=== PATIENT | female | born 1940 | race Hispanic/Latino ===

== ENCOUNTER 2019-11-14 21:34 | Emergency (ER) | payer OTHER ==
[2019-11-14 22:41] LABS: Protime INR 1.01
[2019-11-14 22:42] LABS: Absolute Lymphocytes (CBC) 3.3 K/uL (0.7-4.9); Hematocrit 39.3 % (36.0-45.0); Lymphocytes % 49.4 % (15.3-44.8); MPV 9.3 fL (7.6-11.3); RBC Red Blood Cell Count 4.78 M/uL (3.86-4.86)
[2019-11-14] MEDS ORDERED: MECLIZINE HCL 12.5 MG TAB ONE (22:48)
[2019-11-14 23:00] LABS: ALT/SGPT 19 U/L (12-78); AST/SGOT 20 U/L (15-37); Albumin 3.4 g/dL (3.4-5.0); Alkaline Phosphatase 106 U/L (45-117); BUN Blood Urea Nitrogen 17 mg/dL (7-18); Bicarbonate 24 mmol/L (21-32); Bilirubin Direct 0.1 mg/dL (0-0.2); Bilirubin Total 0.3 mg/dL (0.2-1.0); Glucose Level 100 mg/dL (74-106); NT PRO-BNP 811 pg/mL (<450); Potassium 3.3 mmol/L (3.5-5.1); Protein, Total 8.4 g/dL (6.4-8.2); Sodium Level 141 mmol/L (136-145); Troponin (Emerg Dept Use Only) < 0.02 ng/mL (0.0-0.045)
--- NOTE | 2019-11-14 23:08 | RAD REPORT ---
EXAM DESCRIPTION: Gino Single View11/14/2019 10:22 pm CLINICAL HISTORY: Chest pain COMPARISON: 2017 FINDINGS: The lungs appear clear of acute infiltrate. The heart is mildly to moderately enlarged IMPRESSION: No acute abnormalities displayed
--- NOTE | 2019-11-14 23:20 | RAD REPORT ---
EXAM DESCRIPTION: CT - Ct Stroke Brain Wo Cont - 11/14/2019 10:20 pm CLINICAL HISTORY: DIZZINESS COMPARISON: Head Brain Wo Cont dated 05/14/2017 TECHNIQUE: Axial 5 millimeter thick images of the head were obtained without IV contrast. All CT scans are performed using dose optimization technique as appropriate and may include automated exposure control or mA/KV adjustment according to patient size. FINDINGS: No intracranial hemorrhage, mass, or cerebral edema. No acute infarction identifiable. No cortical edema or sulcal effacement. Minimal atrophy and chronic ischemic changes match comparison. G ray matter-white matter differentiation is preserved.Ventricles are in proportion to any volume loss. Intracranial findings are similar to comparison. Mastoid air cells are clear. Left-sided acute sinusitis changes are present. Retention cyst present i n the right maxillary sinus. Findings telephoned to the referring clinician 11:13 p.m., immediately after being notified about a t echnical malfunction with the [employer] service. IMPRESSION: No hemorrhage or acute intracranial finding. Minimal atrophy and chronic ischemic changes match comparison. Acute sinusitis in the frontal, ethmoid and maxillary sinuses on the left.
[2019-11-14] MEDS ORDERED: DIPHENHYDRAMINE 50 MG/ML VIAL ONE (23:50)
[2019-11-14] MEDS ORDERED: ACETAMINOPHEN 325 MG TABLET ONE (23:50)
[2019-11-15] MEDS ORDERED: ASPIRIN 81 MG CHEWABLE TABLET ONE (00:53)
[2019-11-15] MEDS ORDERED: NA CHLORIDE 0.9% 1,000 ML ONE (00:53)
[2019-11-15] MEDS ORDERED: FOLIC ACID 5 MG/ML VIAL ONE (00:55)
[2019-11-15] MEDS ORDERED: CEFTRIAXONE/SWI 1gm 1 GM/10 ML SYR ONE (00:55)
--- NOTE | 2019-11-15 01:50 | RAD REPORT ---
EXAM DESCRIPTION: CT - Neck Angio - 11/15/2019 12:03 am CLINICAL HISTORY: dizziness TECHNIQUE: During dynamic enhancement using nonionic IV contrast, axial 2 mm thick images of the nec k were obtained. Sagittal and axial reconstruction images were generated using MIP technique and revi ewed. All CT scans are performed using dose optimization technique as appropriate and may include automated exposure control or mA/KV adjustment according to patient size. COMPARISON: CT imaging April 2017, May 2016 ; MRI imaging November 1015 FINDINGS: No aneurysm or vascular malformation identified. No carotid dissection. No aortic arch or great vessel origin abnormality seen. No significant stenosis, vasculitis or other significant carotid artery finding. A dominant left vertebral artery is present with normal origin. The right vertebral artery is substan tially smaller than the left. There is irregular narrowing seen at multiple sites along the course of the right vertebral artery from origin to the junction with the basilar artery. Comparing with the p rior imaging, right vertebral artery is smaller in size than previously seen. In the clinical settin g, right vertebral artery dissection is suspected. Atherosclerotic change as an etiology would be unl ikely given the absence of any other significant disease. Due to technical malfunction, images could not be sent to the [employer] service. Imaging was only now available for report. Findings telephoned to the referring physician 0147 hours. IMPRESSION: Narrowed and irregular right vertebral artery suspicious for dissection. Bilateral carotid vasculature in the left vertebral artery show no significant finding.
--- NOTE | 2019-11-15 01:52 | RAD REPORT ---
EXAM DESCRIPTION: CT - Head angio - 11/15/2019 12:03 am CLINICAL HISTORY: DIZZINESS TECHNIQUE: During dynamic enhancement using nonionic IV contrast, axial 1 millimeter thick images of the head were obtained. Sagittal and axial reconstruction images were generated using MIP technique and reviewed. All CT scans are performed using dose optimization technique as appropriate and may include automated exposure control or mA/KV adjustment according to patient size. COMPARISON: CT head same date FINDINGS: No aneurysm or vascular malformation identified. Distal left vertebral artery and basilar artery are normal. Right vertebral artery is detailed in CTA examination. Major venous sinuses are patent. No stenosis, named branch occlusion, vasculitis or other significant vascular finding identifiable. IMPRESSION: Negative CT angio head examination. Right vertebral artery finding is detailed in the C TA neck report.
--- NOTE | 2019-11-15 02:06 | EDPHYS ---
Physician Documentation [facility] Name: Lawanda Sharp Age: 79 yrs Sex: Female : 1940 Arrival Date: 11/14/2019 Time: 21:37 Bed 5 Private MD: Jose Strong R ED Physician Destin Cooley HPI: 11/13 21:53 This 79 yrs old Female presents to ER via Ambulatory with complaints of jmm Dizziness, Runny Nose. 21:53 The patient presents with dizziness. Onset: The symptoms/episode began/occurred jmm acutely, 2 hour(s) ago. Modifying factors: The symptoms are alleviated by nothing, the symptoms are aggravated by movement of head, standing up, walking. Associated signs and symptoms: Pertinent negatives:. This is a 79 year old female with a history of htn that presents to the ED with complaints of dizziness beginning approx 2 hours ago. Worsened with walking and changing position. Denies vomiting. Patient has had sinus congestion for the past 2 days. Denies fever. . Historical: - Allergies: 21:37 NKDA; jb4 - Home Meds: 21:37 Lisinopril Oral [Active]; jb4 - PMHx: 21:37 Hypertension; jb4 - PSHx: 21:37 Hysterectomy; jb4 - Immunization history:: Adult Immunizations not up to date. - Social history:: Smoking status: Patient denies any tobacco usage or history of. Patient/guardian denies using alcohol, street drugs. ROS: 21:53 Constitutional: Negative for fever, chills, and weight loss, Cardiovascular: Negative jmm for chest pain, palpitations, and edema, Respiratory: Negative for shortness of breath, cough, wheezing, and pleuritic chest pain. 21:53 ENT: Positive for sinus congestion. 21:53 Neuro: Positive for dizziness. 21:53 All other systems are negative. Exam: 21:53 Constitutional: This is a well developed, well nourished patient who is awake, alert, jmm and in no acute distress. Head/Face: atraumatic. 21:53 ENT: Moist Mucus Membranes Neck: Trachea midline, Supple Chest/axilla: Normal chest wall appearance and motion. Cardiovascular: Regular rate and rhythm. No edema appreciated Respiratory: Normal respirations, no respiratory distress appreciated Abdomen/GI: Non distended, soft Back: Normal ROM Skin: General appearance color normal MS/ Extremity: Moves all extremities, no obvious deformities appreciated, no edema noted to the lower extremities 21:53 Eyes: Nystagmus: horizontal. 21:53 Neuro: Orientation: is normal, Mentation: is normal, Memory: is normal, Cerebellar function: normal finger to nose testing. 21:53 Psych: Behavior/mood is pleasant, cooperative. Vital Signs: 21:37 BP 173 / 96; Pulse 72; Resp 18; Temp 97.4(TE); Pulse Ox 100% on R/A; Weight 72.57 kg jb4 (R); Height 5 ft. 1 in. (154.94 cm) (R); Pain 0/10; 22:56 BP 148 / 78; Pulse 86; Resp 17; Pulse Ox 97% on R/A; jb4 11/14 00:00 BP 139 / 98; Pulse 85; Resp 19; Pulse Ox 99% on R/A; jb4 01:15 BP 161 / 87; Pulse 72; Resp 16; Pulse Ox 99% on R/A; jb4 01:45 BP 174 / 92; Pulse 83; Resp 16; Pulse Ox 100% ; jb4 03:15 BP 130 / 88; Pulse 84; Resp 16; Pulse Ox 97% on R/A; jb4 04:15 BP 140 / 84; Pulse 81; Resp 16; Pulse Ox 98% on R/A; jb4 11/13 21:37 Body Mass Index 30.23 (72.57 kg, 154.94 cm) jb4 NIH Stroke Scale Scores: 11/13 22:11 NIHSS Score: 0 4 MDM: 21:53 Patient medically screened. [facility] 11/14 02:01 Data reviewed: vital signs, nurses notes. Counseling: I had a detailed discussion with yancy the patient and/or guardian regarding: the historical points, exam findings, and any diagnostic results supporting the discharge/admit diagnosis, lab results, radiology results, the need for outpatient follow up, to return to the emergency department if symptoms worsen or persist or if there are any questions or concerns that arise at home. ED course: Dizziness has resolved in the ED. Patient states she feels much better. I discussed CT angio and non contrast studies with Dr. Freed at [facility] concerning results concerning for artery dissection whom recommends outpatient follow up with MRI. . 02:48 ED course: i discussed the patient with [facility] whom accepted transfer. . [facility] 11/13 22:04 Order name: Basic Metabolic Panel; Complete Time: 23:08 [facility] 11/13 22:04 Order name: CBC with Diff; Complete Time: 22:53 [facility] 11/13 22:04 Order name: LFT's; Complete Time: 23:08 [facility] 11/13 22:04 Order name: Magnesium; Complete Time: 23:08 [facility] 11/13 22:04 Order name: NT PRO-BNP; Complete Time: 23:08 [facility] 11/13 22:04 Order name: PT-INR; Complete Time: :53 [facility] 11/13 22:04 Order name: Troponin (emerg Dept Use Only); Complete Time: 23:08 [facility] 11/13 22:04 Order name: XRAY Chest (1 view); Complete Time: 23:15 [facility] 11/13 22:04 Order name: CT Stroke Brain w/o Contrast; Complete Time: 23:28 [facility] 11/13 22:05 Order name: CT Head Angio; Complete Time: 01:59 [facility] 11/13 22:05 Order name: CT Neck Angio; Complete Time: 01:53 [facility] 11/13 22:21 Order name: Glucose, Ancillary Testing; Complete Time: 22:22 [facility] 11/13 22:04 Order name: EKG; Complete Time: 22:05 [facility] 11/13 22:04 Order name: Cardiac monitoring; Complete Time: 22:32 [facility] 11/13 22:04 Order name: EKG - Nurse/Tech; Complete Time: 22:32 [facility] 11/13 22:04 Order name: IV Saline Lock; Complete Time: 22:32 [facility] 11/13 22:04 Order name: Labs collected and sent; Complete Time: 22:32 [facility] 11/13 22:04 Order name: O2 Per Protocol; Complete Time: 22:32 [facility] 11/13 22:04 Order name: O2 Sat Monitoring; Complete Time: 22:32 [facility] Administered Medications: 11/13 22:47 Drug: Meclizine 25 mg Route: PO; 4 23:40 Follow up: Response: No adverse reaction; No change in condition [facility] 23:50 Drug: Benadryl 12.5 mg Route: IVP; Site: right antecubital; jb4 11/14 00:20 Follow up: Response: No adverse reaction [facility] 11/13 23:50 Drug: Tylenol 650 mg Route: PO; 4 11/14 00:20 Follow up: Response: No adverse reaction; Pain is decreased jb4 00:55 Drug: Rocephin - (cefTRIAXone) 1 grams {Note: Given IVP per pharmacy protocol.} Route: jb4 IVPB; Infused Over: 30 mins; Site: right antecubital; 00:57 Follow up: Response: No adverse reaction; IV Status: Completed infusion; IV Intake: [id number] 01:00 Follow up: Response: No adverse reaction; IV Status: Completed infusion; IV Intake: [id number] 01:00 Drug: NS 0.9% 1000 ml Route: IV; Rate: 1 bolus; Site: right antecubital; jb4 01:45 Follow up: Response: No adverse reaction; IV Status: Completed infusion; IV Intake: jb4 1000ml 01:00 Drug: foLIC Acid 1 mg Route: IVPB; Site: right antecubital; jb4 01:45 Follow up: Response: No adverse reaction; IV Status: Completed infusion jb4 01:00 Drug: Aspirin Chewable Tablet 324 mg Route: PO; jb4 01:30 Follow up: Response: No adverse reaction [facility] Point of Care Testing: Blood Glucose: 11/13 22:09 Blood Glucose: 100 mg/dL; [facility] Ranges: Critical Glucose Levels:Adult <50 mg/dl or >400 mg/dl <40 mg/dl or >180 mg/dl Disposition: 11/15/19 02:51 Transfer ordered to [facility]. Diagnosis are Dizziness and giddiness, Acute frontal sinusitis, Dissection of vertebral artery. - Reason for transfer: Higher level of care. - Accepting physician is [facility]. - Condition is Stable. - Problem is new. - Symptoms have improved. NIH Stroke Scale - NIH Stroke Score Date: 11/14/2019 Time: 22:11 Total Score = 0 1a. Level of Consciousness (LOC) - 0(Alert) 1b. Level of Consciousness (LOC) (Year \T\ Age) - 0(Both) 1c. LOC Commands (Open \T\ Closes Eyes/High School Music Teacher) - 0(Both) 2. Best Gaze (Lateral Gaze Paresis) - 0(Normal) 3. Visual Field Loss - 0(No visual loss) 4. Facial Palsy - 0(Normal) 5a. Left Arm: Motor (10-second hold) - 0(No drift) 5b. Right Arm: Motor (10-second hold) - 0(No drift) 6a. Left Leg: Motor (5-second hold - always test supine) - 0(No drift) 6b. Right Leg: Motor (5-second hold - always test supine) - 0(No drift) 7. Limb Ataxia (finger/nose \T\ heel/ca - test with eyes open) - 0(Absent) 8. Sensory Loss (pinprick arms/legs/face) - 0(Normal) 9. Best Language: Aphasia (description/naming/reading) - 0(No aphasia) 10. Dysarthria (speech clarity - read or repeat words) - 0(Normal) 11. Extinction and Inattention (visual/tactile/auditory/spatial/personal) - 0(No abnormality) Initials: [place] Addendum: 11/16/2019 18:04 Co-signature as Attending Physician, Destin Cooley MD I agree with the [facility] assessment and plan of care. Signatures: Dispatcher [employer] [facility] Destin Cooley MD MD cha Mickail, Joel, PA PA [facility] Carmelo Trimble, RN RN jb4 Umer George mw2 Corrections: (The following items were deleted from the chart) 11/13 22:09 22:05 Head Brain Wo [id number].[id number] ordered. [facility] 11/14 02:26 02:04 11/15/2019 02:04 Discharged to Home. Impression: Acute Sinusitis; yancy Vertigo. Condition is Stable. Forms are Medication Reconciliation Form, Thank You Letter, Antibiotic Education, Prescription Opioid Use. Follow up: Thai Emmanuel; When: 2 - 3 days; Reason: Recheck today's complaints, Continuance of care, Re-evaluation by your physician. yancy 04:25 02:51 11/15/2019 02:51 Transfer ordered to [facility]. Diagnosis mw2 is Dizziness and giddiness; Acute frontal sinusitis; Dissection of vertebral artery. Reason for transfer: Higher level of care. Accepting physician is [facility]. Condition is Stable. Problem is new. Symptoms have improved. [place]
--- NOTE | 2019-11-15 02:06 | ER ---
Nurse's Notes [facility] Name: Lawanda Sharp Age: 79 yrs Sex: Female : 1940 Arrival Date: 11/14/2019 Time: 21:37 Bed 5 Private MD: Jose Strong R Diagnosis: Dizziness and giddiness;Acute frontal sinusitis;Dissection of vertebral artery Presentation: 11/13 21:37 Chief complaint: Patient states: I started feeling dizzy 2 hours ago. I don't feel good jb4 and I feel weak all over. 21:37 Coronavirus screen: The patient has NOT traveled to a country currently being monitored jb4 by the [facility] within the last 14 days. Proceed with normal triage procedures. The patient has NOT had contact with any known and/or suspected case of coronavirus. Proceed with normal triage procedures. Ebola Screen: No symptoms or risks identified at this time. Initial Sepsis Screen: Does the patient meet any 2 criteria? No. Patient's initial sepsis screen is negative. Does the patient have a suspected source of infection? No. Patient's initial sepsis screen is negative. Risk Assessment: Do you want to hurt yourself or someone else? Patient reports no desire to harm self or others. 21:37 Method Of Arrival: Ambulatory jb4 21:37 Acuity: SANIYA 2 jb4 21:37 Onset of symptoms was November 14, 2019 at 19:30. jb4 22:05 No acute neurological deficit is noted. Pre-hospital glucose is not applicable to this jb4 patient. Triage Assessment: 21:37 The onset of the patients symptoms was less than three hours ago. Neuro: Reports. jb4 21:37 The onset of the patients symptoms was November 14, 2019 at 19:30. General: Appears in no jb4 apparent distress. uncomfortable, Behavior is calm, cooperative, appropriate for age. Neuro: Level of Consciousness is awake, alert, obeys commands, Oriented to person, place, time, situation, Chief Cook are equal bilaterally Moves all extremities. Full function Gait is steady, Speech is normal, Facial symmetry appears normal, Pupils are PERRLA, Intact Reports dizziness, since 1930 weakness "all over". Stroke Activation: Symptom onset < 3 hours Physician: Stroke Attending; Name: ; Notified At: ; Arrived At: Physician: Chief Stroke Resident; Name: ; Notified At: ; Arrived At: Physician: Stroke Resident; Name: ; Notified At: ; Arrived At: Physician: ED Attending; Name: Ole; Notified At: 22:05; Arrived At: 22:05 Physician: ED Resident; Name: ; Notified At: ; Arrived At: Historical: - Allergies: 21:37 NKDA; jb4 - Home Meds: 21:37 Lisinopril Oral [Active]; jb4 - PMHx: 21:37 Hypertension; jb4 - PSHx: 21:37 Hysterectomy; jb4 - Immunization history:: Adult Immunizations not up to date. - Social history:: Smoking status: Patient denies any tobacco usage or history of. Patient/guardian denies using alcohol, street drugs. Screenin:37 Abuse screen: Denies threats or abuse. Nutritional screening: No deficits noted. jb4 Tuberculosis screening: No symptoms or risk factors identified. Fall Risk None identified. Assessment: 21:37 General: Appears in no apparent distress. uncomfortable, Behavior is calm, cooperative, jb4 appropriate for age. Pain: Denies pain. Neuro: Level of Consciousness is awake, alert, obeys commands, Oriented to person, place, time, situation, Chief Cook are equal bilaterally Moves all extremities. Full function Gait is steady, Speech is normal, Facial symmetry appears normal, Pupils are PERRLA, Intact. Cardiovascular: Patient's skin is warm and dry. Respiratory: Airway is patent Respiratory effort is even, unlabored, Respiratory pattern is regular, symmetrical. GI: No signs and/or symptoms were reported involving the gastrointestinal system. : No signs and/or symptoms were reported regarding the genitourinary system. EENT: No signs and/or symptoms were reported regarding the EENT system. Derm: Skin is intact, Skin is pink, warm \\T\\ dry. Musculoskeletal: Circulation, motion, and sensation intact. Range of motion: intact in all extremities. 22:11 VAN Scoring: Arm Drift: Patients demonstrates NO arm weakness. Patient is VAN Negative. jb4 The patient has not been NPO before screening. The patient is alert, and able to follow commands. The patient does not exhibit slurred or garbled speech. The patient is not exhibiting difficulty speaking. The patient does not exhibit difficulty understanding words. The patient is able to swallow own secretions with no drooling or need for suction. Patient tolerated one teaspoon of water. No drooling, immediate coughing, gurgling, or clearing of the throat was noted. The patient tolerated 90mL of water. No drooling, immediate coughing, gurgling, or clearing of the throat was noted. The patient passed the bedside swallow screening. Oral medications may be given as ordered. Contact Physician for further diet orders. Provider notified of bedside swallow screening results: Vinicius CLIFFORD. 22:58 Reassessment: Patient appears in no apparent distress at this time. Patient and/or jb4 family updated on plan of care and expected duration. Pain level reassessed. Patient is alert, oriented x 3, equal unlabored respirations, skin warm/dry/pink. 23:45 Reassessment: Patient appears in no apparent distress at this time. Patient and/or jb4 family updated on plan of care and expected duration. Pain level reassessed. Patient is alert, oriented x 3, equal unlabored respirations, skin warm/dry/pink. PT reports having a headache after CT w/ contrast. Reports dizziness is the same. Provider notified, see MAR for orders. 11/14 01:00 Reassessment: Patient appears in no apparent distress at this time. Patient and/or jb4 family updated on plan of care and expected duration. Pain level reassessed. Patient is alert, oriented x 3, equal unlabored respirations, skin warm/dry/pink. PT reports feeling better, denies head pressure and dizziness. 02:00 Reassessment: Patient appears in no apparent distress at this time. PT is resting in jb4 bed with eyes closed respirations even and unlabored, no s/s or pain or distress noted. 03:03 Reassessment: Patient appears in no apparent distress at this time. Patient and/or jb4 family updated on plan of care and expected duration. Pain level reassessed. Patient is alert, oriented x 3, equal unlabored respirations, skin warm/dry/pink. 04:15 Reassessment: Patient appears in no apparent distress at this time. Patient and/or jb4 family updated on plan of care and expected duration. Pain level reassessed. Patient is alert, oriented x 3, equal unlabored respirations, skin warm/dry/pink. Pt is being transferred to receiving facility via [facility]. Vital Signs: 11/13 21:37 BP 173 / 96; Pulse 72; Resp 18; Temp 97.4(TE); Pulse Ox 100% on R/A; Weight 72.57 kg jb4 (R); Height 5 ft. 1 in. (154.94 cm) (R); Pain 0/10; 22:56 BP 148 / 78; Pulse 86; Resp 17; Pulse Ox 97% on R/A; jb4 11/14 00:00 BP 139 / 98; Pulse 85; Resp 19; Pulse Ox 99% on R/A; jb4 01:15 BP 161 / 87; Pulse 72; Resp 16; Pulse Ox 99% on R/A; jb4 01:45 BP 174 / 92; Pulse 83; Resp 16; Pulse Ox 100% ; jb4 03:15 BP 130 / 88; Pulse 84; Resp 16; Pulse Ox 97% on R/A; jb4 04:15 BP 140 / 84; Pulse 81; Resp 16; Pulse Ox 98% on R/A; jb4 11/13 21:37 Body Mass Index 30.23 (72.57 kg, 154.94 cm) jb4 NIH Stroke Scale Scores: 11/13 22:11 NIHSS Score: 0 4 ED Course: 21:37 Patient arrived in ED. es 21:37 Arm band placed on right wrist. jb4 21:37 Patient has correct armband on for positive identification. Placed in gown. Bed in low jb4 position. Call light in reach. Side rails up X 1. panel monitor on. Pulse ox on. NIBP on. 21:38 Jose Strong MD is Private Physician. es 21:48 Vinicius Handy PA is PHCP. jmm 21:48 Destin Cooley MD is Attending Physician. jmm 21:52 Carmelo Trimble, RN is Primary Nurse. jb4 21:54 Triage completed. jb4 22:20 Radiology exam delayed due to lab results not completed at this time. (BUN/Creatinine). 2 22:20 Initial lab(s) drawn, by me, sent to lab. Inserted saline lock: 20 gauge in right jb4 antecubital area, using aseptic technique. Blood collected. 22:22 XRAY Chest (1 view) In Process Unspecified. EDMS 22:22 CT Stroke Brain w/o Contrast In Process Unspecified. EDMS 11/14 00:07 CT Head Angio In Process Unspecified. EDMS 00:07 CT Neck Angio In Process Unspecified. EDMS 02:03 Thai Emmanuel MD is Referral Physician. [facility] 04:15 No provider procedures requiring assistance completed. Patient transferred, IV remains jb4 in place. Administered Medications: 11/13 22:47 Drug: Meclizine 25 mg Route: PO; jb4 23:40 Follow up: Response: No adverse reaction; No change in condition jb4 23:50 Drug: Benadryl 12.5 mg Route: IVP; Site: right antecubital; jb4 11/14 00:20 Follow up: Response: No adverse reaction jb4 11/13 23:50 Drug: Tylenol 650 mg Route: PO; jb4 11/14 00:20 Follow up: Response: No adverse reaction; Pain is decreased jb4 00:55 Drug: Rocephin - (cefTRIAXone) 1 grams {Note: Given IVP per pharmacy protocol.} Route: jb4 IVPB; Infused Over: 30 mins; Site: right antecubital; 00:57 Follow up: Response: No adverse reaction; IV Status: Completed infusion; IV Intake: [id number] 01:00 Follow up: Response: No adverse reaction; IV Status: Completed infusion; IV Intake: [id number] 01:00 Drug: NS 0.9% 1000 ml Route: IV; Rate: 1 bolus; Site: right antecubital; jb4 01:45 Follow up: Response: No adverse reaction; IV Status: Completed infusion; IV Intake: jb4 1000ml 01:00 Drug: foLIC Acid 1 mg Route: IVPB; Site: right antecubital; jb4 01:45 Follow up: Response: No adverse reaction; IV Status: Completed infusion jb4 01:00 Drug: Aspirin Chewable Tablet 324 mg Route: PO; jb4 01:30 Follow up: Response: No adverse reaction jb4 Point of Care Testing: Blood Glucose: 11/13 22:09 Blood Glucose: 100 mg/dL; jb4 Ranges: Intake: 11/14 00:57 IV: 10ml; Total: 10ml. jb4 01:00 IV: 10ml; Total: 20ml. jb4 01:45 IV: 1000ml; Total: 1020ml. jb4 Outcome: 02:04 Discharge ordered by MD. haines 02:51 ER care complete, transfer ordered by MD. haines 04:15 Transferred by ground EMS Transfer form completed. X-rays sent w/ patient. [place] 04:15 Condition: stable 04:15 Discharge instructions given to patient, Instructed on the need for transfer, Demonstrated understanding of instructions. 04:25 Patient left the ED. mw2 NIH Stroke Scale - NIH Stroke Score Date: 11/14/2019 Time: 22:11 Total Score = 0 1a. Level of Consciousness (LOC) - 0(Alert) 1b. Level of Consciousness (LOC) (Year \\T\\ Age) - 0(Both) 1c. LOC Commands (Open \\T\\ Closes Eyes/Air Saw Operator) - 0(Both) 2. Best Gaze (Lateral Gaze Paresis) - 0(Normal) 3. Visual Field Loss - 0(No visual loss) 4. Facial Palsy - 0(Normal) 5a. Left Arm: Motor (10-second hold) - 0(No drift) 5b. Right Arm: Motor (10-second hold) - 0(No drift) 6a. Left Leg: Motor (5-second hold - always test supine) - 0(No drift) 6b. Right Leg: Motor (5-second hold - always test supine) - 0(No drift) 7. Limb Ataxia (finger/nose \\T\\ heel/ca - test with eyes open) - 0(Absent) 8. Sensory Loss (pinprick arms/legs/face) - 0(Normal) 9. Best Language: Aphasia (description/naming/reading) - 0(No aphasia) 10. Dysarthria (speech clarity - read or repeat words) - 0(Normal) 11. Extinction and Inattention (visual/tactile/auditory/spatial/personal) - 0(No abnormality) Initials: jb4 Signatures: Dispatcher [employer] EDMS Vinicius Handy PA PA jmm Salyer, Edna es Bryson, James, HERSON RN jb4 Jael Santillan 2 Umer George mw2 Corrections: (The following items were deleted from the chart) 11/13 22:32 21:37 Acuity: SANIYA 4 jbLynette jbLynette 11/14 03:03 02:42 Reassessment: Patient appears in no apparent distress at this time. jb4 Patient and/or family updated on plan of care and expected duration. Pain level reassessed. Patient is alert, oriented x 3, equal unlabored respirations, skin warm/dry/pink. jb4
[2019-11-15 05:04] VITALS: TEMP 98.3
[2019-11-15 05:07] VITALS: BP 131/69; O2SAT 98
--- NOTE | 2019-11-16 09:00 | EKG ---
Test Date: 2019-11-14 Test Time: 22:40:37 Iv Rn: JOSE MEASUREMENT RESULTS: Intervals: Rate: 81 NC: 180 QRSD: 84 QT: 394 QTc: 457 [place]: P: 34 NC: 180 QRS: 7 T: 85 INTERPRETIVE STATEMENTS: Sinus rhythm with frequent premature ventricular complexes Nonspecific T wave abnormality Abnormal ECG Compared to ECG 05/15/2017 06:51:52 T-wave abnormality now present ST (T wave) deviation no longer present Possible ischemia no longer present Electronically Signed On 11-16-19 08:58:02 CDT by Austin Kirby
== END 2019-11-15 04:25 | disposition short-term general hospital (02) ==
LOC: ER 21:34
DX: J01.10 Acute frontal sinusitis, unspecified (principal); I77.74 Dissection of vertebral artery; I10 Essential (primary) hypertension
CPT/HCPCS: 96365; 93005; 85025; 80048; 36415; 83735; 85610; 82947; 80076; 84484; 83880; 70496; 70498; 70450; 71045; 96375; 99285; Q9967; J1200; J0696; J7030

== ENCOUNTER 2020-01-07 08:58 | Emergency (ER) | payer OTHER ==
--- NOTE | 2020-01-07 09:29 | ER ---
Nurse's Notes [facility] Name: Lawanda Sharp Age: 79 yrs Sex: Female : 1940 Arrival Date: 01/07/2020 Time: 09:03 Bed 23 Private MD: Jose Strong R Diagnosis: Pain in left hand Presentation: 01/06 09:18 Chief complaint: Patient states: pain to L 5th finger that began a few weeks ago after ss biting nail too short. No redness or swelling noted. Coronavirus screen: Proceed with normal triage. Patient denies a cough. Patient denies shortness of breath or difficulty breathing. Patient denies measured and/or subjective temperature greater than 100.4F prior to today's visit. Patient denies travel on a cruise ship or to a country the [facility] currently lists as an affected area. Patient denies contact with known and/or suspected case of COVID-19. Ebola Screen: Patient denies exposure to infectious person. Patient denies travel to an Ebola-affected area in the 21 days before illness onset. Initial Sepsis Screen: Does the patient meet any 2 criteria? No. Patient's initial sepsis screen is negative. Does the patient have a suspected source of infection?. Risk Assessment: Do you want to hurt yourself or someone else? Patient reports no desire to harm self or others. Onset of symptoms is unknown. 09:18 Method Of Arrival: Ambulatory ss 09:18 Acuity: SANIYA 5 ss Historical: - Allergies: 09:21 NKDA; ss - PMHx: 09:21 Hypertension; ss - PSHx: 09:21 Hysterectomy; ss - Immunization history:: Adult Immunizations up to date. - Social history:: Smoking status: Patient denies any tobacco usage or history of. Patient/guardian denies using alcohol, street drugs, The patient lives with family. - Family history:: not pertinent. Screenin:22 Abuse screen: Denies threats or abuse. Denies injuries from another. Nutritional ss screening: No deficits noted. Tuberculosis screening: Never had TB. Fall Risk None identified. Assessment: 09:18 General: Appears uncomfortable, Behavior is calm, cooperative. General: No redness or ss swelling noted. Pt reports that she perhaps bit her nail too short a few weeks ago and keeping biting it. Pt verbalizes understanding the importance of proper hand hygiene and problems that could arise if she continues to bite fingernails . Pain: Complains of pain in left little fingernail Pain currently is 7 out of 10 on a pain scale. Is continuous. Neuro: Level of Consciousness is awake, alert, obeys commands, Oriented to person, place, time, situation. Cardiovascular: Capillary refill < 3 seconds is brisk in bilateral fingers. Respiratory: Airway is patent Respiratory effort is even, unlabored, Respiratory pattern is regular, symmetrical, Denies cough, shortness of breath. EENT: Oral mucosa is moist. Derm: Skin is intact, is healthy with good turgor, Skin is pink, warm \T\ dry. normal. Vital Signs: 09:18 BP 180 / 92; Pulse 57; Resp 15; Temp 97.2(TE); Pulse Ox 98% on R/A; Weight 72.57 kg; ss Height 5 ft. 2 in. (157.48 cm); Pain 7/10; 09:18 Body Mass Index 29.26 (72.57 kg, 157.48 cm) ED Course: 09:03 Patient arrived in ED. mr 09:03 Jose Strong MD is Private Physician. mr 09:18 Tara Ortiz, HERSON is Primary Nurse. 09:20 Triage completed. 09:20 Edmund Grace MD is Attending Physician. ma2 09:22 Patient has correct armband on for positive identification. Bed in low position. Call ss light in reach. 09:22 Arm band placed on right wrist. 09:39 No provider procedures requiring assistance completed. Patient did not have IV access ss during this emergency room visit. Administered Medications: No medications were administered Outcome: 09:28 Discharge ordered by . ma2 09:39 Discharged to home ambulatory. ss 09:39 Condition: good 09:39 Discharge instructions given to patient, Instructed on discharge instructions, follow up and referral plans. medication usage, Demonstrated understanding of instructions, follow-up care, medications, Prescriptions given X 1. 09:39 Patient left the ED. Signatures: Tung Anika mr Tara Ortiz, RN RN Edmund Grace MD MD [facility]
--- NOTE | 2020-01-07 09:30 | EDPHYS ---
Physician Documentation [facility] Name: Lawanda Sharp Age: 79 yrs Sex: Female : 1940 Arrival Date: 01/07/2020 Time: 09:03 Bed 23 Private MD: Jose Strong R ED Physician Edmund Grace HPI: 01/06 09:25 This 79 yrs old Female presents to ER via Ambulatory with complaints of pain ma2 to fingernail. 09:25 The patient or guardian reports pain. Onset: The symptoms/episode began/occurred ma2 suddenly, gradually, 1 day(s) ago. Associated signs and symptoms: Pertinent negatives: fever, numbness distally, tingling distally, vomiting. Severity of symptoms: At their worst the symptoms were very mild, in the emergency department the symptoms are unchanged. The patient has not experienced similar symptoms in the past. Historical: - Allergies: 09:21 NKDA; ss - PMHx: 09:21 Hypertension; ss - PSHx: 09:21 Hysterectomy; ss - Immunization history:: Adult Immunizations up to date. - Social history:: Smoking status: Patient denies any tobacco usage or history of. Patient/guardian denies using alcohol, street drugs, The patient lives with family. - Family history:: not pertinent. ROS: 09:25 Constitutional: Negative for fever, chills, and weight loss. ma2 09:25 All other systems are negative. Exam: 09:25 Constitutional: This is a well developed, well nourished patient who is awake, alert, ma2 and in no acute distress. Chest/axilla: Normal chest wall appearance and motion. Nontender with no deformity. No lesions are appreciated. Cardiovascular: Regular rate and rhythm with a normal S1 and S2. No gallops, murmurs, or rubs. Normal PMI, no JVD. No pulse deficits. Respiratory: Lungs have equal breath sounds bilaterally, clear to auscultation and percussion. No rales, rhonchi or wheezes noted. No increased work of breathing, no retractions or nasal flaring. Abdomen/GI: Soft, non-tender, with normal bowel sounds. No distension or tympany. No guarding or rebound. No evidence of tenderness throughout. MS/ Extremity: Pulses equal, no cyanosis. Neurovascular intact. Full, normal range of motion. Neuro: Awake and alert, GCS 15, oriented to person, place, time, and situation. Cranial nerves II-XII grossly intact. Motor strength 5/5 in all extremities. Sensory grossly intact. Cerebellar exam normal. Normal gait. 09:25 Skin: Warm, dry with normal turgor. Normal color with no rashes, no lesions, and no ma2 evidence of cellulitis. Vital Signs: 09:18 BP 180 / 92; Pulse 57; Resp 15; Temp 97.2(TE); Pulse Ox 98% on R/A; Weight 72.57 kg; ss Height 5 ft. 2 in. (157.48 cm); Pain 7/10; 09:18 Body Mass Index 29.26 (72.57 kg, 157.48 cm) ss MDM: 09:20 Patient medically screened. ma2 09:25 Differential diagnosis: pain is intermittent and lasts for few seconds. comes twice a ma2 day. no pain now. exam is unremarkable. no symptoms at this time. Data reviewed: vital signs, nurses notes, EMS record. Response to treatment: the patient's symptoms have resolved after treatment. Administered Medications: No medications were administered Disposition: 01/07/20 09:28 Discharged to Home. Impression: Pain in left hand. - Condition is Stable. - Discharge Instructions: Musculoskeletal Pain, Pain Without a Known Cause. - Prescriptions for Neurontin 300 mg Oral Capsule - take 1 capsule by ORAL route every 8 hours; 30 capsule. - Medication Reconciliation Form, Thank You Letter, Antibiotic Education, Prescription Opioid Use form. - Follow up: Private Physician; When: Tomorrow; Reason: Continuance of care. Signatures: Tara Ortiz RN RN Edmund Grace MD MD ma2 Corrections: (The following items were deleted from the chart) 09:39 09:28 01/07/2020 09:28 Discharged to Home. Impression: Pain in left hand. Condition is ss Stable. Forms are Medication Reconciliation Form, Thank You Letter, Antibiotic Education, Prescription Opioid Use. Follow up: Private Physician; When: Tomorrow; Reason: Continuance of care. ma2
--- OUTSIDE RECORDS SUMMARY | 2020-01-07 09:34 | XMS REPORT | Continuity of Care Document ---
:1940 Author Organization [employer] Information BriefCam Care Team Providers Name Role Phone Orthobond Unavailable Un available Problems Problem Status Onset Classification Date Comments Sourc e Date Reported DIZZINESS, Active [place] DISSECTION 0 VERTEBRAL ARTERY ILLNESS, [place] UNSPECIFIED Medications Medication Details Route Status Patient Ordering Order Source Instructions Provider Date Plavix Notes: (Same No Longer As: Plavix) Active [facility] Plavix Notes: (Same Inactive As: Plavix) [facility] lisinopril 20 20 mg = 1 Active mg oral tablet tab, PO, 020 [place] Daily, # 30 tab, 0 Refill(s), Pharmacy: [facility]/pharmacy #[id number] meclizine 12.5 12.5 mg = 1 Active mg oral tablet tab, PO, 020 [place] BID, PRN Dizziness, X 15 day, # 30 tab, 0 Refill(s), Pharmacy: [facility]/pharmacy #[id number] Aspirin 81 MG 81 mg = 1 Active Enteric Coated tab, PO, 020 [place] Tablet Q24H, 0 Refill(s) atorvastatin Notes: (Same No Longer as: Lipitor) Active [facility] potassium Notes: (Same Inactive chloride 20 mEq as: K-Dur 020 [place] oral tablet, 20) "Do Not extended Crush" Give release (KCL) with food and full glass of water For patients unable to swallow tablet, dissolve in one half glass of water. Allow about 2 minutes for the tablets to disintegrate . Stir before giving to prepare slurry and administer. Please exclude Patient&#821 7;s with feeding tube less than 14 Ukrainian (Dobhoff, J-tube etc) and pediatric and patients. potassium Notes: (Same No Longer chloride 20 mEq as: K-Dur Active 020 [place] oral tablet, 20) "Do Not extended Crush" Give release (KCL) with food and full glass of water For patients unable to swallow tablet, dissolve in one half glass of water. Allow about 2 minutes for the tablets to disintegrate . Stir before giving to prepare slurry and administer. Please exclude Patient&#821 7;s with feeding tube less than 14 Ukrainian (Dobhoff, J-tube etc) and pediatric and patients. Famotidine Notes: (Same No Longer as: Pepcid) Active [address] [place] [address] Saline Flush Notes: Same No Longer 0.9% as: BD Active [address] [place] [address] Posiflush Sterile Lisinopril Notes: (Same No Longer as: Active [address] [place] [address] Prinivil, Zestril) Ativan Notes: (Same Inactive as: Ativan) 020 [facility] Aspirin 81 MG Notes: Do No Longer Enteric Coated not crush or Active 020 [facility] Tablet chew. (Same As: Ecotrin) Labetalol Notes: (Same No Longer as: Active [facility] Normodyne, Trandate) Push over 2 minutes Give bolus over 2-3 minutes. enalapril Notes: (Same No Longer as: Active [facility] Vasotec-IV) Ondansetron Notes: (Same No Longer as: Zofran) Active [address] [place] [address] MEDICATION WASTE Product Size: 4 mg Product Wasted: ___ mg Acetaminophen Notes: Do No Longer not exceed [address] [place] [address] gm/day. (Same as: Tylenol) Saline Flush Notes: Same No Longer 0.9% as: BD Active [address] [place] [address] Posiflush Sterile lisinopril 10 10 mg = 1 No Longer mg oral tablet tab, PO, [facility], # [facility] tab, 0 Refill(s) Allergies, Adverse Reactions, Alerts No Known Medication Allergies Immunizations Immunization Date Site Status Last Updated Comments Sour ce Given pneumococcal Right completed [facility] 13-valent 0 deltoid vaccine influenza virus Left completed [facility] vaccine, 0 deltoid inactivated Results Order Name Results Value Reference Date Interpretation Comments Emi rce Range CHEM PANEL Glucose Lvl 115 70 - 99 11/15 [facility] CHEM PANEL BUN 14 7 - 22 11/15 [facility] CHEM PANEL Creatinine 0.80 0.50 - 11/15 MH Lvl 1.40 [facility] CHEM PANEL Sodium Lvl 141 135 - 145 11/15 [facility] CHEM PANEL Potassium Lvl 3.8 3.5 - 5.1 11/15 [facility] CHEM PANEL Chloride Lvl 114 95 - 109 11/15 [facility] CHEM PANEL CO2 21 24 - 32 11/15 [facility] CHEM PANEL Calcium Lvl 9.2 8.5 - 10.5 11/15 [facility] CHEM PANEL AGAP 9.8 10.0 - 11/15 MH 20.0 /2019 [facility] CHEM PANEL eGFR 71 11/15 Result Comment: The [facility] eGFR is calculated using the CKD-EPI formula. In most young, healthy individuals the eGFR will be >90 mL/min/1.73m2 . The eGFR declines with age. An eGFR of 60-89 may be normal in some populations, particularly the elderly, for whom the CKD-EPI formula has not been extensively validated. Use of the eGFR is not recommended in the following populations:< br/>
Brooke viduals with unstable creatinine concentration s, including patients and those with serious co-morbid conditions.<b r/>
Patie nts with extremes in muscle mass or diet.

The data above are obtained from the National Kidney Disease Education Program (NKDEP) which additionally recommends that when the eGFR is used in patients with extremes of body mass index for purposes of drug dosing, the eGFR should be multiplied by the estimated BMI. CARDIAC Troponin-I 0.02 0.00 - 11/14 MH ENZYMES 0.40 [facility] CHEM PANEL Glucose Lvl 107 70 - 99 11/14 [facility] CHEM PANEL BUN 13 7 - 22 11/14 [facility] CHEM PANEL Creatinine 0.80 0.50 - 11/14 MH Lvl 1.40 [facility] CHEM PANEL Sodium Lvl 145 135 - 145 11/14 [facility] CHEM PANEL Potassium Lvl 3.0 3.5 - 5.1 11/14 Result Comment: [facility] Critical Result(s) called to Katie Mora at 11/15/2019 08:39 by BV. Read back OK. CHEM PANEL Chloride Lvl 112 95 - 109 11/14 [facility] CHEM PANEL CO2 26 24 - 32 11/14 [facility] CHEM PANEL AGAP 10.0 10.0 - / MH 20.0 /2019 [facility] CHEM PANEL Calcium Lvl 8.8 8.5 - 10.5 11/14 [facility] CHEM PANEL B/C Ratio 16 6 - 25 11/14 [facility] CHEM PANEL Total Protein 7.7 6.4 - 8.4 11/14 [facility] CHEM PANEL Albumin Lvl 3.1 3.5 - 5.0 11/14 [facility] CHEM PANEL Globulin 4.6 2.7 - 4.2 11/14 [facility] CHEM PANEL A/G Ratio 0.7 0.7 - 1.6 11/14 [facility] CHEM PANEL ALT 17 0 - 65 11/14 [facility] CHEM PANEL AST 23 0 - 37 11/14 [facility] CHEM PANEL Alk Phos 95 39 - 136 11/14 [facility] CHEM PANEL Bili Total 0.3 0.2 - 1.3 11/14 [facility] CHEM PANEL eGFR 71 11/14 Result Comment: The [facility] eGFR is calculated using the CKD-EPI formula. In most young, healthy individuals the eGFR will be >90 mL/min/1.73m2 . The eGFR declines with age. An eGFR of 60-89 may be normal in some populations, particularly the elderly, for whom the CKD-EPI formula has not been extensively validated. Use of the eGFR is not recommended in the following populations:< br/>
Brooke viduals with unstable creatinine concentration s, including patients and those with serious co-morbid conditions.<b r/>
Patie nts with extremes in muscle mass or diet.

The data above are obtained from the National Kidney Disease Education Program (NKDEP) which additionally recommends that when the eGFR is used in patients with extremes of body mass index for purposes of drug dosing, the eGFR should be multiplied by the estimated BMI. CHEM PANEL Magnesium Lvl 1.8 1.8 - 2.4 11/14 [facility] HEMATOLOGY WBC 4.6 3.7 - 10.4 11/14 [facility] HEMATOLOGY RBC 4.37 4.20 - 11/14 MH 5.40 /2019 [facility] HEMATOLOGY Hgb 11.8 12.0 - 11/14 MH 16.0 [facility] HEMATOLOGY Hct 36.0 36.0 - 11/14 MH 48.0 [facility] HEMATOLOGY MCV 82.3 80.0 - 11/14 MH 98.0 [facility] HEMATOLOGY MCH 27.0 27.0 - 11/14 MH 31.0 [facility] HEMATOLOGY MCHC 32.8 32.0 - 11/14 MH 36.0 [facility] HEMATOLOGY RDW 14.2 11.5 - 11/14 MH 14.5 [facility] HEMATOLOGY Platelet 223 133 - 450 11/14 [facility] HEMATOLOGY MPV 9.4 7.4 - 10.4 11/14 [facility] HEMATOLOGY Segs 35.9 45.0 - 11/14 MH 75.0 [facility] HEMATOLOGY Lymphocytes 51.8 20.0 - 11/14 MH 40.0 [facility] HEMATOLOGY Monocytes 8.1 2.0 - 12.0 11/14 [facility] HEMATOLOGY Eosinophils 3.6 0.0 - 4.0 11/14 [facility] HEMATOLOGY Basophils 0.6 0.0 - 1.0 11/14 [facility] HEMATOLOGY Neutrophils # 1.6 1.5 - 8.1 11/14 [facility] HEMATOLOGY Lymphocytes # 2.4 1.0 - 5.5 11/14 [facility] HEMATOLOGY Monocytes # 0.4 0.0 - 0.8 11/14 [facility] HEMATOLOGY Eosinophils # 0.2 0.0 - 0.5 11/14 [facility] HEMATOLOGY Basophils # 0.0 0.0 - 0.2 11/14 [facility] IMMUNOLOGY Treponemal Ab Non-Reactive Non 11/14 *NA* /2019 [facility] (11/15/19 7:20 AM) LIPIDS Trig 116 <=149 11/14 mg/dL [facility] LIPIDS Chol 121 <=199 11/14 mg/dL [facility] LIPIDS HDL 34 >=61 mg/dL 11/14 [facility] LIPIDS CHD Risk 3.56 3.90 - 11/14 MH 5.80 [facility] LIPIDS LDL 64 <=99 mg/dL 11/14 (Calculated) [facility] LIPIDS VLDL 23 11/14 [facility] Pathology Reports No Data Provided for This Section Diagnostic Reports Report Value Date Source Brain wo contrast MRI PROCEDURE INFORMATION: 11/15/2019 [facility] Exam: MR Head Without Contrast Exam date and time: 11/15/2019 8:56 AM Age: 79 years old Clinical indication: Dizziness and other: Gen we akness; Patient HX: H/o HTN; Additional info: /dizziness TECHNIQUE: Imaging protocol: MR of the head without contras t. COMPARISON: No relevant prior studies available. FINDINGS: Brain: Normal. No acute infarct. No hemorrhage. No significant white matter disease. No edema. Sellar and parasellar structu res are normal. There is no cerebellar tonsillar ectopia. Flow is seen in th e 4th portion of the dominant left vertebral artery and th e non dominant right which may be retrograde. There is flow in the intracranial carotid arteries. Ventricles: Normal. No ventriculomegaly. Bones/joints: Unremarkable. Soft tissues: Unremarkable. Sinuses: There is mucosal inflammatory changes t hroughout the bilateral maxillary sinuses involving the ostium of the le ft, ethmoid air cells and frontal sinus. There is mini mal mucosal inflammatory changes/fluid in dependent left lateral sphenoid sinus. Mastoid air cells: Normal as visualized. No mast oid effusion. Orbits: Unremarkable. IMPRESSION: There is no acute cortical infarct, parenchymal hemorrhage or an intra-axial mass. Flow is seen in the 4th portion left domin ant vertebral artery and possible retrograde in the non dominant right. There is mucosal inflammatory changes an d bilateral maxillary sinuses with a 3 cm mucous retention cyst in the right proliferat brandon mucosa of the left involving the ostium. There is mucosal inflammatory changes throughout the left ethmoid air cells, frontal sinus and to less deg ree the left lateral sphenoid sinus. Paulo Weber MD On 11/15/2019 10:01:25; VR-B [id number] Neck wo contrast MRA The outside and prior CT a s tudy of November 14, 2019 is reviewed. 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 There is occlusion at the origin with thrombus, the calib er of the vessel relatively normal. There is enhancement/early collateral re perfusion of the 2nd and 3rd portions of the vessel. The distal 3rd portion i s irregular in contour supporting the diagnosis of dissection. There is irregularity of the wall of the 4th por tion right vertebral artery which is patent, collaterali zes in with a dominant left. There is contrast/flow in the right PICA vessel. The results of study were discussed with the abdirashid rologist at 3:30 p.m.. Paulo Weber MD On 11/16/2019 15:32:17; SONAL [id number] PROCEDURE INFORMATION: Exam: MR Angiography Neck Without Contrast Exam date and time: 11/15/2019 8:56 AM Age: 79 years old Clinical indication: Dizzine ss and giddiness and weakness; Patient HX: H/o HTN, possible R vertebral artery dissection; Addition al info: /dizziness, possible vertebral artery dissection TECHNIQUE: Imaging protocol: Magnetic resonance ang iography of the neck without contrast. 3D rendering: MIP and/or 3D reconstructed images were created by the technologist. COMPARISON: No relevant prior studies available. FINDINGS: Right common carotid artery: No stenosis. No dis section or occlusion. Right internal carotid artery: No stenosis of th e extracranial segment. No dissection or occlusion. Right external carotid artery: There is narrowin g of the origin of the right external carotid artery. Right vertebral artery: No stenosis. No dissecti on or occlusion. Left common carotid artery: No stenosis. No diss ection or occlusion. Left internal carotid artery: No stenosis of the extracranial segment. No dissection or occlusion. Left external carotid artery: No stenosis. No di ssection or occlusion of the origin. Left vertebral artery: There is normal antegrade filling of the dominant left vertebral artery and only segmental of the trans cervical right. Other findings: The study is degraded by patient motion with misregistration artifacts. IMPRESSION: Normal antegrade filling of the steven nant left transcervical vertebral artery. There is only segmental fillin g of the 2nd and 3rd portions of the right. COMMENTS: Using NASCET method for measuring degree of freitas tid artery stenosis: Mild is less than 50% stenosis. Mode rate is 50-69% stenosis. Severe is 70-94% stenosis. Near occlusion is 95-99% stenosis. Paulo Weber MD On 11/15/2019 09:59:25; SONAL [id number] Brain wo contrast MRA PROCEDURE INFORMATION: 11/15/2019 [facility] Exam: MR Angiogram Head Without Contrast, Arteri es Exam date and time: 11/15/2019 8:56 AM Age: 79 years old Clinical indication: Dizzine ss and giddiness and weakness; Patient HX: H/o HTN, possible R vertebral artery dissection; Addition al info: /dizziness TECHNIQUE: Imaging protocol: MR angiogram head without cont rast. Exam focused on the arteries. 3D rendering: MIP and/or 3D reconstructed images were created by the technologist. COMPARISON: No relevant prior studies available. FINDINGS: Right internal carotid artery: Intracranial segm ent is patent with no significant stenosis. No aneurysm. Right anterior cerebral artery: No occlusion or significant stenosis. No aneurysm. Right middle cerebral artery: No occlusion or si gnificant stenosis. No aneurysm. Right posterior cerebral artery: No occlusion or significant stenosis. No aneurysm. Right vertebral artery: No occlusion or signific ant stenosis. No aneurysm. Left internal carotid artery: Intracranial segme nt is patent with no significant stenosis. No aneurysm. Left anterior cerebral artery: No occlusion or s ignificant stenosis. No aneurysm. Left middle cerebral artery: No occlusion or significant stenosis. No aneurysm. Left posterior cerebral artery: No occlusion or significant stenosis. No aneurysm. Left vertebral artery: There is flow in the 4th portion of the dominant left vertebral artery and likely retrograde flow in t he non dominant right to the level of PICA. The origin of the dominant left A ICA PICA trunk, bilateral superior cerebellar and posterior cerebral arter ies are visualized. Basilar artery: See 'Left vertebral artery' find ing. Other vasculature: The anterior communicating ar teries patent. Other findings: The study is degraded by patient motion with diminished resolution. IMPRESSION: There is flow in the 4th portion of the dominant left vertebral artery and likely retrograde flow in the non dom inant right to the level of PICA. The origin of the dominant left AICA PICA trunk, bilateral superior cerebellar and posterior cer ebral arteries are visualized. Study is degraded in signal to noise and resolution. Paulo Weber MD On 11/15/2019 10:03:14; JERSONB [id number] Consultation Notes No Data Provided for This Section Discharge Summaries No Data Provided for This Section History and Physicals No Data Provided for This Section Vital Signs Vital Sign Value Date Comments Source Systolic (mm Hg) 154 11/16/2019 [facility] t Diastolic (mm Hg) 88 11/16/2019 [facility] st Temperature Oral (F) 98.4 F 11/16/2019 [facility] Rate 57 11/16/2019 [facility] Respitory Rate 18 11/16/2019 [facility] Systolic (mm Hg) 169 11/16/2019 [facility] Diastolic (mm Hg) 88 11/16/2019 [facility] st Temperature Oral (F) 97.9 F 11/16/2019 [facility] Heart Rate 83 11/16/2019 [facility] Respitory Rate 18 11/16/2019 [facility] Systolic (mm Hg) 161 11/16/2019 [facility] Diastolic (mm Hg) 91 11/16/2019 [facility] st Temperature Oral (F) 97.5 F 11/16/2019 [facility] Heart Rate 76 11/16/2019 [facility] Respitory Rate 18 11/16/2019 [facility] Height 154.94 cm 11/15/2019 [facility] Weight 68.182 11/15/2019 [facility] BMI Calculated 28.4 11/15/2019 [facility] Encounters Location Location Encounter Encounter Reason Attending ADM DC Stat us Source Details Type Number For Provider Date Date Visit [facility] [id number] Enzo 11/14 11/15 Ramos Cooley /2019 [facility] Procedures No Data Provided for This Section Assessment and Plan Assessment and Plan Date Source Extracted from:Title: Neurology Progress Note 11/16/2019 [facility] Author: Gabriela Zapien NP Date: 11/16/19 This is a 79 year old woman with PMH of HTN who presented to ED in [facility] two hours after sudden onset of extreme dizziness, unsteady gait. Her dizziness worsens when she stands and when she turns her head to the right side. Her s ymptoms resolve when she sits down or when she stands still for a few minutes. Denies chest pain, cough, SOB, palpitations, headache, vision changes, speech diffi culties, weakness, numbness, fall, injur y, fever, chills, neck pain, nausea, vomiting, diarrhea, or urinary symptoms.NIHSS is 0. CT brain negative for acute hemorrhage or ischemia but shows severe sinus itis. Not a candidate for TPA or IATgive n her NIH of 0, nondisabling symptoms.CTA at OSH shows possible right vertebral artery dissection. She denies fall, injury, car accidents, chiropractor. Her dizzi ness did resolve in the ED after receivi ng meclizine. She was transferred to [facility] for further evaluation of possible vert dissection. BP 183/94 on arrival. IMPRESSION: BPPV unable to rule out right vert dissection PLAN: --MRI brain without infarct --MRA brain/neck: unable to confidently rule out right vertebral artery dissection and will change regimen to DAPT. ASA/plavix daily with 300mg plavix load now --agree with meclizine PRN for vertigo --check orthostatics --PT/OT --f/u with PCP as needed --f/u with outpatient neurologist for r epeat imaging in 2-[address] Magdalene Anthony No further recommendations from neurological perspective. Thank you for allowing us to participat e in the care of this patient. Please page for any questions. Discussed with Dr. Lyle Schroeder, --Gabriela Zapien, MIKKI, ACNP Extracted from:Title: Neurology Consult Note Author: Gabriela Zapien RADIOLOGICAL EQUIPMENT SPECIALIST Date: 11/15/19 This is a 79 year old woman with PMH of HTN who presented to ED in [facility] two hours after sudden onset of extreme dizziness, unsteady gait. Her dizziness worsens when she stands and when she turns h er head to the right side. Her symptoms resolve when she sits down or when she stands still for a few minutes. Denies chest pain, cough, SOB, palpitations, headache, vision changes, speech difficulties, weakness, numbness, fall, injury, fever , chills, neck pain, nausea, vomiting, diarrhea, or urinary symptoms.NIHSS is 0. CT brain negative for acute hemorrhage or ischemia but shows severe sinusitis. No t a candidate for TPA or IATgiven her NI H of 0, nondisabling symptoms.CTA at OSH shows possible right vertebral artery dissection. She denies fall, injury, car accidents, chiropractor. Her dizziness did resolve in the ED after receiving mecli zine. She was transferred to [facility] for further evaluation of possible vert dissection. BP 183/94 on arrival. IMPRESSION: BPPV possible right vert dissection PLAN: --MRI brain without infarct --right vertebral artery dissection not appreciated on MRA brain/neck, will need MRA neck w/ to fully rule out dissection versus hypoplastic vert --patient received asa, continue for now but may dc if MRA neck w/ is negative and there are no other risk factors warranting ongoing ASA therapy --agree with meclizine PRN for vertigo --check orthostatics --PT/OT --f/u with PCP as needed Thank you for allowing us to participate in the care of this patient. Please page for any questions. Discussed with Dr. Lyle Schroeder, --Gabriela Zapien APRN, HAILY Addendum by Lyle Schroeder MD on 11/15/2019 19:22 CDT Neurology Attending Addendum: The patien t was seen in collaboration with Gabriela Zapien APRN, ACNP. See associated note for full details. 79 yo with multiple med problems, not on aspirin, presenting with symptoms of vertigo/vestibulopathy. neuro intact. CTA and MRA without contrast with equipoise for right vert hypoplasia vs ?dissection, although greater likelihood of right miri t hypoplasia, given prominent left vertbral artery with no other flow limiting stenoses and cross filling of right vertebral from left. Will get MRA with contrast for further evaluation. I have evaluated the patient, reviewed t he history, radiographic imaging, and diagnostic testing. Extracted from:Title: History and Physical Author: Twan Singletary MD Date: 11/15/19 This is a 79-year-old woman with high bl ood pressureadmitted to inpatient status secondary topersistent dizzinessworrisome for stroke symptoms,possible right vertebral artery dissectionand uncontrolled hypertension. We will manage on telemetry under contin uous cardiac monitoring. Performdysphagia screen according to protocol. Neurologyconsultation and neurosurgery consultation has already been obtained prior to tra nsfer. Order MRIof the brainwithout cont rast, MRA of the brain andneckwithout contrast. Order echocardiogram 2D with Doppler studies.Order CBC complete metabolic panelTSH lipid panel. BeginFlonasenasal spray1 spray twice a day. Begincetirizin e10 mg daily. Control blood pressure with hydralazine 10 mg IV every 4 hours as needed systolic greater than 180. Control pain morphine sulfate 2 mg IV every 4 ho urs PRN. Control nausea with Zofran 4 mg IV every 6 hours PRN. Begin home medications as soon as a full list is brought for medication reconciliation. Initiate DVT prophylaxis GI prophylaxis. Additional recommendations will depend on results of the diagnostics. Acute sinusitis, unspecified(J01.90) Ordered: Admit/Condition, 11/15/19 6:18:00 CDT, S tatus: Inpatient, Acute, Expected LOS: 2 Midnights, Neurology, Twan Singletary MD, Admit MD Review/Approve Yes, Isolation: No Isolation/Standard Precautio ns, Dizziness and giddiness | Uncontrolled hypertension | Ac tolowa dee-ni' si... Dizziness and giddiness(R42) Ordered: Admit/Condition, 11/15/19 6:18:00 CDT, S tatus: Inpatient, Acute, Expected LOS: 2 Midnights, Neurology, Twan Singletary MD, Admit Review/Approve Yes, Isolation: No Isolation/Standard Precautio ns, Dizziness and giddiness | Uncontrolled hypertension | Ac tolowa dee-ni' si... Possible Right Vertebral artery dissection(I77.74) Ordered: Admit/Condition, 11/15/19 6:18:00 CDT, S tatus: Inpatient, Acute, Expected LOS: 2 Midnights, Neurology, OTwan chavez MD, Admit Review/Approve Yes, Isolation: No Isolation/Standard Precautio ns, Dizziness and giddiness | Uncontrolled hypertension | Ac tolowa dee-ni' si... Uncontrolled hypertension(I10) Ordered: Admit/Condition, 11/15/19 6:18:00 CDT, S tatus: Inpatient, Acute, Expected LOS: 2 Midnights, Neurology, OTwan chavez MD, Admit Review/Approve Yes, Isolation: No Isolation/Standard Precautio ns, Dizziness and giddiness | Uncontrolled hypertension | Ac tolowa dee-ni' si... Plan of Care No Data Provided for This Section Social History Social History Date Source Social History TypeResponse 11/15/2019 [facility] Alcohol Never Smoking Status Never smoker; Previous treatment: None; Exposure to Tobacco Smoke None; Cigarette Smoking Last 365 Days No; Reg Smoking Cessation Counseling No entered on: 11/15/19 Family History No Data Provided for This Section Advance Directives No Data Provided for This Section Functional Status No Data Provided for This Section
--- OUTSIDE RECORDS SUMMARY | 2020-01-07 09:35 | XMS REPORT ---
:1940 Author Organization [facility] t Address [address] [place] [address] Dr. Villeda [address] [place] [id number] Care Team Providers Name Role Phone Erwin Solo Attending Clinician Erwin Solo Admitting Clinician Problems This patient has no known problems. Allergies, Adverse Reactions, Alerts This patient has no known allergies or adverse reactions. Medications This patient has no known medications. Procedures This patient has no known procedures. Encounters Start End Encounter Admission Attending Care Care Encounter Source Date/Time Date/Time Type Type Clinicians Facility Department ID 2019-11-15 2019-11-[id number]:07[facility] 15:36:00 [facility] 2019-11-15 2019-11-15 Outpatient [facility] MED [id number] [facility] 14:07:00 14:07:00 Results This patient has no known results.
--- OUTSIDE RECORDS SUMMARY | 2020-01-07 09:35 | XMS REPORT | Summary of Care ---
:1940 Author Organization [facility] Address [address] [place] [id number] Encounter HQ Suze_jerome(FIN) [id number] Date(s): 11/15/19 - 11/16/[address] [address]- Discharge Disposition: Home or Self Care Attending Physician: Meet Solo MD Admitting Physician: Meet Solo MD Referring Physician: Enzo Cooley MD Vital Signs Most recent to oldest 1 2 3 [Reference Range]: Height 154.94 cm (11/15/19 5:49 AM) Temperature Oral [96.4-99.1 98.4 DegF 97.9 DegF 97.5 DegF DegF] (11/16/19 8:00 AM) (11/16/19 4:00 AM) (11/16/19 12: 00 AM) Blood Pressure [90-140/60-90 154/88 mmHg 169/88 mmHg 161 /91 mmHg mmHg] *HI* *HI* *HI* (11/16/19 12:11 PM) (11/16/19 8:00 AM) (11/16/19 4: 00 AM) Respiratory Rate [14-20 18 BRMIN 18 BRMIN 18 BRMIN BRMIN] (11/16/19 8:00 AM) (11/16/19 4:00 AM) (11/16/19 12: 00 AM) Peripheral Pulse Rate [60-100 57 bpm 83 bpm 76 bpm bpm] *LOW* (11/16/19 4:00 AM) (11/16/19 12:00 AM) (11/16/19 8:00 AM) Weight 68.182 kg (11/15/19 5:49 AM) Body Mass Index 28.4 m2 (11/15/19 5:49 AM) Problem List No data available for this section Allergies, Adverse Reactions, Alerts No Known Allergies Medications acetaminophen 650 mg, 2 tab, Route: PO, Drug form: TAB, Q6H, Dosing Weight 68.182, kg, PRN Other -See Comment, Start date: 11/15/19 6:18:00 CDT, Duration: 30 day, Stop date: 12/15/19 6:17:00 CDT, 0 Notes: Do not exceed 4 gm/day. (Same as: Tylenol) Start Date: 11/15/19 Stop Date: 11/16/19 Status: Discontinuedaspirin 81 mg tablet, enteric coated 81 mg, 1 tab, Route: PO, Drug form: ECTAB, Q24H, Dosing Weight 68.182, kg, Start date: 11/15/19 7:00:00 CDT, Duration: 30 day, Stop date: 12/14/19 7:00:00 CDT, 0 Notes: Do not crush or chew.(Same As: Ecotrin) Start Date: 11/15/19 Stop Date: 11/16/19 Status: Discontinuedaspirin 81 mg tablet, enteric coated 81 mg = 1 tab, PO, Q24H, 0 Refill(s) Start Date: 11/16/19 Status: OrderedAtivan 1 mg, 0.5 mL, Route: IVP, Drug form: INJ, ONCE, Dosing Weight 68.182, kg, Start date: 11/15/19 8:07:00 CDT, Stop date: 11/15/19 8:07:00 CDT, 0 Notes: (Same as: Ativan) Start Date: 11/15/19 Stop Date: 11/15/19 Status: Completedatorvastatin 80 mg, 2 tab, Route: PO, Drug form: TAB, Bedtime, Dosing Weight 68.182, kg, Start date: 11/15/19 21:00:00 CDT, Duration: 30 day, Stop date: 12/14/19 21:00:00 CDT, 0 Notes: (Same as: Lipitor) Start Date: 11/15/19 Stop Date: 11/16/19 Status: Discontinuedenalapril 0.625 mg, 0.5 mL, Route: IVP, Drug form: INJ, Q6H, Dosing Weight 68.182, kg, PRN Hypertension, Startdate: 11/15/19 6:18:00 CDT, Duration: 30 day, Stop date: 12/15/19 6:17:00 CDT, 0 Notes: (Same as: Vasotec-IV) Start Date: 11/15/19 Stop Date: 11/16/19 Status: Discontinuedfamotidine 20 mg, 1 tab, Route: PO, Drug form: TAB, Q12H, Dosing Weight 68.182, kg, Start date: 11/15/19 9:00:00 CDT, Duration: 30 day, Stop date: 12/14/19 21:00:00 CDT, 0 Notes: (Same as: Pepcid) Start Date: 11/15/19 Stop Date: 11/16/19 Status: Discontinuedlabetalol 10 mg, 2 mL, Route: IVP, Drug form: INJ, Q10Min, Dosing Weight 68.182, kg, PRN Hypertension, For SBP> 180 mmHg and/or DBP > 105 mmHg, Start date: 11/15/19 6:18:00 CDT, Duration: 30 day, Stop date: 12/15/19 6:17:00 CDT, 0 Notes: (Same as: Normodyne, Trandate)Push over 2 minutes Give bolus over 2-3 minutes. Start Date: 11/15/19 Stop Date: 11/16/19 Status: Discontinuedlisinopril 20 mg, 1 tab, Route: PO, Drug form: TAB, Daily, Dosing Weight 68.182, kg, Start date: 11/15/19 9:00:00 CDT, Duration: 30 day, Stop date: 12/14/19 9:00:00 CDT, 0 Notes: (Same as: Prinivil, Zestril) Start Date: 11/15/19 Stop Date: 11/16/19 Status: Discontinuedlisinopril 10 mg oral tablet 10 mg = 1 tab, PO, Daily, # 30 tab, 0 Refill(s) Start Date: 11/15/19 Stop Date: 11/16/19 Status: Discontinuedlisinopril 20 mg oral tablet 20 mg = 1 tab, PO, Daily, # 30 tab, 0 Refill(s), Pharmacy: [facility]/pharmacy #[id number] Start Date: 11/16/19 Stop Date: 12/16/19 Status: Orderedmeclizine 12.5 mg oral tablet 12.5 mg = 1 tab, PO, BID, PRN Dizziness, X 15 day, # 30 tab, 0 Refill(s), Pharmacy: [facility]/pharmacy #[id number] Start Date: 11/16/19 Stop Date: 12/01/19 Status: Orderedondansetron 4 mg, 2 mL, Route: IVP, Drug form: INJ, Q8H, Dosing Weight 68.182, kg, PRN Nausea & Vomiting, Start date: 11/15/19 6:18:00 CDT, Duration: 30 day, Stop date: 12/15/19 6:17:00 CDT, 0 Notes: (Same as: Zofran) MEDICATION WASTE Product Size: 4 mgProduct Wasted: ___ mg Start Date: 11/15/19 Stop Date: 11/16/19 Status: DiscontinuedPlavix 300 mg, 4 tab, Route: PO, Drug form: TAB, ONCE, Dosing Weight 68.182, kg, Priority: STAT, Start date: 11/16/19 15:26:00 CDT, Stop date: 11/16/19 15:26:00 CDT, 0 Notes: (Same As: Plavix) Start Date: 11/16/19 Stop Date: 11/16/19 Status: OrderedPlavix 75 mg, 1 tab, Route: PO, Drug form: TAB, Daily, Dosing Weight 68.182, kg, Start date: 11/17/19 9:00:00 CDT, Duration: 30 day, Stop date: 12/16/19 9:00:00 CDT, 0 Notes: (Same As: Plavix) Start Date: 11/17/19 Stop Date: 11/16/19 Status: Canceledpotassium chloride 20 mEq oral tablet, extended release (KCL) 40 mEq, 2 tab, Route: PO, Drug form: ERTAB, Daily, Dosing Weight 68.182, kg, Priority: STAT, Start date: 11/15/19 12:11:00 CDT, Duration: 30 day, Stop date: 12/15/19 9:00:00 CDT, 0 Notes: (Same as: K-Dur )"Do Not Crush" Give with food and full glass of waterFor patients unable to swallow tablet, dissolve in one half glass of water. Allow about 2 minutes for the tablets to disintegrate. Stir before giving to prepare slurry and administer.Please exclude Patients with feedingtube less than 14 Belgian (Dobhoff, J-tube etc) and pediatric and patients. Start Date: 11/15/19 Stop Date: 11/16/19 Status: Discontinuedpotassium chloride 20 mEq oral tablet, extended release (KCL) 20 mEq, 1 tab, Route: PO, Drug form: ERTAB, ONCE, Dosing Weight 68.182, kg, Start date: 11/15/19 18:00:00 CDT, Stop date: 11/15/19 18:00:00 CDT, 0 Notes: (Same as: K-Dur 20)"Do Not Crush" Give with food and full glass of waterFor patients unable to swallow tablet, dissolve in one half glass of water. Allow about 2 minutes for the tablets to disintegrate. Stir before giving to prepare slurry and administer.Please exclude Patients with feedingtube less than 14 Belgian (Dobhoff, J-tube etc) and pediatric and patients. Start Date: 11/15/19 Stop Date: 11/15/19 Status: CompletedSaline Flush 0.9% 10 ml, Route: IVP, Drug Form: INJ, Dosing Weight 68.182, kg, Q12H, Start date: 11/15/19 9:00:00 CDT,Duration: 30 day, Stop date: 12/14/19 21:00:00 CDT, 0 Notes: Same as: BD Posiflush Sterile Start Date: 11/15/19 Stop Date: 11/16/19 Status: DiscontinuedSaline Flush 0.9% 10 ml, Route: IVP, Drug Form: INJ, Dosing Weight 68.182, kg, PRN, PRN Line Flush, Start date: 11/15/19 6:18:00 CDT, Duration: 30 day, Stop date: 12/15/19 6:17:00 CDT, 0 Notes: Same as: BD Posiflush Sterile Start Date: 11/15/19 Stop Date: 11/16/19 Status: Discontinued Results Most recent to oldest [Reference Range]: 1 2 Neutrophils # [1.5-8.1 K/CMM] 1.6 K/CMM (11/15/19 7:20 AM) Lymphocytes # [1.0-5.5 K/CMM] 2.4 K/CMM (11/15/19 7:20 AM) Monocytes # [0.0-0.8 K/CMM] 0.4 K/CMM (11/15/19 7:20 AM) Eosinophils # [0.0-0.5 K/CMM] 0.2 K/CMM (11/15/19 7:20 AM) Basophils # [0.0-0.2 K/CMM] 0.0 K/CMM (11/15/19 7:20 AM) eGFR 71 mL/min/1.73m2 1 71 mL/min/1.73m2 2 *NA* *NA* (11/16/19 4:37 AM) (11/15/19 7:20 AM) A/G Ratio [0.7-1.6] 0.7 (11/15/19 7:20 AM) Albumin Lvl [3.5-5.0 g/dL] 3.1 g/dL *LOW* (11/15/19 7:20 AM) Alk Phos [39-136 unit/L] 95 unit/L (11/15/19 7:20 AM) ALT [0-65 unit/L] 17 unit/L (11/15/19 7:20 AM) AGAP [10.0-20.0 mEq/L] 9.8 mEq/L 10.0 mEq/L *LOW* (11/15/19 7:20 AM) (11/16/19 4:37 AM) AST [0-37 unit/L] 23 unit/L (11/15/19 7:20 AM) B/C Ratio [6-25] 16 (11/15/19 7:20 AM) Basophils [0.0-1.0 %] 0.6 % (11/15/19 7:20 AM) BUN [7-22 mg/dL] 14 mg/dL 13 mg/dL (11/16/19 4:37 AM) (11/15/19 7:20 AM) Calcium Lvl [8.5-10.5 mg/dL] 9.2 mg/dL 8.8 mg/dL (11/16/19 4:37 AM) (11/15/19:20 AM) CHD Risk [3.90-5.80] 3.56 *LOW* (11/15/19 AM) Chol [<=199 mg/dL] 121 mg/dL (11/15/19: AM) Chloride Lvl [95-109 mEq/L] 114 mEq/L 112 mEq/L *HI* *HI* (11/16/19 4:37 AM) (11/15/19 AM) CO2 [24-32 mEq/L] 21 mEq/L 26 mEq/L *LOW* (11/15/19: AM) (11/16/19 4:37 AM) Creatinine Lvl [0.50-1.40 mg/dL] 0.80 mg/dL 0.80 mg /dL (11/16/19 4:37 AM) (11/15/19: AM) Eosinophils [0.0-4.0 %] 3.6 % (11/15/19 AM) Globulin [2.7-4.2 g/dL] 4.6 g/dL *HI* (11/15/19: AM) Glucose Lvl [70-99 mg/dL] 115 mg/dL 107 mg/dL *HI* *HI* (11/16/19 4:37 AM) (11/15/19 AM) Hct [36.0-48.0 %] 36.0 % (11/15/19 AM) HDL [>=61 mg/dL] 34 mg/dL *LOW* (11/15/19 AM) Hgb [12.0-16.0 g/dL] 11.8 g/dL *LOW* (11/15/19 AM) Potassium Lvl [3.5-5.1 mEq/L] 3.8 mEq/L 3.0 mEq/L 3 (11/16/19 4:37 AM) *CRIT* (11/15/19: AM) LDL (Calculated) [<=99 mg/dL] 64 mg/dL (11/15/19 AM) Lymphocytes [20.0-40.0 %] 51.8 % *HI* (11/15/19 7:20 AM) MCH [27.0-31.0 pg] 27.0 pg (11/15/19 AM) MCHC [32.0-36.0 g/dL] 32.8 g/dL (11/15/19:20 AM) MCV [80.0-98.0 fL] 82.3 fL (11/15/19 AM) Magnesium Lvl [1.8-2.4 mg/dL] 1.8 mg/dL (11/15/1920 AM) Monocytes [2.0-12.0 %] 8.1 % (11/15/19 AM) MPV [7.4-10.4 fL] 9.4 fL (11/15/19 AM) Sodium Lvl [135-145 mEq/L] 141 mEq/L 145 mEq/L (11/16/19 4:37 AM) (11/15/19:20 AM) Platelet [133-450 K/CMM] 223 K/CMM (11/15/19:20 AM) Segs [45.0-75.0 %] 35.9 % *LOW* (11/15/19: AM) Total Protein [6.4-8.4 g/dL] 7.7 g/dL (11/15/19: AM) RBC [4.20-5.40 M/CMM] 4.37 M/CMM (11/15/19:20 AM) RDW [11.5-14.5 %] 14.2 % (11/15/19: AM) Bili Total [0.2-1.3 mg/dL] 0.3 mg/dL (11/15/19:20 AM) Trig [<=149 mg/dL] 116 mg/dL (11/15/19 7:20 AM) Troponin-I [0.00-0.40 ng/mL] 0.02 ng/mL (11/15/19 7:20 AM) WBC [3.7-10.4 K/CMM] 4.6 K/CMM (11/15/19 7:20 AM) Treponemal Ab [Non-Reactive] Non-Reactive *NA* (11/15/19 7:20 AM) VLDL 23 *NA* (11/15/19 7:20 AM) 1Result Comment: The eGFR is calculated using the CKD-EPI formula. In most young, healthy individualsthe eGFR will be >90 mL/min/1.73m2. The eGFR declines with age. An eGFR of 60-89 may be normal insome populations, particularly the elderly, for whom the CKD-EPI formula has not been extensively validated. Use of the eGFR is not recommended in the following populations: Individuals with unstable creatinine concentrations, including patients and those with serious co-morbid conditions. Patients with extremes in muscle mass or diet. The data above are obtained from the National Kidney Disease Education Program (NKDEP) which additionally recommends that when the eGFR is used in patients with extremes of body mass index for purposesof drug dosing, the eGFR should be multiplied by the estimated BMI.2Result Comment: The eGFR is calculated using the CKD-EPI formula. In most young, healthy individualsthe eGFR will be >90 mL/min/1.73m2. The eGFR declines with age. An eGFR of 60-89 may be normal insome populations, particularly the elderly, for whom the CKD-EPI formula has not been extensively validated. Use of the eGFR is not recommended in the following populations: Individuals with unstable creatinine concentrations, including patients and those with serious co-morbid conditions. Patients with extremes in muscle mass or diet. The data above are obtained from the National Kidney Disease Education Program (NKDEP) which additionally recommends that when the eGFR is used in patients with extremes of body mass index for purposesof drug dosing, the eGFR should be multiplied by the estimated BMI.3Result Comment: Critical Result(s) called to Katie Mora at 11/15/2019 08:39 by BV. Read back OK. Immunizations Given and Recorded Vaccine Date Status Refusal Reason pneumococcal 13-valent vaccine 11/16/19 Given influenza virus vaccine, inactivated 11/16/19 Given Procedures No data available for this section Social History Social History Type Response Alcohol Never Smoking Status Never smoker; Previous treat ment: None; Exposure to Tobacco Smoke None; Cigarette Smoking Last 365 Days No; Reg Smoking Cessation Counseling No entered on: 11/15/19 Assessment and Plan Extracted from: Title: Neurology Progress Note Author: Gabriela Zapien NP ate: 11/16/19 This is a 79 year old woman with PMH of HTN who presented to ED in [facility] two hours after sudden onset of extreme dizziness, unsteady gait. Her dizziness worsens when she stands and when s he turns her head to the right side. H er symptoms resolve when she sits down or when she stands still for a few minutes. Denies chest pain, cough, SOB, palpitations, headache, vision changes, speech difficulties, weakness, numbness, fall, injury, fever, chills, neck pain, nausea, vomiting, diarrhea, or urinary symptoms.NIHSS is 0. CT brain negative for acute hemorrhage or ischemia but shows se geoff sinusitis. Not a candidate for TP A or IATgiven her NIH of 0, nondisabling symptoms.CTA at OSH shows possible right vertebral artery dissection. She denies fall, injury, car accidents, chiropr actor. Her dizziness did resolve in th e ED after receiving meclizine. She was transferred to [facility] for further evaluation of possible vert dissection. BP 183/94 on arrival. IMPRESSION: BPPV unable to rule out right vert dissectio n PLAN: --MRI brain without infarct --MRA brain/neck: unable to confidently rule out right vertebral artery dissection and will change regimen to DAPT. ASA/plavix daily with 300mg plavix load now --agree with meclizine PRN for vertigo --check orthostatics --PT/OT --f/u with PCP as needed --f/u with outpatient neurologist for r epeat imaging in 2-[address] Magdalene Anthony No further recommendations from neurolo gical perspective. Thank you for allowing us to participat e in the care of this patient. Please page for any questions. Discussed with Dr. Lyle Schroeder, --Gabriela Zapien, MIKKI, ACNP Extracted from: Title: Neurology Consult Note Author: Gabriela Zapien NP te: 11/15/19 This is a 79 year old woman with PMH of HTN who presented to ED in [facility] two hours after sudden onset of extreme dizziness, unsteady gait. Her dizziness worsens when she stands and when she turns her head to the right side. Her sympt oms resolve when she sits down or when she stands still for a few minutes. Denies chest pain, cough, SOB, palpitations, headache, vision changes, speech difficu lties, weakness, numbness, fall, injury, fever, chills, neck pain, nausea, vomiting, diarrhea, or urinary symptoms.NIHSS is 0. CT brain negative for acute hemorrhage or ischemia but shows severe sin usitis. Not a candidate for TPA or IAT given her NIH of 0, nondisabling symptoms.CTA at OSH shows possible right vertebral artery dissection. She denies fall, injury, car accidents, chiropractor. Her dizziness did resolve in the ED aft er receiving meclizine. She was transferred to [facility] for further evaluation of possible vert dissection. [...] MD on 11/15/2019 19:22 CDT Neurology Attending Addendum : The patient was seen in collaboration with Gabriela Zapien APRN, ACNP. See associated note for full details. 79 yo with multiple med prob lems, not on aspirin, presenting with symptoms of vertigo/vestibulopathy. neuro intact. CTA and MRA without contrast with equipoise for right vert hypoplasia vs ?dissection, although greater likelihood of right vert hypoplasia, given prominent left vertbral artery with no other flow limiting stenoses and cross filling of right vertebral from left. Will get MRA with contrast for further evaluation. I have evaluated the patient , reviewed the history, radiographic imaging, and diagnostic testing. Extracted from: Title: History and Physical Author: Twan Singletary MD Date: 11/15/19 This is a 79-year-old woman with high bl ood pressureadmitted to inpatient status secondary topersistent dizzinessworrisome for stroke symptoms,possible right vertebral artery dissectionand uncontrolled hypertension. We will manage on telemetry under contin uous cardiac monitoring. Performdysphagia screen according to protocol. Neurologyconsultation and neurosurgery consultation has already been obtained prio r to transfer. Order MRIof the brain without contrast, MRA of the brain andneckwithout contrast. Order echocardiogram 2D with Doppler studies.Order CBC complete metabolic panelTSH lipid panel. BeginFlonasenasal spray1 spray twice a day. Lvwlvcthtlhfyvc40 mg daily. Control blood pressure with hydralazine 10 mg IV every 4 hours as needed systolic greater than 180. Cont rol pain morphine sulfate 2 mg IV every 4 hours PRN. Control nausea with Zofran 4 mg IV every 6 hours PRN. Begin home medications as soon as a full list is brought for medication reconciliation. I nitiate DVT prophylaxis GI prophylaxis. Additional recommendations will depend on results of the diagnostics. Acute sinusitis, unspecified(J01.90) Ordered: Admit/Condition, 11/15/19 6:18:00 CDT, S tatus: Inpatient, Acute, Expected LOS: 2 Midnights, NeurologyGemini Chris Henry Uche MD, Yolis LIZAMA Review/Approve Yes, Isolation: No Isolation/Standard Precautio ns, Dizziness and giddiness | Uncontroll ed hypertension | Acute si... Dizziness and giddiness(R42) Ordered: Admit/Condition, 11/15/19 6:18:00 CDT, S tatus: Inpatient, Acute, Expected LOS: 2 Midnights, NeurologyGemini Chris Henry Uche MD, Yolis LIZAMA Review/Approve Yes, Isolation: No Isolation/Standard Precautio ns, Dizziness and giddiness | Uncontroll ed hypertension | Acute si... Possible Right Vertebral artery dissect ion(I77.74) Ordered: Admit/Condition, 11/15/19 6:18:00 CDT, S tatus: Inpatient, Acute, Expected LOS: 2 Midnights, NeurologyGemini Chris Henry Uche MD, Yolsi LIZAMA Review/Approve Yes, Isolation: No Isolation/Standard Precautio ns, Dizziness and giddiness | Uncontroll ed hypertension | Acute si... Uncontrolled hypertension(I10) Ordered: Admit/Condition, 11/15/19 6:18:00 CDT, Jacqueline tatus: Inpatient, Acute, Expected LOS: 2 Midnights, Neurology, [place], Twan Maravilla MD, Admit MD Review/Approve Yes, Isolation: No Isolation/Standard Precautio ns, Dizziness and giddiness | Uncontroll ed hypertension | Acute si...
[2020-01-07 09:56] VITALS: BP 180/92; TEMP 97.2; O2SAT 98
== END 2020-01-07 09:39 | disposition home or self-care (01) ==
LOC: ER 08:58
DX: M79.642 Pain in left hand (principal); I10 Essential (primary) hypertension
CPT/HCPCS: 99282

== ENCOUNTER 2020-03-04 06:54 | Emergency (ER) | payer OTHER ==
--- OUTSIDE RECORDS SUMMARY | 2020-03-04 06:57 | XMS REPORT | Continuity of Care Document ---
:1940 Author Organization [facility] t Address [address] [place] [address] Care Team Providers Name Role Phone Erwin Solo Attending Clinician Erwin Solo Admitting Clinician Problems Condition Condition Condition Status Onset Resolution Last Treating Co mments Source Name Details Category Date Date Treatment Clinician Date DIZZINESS, Diagnosis Active 2019-11-17 Memoria DISSECTION 3-21 06:31:00 l VERTEBRAL 00:00: Ramos ARTERY DIZZINESS, 00 DISSECTION VERTEBRAL ARTERY Active 11/15/2019 [facility] ILLNESS, Diagnosis Active 2019-11-17 M emoria UNSPECIFIE 06:31:00 l D ILLNESS, Neftali n UNSPECIFIE D Active [facility] Allergies, Adverse Reactions, Alerts This patient has no known allergies or adverse reactions. Social History Social Habit Start Date Stop Date Quantity Comments Source Social History 2019-11-15 2019-11-15 [facility] 11:12:48 11:12:48 Medications Ordered Filled Start Stop Current Ordering Indication Dosage Frequency Signature Comments Components Source Medication Medication Date Date Medication? Clinician (SIG) Name Name Plavix No Notes: Memoria 3-23 (Same As: l 14:00: Plavix) Plavix Yes Notes: Memoria 3-22 (Same As: l 20:26: Plavix) lisinopril Yes 20 mg = 1 Me moria 20 mg oral 3-22 tab, PO, l tablet 13:52: Daily, # 30 tab, 0 Refill(s), Pharmacy: [id number] meclizine Yes 12.5 mg = Mem oria 12.5 mg 3-22 1 tab, PO, l oral tablet 13:52: BID, PRN He rm Dizziness, X 15 day, # 30 tab, 0 Refill(s), Pharmacy: [facility] #[id number] Aspirin 81 Yes 81 mg = 1 Me moria MG Enteric 3-22 tab, PO, l Coated 13:52: Q24H, 0 [place] Tablet 00 Refill(s) atorvastati No Notes: Ángel glenroy n 3-22 (Same as: l 02:00: Lipitor) potassium No Notes: Memori a chloride 20 3-21 (Same as: l mEq oral 23:00: K-Dur 20) Herm yan tablet, 00 "Do Not extended Crush" release Give with (KCL) food and full glass of water For patients unable to swallow tablet, dissolve in one half glass of water. Allow about 2 minutes for the tablets to disintegra te. Stir before giving to prepare slurry and administer . Please exclude Patient s with feeding tube less than 14 Japanese (Dobhoff, J-tube etc) and pediatric and patients. potassium No Notes: Memori a chloride 20 3-21 (Same as: l mEq oral 17:11: K-Dur 20) Herm yan tablet, 00 "Do Not extended Crush" release Give with (KCL) food and full glass of water For patients unable to swallow tablet, dissolve in one half glass of water. Allow about 2 minutes for the tablets to disintegra te. Stir before giving to prepare slurry and administer . Please exclude Patient s with feeding tube less than 14 Japanese (Dobhoff, J-tube etc) and pediatric and patients. Famotidine No Notes: Memor ia 3-21 (Same as: l 14:00: Pepcid) Saline No Notes: Memoria Flush 0.9% - Same as: l 14:00: BD Posiflush Sterile Lisinopril No Notes: Memor ia 3-21 (Same as: l 14:00: Prinivil, Zestril) Ativan No Notes: Memoria 3-21 (Same as: l 13:07: Ativan) Aspirin 81 No Notes: Do Me moria MG Enteric 3-21 not crush l Coated 12:00: or chew. Ramos Tablet 00 (Same As: Ecotrin) Labetalol No Notes: Memori a 3-21 (Same as: l 11:18: Normodyne, [place] 00 Trandate) Push over 2 minutes Give bolus over 2-3 minutes. enalapril No Notes: Memori a 3-21 (Same as: l 11:18: Vasotec-IV Ramos ) Ondansetron No Notes: Ángel glenroy - (Same as: l 11:18: Zofran) Ramos MEDICATION WASTE Product Size: 4 mg Product Wasted: ___ mg Acetaminoph No Notes: Do M emoria en - not exceed l 11:18: 4 gm/day. [place] (Same as: Tylenol) Saline No Notes: Memoria Flush 0.9% 11-14 Same as: l 11:18: BD [place] Posiflush Sterile lisinopril No 10 mg = 1 Me moria 10 mg oral 11-14 tab, PO, l tablet 10:55: Daily, # Ramos 00 30 tab, 0 Refill(s) Vital Signs Vital Name Observation Time Observation Value Comments Source Systolic (mm Hg) 2019-11-16 17:11:00 Ángel rial [place] Diastolic (mm Hg) 2019-11-16 17:11:00 Mem orial [place] Temperature Oral (F) 2019-11-16 13:00:00 98.4 F [facility] [place] Heart Rate 2019-11-16 13:00:00 [facility] Respitory Rate 2019-11-16 13:00:00 Memori al [place] Systolic (mm Hg) 2019-11-16 13:00:00 Ángel rial [place] Diastolic (mm Hg) 2019-11-16 13:00:00 Mem orial [place] Temperature Oral (F) 2019-11-16 09:00:00 97.9 F [facility] [place] Heart Rate 2019-11-16 09:00:00 [facility] [place] Respitory Rate 2019-11-16 09:00:00 Memori al [place] Systolic (mm Hg) 2019-11-16 09:00:00 Ángel rial [place] Diastolic (mm Hg) 2019-11-16 09:00:00 Mem orial [place] Temperature Oral (F) 2019-11-16 05:00:00 97.5 F [facility] [place] Heart Rate 2019-11-16 05:00:00 [facility] Respitory Rate 2019-11-16 05:00:00 Memori al [place] Height 2019-11-15 10:49:00 154.94 cm [facility] [place] Weight 2019-11-15 10:49:00 [facility] [place] BMI Calculated 2019-11-15 10:49:00 Memori al [place] Procedures This patient has no known procedures. Encounters Start End Encounter Admission Attending Care Care Encounter Source Date/Time Date/Time Type Type Clinicians Facility Department ID 2019-11-15 2019-11-16 Outpatient [place], [facility] [id number] 14:07:00 15:36:00 Meet Mosquedaellieemil 2019-11-15 2019-11-15 Outpatient [facility] MED [id number] [facility] 14:07:00 14:07:00 Results Test Description Test Time Test Comments Results Result Comments Source CHEM PANEL 2019-11-16 115 [facility] 09:37:00 CHEM PANEL 2019-11-16 14 [facility] 09:37:00 CHEM PANEL 2019-11-16 0.80 [facility] 09:37:00 CHEM PANEL 2019-11-16 141 [facility] 09:37:00 CHEM PANEL 2019-11-16 3.8 [facility] 09:37:00 CHEM PANEL 2019-11-16 114 [facility] 09:37:00 CHEM PANEL 2019-11-16 21 [facility] 09:37:00 CHEM PANEL 2019-11-16 9.2 [facility] 09:37:00 CHEM PANEL 2019-11-16 9.8 [facility] 09:37:00 CHEM PANEL 2019-11-16 71 [facility] 09:37:00 CARDIAC ENZYMES 2019-11-15 0.02 [facility] 12:20:00 CHEM PANEL 2019-11-15 107 [facility] 12:20:00 CHEM PANEL 2019-11-15 13 [facility] 12:20:00 CHEM PANEL 2019-11-15 0.80 [facility] 12:20:00 CHEM PANEL 2019-11-15 145 [facility] 12:20:00 CHEM PANEL 2019-11-15 3.0 [facility] 12:20:00 CHEM PANEL 2019-11-15 112 [facility] 12:20:00 CHEM PANEL 2019-11-15 26 [facility] 12:20:00 CHEM PANEL 2019-11-15 10.0 [facility] 12:20:00 CHEM PANEL 2019-11-15 8.8 [facility] 12:20:00 CHEM PANEL 2019-11-15 12:20:00 Test Item Value Reference Range Interpretation Comme nts B/C Ratio (test code = B/C Ratio) 16 1 6-25 [facility] [id number] 12:20:007.7[facility] PANEL 2019-11-15 12:20:003.1[facility] [id number] 12:20:004.6[facility] [id number] 12:20:00 Test Item Value Reference Range Interpretation Comments A/G Ratio (test code = A/G Ratio) 0.7 1 0.7-1.6 [facility] [id number] 12:20:0017[facility]ann[facility] PANEL 2019-11-15 12:20:0023[facility] [id number] 12:20:0095[facility] [id number] 12:20:000.3[facility] [id number] 12:20:0071[facility] HAWSM4746-13-03 12:20:001.8[facility] [id number] 12:20:004.6[facility] ErjgsoiCEMNMDLTRB7610-28-26 12:20:00 4.37[facility] DnqtpnhVLEMCREHFY2082-27-52 12:20:0011.8[facility]annHEMATOLOGY 2019-11-15 12:20:0036.0[facility] DlcxiyjWLUQZJUOBQ5834-55-17 12:20:0082.3[facility] HspbkhaQAFPIAABYN1909-44-40 12:20:00 Test Item Value Reference Range Interpretation Comments MCH (test code = MCH) 27.0 pg 27.0-31.0 [facility] HxbgkshPMFYZGADHH3881-25-64 12:20:0032.8[facility]annHEMATOLOGY 2019-11-15 12:20:0014.2[facility] ExeejyhKCSSELBRAN2414-56-09 12:20:93798Qedwouvu RumriswLTQRUWXSRJ9193-06-32 12:20:009.4[facility] JakywfsTPFQDBCXRZ0645-60-26 12:20:0035.9[facility] CeetjqnLGGOXCTILT7604-13-97 12:20:0051.8[facility] KCUUVKVSIV7651-88-86 12:20:008.1[facility] VlkdwmsCYAZFUDGAI0086-81-70 12:20:003.6 [facility] EzyfkbaPZCJQZPTAB6063-05-25 12:20:000.6[facility]annHEMATOLOGY 2019-11-15 12:20:001.6[facility] NuggwwsSTSQRHHGRT6379-65-43 12:20:002.4[facility] BhhiflsQBKBPBWXGU6259-37-05 12:20:000.4[facility] ZioafzsHYOXTCRJSM3889-01-86 12:20:000.2[facility] WznfxfoBUWLKIYYRQ7248-12-69 12:20:000.0[facility] EUOGIKEFHR4742-26-82 12:20:00Non-Reactive *NA*(11/15/19 7:20 AM)[facility] [place] [id number] 12:20:04421Cgqapmmm BaifpwaAUHROB4844-64-40 12:20:40829Ggfmsvgd QcjrkyaHQTMEJ9640-19-77 12:20:0034[facility] MsrceesAEMBII1871-26-34 12:20:00 Test Item Value Reference Range Interpretation Comments CHD Risk (test code = CHD Risk) 3.56 1 3.90-5.80 [facility] FkjjsocQXVCXY8237-28-66 12:20:0064[facility] SguvrxmWPVMAE9038-28-95 12:20:00 Test Item Value Reference Range Interpretation Comments VLDL (test code = VLDL) 23 1 [facility]
--- OUTSIDE RECORDS SUMMARY | 2020-03-04 06:57 | XMS REPORT | Continuity of Care Document ---
:1940 Author Organization [employer] Care Team Providers Name Role Phone [facility] Unavailable Un available Problems Problem Status Onset Classification Date Comments Sourc e Date Reported DIZZINESS, Active [place] DISSECTION 0 VERTEBRAL ARTERY ILLNESS, [place] UNSPECIFIED Medications Medication Details Route Status Patient Ordering Order Source Instructions Provider Date Plavix Notes: (Same No Longer As: Plavix) Active [facility] Plavix Notes: (Same Inactive As: Plavix) [facility] lisinopril 20 20 mg = 1 Active mg oral tablet tab, PO, 020 [place] Daily, # 30 tab, 0 Refill(s), Pharmacy: [facility]/pharmacy #[id number] meclizine 12.5 12.5 mg = 1 Active mg oral tablet tab, PO, 020 [place] BID, PRN Dizziness, X 15 day, # 30 tab, 0 Refill(s), Pharmacy: [facility]/pharmacy #[id number] Aspirin 81 MG 81 mg = 1 Active Enteric Coated tab, PO, 020 [place] Tablet Q24H, 0 Refill(s) atorvastatin Notes: (Same No Longer as: Lipitor) Active [facility] potassium Notes: (Same Inactive chloride 20 mEq [...] 7;s with feeding tube less than 14 Pashto (Dobhoff, J-tube etc) and pediatric and patients. [...] 7;s with feeding tube less than 14 Pasht[place] (Dobhoff, J-tube etc) and pediatric and patients. Famotidine Notes: (Same No Longer as: Pepcid) Active [address] [place] [address] Saline Flush Notes: Same No Longer 0.9% as: BD Active [address] [place] [address] Posiflush Sterile Lisinopril Notes: (Same No Longer as: Active [address] [place] [address] Prinivil, Zestril) Ativan Notes: (Same Inactive as: Ativan) 020 [facility] Aspirin 81 MG Notes: Do No Longer Enteric Coated not crush or Active 020 [place] Tablet chew. (Same As: Ecotrin) Labetalol Notes: (Same No Longer as: Active [facility] Normodyne, Trandate) Push over 2 minutes Give bolus over 2-3 minutes. enalapril Notes: (Same No Longer as: Active [facility] Vasotec-IV) Ondansetron Notes: (Same No Longer as: Zofran) Active [address] [place] [address] MEDICATION WASTE Product Size: 4 mg Product Wasted: ___ mg Acetaminophen Notes: Do No Longer not exceed [address] [place] [address] gm/day. (Same as: Tylenol) Saline Flush Notes: Same No Longer 0.9% as: BD Active [address] [place] [address] Posiflush Sterile lisinopril 10 10 mg = 1 No Longer mg oral tablet tab, PO, [facility], # [facility] tab, 0 Refill(s) Allergies, Adverse Reactions, Alerts No Known Medication Allergies Immunizations Immunization Date Site Status Last Updated Comments Sour ce Given pneumococcal Right completed [facility] 13-valent 0 deltoid vaccine influenza virus Left completed [facility] vaccine, 0 deltoid inactivated Results Order Name Results Value Reference Date Interpretation Comments Emi rce Range CHEM PANEL Glucose Lvl 115 70 - 99 11/15 [facility] CHEM PANEL BUN 14 7 - 22 11/15 [facility] CHEM PANEL Creatinine 0.80 0.50 - 11/15 MH Lvl 1.40 [facility] CHEM PANEL Sodium Lvl 141 135 - 145 11/15 [facility] CHEM PANEL Potassium Lvl 3.8 3.5 - 5.1 11/15 [facility] CHEM PANEL Chloride Lvl 114 95 - 109 11/15 [facility] CHEM PANEL CO2 21 24 - 32 11/15 [facility] CHEM PANEL Calcium Lvl 9.2 8.5 - 10.5 11/15 [facility] CHEM PANEL AGAP 9.8 10.0 - 11/15 MH 20.0 /2019 [facility] CHEM PANEL eGFR 71 11/15 Result Comment: The [facility] eGFR is calculated using the CKD-EPI formula. [...] 0.02 0.00 - 11/14 MH ENZYMES 0.40 [facility] CHEM PANEL Glucose Lvl 107 70 - 99 11/14 [facility] CHEM PANEL BUN 13 7 - 22 11/14 [facility] CHEM PANEL Creatinine 0.80 0.50 - 11/14 MH Lvl 1.40 [facility] CHEM PANEL Sodium Lvl 145 135 - 145 11/14 [facility] CHEM PANEL Potassium Lvl 3.0 3.5 - 5.1 11/14 Result Comment: [facility] Critical Result(s) called to Katie Mora at 11/15/2019 08:39 by BV. Read back OK. CHEM PANEL Chloride Lvl 112 95 - 109 11/14 [facility] CHEM PANEL CO2 26 24 - 32 11/14 [facility] CHEM PANEL AGAP 10.0 10.0 - / MH 20.0 /2019 [facility] CHEM PANEL Calcium Lvl 8.8 8.5 - 10.5 11/14 [facility] CHEM PANEL B/C Ratio 16 6 - 25 11/14 [facility] CHEM PANEL Total Protein 7.7 6.4 - 8.4 11/14 [facility] CHEM PANEL Albumin Lvl 3.1 3.5 - 5.0 11/14 [facility] CHEM PANEL Globulin 4.6 2.7 - 4.2 11/14 [facility] CHEM PANEL A/G Ratio 0.7 0.7 - 1.6 11/14 [facility] CHEM PANEL ALT 17 0 - 65 11/14 [facility] CHEM PANEL AST 23 0 - 37 11/14 [facility] CHEM PANEL Alk Phos 95 39 - 136 11/14 [facility] CHEM PANEL Bili Total 0.3 0.2 - 1.3 11/14 [facility] CHEM PANEL eGFR 71 11/14 Result Comment: The [facility] eGFR is calculated using the CKD-EPI formula. [...] Magnesium Lvl 1.8 1.8 - 2.4 11/14 [facility] HEMATOLOGY WBC 4.6 3.7 - 10.4 11/14 [facility] HEMATOLOGY RBC 4.37 4.20 - 11/14 MH 5.40 /2019 [facility] HEMATOLOGY Hgb 11.8 12.0 - 11/14 MH 16.0 [facility] HEMATOLOGY Hct 36.0 36.0 - 11/14 MH 48.0 [facility] HEMATOLOGY MCV 82.3 80.0 - 11/14 MH 98.0 [facility] HEMATOLOGY MCH 27.0 27.0 - 11/14 MH 31.0 [facility] HEMATOLOGY MCHC 32.8 32.0 - 11/14 MH 36.0 [facility] HEMATOLOGY RDW 14.2 11.5 - 11/14 MH 14.5 [facility] HEMATOLOGY Platelet 223 133 - 450 11/14 [facility] HEMATOLOGY MPV 9.4 7.4 - 10.4 11/14 [facility] HEMATOLOGY Segs 35.9 45.0 - 11/14 MH 75.0 [facility] HEMATOLOGY Lymphocytes 51.8 20.0 - 11/14 MH 40.0 [facility] HEMATOLOGY Monocytes 8.1 2.0 - 12.0 11/14 [facility] HEMATOLOGY Eosinophils 3.6 0.0 - 4.0 11/14 [facility] HEMATOLOGY Basophils 0.6 0.0 - 1.0 11/14 [facility] HEMATOLOGY Neutrophils # 1.6 1.5 - 8.1 11/14 [facility] HEMATOLOGY Lymphocytes # 2.4 1.0 - 5.5 11/14 [facility] HEMATOLOGY Monocytes # 0.4 0.0 - 0.8 11/14 [facility] HEMATOLOGY Eosinophils # 0.2 0.0 - 0.5 11/14 [facility] HEMATOLOGY Basophils # 0.0 0.0 - 0.2 11/14 [facility] IMMUNOLOGY Treponemal Ab Non-Reactive Non 11/14 *NA* /2019 [facility] (11/15/19 7:20 AM) LIPIDS Trig 116 <=149 11/14 mg/dL [facility] LIPIDS Chol 121 <=199 11/14 mg/dL [facility] LIPIDS HDL 34 >=61 mg/dL 11/14 [facility] LIPIDS CHD Risk 3.56 3.90 - 11/14 MH 5.80 [facility] LIPIDS LDL 64 <=99 mg/dL 11/14 (Calculated) [facility] LIPIDS VLDL 23 11/14 [facility] Pathology Reports No Data Provided for This Section Diagnostic Reports Report Value Date Source Brain wo contrast MRI PROCEDURE INFORMATION: 11/15/2019 [facility] Exam: MR Head Without Contrast Exam date [...] Paulo Weber MD On 11/15/2019 10:01:25; VR-B [id number] Neck wo contrast MRA The outside and prior CT a s tudy of November 14, 2019 is reviewed. The findings 11/15/2019 [facility] are suggestive of a acute dissection of [...] Paulo Weber MD On 11/16/2019 15:32:17; SONAL [id number] PROCEDURE INFORMATION: Exam: MR Angiography Neck Without [...] Paulo Weber MD On 11/15/2019 09:59:25; SONAL [id number] Brain wo contrast MRA PROCEDURE INFORMATION: 11/15/2019 [facility] Exam: MR Angiogram Head Without Contrast, Arteri [...] Paulo Weber MD On 11/15/2019 10:03:14; JERSONB [id number] Consultation Notes No Data Provided for This Section Discharge Summaries No Data Provided for This Section History and Physicals No Data Provided for This Section Vital Signs Vital Sign Value Date Comments Source Systolic (mm Hg) 154 11/16/2019 [facility] t Diastolic (mm Hg) 88 11/16/[address] [facility] st Temperature Oral (F) 98.4 F 11/16/2019 [facility] Heart Rate 57 11/16/2019 [facility] Respitory Rate 18 11/16/2019 [facility] Systolic (mm Hg) 169 11/16/2019 [facility] Diastolic (mm Hg) 88 11/16/[address] [facility] st Temperature Oral (F) 97.9 F 11/16/2019 [facility] Heart Rate 83 11/16/2019 [facility] Respitory Rate 18 11/16/2019 [facility] Systolic (mm Hg) 161 11/16/2019 [facility] Diastolic (mm Hg) 91 11/16/[address] [facility] st Temperature Oral (F) 97.5 F 11/16/2019 [facility] Heart Rate 76 11/16/2019 [facility] Respitory Rate 18 11/16/2019 [facility] Height 154.94 cm 11/15/2019 [facility] Weight 68.182 11/15/2019 [facility] BMI Calculated 28.4 11/15/2019 [facility] Encounters Location Location Encounter Encounter Reason Attending ADM DC Stat us Source Details Type Number For Provider Date Date Visit [facility] [id number] [place] 11/14 11/15 [facility] [place] /2019 [facility] Procedures No Data Provided for This Section Assessment and Plan Assessment and Plan Date Source Extracted from:Title: Neurology Progress Note 11/16/2019 [facility] Author: Gabriela Zapien NP Date: 11/16/19 This is a 79 year old woman with PMH of HTN who presented to ED in [facility] two hours after sudden onset of extreme [...] receivi ng meclizine. She was transferred to [facility] for further evaluation of possible vert dissection. [...] from:Title: Neurology Consult Note Author: Gabriela Zapien [employer]PRENTICE Date: 11/15/19 This is a 79 year old woman with PMH of HTN who presented to ED in [facility] two hours after sudden onset of extreme [...] receiving mecli zine. She was transferred to [facility] for further evaluation of possible vert dissection. [...] and giddiness | Uncontrolled hypertension | [place]... Dizziness and giddiness(R42) Ordered: Admit/Condition, 11/15/19 6:18:00 CDT, S tatus: Inpatient, Acute, Expected LOS: 2 Midnights, Neurology, Twan Singletary MD, Admit Review/Approve Yes, Isolation: No Isolation/Standard Precautio ns, Dizziness and giddiness | Uncontrolled hypertension | Ac [place]... Possible Right Vertebral artery dissection(I77.74) Ordered: Admit/Condition, 11/15/19 6:18:00 CDT, S tatus: Inpatient, Acute, Expected LOS: 2 Midnights, Neurology, OTwan chavez MD, Admit Review/Approve Yes, Isolation: No Isolation/Standard [place], Dizziness and giddiness | Uncontrolled hypertension | Ac [place]... Uncontrolled hypertension(I10) Ordered: Admit/Condition, 11/15/19 6:18:00 CDT, S tatus: Inpatient, Acute, Expected LOS: 2 Midnights, Neurology, OTwan chavez MD, Admit Review/Approve Yes, Isolation: No Isolation/Standard [place], Dizziness and giddiness | Uncontrolled hypertension | Ac [place]... Plan of Care No Data Provided for This Section Social History Social History Date Source Social History TypeResponse 11/15/2019 [facility] Alcohol Never Smoking Status Never smoker; Previous treatment: None; Exposure to Tobacco Smoke None; Cigarette Smoking Last 365 Days No; Reg Smoking Cessation Counseling No entered on: 11/15/19 Family History No Data Provided for This Section Advance Directives No Data Provided for This Section Functional Status No Data Provided for This Section
[2020-03-04] MEDS ORDERED: NA CHLORIDE 0.9% 500 ML ONE (07:36)
[2020-03-04] MEDS ORDERED: FAMOTIDINE 20 MG/2 ML VIAL IV ONE (07:36)
[2020-03-04] MEDS ORDERED: MORPHINE 4 MG/ML SYR ONE ×2 (07:36→11:34)
[2020-03-04] MEDS ORDERED: ONDANSETRON 4 MG/2 ML VIAL ONE (07:36)
[2020-03-04 07:54] LABS: Basophils % 0.3 % (0-1.3); Hematocrit 39.9 % (36.0-45.0); Lymphocytes % 14.6 % (15.3-44.8); MPV 9.6 fL (7.6-11.3); RBC Red Blood Cell Count 4.82 M/uL (3.86-4.86)
--- NOTE | 2020-03-04 08:22 | RAD REPORT ---
EXAM DESCRIPTION: CT - Abdomen Pelvis W Contrast - 03/04/2020 8:06 am CLINICAL HISTORY: Abdominal pain COMPARISON: 2019 TECHNIQUE: Computed axial tomography of the abdomen pelvis was obtained. 100 cc Isovue-300 was admin istered intravenously. Oral contrast was not requested which limits evaluation of bowel. All CT scans are performed using dose optimization technique as appropriate and may include automated exposure control or mA/KV adjustment according to patient size. FINDINGS: The gallbladder is distended. The common bile duct is dilated. Mild dilatation of the intr ahepatic biliary tree Hepatic cysts. Spleen, pancreas and adrenals are unremarkable. Small renal cysts. Spleen, pancreas, adrenal and kidn eys appear unremarkable. There is no evidence of diverticulitis. Small umbilical hernia IMPRESSION: Gallbladder distention. Dilatation of the intra and extrahepatic biliary tree
[2020-03-04 08:31] LABS: Albumin 3.9 g/dL (3.4-5.0); Bilirubin Direct 0.8 mg/dL (0-0.2); Bilirubin Total 1.3 mg/dL (0.2-1.0); Protein, Total 9.1 g/dL (6.4-8.2)
[2020-03-04 08:32] LABS: Potassium 2.6 mmol/L (3.5-5.1)
[2020-03-04] MEDS ORDERED: NS KCL 40MEQ 40 MEQ/1,000 ML BAG IV SCH (09:00)
--- NOTE | 2020-03-04 10:18 | RAD REPORT ---
EXAM DESCRIPTION: US - Abdomen Exam Limited - 03/04/2020 9:43 am CLINICAL HISTORY: Abdominal pain. COMPARISON: March 04, 2020 cat scan FINDINGS: The gallbladder is distended and contains small amount of sludge. The gallbladder wall is normal thickness. A gallstone is not visualized. The common bile duct is not well visualized on this exam. On the CT sc an today common bile duct measures 9 millimeters with mild dilatation of the intrahepatic biliary natalya e IMPRESSION: Gallbladder distention with small amount of sludge Mild dilatation of the biliary tree
--- NOTE | 2020-03-04 10:31 | ER ---
Nurse's Notes [facility] Name: Lawanda Sharp Age: 79 yrs Sex: Female : 1940 Arrival Date: 03/04/2020 Time: 06:57 Bed 6 Private MD: Diagnosis: Upper abdominal pain, unspecified;Hypokalemia Presentation: 03/04 07:08 Chief complaint: Patient states: upper abdominal pain and vomitting since yesterday dm5 after eating a ham sandwich. Coronavirus screen: Proceed with normal triage. Patient denies a cough. Patient denies shortness of breath or difficulty breathing. Patient denies measured and/or subjective temperature greater than 100.4F prior to today's visit. Patient denies travel on a cruise ship or to a country the [facility] currently lists as an affected area. Patient denies contact with known and/or suspected case of COVID-19. Ebola Screen: Patient negative for fever greater than or equal to 101.5 degrees Fahrenheit, and additional compatible Ebola Virus Disease symptoms Patient denies exposure to infectious person. Patient denies travel to an Ebola-affected area in the 21 days before illness onset. No symptoms or risks identified at this time. Initial Sepsis Screen: Does the patient meet any 2 criteria? RR > 20 per min. No. Patient's initial sepsis screen is negative. Does the patient have a suspected source of infection? Yes: Acute abdominal pain. Risk Assessment: Do you want to hurt yourself or someone else? Patient reports no desire to harm self or others. Onset of symptoms was March 03, 2020. 07:08 Method Of Arrival: Ambulatory dm5 07:08 Acuity: SANIAY 3 dm5 Historical: - Allergies: 07:12 NKDA; dm5 - Home Meds: 07:12 lisinopril Oral [Active]; dm5 - PMHx: 07:12 Hypertension; dm5 - PSHx: 07:12 Hysterectomy; dm5 Assessment: 08:45 Reassessment: NS with potassium order faxed to pharmacy. sv 11:35 Reassessment: Pt's transportation home will be coming to get her. sv Vital Signs: 07:08 BP 177 / 90; Pulse 79; Resp 22; Temp 97.8; Pulse Ox 100% on R/A; Weight 68.04 kg; dm5 Height 5 ft. 1 in. (154.94 cm); Pain 10/10; 07:48 BP 175 / 93; Pulse 82; Resp 20; Pulse Ox 95% on R/A; sv 08:05 Pulse Ox 88% on NC; sv 08:34 BP 170 / 95; Pulse 84; Resp 18; Pulse Ox 100% on 2 lpm NC; sv 09:43 BP 148 / 78; Pulse 76; Resp 16; Pulse Ox 99% ; sv 07:08 Body Mass Index 28.34 (68.04 kg, 154.94 cm) dm5 08:05 Pt drowsy after Morphine administered. O2 sat at 88% RA. Placed on O2 \T\ 2L per NC. O2 sv sat up to 100%. ED Course: 06:57 Patient arrived in ED. cl3 07:06 Pia Pimentel FNP-C is PHCP. kb 07:06 Yifan Ortiz MD is Attending Physician. kb 07:11 Triage completed. dm5 07:20 Rylee Krause, HERSNO is Primary Nurse. sv 07:35 Inserted saline lock: 20 gauge in right antecubital area, using aseptic technique. sv Blood collected. Flushed right antecubital with 5 ml normal saline. 08:28 Awaiting radiology results. sv 08:28 EKG done, by ED staff, reviewed by Pia VASQUEZ. sv 08:32 Notified Nurse Practitioner and/or Physician [employer] of a critical lab result(s), sv potassium-2.6. 10:31 Jose Strong MD is Referral Physician. kb 11:32 No provider procedures requiring assistance completed. IV discontinued, intact, sv bleeding controlled, No redness/swelling at site. Pressure dressing applied. 23:40 US Abdomen Limited In Process Unspecified. EDMS Administered Medications: 07:37 Drug: Zofran (Ondansetron) 4 mg Route: IVP; Site: right antecubital; sv 08:33 Follow up: Response: No adverse reaction sv 07:37 Drug: NS 0.9% 500 ml Route: IV; Rate: bolus; Site: right antecubital; sv 08:15 Follow up: Response: No adverse reaction; IV Status: Completed infusion; IV Intake: sv 500ml 07:39 Drug: Pepcid 20 mg Route: IVP; Site: right antecubital; sv 08:32 Follow up: Response: No adverse reaction sv 07:41 Drug: morphine 4 mg {Note: rass3.} Route: IVP; Site: right antecubital; sv 08:33 Follow up: Response: No adverse reaction; Pain is decreased; RASS: Alert and Calm (0) sv 09:41 Drug: NS 0.9% with KCl 40 mEq/L 1000 ml Route: IV; Rate: 125 ml/hr; Site: right sv antecubital; 12:24 Follow up: Response: No adverse reaction; IV Status: Order to discontinue infusion; IV sv Intake: 375ml 11:30 Drug: Potassium Effervescent Tablet 50 mEq Route: PO; sv 12:24 Follow up: Response: No adverse reaction sv 11:30 Drug: morphine 4 mg {Note: rass1.} Route: IVP; Site: right antecubital; sv 12:23 Follow up: Response: No adverse reaction; Marked relief of symptoms; Pain is decreased; sv RASS: Alert and Calm (0) 11:47 Drug: Zofran (Ondansetron) 4 mg Route: PO; sv 12:15 Follow up: Response: No adverse reaction; No change in condition sv 12:15 Drug: Phenergan 12.5 mg Route: IM; Site: left deltoid; sv 12:23 Follow up: Response: No adverse reaction sv Intake: 08:15 IV: 500ml; Total: 500ml. sv 12:24 IV: 375ml; Total: 875ml. sv Outcome: 10:31 Discharge ordered by . kb 11:33 Discharged to home via wheelchair, with family. sv 11:33 Condition: stable 11:33 Discharge instructions given to patient, Instructed on discharge instructions, follow up and referral plans. medication usage, Demonstrated understanding of instructions, follow-up care, medications, Prescriptions given X 2. 12:21 Patient left the ED. sv 12:24 Patient left the ED. sv Signatures: Dispatcher [employer] EDMS Pia Pimentel FNP-C FNP-Ckb Markwardt, Deana RN RN dm5 Rylee Krause RN RN Sherri Brice cl3 Corrections: (The following items were deleted from the chart) 08:29 08:[address] Scan, sv sv 12:23 12:15 Zofran (Ondansetron) 4 mg PO sv sv 12:23 12:23 Response: No adverse reaction sv sv
--- NOTE | 2020-03-04 10:31 | EDPHYS ---
Physician Documentation [facility] Name: Lawanda Sharp Age: 79 yrs Sex: Female : 1940 Arrival Date: 03/04/2020 Time: 06:57 Bed 6 Private MD: ED Physician Yifan Ortiz HPI: 03/04 07:13 This 79 yrs old Female presents to ER via Ambulatory with complaints of kb Abdominal Cramping. 07:13 The patient presents with abdominal pain in the upper abdomen. Onset: The kb symptoms/episode began/occurred yesterday. The symptoms do not radiate. Associated signs and symptoms: Pertinent positives: nausea and vomiting, Pertinent negatives: anorexia, blood in stools, chest pain, constipation, diarrhea, dysuria, fever, headache, hematuria, palpitations, shortness of breath, vaginal discharge, vomiting blood. The symptoms are described as constant. Modifying factors: The symptoms are alleviated by nothing, the symptoms are aggravated by pressure. Severity of pain: At its worst the pain was moderate in the emergency department the pain is unchanged. The patient has not experienced similar symptoms in the past. The patient has not recently seen a physician. Pt reports she ate a ham sandwich yesterday, then started having upper abd pain. STates she had nausea and vomiting all night. . Historical: - Allergies: 07:12 NKDA; dm5 - Home Meds: 07:12 lisinopril Oral [Active]; dm5 - PMHx: 07:12 Hypertension; dm5 - PSHx: 07:12 Hysterectomy; dm5 ROS: 07:13 Constitutional: Negative for fever, chills, and weight loss, Cardiovascular: Negative kb for chest pain, palpitations, and edema, Respiratory: Negative for shortness of breath, cough, wheezing, and pleuritic chest pain, Back: Negative for injury and pain, : Negative for injury, bleeding, discharge, and swelling, MS/Extremity: Negative for injury and deformity, Skin: Negative for injury, rash, and discoloration, Neuro: Negative for headache, weakness, numbness, tingling, and seizure. 07:13 Abdomen/GI: Positive for abdominal pain, nausea and vomiting, Negative for diarrhea, constipation, abdominal cramps, abdominal distension, anorexia. Exam: 07:13 Head/Face: Normocephalic, atraumatic. Chest/axilla: Normal chest wall appearance and kb motion. Nontender with no deformity. No lesions are appreciated. Cardiovascular: Regular rate and rhythm with a normal S1 and S2. No gallops, murmurs, or rubs. Normal PMI, no JVD. No pulse deficits. Respiratory: Lungs have equal breath sounds bilaterally, clear to auscultation and percussion. No rales, rhonchi or wheezes noted. No increased work of breathing, no retractions or nasal flaring. Back: No spinal tenderness. No costovertebral tenderness. Full range of motion. Skin: Warm, dry with normal turgor. Normal color with no rashes, no lesions, and no evidence of cellulitis. MS/ Extremity: Pulses equal, no cyanosis. Neurovascular intact. Full, normal range of motion. Neuro: Awake and alert, GCS 15, oriented to person, place, time, and situation. Cranial nerves II-XII grossly intact. Motor strength 5/5 in all extremities. Sensory grossly intact. Cerebellar exam normal. Normal gait. 07:13 Constitutional: The patient appears alert, awake, uncomfortable. 07:13 Abdomen/GI: Inspection: abdomen appears normal, Bowel sounds: normal, in all quadrants, Palpation: soft, in all quadrants, mild abdominal tenderness, in the right lower quadrant and left lower quadrant, moderate abdominal tenderness, in the epigastric area, right upper quadrant and left upper quadrant. 10:03 ECG was reviewed by the Attending Physician. Vital Signs: 07:08 BP 177 / 90; Pulse 79; Resp 22; Temp 97.8; Pulse Ox 100% on R/A; Weight 68.04 kg; dm5 Height 5 ft. 1 in. (154.94 cm); Pain 10/10; 07:48 BP 175 / 93; Pulse 82; Resp 20; Pulse Ox 95% on R/A; sv 08:05 Pulse Ox 88% on NC; sv 08:34 BP 170 / 95; Pulse 84; Resp 18; Pulse Ox 100% on 2 lpm NC; sv 09:43 BP 148 / 78; Pulse 76; Resp 16; Pulse Ox 99% ; sv 07:08 Body Mass Index 28.34 (68.04 kg, 154.94 cm) dm5 08:05 Pt drowsy after Morphine administered. O2 sat at 88% RA. Placed on O2 \T\ 2L per NC. O2 sv sat up to 100%. MDM: 07:06 Patient medically screened. kb 07:12 Data reviewed: vital signs, nurses notes. Data interpreted: Pulse oximetry: on room air kb is 100 %. Interpretation: normal. 10:29 Counseling: I had a detailed discussion with the patient and/or guardian regarding: the kb historical points, exam findings, and any diagnostic results supporting the discharge/admit diagnosis, lab results, radiology results, the need for outpatient follow up, a family practitioner, a general surgeon, to return to the emergency department if symptoms worsen or persist or if there are any questions or concerns that arise at home. ED course: Discussed diagnostic results with pt and ERP. All in agreement with outpatient follow up and pt will return for worsening symptoms. Pain is resolved after one dose of pain medication. Pt has been ambulating to the restroom without assist. No vomiting since arrival. . 03/04 07:54 Order name: CBC with Automated Diff; Complete Time: 08:00 EDMS 03/04 08:33 Order name: Basic Metabolic Panel; Complete Time: 08:33 EDMS 03/04 08:22 Order name: CT; Complete Time: 08:29 EDMS 03/04 08:33 Order name: Liver (Hepatic) Function; Complete Time: 08:33 EDMS 03/04 08:33 Order name: Lipase; Complete Time: 08:33 EDMS 03/04 09:27 Order name: CREATININE WHOLE BLOOD; Complete Time: 09:45 EDMS 03/04 10:19 Order name: US; Complete Time: 10:23 EDMS 03/04 07:11 Order name: IV Saline Lock; Complete Time: 07:46 kb 03/04 07:11 Order name: Labs collected and sent; Complete Time: 07:46 kb 03/04 07:11 Order name: EKG; Complete Time: 21:14 kb 03/04 07:11 Order name: EKG - Nurse/Tech; Complete Time: 08:28 kb EC:03 Rate is 83 beats/min. Rhythm is regular. Left axis deviation noted. [place] interval is kb normal at 208 msec. QRS interval is normal at 108 msec. QT interval is normal at 360 msec. Administered Medications: 07:37 Drug: Zofran (Ondansetron) 4 mg Route: IVP; Site: right antecubital; sv 08:33 Follow up: Response: No adverse reaction sv 07:37 Drug: NS 0.9% 500 ml Route: IV; Rate: bolus; Site: right antecubital; sv 08:15 Follow up: Response: No adverse reaction; IV Status: Completed infusion; IV Intake: sv 500ml 07:39 Drug: Pepcid 20 mg Route: IVP; Site: right antecubital; sv 08:32 Follow up: Response: No adverse reaction sv 07:41 Drug: morphine 4 mg {Note: rass3.} Route: IVP; Site: right antecubital; sv 08:33 Follow up: Response: No adverse reaction; Pain is decreased; RASS: Alert and Calm (0) sv 09:41 Drug: NS 0.9% with KCl 40 mEq/L 1000 ml Route: IV; Rate: 125 ml/hr; Site: right sv antecubital; 12:24 Follow up: Response: No adverse reaction; IV Status: Order to discontinue infusion; IV sv Intake: 375ml 11:30 Drug: Potassium Effervescent Tablet 50 mEq Route: PO; sv 12:24 Follow up: Response: No adverse reaction sv 11:30 Drug: morphine 4 mg {Note: rass1.} Route: IVP; Site: right antecubital; sv 12:23 Follow up: Response: No adverse reaction; Marked relief of symptoms; Pain is decreased; sv RASS: Alert and Calm (0) 11:47 Drug: Zofran (Ondansetron) 4 mg Route: PO; sv 12:15 Follow up: Response: No adverse reaction; No change in condition sv 12:15 Drug: Phenergan 12.5 mg Route: IM; Site: left deltoid; sv 12:23 Follow up: Response: No adverse reaction sv Disposition: 03/04/20 10:31 Discharged to Home. Impression: Upper abdominal pain, unspecified, Hypokalemia. - Condition is Stable. - Discharge Instructions: Biliary Colic, Adult, Abdominal Pain, Adult, [id number]. - Prescriptions for Bentyl 20 mg Oral Tablet - take 1 tablet by ORAL route every 6 hours As needed; 20 tablet. Zofran 4 mg Oral Tablet - take 1 tablet by ORAL route every 6 hours As needed; 20 tablet. - Medication Reconciliation Form, Thank You Letter, Antibiotic Education, Prescription Opioid Use form. - Follow up: Emergency Department; When: As needed; Reason: Worsening of condition. Follow up: Jose Strong MD; When: 2 - 3 days; Reason: Recheck today's complaints, Continuance of care, Re-evaluation by your physician. Addendum: 03/08/2020 16:27 Co-signature as Attending Physician, Yifan Ortiz MD I agree with the assessment and k dr plan of care. Signatures: Dispatcher [employer] EDMS Pia Pimentel, HARIKA-C REGIONAL MANAGER-Nicole Montelongo, RN RN dm5 Rylee Krause RN RN Yifan Daniel MD MD kdr Corrections: (The following items were deleted from the chart) 03/04 10:32 10:31 03/04/2020 10:31 Discharged to Home. Impression: Upper abdominal pain, kb unspecified. Condition is Stable. Forms are Medication Reconciliation Form, Thank You Letter, Antibiotic Education, Prescription Opioid Use. Follow up: Emergency Department; When: As needed; Reason: Worsening of condition. Follow up: Jose Strong; When: 2 - 3 days; Reason: Recheck today's complaints, Continuance of care, Re-evaluation by your physician. kb 12:21 10:32 03/04/2020 10:31 Discharged to Home. Impression: Upper abdominal pain, sv unspecified; Hypokalemia. Condition is Stable. Discharge Instructions: Biliary Colic, Adult, Abdominal Pain, Adult, [id number]. Prescriptions for Bentyl 20 mg Oral Tablet - take 1 tablet by ORAL route every 6 hours As needed; 20 tablet, Zofran 4 mg Oral Tablet - take 1 tablet by ORAL route every 6 hours As needed; 20 tablet. and Forms are Medication Reconciliation Form, Thank You Letter, Antibiotic Education, Prescription Opioid Use. Follow up: Emergency Department; When: As needed; Reason: Worsening of condition. Follow up: Jose Strong; When: 2 - 3 days; Reason: Recheck today's complaints, Continuance of care, Re-evaluation by your physician. kb 12:24 12:21 03/04/2020 10:31 Discharged to Home. Impression: Upper abdominal pain, sv unspecified; Hypokalemia. Condition is Stable. Discharge Instructions: Biliary Colic, Adult, Abdominal Pain, Adult, [id number]. Prescriptions for Bentyl 20 mg Oral Tablet - take 1 tablet by ORAL route every 6 hours As needed; 20 tablet, Zofran 4 mg Oral Tablet - take 1 tablet by ORAL route every 6 hours As needed; 20 tablet. and Forms are Medication Reconciliation Form, Thank You Letter, Antibiotic Education, Prescription Opioid Use. Follow up: Emergency Department; When: As needed; Reason: Worsening of condition. Follow up: Jose Strong; When: 2 - 3 days; Reason: Recheck today's complaints, Continuance of care, Re-evaluation by your physician. sv
[2020-03-04] MEDS ORDERED: POTASSIUM 25 MEQ EFFERV TAB ONE (11:21)
[2020-03-04] MEDS ORDERED: ONDANSETRON 4 MG (ODT) TAB ONE (11:54)
[2020-03-04] MEDS ORDERED: PROMETHAZINE INJ 25 MG/ML AMP ONE (12:23)
[2020-03-04 12:31] VITALS: TEMP 97.8
[2020-03-04 12:36] VITALS: BP 148/78; O2SAT 99
== END 2020-03-04 12:24 | disposition home or self-care (01) ==
LOC: ER 06:54
DX: E87.6 Hypokalemia (principal); I10 Essential (primary) hypertension
CPT/HCPCS: 96361; 93005; 85025; 80048; 36415; 82565; 80076; 83690; 74177; 76705; 96375; 96372; 96374; 99284; Q9967; J2550; J7040; J2405

== ENCOUNTER 2022-10-19 14:39 | Inpatient (IN) | payer OTHER ==
--- OUTSIDE RECORDS SUMMARY | 2022-10-19 14:43 | XMS REPORT | Continuity of Care Document ---
:1940 Author Organization [facility] t Address [address] [place] [address] Care Team Providers Name Role Phone YOCASTA FUNES Primary Care Physician Unavailable RADIOLOGY Attending Clinician Unavailable Radiology Attending Clinician Unavailable MEET SOLO Attending Clinician Unavailable Meet Solo Attending Clinician DELIA GALVEZ Admitting Clinician Unavailable MEET SOLO Admitting Clinician Unavailable Meet Solo Admitting Clinician Payers Payer Name Policy Type Policy Number Effective Date Expiration Date [facility] [id number] 2022 CLASSIC NO PREMIUM 00:00:00 HMO Problems Condition Condition Condition Status Onset Resolution Last Treating Co mments Source Name Details Category Date Date Treatment Clinician Date DIZZINESS, DIZZINESS Diagnosis Active 2019-11-17 Memoria DISSECTION , 3- 06:31:00 l VERTEBRAL DISSECTION 00:00: Her medina ARTERY VERTEBRAL 00 ARTERY Active 11/15/2019 ISHMAEL [facility] ILLNESS, ILLNESS, Diagnosis Active 2019-11-17 Memoria UNSPECIFIE UNSPECIFIE 06:31:00 l D D Active Ramos QUIÑONES [facility] Allergies, Adverse Reactions, Alerts Allergy Allergy Status Severity Reaction(s) Onset Inactive Treating Comm ents Source Name Type Date Date Clinician NO KNOWN Drug Active [facility] ALLERGIE Class [facility] [place] [facility] Social History Social Habit Start Date Stop Date Quantity Comments Source Exposure to 2022-07-30 2022-08-09 Not sure [facility] SARS-CoV-2 (event) 00:00:00 15:27:00 [facility] Social History 2019-11-15 2019-11-15 [facility] ermann 11:12:48 11:12:48 Sex Assigned At [birth year] [facility] 00:00:00 00:00:00 [facility] Smoking Status Start Date Stop Date Source Tobacco smoking consumption [facility] Medications Ordered Filled Start Stop Current Ordering Indication Dosage Frequency Signature Comments Components Source Medication Medication Date Date Medication? Clinician (SIG) Name Name gadobenate 2022- No [id number] .2mL/kg 0.2 mL/kg, [facility] dimeglumine 08-31 Intravenou i ty of (MULTIHANCE 19:30: 19:28 s, ONCE, 1 [place] -15 mL) 00 :00 dose, On Medical injection Mary Kate 08/31/22 Bran ch 0.2 mL/kg at 1330, Routine Plavix No Notes: Memoria 3-23 (Same As: l 14:00: Plavix) Ramos 00 Plavix 2019-0 Yes Notes: Memoria 3-22 (Same As: l 20:26: Plavix) Ramos 00 Aspirin 81 2019-0 Yes 81 mg = 1 Me moria MG Enteric 3-22 tab, PO, l Coated 13:52: Q24H, 0 Ramos Tablet 00 Refill(s) lisinopril 2019-0 Yes 20 mg = 1 Me moria 20 mg oral 3-22 tab, PO, l tablet 13:52: Daily, # [place] 00 30 tab, 0 Refill(s), Pharmacy: [facility] #[id number] meclizine 2019-0 Yes 12.5 mg = Mem oria 12.5 mg 3-22 1 tab, PO, l oral tablet 13:52: BID, PRN He rmann 00 Dizziness, X 15 day, # 30 tab, 0 Refill(s), Pharmacy: [facility] #[id number] atorvastati 2019-0 No Notes: Ángel glenroy n 3-22 (Same as: l 02:00: Lipitor) [place] 00 potassium 2019-0 No Notes: Memori a chloride 20 3-21 [...] s with feeding tube less than 14 [place] (Dobhoff, J-tube etc) and pediatric and patients. potassium 2019-0 No Notes: Memori a chloride 20 3-21 [...] s with feeding tube less than 14 [place] (Dobhoff, J-tube etc) and pediatric and patients. Famotidine 0 No Notes: Memor ia 3-21 (Same as: l 14:00: Pepcid) Saline 0 No Notes: Memoria Flush 0.9% 3-21 Same as: l 14:00: BD Posiflush Sterile Lisinopril 0 No Notes: Memor ia 3-21 (Same as: l 14:00: Prinivil, Zestril) Ativan 0 No Notes: Memoria 3-21 (Same as: l 13:07: Ativan) Aspirin 81 2019-0 No Notes: Do Me moria MG Enteric 3-21 not crush l Coated 12:00: or chew. [place] Tablet 00 (Same As: Ecotrin) Labetalol 0 No Notes: Memori a 3-21 (Same as: l 11:18: Normodyne, [place] Trandate) Push over 2 minutes Give bolus over 2-3 minutes. enalapril 2019-0 No Notes: Memori a 3-21 (Same as: l 11:18: Vasotec-IV [place] ) Ondansetron 2020-0 No Notes: Ángel glenroy -21 (Same as: l 11:18: Zofran) Ramos 00 MEDICATION WASTE Product Size: 4 mg Product Wasted: ___ mg Acetaminoph No Notes: Do M emoria en - not exceed l 11:18: 4 gm/day. [place] (Same as: Tylenol) Saline No Notes: Memoria Flush 0.9% 11-14 Same as: l 11:18: BD [place] 00 Posiflush Sterile lisinopril No 10 mg = 1 Me moria 10 mg oral 11-14 tab, PO, l tablet 10:55: Daily, # [place] 00 30 tab, 0 Refill(s) Immunizations Ordered Immunization Filled Immunization Date Status Commen ts Source Name Name pneumococcal 2019-11-16 Completed [facility] 13-valent vaccine 17:01:00 [place] influenza virus 2019-11-16 Completed [facility] vaccine, inactivated 17:01:00 [facility] yan Vital Signs Vital Name Observation Time Observation Value Comments Source Systolic (mm Hg) 2019-11-16 17:11:00 Ángel rial [place] Diastolic (mm Hg) 2019-11-16 17:11:00 Mem orial [place] Temperature Oral (F) 2019-11-16 13:00:00 98.4 F [facility] Heart Rate 2019-11-16 13:00:00 [facility] [place] Respitory Rate 2019-11-16 13:00:00 Memori al [place] Systolic (mm Hg) 2019-11-16 13:00:00 Ángel rial [place] Diastolic (mm Hg) 2019-11-16 13:00:00 Mem orial [place] Temperature Oral (F) 2019-11-16 09:00:00 97.9 F [facility] Heart Rate 2019-11-16 09:00:00 [facility] [place] Respitory Rate 2019-11-16 09:00:00 Memori al [place] Systolic (mm Hg) 2019-11-16 09:00:00 Ángel rial [place] Diastolic (mm Hg) 2019-11-16 09:00:00 Mem orial [place] Temperature Oral (F) 2019-11-16 05:00:00 97.5 F [facility] Heart Rate 2019-11-16 05:00:00 [facility] [place] Respitory Rate 2019-11-16 05:00:00 Jacquelyn Arredondo Height 2019-11-15 10:49:00 154.94 cm [facility] Weight 2019-11-15 10:49:00 [facility] BMI Calculated 2019-11-15 10:49:00 Jacquelyn Arredondo Procedures Procedure Date / Time Performed Performing Clinician Alvarado e MR THORACIC SPINE W 2022-08-31 19:41:00 Requisition, Paper Unive [facility] Encounters Start End Encounter Admission Attending Care Care Encounter Source Date/Time Date/Time Type Type Clinicians Facility Department ID 2022-08-31 2022-08-31 Outpatient R RADIOLOGY [facility] [id number] Univers 12:36:29 23:59:00 ity [facility] 2022-08-31 2022-08-31 [facility] Radiology [facility] [id number] [facility] 12:36:29 23:59:00 Encounter [place] [id number] ity [facility] [id number] [facility] [id number] [facility] [address] Branch 2019-11-15 2019-11-16 Observatio nullFlavo [facility] [id number] Memoria 19:07:00 20:36:00 n charan Beasley 82 l [facility] 2019-11-15 2019-11-16 Outpatient [facility] 0081 [facility] 14:07:00 15:36:00 [facility] 2019-11-15 2019-11-16 Outpatient [facility] [id number] 14:07:00 15:36:00 Meet 81 [place] Results Test Description Test Time Test Comments Results Result Comments Source CHEM PANEL 2019-11-16 09:37:00 Test Item Value Reference Range Interpretation Comme nts Glucose Lvl (test code = Glucose Lvl) 115 70-99 [facility]2020-03-22 09:37:00 Test Item Value Reference Range Interpretation Comments BUN (test code = BUN) 14 7-22 [facility] [id number] 09:37:00 Test Item Value Reference Range Interpretation Comments Creatinine Lvl (test code = Creatinine 0.80 0.50-1.40 Lvl) [facility] [id number] 09:37:00 Test Item Value Reference Range Interpretation Comments Sodium Lvl (test code = Sodium Lvl) 141 135-145 [facility] [id number] 09:37:00 Test Item Value Reference Range Interpretation Comments Potassium Lvl (test code = Potassium 3.8 3.5-5.1 Lvl) [facility] [id number] 09:37:00 Test Item Value Reference Range Interpretation Comments Chloride Lvl (test code = Chloride Lvl) 114 95-109 [facility] [id number] 09:37:00 Test Item Value Reference Range Interpretation Comments CO2 (test code = CO2) 21 24-32 [facility] [id number] 09:37:00 Test Item Value Reference Range Interpretation Comments Calcium Lvl (test code = Calcium Lvl) 9.2 8.5-10.5 [facility] [id number] 09:37:00 Test Item Value Reference Range Interpretation Comments AGAP (test code = AGAP) 9.8 10.0-20.0 [facility] [id number] 09:37:00 Test Item Value Reference Range Interpretation Comments eGFR (test code = eGFR) 71 [facility]nmqxkqSXGCFL6293-93-51 12:20:00 Test Item Value Reference Range Interpretation Comments Trig (test code = Trig) 116 [id number] 12:20:00 Test Item Value Reference Range Interpretation Comments Chol (test code = Chol) 121 [id number] 12:20:00 Test Item Value Reference Range Interpretation Comments HDL (test code = HDL) 34 [id number] 12:20:00 Test Item Value Reference Range Interpretation Comments CHD Risk (test code = CHD Risk) 3.56 1 3.90-5.80 [facility]dtgfaoSXKYFM8601-36-98 12:20:00 Test Item Value Reference Range Interpretation Comments LDL (Calculated) (test code = LDL 64 (Calculated)) [facility]setzofROHTRT5822-17-03 12:20:00 Test Item Value Reference Range Interpretation Comments VLDL (test code = VLDL) 23 1 [facility] [id number] 12:20:00 Test Item Value Reference Range Interpretation Comments Troponin-I (test code 0.02 See_Comment [Auto mated message] The = Troponin-I) system which g enerated this result transmit piedad reference range : <=0.40. The reference r franco was not used to interpr et this result as south l/abnormal. [facility] [id number] 12:20:00 Test Item Value Reference Range Interpretation Comments Glucose Lvl (test code = Glucose Lvl) 107 70-99 [facility] [id number] 12:20:00 Test Item Value Reference Range Interpretation Comments BUN (test code = BUN) 13 7-22 [facility]2020-03-21 12:20:00 Test Item Value Reference Range Interpretation Comments Creatinine Lvl (test code = Creatinine 0.80 0.50-1.40 Lvl) [facility] [id number] 12:20:00 Test Item Value Reference Range Interpretation Comments Sodium Lvl (test code = Sodium Lvl) 145 135-145 [facility] [id number] 12:20:00 Test Item Value Reference Range Interpretation Comments Potassium Lvl (test code = Potassium 3.0 3.5-5.1 Lvl) [facility] [id number] 12:20:00 Test Item Value Reference Range Interpretation Comments Chloride Lvl (test code = Chloride Lvl) 112 95-109 [facility] [id number] 12:20:00 Test Item Value Reference Range Interpretation Comments CO2 (test code = CO2) 26 24-32 [facility] [id number] 12:20:00 Test Item Value Reference Range Interpretation Comments AGAP (test code = AGAP) 10.0 10.0-20.0 [facility] [id number] 12:20:00 Test Item Value Reference Range Interpretation Comments Calcium Lvl (test code = Calcium Lvl) 8.8 8.5-10.5 [facility] [id number] 12:20:00 Test Item Value Reference Range Interpretation Comments B/C Ratio (test code = B/C Ratio) 16 1 6-25 [facility] [id number] 12:20:00 Test Item Value Reference Range Interpretation Comments Total Protein (test code = Total 7.7 6.4-8.4 Protein) [facility] [id number] 12:20:00 Test Item Value Reference Range Interpretation Comments Albumin Lvl (test code = Albumin Lvl) 3.1 3.5-5.0 [facility] [id number] 12:20:00 Test Item Value Reference Range Interpretation Comments Globulin (test code = Globulin) 4.6 2.7-4.2 [facility] [id number] 12:20:00 Test Item Value Reference Range Interpretation Comments A/G Ratio (test code = A/G Ratio) 0.7 1 0.7-1.6 [facility] [id number] 12:20:00 Test Item Value Reference Range Interpretation Comments ALT (test code = ALT) 17 See_Comment [Auto mated message] The system which ge nerated this result transmit piedad reference range : <=65. The reference range was not used to interpr et this result as south l/abnormal. [facility] [id number] 12:20:00 Test Item Value Reference Range Interpretation Comments AST (test code = AST) 23 See_Comment [Auto mated message] The system which ge nerated this result transmit piedad reference range : <=37. The reference range was not used to interpr et this result as south l/abnormal. [facility] [id number] 12:20:00 Test Item Value Reference Range Interpretation Comments Alk Phos (test code = Alk Phos) 95 39-136 [facility] [id number] 12:20:00 Test Item Value Reference Range Interpretation Comments Bili Total (test code = Bili Total) 0.3 0.2-1.3 [facility] [id number] 12:20:00 Test Item Value Reference Range Interpretation Comments eGFR (test code = eGFR) 71 [facility] [id number] 12:20:00 Test Item Value Reference Range Interpretation Comments Magnesium Lvl (test code = Magnesium 1.8 1.8-2.4 Lvl) [id number] 12:20:00 Test Item Value Reference Range Interpretation Comments WBC (test code = WBC) 4.6 3.7-10.4 [id number] 12:20:00 Test Item Value Reference Range Interpretation Comments RBC (test code = RBC) 4.37 4.20-5.40 [id number] 12:20:00 Test Item Value Reference Range Interpretation Comments Hgb (test code = Hgb) 11.8 12.0-16.0 [place] [id number] 12:20:00 Test Item Value Reference Range Interpretation Comments Hct (test code = Hct) 36.0 36.0-48.0 [facility] HospitalZdgvkafTUDMVWNEAJ3244-96-35 12:20:00 Test Item Value Reference Range Interpretation Comments MCV (test code = MCV) 82.3 80.0-98.0 [facility] Hospit[id number] 12:20:00 Test Item Value Reference Range Interpretation Comments MCH (test code = MCH) 27.0 pg 27.0-31.0 [facility] HospitalSvbcqftOXGXVCXQPT9014-39-09 12:20:00 Test Item Value Reference Range Interpretation Comments MCHC (test code = MCHC) 32.8 32.0-36.0 [facility] Hos[id number] 12:20:00 Test Item Value Reference Range Interpretation Comments RDW (test code = RDW) 14.2 11.5-14.5 [place] [id number] 12:20:00 Test Item Value Reference Range Interpretation Comments Platelet (test code = Platelet) 223 133-450 [facility] HospitalQbitbxaOANPTUFVYA4509-75-01 12:20:00 Test Item Value Reference Range Interpretation Comments MPV (test code = MPV) 9.4 7.4-10.4 [place] [id number] 12:20:00 Test Item Value Reference Range Interpretation Comments Segs (test code = Segs) 35.9 45.0-75.0 [place] [id number] 12:20:00 Test Item Value Reference Range Interpretation Comments Lymphocytes (test code = Lymphocytes) 51.8 20.0-40.0 [place] [id number] 12:20:00 Test Item Value Reference Range Interpretation Comments Monocytes (test code = Monocytes) 8.1 2.0-12.0 [place] [id number] 12:20:00 Test Item Value Reference Range Interpretation Comments Eosinophils (test code = 3.6 See_Comment [A utomated message] The Eosinophils) system which ge nerated this result tra nsmitted reference range : <=4.0. The reference r franco was not used to int erpret this result as normal/abnormal . [facility] [id number] 12:20:00 Test Item Value Reference Range Interpretation Comments Basophils (test code = 0.6 See_Comment [Aut omated message] The Basophils) system which ge nerated this result tra nsmitted reference range : <=1.0. The reference r franco was not used to int erpret this result as normal/abnormal . [facility] H[id number] 12:20:00 Test Item Value Reference Range Interpretation Comments Neutrophils # (test code = Neutrophils 1.6 1.5-8.1 #) [facility] [id number] 12:20:00 Test Item Value Reference Range Interpretation Comments Lymphocytes # (test code = Lymphocytes 2.4 1.0-5.5 #) [facility] H[id number] 12:20:00 Test Item Value Reference Range Interpretation Comments Monocytes # (test code 0.4 See_Comment [Aut omated message] The = Monocytes #) system which generated this result tra nsmitted reference range : <=0.8. The reference r franco was not used to int erpret this result as normal/abnormal . [facility] Hospit[id number] 12:20:00 Test Item Value Reference Range Interpretation Comments Eosinophils # (test code 0.2 See_Comment [A utomated message] The = Eosinophils #) system [facility] h generated this result tra nsmitted reference range : <=0.5. The reference r franco was not used to int erpret this result as normal/abnormal . [facility] Hospit[id number] 12:20:00 Test Item Value Reference Range Interpretation Comments Basophils # (test code 0.0 See_Comment [Aut omated message] The = Basophils #) system which generated this result tra nsmitted reference range : <=0.2. The reference r franco was not used to int erpret this result as normal/abnormal . [facility] CenterYhfdgxsYDTPJOCKYY6915-86-85 12:20:00 Test Item Value Reference Range Interpretation Comments Treponemal Ab (test code Non-Reactive = Treponemal Ab) *NA*(11/15/19 7:20 AM) [facility]
[2022-10-19] MEDS ORDERED: NA CHLORIDE 0.9% 1,000 ML ONE (15:11)
[2022-10-19] MEDS ORDERED: FAMOTIDINE 20 MG/2 ML VIAL IV ONE (15:12)
[2022-10-19 15:16] LABS: Urine Blood 2+ (Negative); Urine Glucose Negative (Negative); Urine Protein 3+ (Negative); Urine Specific Gravity >=1.030 (1.005-1.030); Urine pH 5.5 (5.0-7.0)
[2022-10-19 15:21] LABS: Absolute Lymphocytes (CBC) 1.2 K/uL (0.7-4.9); Hematocrit 39.5 % (36.0-45.0); Lymphocytes % 6.2 % (15.3-44.8); MPV 9.1 fL (7.6-11.3); RBC Red Blood Cell Count 4.49 M/uL (3.86-4.86)
[2022-10-19 15:49] LABS: Albumin 3.2 g/dL (3.4-5.0); Bilirubin Total 1.6 mg/dL (0.2-1.0); Protein, Total 8.3 g/dL (6.4-8.2); Troponin High Sensitivity 59.5 pg/mL (<58.9)
[2022-10-19 15:52] LABS: Potassium 2.8 mmol/L (3.5-5.1)
[2022-10-19] MEDS ORDERED: MAGNESIUM SULFATE 1 gm IVPB 1 GM/100 ML BAG IV ONE (16:20)
[2022-10-19] MEDS ORDERED: KCL 20 MEQ/100 mL IVPB 200 ML IV ONE (16:44)
--- NOTE | 2022-10-19 17:08 | RAD REPORT ---
EXAM DESCRIPTION: CTAbdomen Pelvis W Contrast - 10/19/2022 4:56 pm CLINICAL HISTORY: ABD PAIN COMPARISON: Abdomen Pelvis W Contrast dated 03/04/2020; Abdomen Pelvis W Contrast dated 05/29/2019; Abdomen Pelvis W Contrast dated 05/15/2017 TECHNIQUE: CT of the abdomen and pelvis was performed with IV contrast. All CT scans are performed using dose optimization technique as appropriate and may include automated exposure control or mA/KV adjustment according to patient size. FINDINGS: Lower chest: Cardiomegaly. Liver: Low-density liver lesions which are unchanged and likely benign. Biliary: No biliary ductal dilatation. Stomach: No significant focal abnormality. Duodenum: No significant focal abnormality. Pancreas: No significant abnormality. Spleen: No significant abnormality. Adrenal: No suspicious lesions. Kidney/ureter: Mild left-sided hydronephrosis. Left ureteral thickening enhancement. Left perinephric stranding. Right left nephrogram. No renal calculi. Too small to characterize and/or benign appearin g renal lesions are noted. Retroperitoneum: No retroperitoneal adenopathy. Vascular: No aneurysm. Bowel: No significant focal abnormality. Peritoneum: Small volume of pelvic free fluid . Bladder: Circumferential bladder wall thickening Reproductive: No adnexal masses. Bones: No acute fracture. Grade 1 anterolisthesis of L4 on L5. Other: n/a IMPRESSION: Left-sided pyelonephritis. Mild left-side hydronephrosis. No abscess identified.
[2022-10-19 17:32] LABS: Blood Morphology Comment NOT SEEN (NOT SEEN); Platelet Estimate ADEQ
--- NOTE | 2022-10-19 17:37 | EDPHYS ---
Physician Documentation [facility] Name: Lawanda Sharp Age: 82 yrs Sex: Female : 1940 Arrival Date: 10/19/2022 Time: 14:42 Bed 14 Private MD: ED Physician Cedric Felipe HPI: 10/19 17:38 This 82 yrs old Female presents to ER via Wheelchair with complaints of ms3 Epigastric Pain. 17:38 82-year-old female with past medical history of hypertension presents for epigastric ms3 pain that she describes as pressure and rates as a 9/10. Patient states the pain began yesterday. Patient denies alleviating or inciting factors. Patient denies nausea, vomiting, fevers, chills.. 18:58 The patient presents with abdominal pain in the epigastric area. Onset: The ms3 symptoms/episode began/occurred yesterday. The symptoms do not radiate. Associated signs and symptoms: none. The symptoms are described as sharp. Modifying factors: The symptoms are alleviated by nothing, the symptoms are aggravated by nothing. Severity of pain: At its worst the pain was severe. Historical: - Allergies: 14:48 NKDA; iw - PMHx: 14:48 Hypertension; iw - Immunization history:: Adult Immunizations up to date. - Social history:: Smoking status: Patient denies any tobacco usage or history of. ROS: 17:38 Constitutional: Negative for fever, and chills. Cardiovascular: Negative for chest ms3 pain, and palpitations. Respiratory: Negative for shortness of breath, cough, wheezing, and pleuritic chest pain. 17:38 Skin: Negative for injury, rash, and discoloration. 17:38 Abdomen/GI: Positive for abdominal pain. 17:38 All other systems are negative. Exam: 17:38 Constitutional: This is a well developed, well nourished patient who is awake, alert, ms3 and in no acute distress. Head/Face: Normocephalic, atraumatic. Neck: Trachea midline, no cervical lymphadenopathy. Supple, full range of motion without nuchal rigidity, or vertebral point tenderness. No Meningismus. Chest/axilla: Normal chest wall appearance and motion. Nontender with no deformity. Cardiovascular: Regular rate and rhythm with a normal S1 and S2. No gallops, murmurs, or rubs. Normal PMI, no JVD. No pulse deficits. Respiratory: Lungs have equal breath sounds bilaterally, clear to auscultation and percussion. No rales, rhonchi or wheezes noted. No increased work of breathing, no retractions or nasal flaring. 17:38 Skin: Warm, dry with normal turgor. Normal color with no rashes, no lesions, and no evidence of cellulitis. MS/ Extremity: Pulses equal, no cyanosis. Neurovascular intact. Full, normal range of motion. 17:38 Abdomen/GI: Inspection: abdomen appears normal, Bowel sounds: normal, Palpation: mild abdominal tenderness, in the epigastric area. 17:38 ECG was reviewed by the Attending Physician. ms3 Vital Signs: 14:47 BP 136 / 107; Pulse 55; Resp 16; Temp 98.7; Pulse Ox 98% on R/A; Weight 72.57 kg; iw Height 5 ft. 5 in. (165.10 cm); Pain 9/10; 16:15 BP 162 / 70; Pulse 68; Resp 18; Pulse Ox 99% ; ko1 16:30 BP 166 / 75; Pulse 78; Pulse Ox 99% ; ko1 19:57 BP 126 / 99; Pulse 117; Resp 18; Pulse Ox 100% on R/A; Pain 0/10; mb9 14:47 Body Mass Index 26.63 (72.57 kg, 165.10 cm) iw MDM: 14:56 Patient medically screened. ms3 17:38 Differential diagnosis: bowel obstruction, coronary artery disease, myocardia ischemia ms3 or infarction, non-specific abd pain. Data reviewed: vital signs, nurses notes, lab test result(s), radiologic studies, CT scan. Consideration of Admission/Observation Patient was admitted/placed on observation. Management of patient was discussed with the following: Hospitalist: . I considered the following discharge prescriptions or medication management in the emergency department Medications were administered in the Emergency Department. See MAR. Independent interpretation of the following test(s) in the Emergency Department EKG: See my EKG interpretation above auto transmission specialist: rate is 104 beats/min, Rhythm is normal sinus rhythm, with multifocal PVCs, Interpretation: tachycardia, Bigeminy. Counseling: I had a detailed discussion with the patient and/or guardian regarding: the historical points, exam findings, and any diagnostic results supporting the discharge/admit diagnosis, lab results, radiology results, the need for further work-up and treatment in the hospital. ED course: Discussed labs and imaging with patient. Discussed admission and she understands and agrees with plan. 18:57 ED course: Patient meets severe sepsis criteria at this time. A. Pyelonephritis B. HR ms3 >90, WBC >12k. C. LA >2.0. Blood cultures completed. Rocephin ordered. Will give 1 L LR for tachycardia at this time. . 10/19 14:57 Order name: CBC with Diff 3 10/19 14:57 Order name: CMP ms3 10/19 14:57 Order name: Lipase ms3 10/19 14:57 Order name: Troponin HS 3 10/19 15:17 Order name: Urine Dipstick-Ancillary; Complete Time: 16:10 EDMS 10/19 15:31 Order name: CBC with Automated Diff; Complete Time: 17:33 EDMS 10/19 15:53 Order name: Comprehensive Metabolic Panel; Complete Time: 16:10 EDMS 10/19 15:53 Order name: Troponin High Sensitivity; Complete Time: 16:10 EDMS 10/19 15:53 Order name: Lipase; Complete Time: 16:10 EDMS 10/19 17:33 Order name: Manual Differential; Complete Time: 17:33 EDMS 10/19 17:35 Order name: Blood Culture Adult (2) 3 10/19 17:35 Order name: Lactate w/ 2H reflex if indic. ms3 10/19 17:35 Order name: Protime (+inr) ms3 10/19 17:35 Order name: Ptt, Activated 3 10/19 14:57 Order name: CT Abd/Pelvis - IV Contrast Only 3 10/19 17:08 Order name: CT; Complete Time: 17:33 EDMS 10/19 18:17 Order name: Protime (+INR); Complete Time: 18:56 EDMS 10/19 18:17 Order name: PTT, Activated Partial Thromb; Complete Time: 18:56 EDMS 10/19 18:30 Order name: Lactate w/ 2H reflex if indic.; Complete Time: 18:56 EDMS 10/19 19:22 Order name: SARS RAPID vc1 10/19 19:35 Order name: Troponin High Sensitivity sb4 10/19 19:50 Order name: SARS-COV-2 Antigen Rapid; Complete Time: 20:12 EDMS 10/19 20:03 Order name: Lactate w/ 2H reflex if indic. sb4 10/19 20:18 Order name: Troponin High Sensitivity EDMS 10/19 21:11 Order name: Lactate w/ 2H reflex if indic. EDMS 10/19 14:57 Order name: IV Saline Lock; Complete Time: 15:11 ms3 10/19 14:57 Order name: Labs collected and sent; Complete Time: 15:12 ms3 10/19 14:57 Order name: EKG; Complete Time: 14:58 ms3 10/19 14:57 Order name: EKG - Nurse/Tech; Complete Time: 15:57 ms3 10/19 17:35 Order name: Accucheck; Complete Time: 17:55 ms3 10/19 17:35 Order name: Cardiac monitoring; Complete Time: 17:55 ms3 10/19 17:35 Order name: IV Saline Lock - Large Bore; Complete Time: 17:55 ms3 10/19 17:35 Order name: O2 Per Protocol; Complete Time: 17:55 ms3 10/19 17:35 Order name: O2 Sat Monitoring; Complete Time: 17:55 ms3 10/19 17:35 Order name: Vital Signs; Complete Time: 17:55 ms3 EC:38 Rate is 99 beats/min. Rhythm is regular. QRS [place] is Normal. AL interval is normal. ms3 Clinical impression: NSR w/ Non-specific ST/T Changes and Runs of Bigeminy. Interpreted by me. Reviewed by me. Administered Medications: 15:12 Drug: NS 0.9% 1000 ml Route: IV; Rate: 1 bolus; Site: right antecubital; ap3 15:12 Drug: Pepcid (famotidine) 20 mg Route: IVP; Site: right antecubital; ap3 16:21 Drug: Magnesium Sulfate 1 grams Route: IVPB; Infused Over: 1 hrs; Site: right ko1 antecubital; 17:05 Drug: Potassium Chloride 40 mEq Route: IV; Rate: calculated rate; Site: right ko1 antecubital; 17:59 Drug: Rocephin (cefTRIAXone) 1 grams Route: IV; Rate: calculated rate; Site: right ko1 antecubital; 19:28 Drug: Lactated Ringers Solution 1000 ml Route: IV; Rate: 1000 bolus; Site: right mb9 antecubital; Disposition Summary: 10/19/22 17:37 Hospitalization Ordered Hospitalization Status: Inpatient Admission ms3 [facility] ms3 Condition: Stable ms3 Problem: new ms3 Symptoms: are unchanged ms3 Bed/Room Type: Standard ms3 Provider: Shar Calero(10/19/22 19:26) sb4 Room Assignment: [facility](10/19/22 21:20) cg Diagnosis - Pyelonephritis acute ms3 - Upper abdominal pain, unspecified ms3 - Essential (primary) hypertension ms3 - Bigeminy ms3 - Prolonged QT ms3 - Severe sepsis without septic shock ms3 Forms: - Medication Reconciliation Form ms3 - SBAR form ms3 Critical care time excluding procedures: 18:59 Critical care time: Bedside Care: 30 minutes, Consultation: 10 minutes, Family ms3 Intervention: 10 minutes. Total time: 50 minutes Signatures: Dispatcher [employer] Betty Anne RN RN iw Garcia, Cindy RN RN Marily Shannon RN RN ap3 Cedric Felipe DO DO ms3 Peg Gregory RN RN koCathy Fowler PAPriya PAPriya sb4 Anika Delgado RN RN mb9 Corrections: (The following items were deleted from the chart) 19: 17:37 Edmund Nelson ms3 sb4 21:20 17:37 ms3 cg
--- NOTE | 2022-10-19 17:37 | ER ---
Nurse's Notes [facility] Name: Lawanda Sharp Age: 82 yrs Sex: Female : 1940 Arrival Date: 10/19/2022 Time: 14:42 Bed 14 Private MD: Diagnosis: Pyelonephritis acute;Upper abdominal pain, unspecified;Essential (primary) hypertension;Bigeminy;Prolonged QT;Severe sepsis without septic shock Presentation: 10/19 14:47 Chief complaint: Patient states: epigastric pain started yesterday 05/06, no n/v/. iw Coronavirus screen: At this time, the client does not indicate any symptoms associated with coronavirus-19. Ebola Screen: Patient negative for fever greater than or equal to 101.5 degrees Fahrenheit, and additional compatible Ebola Virus Disease symptoms Patient denies exposure to infectious person. Patient denies travel to an Ebola-affected area in the 21 days before illness onset. No symptoms or risks identified at this time. Initial Sepsis Screen: Does the patient meet any 2 criteria? No. Patient's initial sepsis screen is negative. Does the patient have a suspected source of infection? No. Patient's initial sepsis screen is negative. Risk Assessment: Do you want to hurt yourself or someone else? Patient reports no desire to harm self or others. Onset of symptoms was October 18, 2022. 14:47 Method Of Arrival: Wheelchair iw 14:47 Acuity: SANIYA 3 iw Historical: - Allergies: 14:48 NKDA; iw - PMHx: 14:48 Hypertension; iw - Immunization history:: Adult Immunizations up to date. - Social history:: Smoking status: Patient denies any tobacco usage or history of. Screenin:00 [facility] ED Fall Risk Assessment (Adult) History of falling in the last 3 months, ko1 including since admission No falls in past 3 months (0 pts) Confusion or Disorientation No (0 pts) Intoxicated or Sedated No (0 pts) Impaired Gait No (0 pts) Mobility Assist Device Used No (0 pt) Altered Elimination No (0 pt) Score/Fall Risk Level 0 - 2 = Low Risk Oriented to surroundings, Maintained a safe environment, Educated pt \T\ family on fall prevention, incl call for assistance when getting out of bed, Assessed \T\ reinforced patient's understanding of fall precautions, Provided non-skid footwear, Hourly rounding (assess needs \T\ fall precautionary measures) done, Used ambulatory aids as needed (educated on \T\ assisted with), Used gait belt as appropriate. Abuse screen: Denies threats or abuse. Denies injuries from another. Nutritional screening: No deficits noted. Tuberculosis screening: No symptoms or risk factors identified. Assessment: 15:00 General: Appears in no apparent distress. uncomfortable, ill, Behavior is calm, ko1 cooperative, appropriate for age. Pain: Complains of pain in epigastric area. Neuro: No deficits noted. Cardiovascular: No deficits noted. Respiratory: No deficits noted. GI: Reports upper abdominal pain. : Urine is cloudy, strong, concentrated, odorous. EENT: No deficits noted. Derm: No deficits noted. Musculoskeletal: No deficits noted. 19:00 Reassessment: received report from Peg BAINS. mb9 19:56 General: Appears ill, Behavior is cooperative. Pain: Denies pain. Neuro: Level of mb9 Consciousness is awake, obeys commands, Oriented to person, situation. Cardiovascular: Rhythm is sinus tachycardia. Respiratory: Airway is patent Respiratory effort is even, unlabored, Respiratory pattern is regular, symmetrical. Derm: Skin is intact, Skin is dry, Skin is normal, Skin temperature is warm. Musculoskeletal: Reports weakness in right leg and left leg. Vital Signs: 14:47 BP 136 / 107; Pulse 55; Resp 16; Temp 98.7; Pulse Ox 98% on R/A; Weight 72.57 kg; iw Height 5 ft. 5 in. (165.10 cm); Pain 9/10; 16:15 BP 162 / 70; Pulse 68; Resp 18; Pulse Ox 99% ; ko1 16:30 BP 166 / 75; Pulse 78; Pulse Ox 99% ; ko1 19:57 BP 126 / 99; Pulse 117; Resp 18; Pulse Ox 100% on R/A; Pain 0/10; mb9 14:47 Body Mass Index 26.63 (72.57 kg, 165.10 cm) iw ED Course: 14:42 Patient arrived in ED. as 14:44 Cedric Felipe DO is Attending Physician. ms3 14:48 Triage completed. iw 14:49 Peg Gregory, HERSON is Primary Nurse. ko1 14:49 Arm band placed on. iw 15:00 Patient has correct armband on for positive identification. Fall risk band placed. ko1 Placed in gown. Bed in low position. Call light in reach. Side rails up X 1. Client placed on continuous cardiac and pulse oximetry monitoring. NIBP monitoring applied. campus monitor on. 15:00 Inserted saline lock: 22 gauge in right antecubital area, using aseptic technique. ko1 Blood collected. 15:11 CBC with Diff Sent. ko1 15:11 CMP Sent. ko1 15:11 Lipase Sent. ko1 15:11 Troponin HS Sent. ko1 16:30 No provider procedures requiring assistance completed. ko1 17:36 Edmund Nelson MD is Hospitalizing Provider. ms3 17:55 Blood Culture Adult (2) Sent. ko1 17:55 Lactate w/ 2H reflex if indic. Sent. ko1 17:55 Protime (+inr) Sent. ko1 17:55 Ptt, Activated Sent. ko1 19:26 Shar Calero is Hospitalizing Provider. sb4 19:37 SARS RAPID Sent. mb9 19:41 Inserted saline lock: 22 gauge in left forearm, using aseptic technique. mb9 19:48 Troponin High Sensitivity Sent. mb9 20:16 Lactate w/ 2H reflex if indic. Sent. bc6 21:59 Patient admitted, IV remains in place. vc1 Administered Medications: 15:12 Drug: NS 0.9% 1000 ml Route: IV; Rate: 1 bolus; Site: right antecubital; ap3 15:12 Drug: Pepcid (famotidine) 20 mg Route: IVP; Site: right antecubital; ap3 16:21 Drug: Magnesium Sulfate 1 grams Route: IVPB; Infused Over: 1 hrs; Site: right ko1 antecubital; 17:05 Drug: Potassium Chloride 40 mEq Route: IV; Rate: calculated rate; Site: right ko1 antecubital; 17:59 Drug: Rocephin (cefTRIAXone) 1 grams Route: IV; Rate: calculated rate; Site: right ko1 antecubital; 19:28 Drug: Lactated Ringers Solution 1000 ml Route: IV; Rate: 1000 bolus; Site: right mb9 antecubital; Medication: 16:30 VIS not applicable for this client. ko1 Outcome: 17:37 Decision to Hospitalize by Provider. ms3 21:58 Admitted to Med/surg accompanied by tech, via stretcher, room 216, Report called to vc1 HERSON Sim 21:58 Condition: good 21:58 Instructed on the need for admit. 21:59 Patient left the ED. 1 Signatures: Jenny Tejeda Irene, RN Marily Ramos RN RN ap3 Cedric Felipe, DO BATEMAN ms3 Kanika Mcmanus RN RN vc1 Peg Gregory RN RN Cathy Thompson PA-C PA-Vera sb4 Anika Delgado RN RN mb9 Makayla Mclaughlin 6
[2022-10-19] MEDS ORDERED: CEFTRIAXONE 1000 MG/VIAL ONE (18:02)
[2022-10-19 18:17] LABS: Protime INR 1.43
[2022-10-19] MEDS ORDERED: Ringers Lactate 1,000 ML IV ONE (19:07)
--- NOTE | 2022-10-19 19:11 | P.HP ---
Certification for Inpatient Patient admitted to: Inpatient With expected LOS: >2 Midnights Patient will require the following post-hospital care: None Practitioner: I am a practitioner with admitting privileges, knowledge of patient current condition, hospital course, and medical plan of care. Services: Services provided to patient in accordance with Admission requirements found in Title 42 Section 412.3 of the Code of Federal Regulations Patient History Date of Service: 10/19/22 Reason for admission: Pyelonephritis History of Present Illness: Patient is an 82-year-old female with past medical history of hypertension who presented to the emergency department with complaints of epigastric pain that began yesterday. She denies any nausea, vomiting, diarrhea, fever, shortness of breath. Her labs were significant for WBC 19 with left shift, sodium 135, potassium 2.8, glucose 228, BUN 22, creatinine 1.7, T. bili 1.6, troponin 59, 85 segs, 6 bands, lactate 3.1. CT showed left-sided pyelonephritis with mild left- sided hydronephrosis. she is meeting severe sepsis criteria. She was also noted to be in bigeminy initially with a prolonged QT and was given 1 g of magnesium. She was additionally started on Rocephin emergency department. Patient is admitted for further management. Allergies NKDA Allergy (Uncoded 09/07/15 03:41) Unknown No Known Allergies Allergy (Uncoded 06/02/16 20:43) Unknown Home medications list reviewed: Yes Home Medications: Amlodipine [Norvasc*] 10 mg PO DAILY 05/14/17 hydroCHLOROthiazide [Hydrochlorothiazide*] 12.5 mg PO DAILY 05/14/17 lisinopriL [Lisinopril] 40 mg PO DAILY 05/14/17 Ciprofloxacin HCl [Cipro 500 MG Tablet] 500 mg PO BID #14 tab 05/18/17 - Past Medical/Surgical History Diabetic: No -: HTN -: Hypothyroidism -: Psychosocial/ Personal History: Patient lives at home with her daughter. - Family History Mother -: Hypertension - Social History Smoking Status: Never smoker Alcohol use: No CD- Drugs: No Caffeine use: Yes Place of Residence: Home Review of Systems Gastrointestinal: Abdominal Pain Physical Examination - Physical Exam General: Alert, In no apparent distress HEENT: Atraumatic, EOMI, Sclerae nonicteric Neck: Supple, 2+ carotid pulse no bruit Respiratory: Clear to auscultation bilaterally, Normal air movement Cardiovascular: Regular rate/rhythm, Normal S1 S2 Gastrointestinal: Normal bowel sounds, No tenderness Musculoskeletal: No tenderness Integumentary: No rashes Neurological: Normal speech, Normal affect - Studies Laboratory Data (last 24 hrs) 10/19/22 17:56: PT 15.7 H, INR 1.43, APTT 28.6 10/19/22 15:05: Sodium 135 L, Potassium 2.8 L*, BUN 22 H, Creatinine 1.72 H, Glucose 228 H, Total Bilirubin 1.6 H, AST 14 L, ALT 14, Alkaline Phosphatase 74, Lipase 52 L 10/19/22 15:05: WBC 19.60 H, Hgb 13.4, Hct 39.5, Plt Count 183 Assessment and Plan - Problems (Diagnosis) (1) Pyelonephritis Current Visit: Yes Status: Acute (2) Hypertension Current Visit: Yes Status: Chronic Qualifiers: Hypertension type: primary hypertension Qualified Code(s): I10 - Essential (primary) hypertension (3) Sepsis Current Visit: Yes Status: Acute Qualifiers: Sepsis type: Streptococcus, unspecified Sepsis acute organ dysfunction status: with acute organ dysfunction Severe sepsis acute organ dysfunction type: unspecified Severe sepsis shock status: without septic shock Qualified Code(s): A40.9 - Streptococcal sepsis, unspecified; R65.20 - Severe sepsis without septic shock (4) Hypokalemia Current Visit: Yes Status: Acute (5) Elevated troponin Current Visit: Yes Status: Acute (6) JED (acute kidney injury) Current Visit: Yes Status: Acute - Plan Patient is admitted for further management of severe sepsis secondary to pyelonephritis. UTI + WBC 19 + tachycardia + lactate 3.1. Blood and urine cultures obtained. Follow-up repeat lactate. Continue Rocephin. Follow urine culture. Previous has grown E. coli with coon-sensitivity. JED in the setting of severe sepsis. Continue IV hydration. Recheck renal function in the morning. Troponin is slightly elevated at 59.5. Patient denies chest pain. EKG was initially showing a bigeminal rhythm with a prolonged QT. Recheck troponin and monitor patient on telemetry. She has no complaints at this time. Monitor and replete electrolytes per protocol. Reconcile and continue home medications. Lovenox for VTE prophylaxis. Full code. Discharge Plan: Home Plan to discharge in: Greater than 2 days - Advance Directives Does patient have a Living Will: No Does patient have a Durable POA for Healthcare: No - Code Status/Comfort Care Code Status Assessed: Yes Code Status: Full Code Physician Review: Patient Assessed, Agree with Above Assessment and Plan Critical Care: No Time Spent Managing Pts Care (In Minutes): 50
[2022-10-19 19:50] LABS: SARS-CoV-2 Antigen Rapid Res Negative (Negative)
[2022-10-19] MEDS: NS KCL 20MEQ 20 MEQ/1,000 ML BAG IV SCH ×2 (20:53→22:52)
[2022-10-19] MEDS ORDERED: ACETAMINOPHEN 500 MG TAB PO PRN (20:53)
[2022-10-19] MEDS: ENOXAPARIN 40 MG/0.4 ML SQ SCH (21:00)
[2022-10-19] MEDS ORDERED: MORPHINE 2 MG/ML SYR ONE (21:22)
[2022-10-19] MEDS ORDERED: NS KCL 20MEQ 1,000 ML IV ONE (21:22)
[2022-10-19] MEDS: MORPHINE 2 MG/ML SYR IV PRN (21:28)
[2022-10-19 22:19] VITALS: BMI 26.6
[2022-10-20] MEDS: MELATONIN 5 MG TABLET PO PRN ×2 (00:16→20:56)
[2022-10-20] MEDS: KCL 20 MEQ/100 mL IVPB 20 MEQ/100 ML BAG IV SCH ×3 (00:16→04:15)
[2022-10-20 06:12] LABS: Absolute Lymphocytes (CBC) 2.3 K/uL (0.7-4.9); Hematocrit 31.8 % (36.0-45.0); Lymphocytes % 10.5 % (15.3-44.8); MCV 87.8 fL (80-100); MPV 10.2 fL (7.6-11.3); RBC Red Blood Cell Count 3.62 M/uL (3.86-4.86)
[2022-10-20 06:41] LABS: Magnesium 2.1 mg/dL (1.6-2.4); Potassium 3.7 mmol/L (3.5-5.1); Thyroid Stimulating Hormone 1.08 uIU/mL (0.358-3.740)
[2022-10-20 06:44] LABS: Troponin High Sensitivity 197.2 pg/mL (<58.9)
[2022-10-20 07:01] LABS: Blood Morphology Comment NOT SEEN (NOT SEEN); Platelet Estimate ADEQ; White Blood Cell Scan OK (OK)
[2022-10-20] MEDS ORDERED: CEFTRIAXONE 1,000 MG in NA CHLORIDE 0.9% 50 ML IVPB SCH (09:00)
[2022-10-20] MEDS ORDERED: POTASSIUM CL SA 10 MEQ TAB PO ONE (09:00)
[2022-10-20] MEDS: POTASS/SODIUM PHOSPHATE 1 PKT POWD.PACK PO SCH ×3 (09:15→10:20)
[2022-10-20] MEDS: ENOXAPARIN 40 MG/0.4 ML SQ SCH (09:15)
[2022-10-20] MEDS: NS KCL 20MEQ 20 MEQ/1,000 ML BAG IV SCH (10:21)
--- NOTE | 2022-10-20 13:20 | EKG ---
Test Date: 2022-10-19 Test Time: 16:05:34 Community Support Worker: PRATEEK MEASUREMENT RESULTS: Intervals: Rate: 99 PA: 178 QRSD: 98 QT: 530 QTc: 680 [place]: P: 68 PA: 178 QRS: 23 T: 73 INTERPRETIVE STATEMENTS: Sinus rhythm with frequent premature ventricular complexes Nonspecific ST and T wave abnormality Prolonged QT Abnormal ECG Compared to ECG 03/04/2020 08:24:11 Ventricular premature complex(es) now present ST (T wave) deviation now present Prolonged QT interval now present Left ventricular hypertrophy no longer present Early repolarization no longer present Electronically Signed On 10-20-22 13:18:23 CABLE MAKER by Abdiaziz Mathews
--- NOTE | 2022-10-20 15:34 | P.PN ---
Subjective Date of Service: 10/20/22 Chief Complaint: Pyelonephritis Patient states she feels better than yesterday. She has been afebrile. Leukocytosis is worse today. Physical Examination - Vital Signs Temperature: 97.3 F Blood Pressure: 155/78 Pulse: 88 Respirations: 17 Pulse Ox (%): 95 - Studies Laboratory Data (last 24 hrs) 10/19/22 17:56: PT 15.7 H, INR 1.43, APTT 28.6 10/19/22 15:05: Sodium 135 L, Potassium 2.8 L*, BUN 22 H, Creatinine 1.72 H, Glucose 228 H, Total Bilirubin 1.6 H, AST 14 L, ALT 14, Alkaline Phosphatase 74, Lipase 52 L 10/19/22 15:05: WBC 19.60 H, Hgb 13.4, Hct 39.5, Plt Count 183 Microbiology Data (last 24 hrs): 10/19/22 17:56 Blood - Blood Blood Culture Gram Stain - Final 10/19/22 17:56 Blood - Blood Gram Stain - Final 10/19/22 18:11 Blood - Blood Blood Culture Gram Stain - Final 10/19/22 18:11 Blood - Blood Gram Stain - Final Assessment And Plan - Current Problems (Diagnosis) (1) JED (acute kidney injury) Current Visit: Yes Status: Acute (2) Elevated troponin Current Visit: Yes Status: Acute (3) Pyelonephritis Current Visit: Yes Status: Acute (4) Sepsis Current Visit: Yes Status: Acute Qualifiers: Sepsis type: Streptococcus, unspecified Sepsis acute organ dysfunction status: with acute organ dysfunction Severe sepsis acute organ dysfunction type: unspecified Severe sepsis shock status: without septic shock Qualified Code(s): A40.9 - Streptococcal sepsis, unspecified; R65.20 - Severe sepsis without septic shock (5) Hypertension Current Visit: Yes Status: Chronic Qualifiers: Hypertension type: primary hypertension Qualified Code(s): I10 - Essential (primary) hypertension - Plan Physical Exam General: Alert, In no apparent distress Neck: Supple, no elevated JVD. Respiratory: Clear to auscultation bilaterally, Normal air movement Cardiovascular: Regular rate/rhythm, Normal S1 S2 Gastrointestinal: Normal bowel sounds, No tenderness Musculoskeletal: No tenderness Integumentary: No rashes Neurological: Normal speech, Normal affect. Plan: We will change IV Rocephin to IV meropenem due to leukocytosis trending up. Follow blood cultures. Obtain urine culture. Urine culture was not done in the ED. Monitor CBC to follow leukocytosis Renal function is improving with IV hydration. Elevated troponin likely secondary to sepsis. Continue to trend. Resume home antihypertensives. Obtain echocardiogram.
[2022-10-20] MEDS: Meropenem 1,000 MG in NA CHLORIDE 0.9% 100 ML IV SCH (20:56)
[2022-10-21 03:01] LABS: Absolute Lymphocytes (CBC) 1.6 K/uL (0.7-4.9); Lymphocytes % 13.8 % (15.3-44.8); MCV 88.4 fL (80-100); MPV 9.6 fL (7.6-11.3); RBC Red Blood Cell Count 3.39 M/uL (3.86-4.86)
[2022-10-21 03:15] LABS: Magnesium 2.1 mg/dL (1.6-2.4); Potassium 3.8 mmol/L (3.5-5.1)
[2022-10-21] MEDS: MORPHINE 2 MG/ML SYR IV PRN ×2 (06:12→13:52)
[2022-10-21] MEDS ORDERED: POTASSIUM CL SA 10 MEQ TAB PO ONE (09:00)
[2022-10-21] MEDS: AMLODIPINE 10 MG TAB PO SCH (09:02)
[2022-10-21] MEDS: ENOXAPARIN 80 MG/0.8 ML SQ SCH (09:02)
[2022-10-21] MEDS: Meropenem 1,000 MG in NA CHLORIDE 0.9% 100 ML IV SCH ×2 (09:03→21:05)
--- NOTE | 2022-10-21 13:27 | P.PN ---
Subjective Date of Service: 10/21/22 Chief Complaint: Pyelonephritis Patient is complaining of abdominal pain. She has been afebrile. Leukocytosis is almost resolved. No recorded fever. Physical Examination - Vital Signs Temperature: 99.8 F Blood Pressure: 117/62 Pulse: 86 Respirations: 16 Pulse Ox (%): 97 - Studies Microbiology Data (last 24 hrs): 10/19/22 17:56 Blood - Blood Blood Culture Gram Stain - Final 10/19/22 17:56 Blood - Blood Gram Stain - Final 10/19/22 18:11 Blood - Blood Blood Culture Gram Stain - Final 10/19/22 18:11 Blood - Blood Gram Stain - Final Assessment And Plan - Current Problems (Diagnosis) (1) JED (acute kidney injury) Current Visit: Yes Status: Acute (2) Elevated troponin Current Visit: Yes Status: Acute (3) Pyelonephritis Current Visit: Yes Status: Acute (4) Sepsis Current Visit: Yes Status: Acute Qualifiers: Sepsis type: Streptococcus, unspecified Sepsis acute organ dysfunction status: with acute organ dysfunction Severe sepsis acute organ dysfunction type: unspecified Severe sepsis shock status: without septic shock Qualified Code(s): A40.9 - Streptococcal sepsis, unspecified; R65.20 - Severe sepsis without septic shock (5) Hypertension Current Visit: Yes Status: Chronic Qualifiers: Hypertension type: primary hypertension Qualified Code(s): I10 - Essential (primary) hypertension - Plan Physical Exam General: Alert, In no apparent distress Neck: Supple, no elevated JVD. Respiratory: Clear to auscultation bilaterally, Normal air movement Cardiovascular: Regular rate/rhythm, Normal S1 S2 Gastrointestinal: Normal bowel sounds, nontender abdomen. Musculoskeletal: No tenderness Integumentary: No rashes Neurological: Normal speech, Normal affect. Plan: Continue IV meropenem. Blood cultures growing gram-negative rods in all bottles. Follow cultures for organism identification and sensitivity Urine culture is pending Renal function continues to improve with IV hydration. Elevated troponin likely secondary to sepsis. Repeat troponin today. Continue antihypertensives. Echocardiogram ordered.
[2022-10-22 04:03] LABS: Absolute Lymphocytes (CBC) 1.5 K/uL (0.7-4.9); Hematocrit 28.6 % (36.0-45.0); Lymphocytes % 18.4 % (15.3-44.8); MCV 88.2 fL (80-100); MPV 10.2 fL (7.6-11.3); RBC Red Blood Cell Count 3.24 M/uL (3.86-4.86)
[2022-10-22 04:22] LABS: Potassium 3.9 mmol/L (3.5-5.1)
[2022-10-22 04:25] LABS: Phosphorus 8.6 mg/dL (2.5-4.9)
[2022-10-22] MEDS ORDERED: NA CHLORIDE 0.9% 500 ML IV ONE (05:00)
[2022-10-22 07:33] LABS: Albumin 2.3 g/dL (3.4-5.0); Bilirubin Total 0.9 mg/dL (0.2-1.0); Magnesium 1.9 mg/dL (1.6-2.4); Phosphorus 1.7 mg/dL (2.5-4.9); Potassium 3.2 mmol/L (3.5-5.1); Protein, Total 6.5 g/dL (6.4-8.2); Troponin High Sensitivity 48.9 pg/mL (<58.9); Uric Acid 3.8 mg/dL (2.6-6.0)
[2022-10-22] MEDS: AMLODIPINE 10 MG TAB PO SCH (08:44)
[2022-10-22] MEDS: Meropenem 1,000 MG in NA CHLORIDE 0.9% 100 ML IV SCH (08:45)
[2022-10-22] MEDS: ENOXAPARIN 80 MG/0.8 ML SQ SCH (08:45)
[2022-10-22] MEDS ORDERED: POTASSIUM CL SA 10 MEQ TAB PO ONE (09:00)
[2022-10-22] MEDS: CEFTRIAXONE 2,000 MG in NA CHLORIDE 0.9% 100 ML IV SCH (11:32)
--- NOTE | 2022-10-22 11:49 | P.PN ---
Subjective Date of Service: 10/22/22 Chief Complaint: Pyelonephritis Patient states she feels much better today. She reported regular bowel movement No recorded fever. She endorsed loss of appetite. Physical Examination - Vital Signs Temperature: 98.2 F Blood Pressure: 150/86 Pulse: 76 Respirations: 16 Pulse Ox (%): 97 - Studies Microbiology Data (last 24 hrs): 10/19/22 17:56 Blood - Blood Aerobic Blood Culture - Final Escherichia Coli 10/19/22 17:56 Blood - Blood Blood Culture Gram Stain - Final 10/19/22 17:56 Blood - Blood Anaerobic Blood Culture - Final Escherichia Coli 10/19/22 17:56 Blood - Blood Gram Stain - Final 10/19/22 18:11 Blood - Blood Aerobic Blood Culture - Final Escherichia Coli 10/19/22 18:11 Blood - Blood Blood Culture Gram Stain - Final 10/19/22 18:11 Blood - Blood Anaerobic Blood Culture - Final Escherichia Coli 10/19/22 18:11 Blood - Blood Gram Stain - Final Assessment And Plan - Current Problems (Diagnosis) (1) JED (acute kidney injury) Current Visit: Yes Status: Acute (2) Elevated troponin Current Visit: Yes Status: Acute (3) Pyelonephritis Current Visit: Yes Status: Acute (4) Sepsis Current Visit: Yes Status: Acute Qualifiers: Sepsis type: Streptococcus, unspecified Sepsis acute organ dysfunction status: with acute organ dysfunction Severe sepsis acute organ dysfunction type: unspecified Severe sepsis shock status: without septic shock Qualified Code(s): A40.9 - Streptococcal sepsis, unspecified; R65.20 - Severe sepsis without septic shock (5) Hypertension Current Visit: Yes Status: Chronic Qualifiers: Hypertension type: primary hypertension Qualified Code(s): I10 - Essential (primary) hypertension - Plan Physical Exam General: Alert, In no apparent distress Neck: Supple, no elevated JVD. Respiratory: Clear to auscultation bilaterally, Normal air movement Cardiovascular: Regular rate/rhythm, Normal S1 S2 Gastrointestinal: Normal bowel sounds, nontender abdomen. Musculoskeletal: No tenderness Integumentary: No rashes Neurological: Normal speech, Normal affect. Plan: Blood cultures grew pansensitive E. coli. Urine culture shows no growth. Urine culture was done after patient has received antibiotics Repeat blood culture is pending Acute renal failure resolved. Elevated troponin likely secondary to sepsis. Troponin overall trended flat. ACS not likely. Patient is asymptomatic. Continue amlodipine. Resume other home antihypertensives. Echocardiogram is pending. Diet as tolerated. Will transition patient to oral antibiotics on discharge.
[2022-10-22] MEDS ORDERED: hydroCHLOROthiazide 12.5 MG CAP PO SCH (12:00)
[2022-10-22] MEDS ORDERED: INFLUENZA VACCINE (for 6+ mo) 0.5 ML DOSE IMVAC ONE (12:00)
[2022-10-22] MEDS: lisinopriL 20 MG TAB PO SCH (12:45)
--- NOTE | 2022-10-22 18:49 | CON ---
Date of Consultation: 10/22/2022 Chief Complaint: Acute kidney injury, hydronephrosis, and pyelonephritis. History Of Present Illness: The patient is an 82-year-old woman with history of hypertension who presented to emergency room with complaints of epigastric pain of 1 day duration. She was admitted on October 19, 2022. She was found to have significant leukocytosis. WBC was 19,000 with left shift. Sodium level was 135, potassium 2.8, glucose 228, BUN 22, creatinine 1.7, total bilirubin 1.6, and troponin 59. CT scan showed left-sided pyelonephritis with mild left- sided hydronephrosis. She was also noted to have bigeminy with QT prolongation and she received 1 g of magnesium. The patient was started on Rocephin in the Emergency Department for pyelonephritis. Blood cultures were obtained and showed E coli. Urine culture was done and results are not available. The patient received antibiotics and she had CT scan done with IV contrast in the emergency room. The patient is taking home medication for blood pressure and it includes amlodipine, hydrochlorothiazide, and lisinopril. Apparently the patient was also taking Cipro. Past Medical History: Hypertension, hypothyroidism, and . Family History: Mother with hypertension. Social History: Denies tobacco, alcohol, or illicit drugs. Physical Examination: General: Patient is not in acute distress. Eyes: Anicteric sclerae. EOMI. Ears, Nose, Mouth, and Throat: Oral mucosa moist. No pallor. Neck: Supple. No bruits. Lungs: Diminished breath sounds at bases. Heart: S1, S2. Abdomen: Soft, benign. Extremities: No edema. Laboratory Data: Sodium 135, potassium 2.8, BUN 22, creatinine 1.72, glucose 228, total bilirubin 1.6. WBC 19.6, hemoglobin 13.4, platelet count is 183,000. Impression And Plan: 1. JED in setting of sepsis and volume depletion and related to prerenal azotemia, nonoliguric ATN. Avoid nephrotoxic medications. Iv fluids as needed, renal function improved. 2. Proteinuria , prelimnary work-up ordered for proteinuria. 3. Pyelonephritis. Continue antibiotics although the patient will need a Urology consult for hydronephrosis. 4. Hypertension. Continue blood pressure medication. Avoid PIERRE inhibitor in view of acute kidney injury. 5. Sepsis. The patient had severe leukocytosis. White count is improving. 6. Hypokalemia, hypomagnesemia, hypophosphatemia, and secondary hyperparathyroidism. The patient has multiple electrolyte abnormalities. Apparently, she has history of hypokalemia and hypomagnesemia. Renal US and renal artery doppler, PRA, aldosteron are pending. Plan is to check UR magnesium/creatinine. The patient will continue magnesium supplements. Hypophosphatemia is likely multifactorial although likely related to hyperparathyroidism and Vit D deficiency; hypomagnesemia may also contribute to elevated intact PTH. Vit D started to treat severe vit D deficiency. Continue to monitor calcium level and recommend supplementation with potassium and magnesium. The patient in the future may benefit from spironolactone or other diuretic with magnesium and potassium sparing effects. CURTIS/MODL Voice ID: [id number] Report ID: [id number] ILIANA
[2022-10-22] MEDS: POTASS/SODIUM PHOSPHATE 1 PKT POWD.PACK PO SCH (20:36)
[2022-10-23 03:49] LABS: Absolute Lymphocytes (CBC) 1.5 K/uL (0.7-4.9); Hematocrit 29.5 % (36.0-45.0); Lymphocytes % 22.3 % (15.3-44.8); MCV 87.5 fL (80-100); MPV 9.4 fL (7.6-11.3); RBC Red Blood Cell Count 3.37 M/uL (3.86-4.86)
[2022-10-23 04:02] LABS: Potassium 3.2 mmol/L (3.5-5.1)
[2022-10-23 06:18] LABS: Phosphorus 2.5 mg/dL (2.5-4.9)
[2022-10-23 06:41] LABS: Specific Gravity 1.012 (1.005-1.030); Urine Bacteria None Seen /HPF (<20); Urine Bilirubin NEGATIVE (Negative); Urine Blood Negative (Negative); Urine Clarity Clear (Clear); Urine Color Light-Yellow (Yellow); Urine Glucose NEGATIVE (Negative); Urine Protein TRACE (Negative); Urine RBC <5 /HPF (None Seen); Urine Urobilinogen Normal (Normal)
--- NOTE | 2022-10-23 08:09 | RAD REPORT ---
EXAM DESCRIPTION: US - Abdomen Pelvis Scan US - 10/23/2022 5:05 am CLINICAL HISTORY: High blood pressure joshua , hydronephrosis, htn , possible LINDA COMPARISON: Abdomen Pelvis W Contrast dated 10/19/2022 FINDINGS: The bilateral kidneys are within normal limits in size, the right measuring 10.6 cm and th e left measuring 12.4 cm. Aortic velocity: 80 cm/second Right proximal renal artery: 106 cm/second Right mid renal artery: 62 cm/second Right distal renal artery: 58 cm/second Right renal arcuate artery resistive index: 0.8 Right renal artery / aorta ratio: 1.33 Left proximal renal artery: 76 cm/second Left mid renal artery: 79 cm/second Left distal renal artery: 59 cm/second Left renal arcuate artery resistive index: 0.8 Left renal artery/aorta ratio: 1.0 Normal waveforms demonstrated within the bilateral renal arteries. IMPRESSION: No evidence of hemodynamically significant stenosis within the bilateral renal arteries. No hydronephrosis.
[2022-10-23] MEDS ORDERED: POTASSIUM CL SA 10 MEQ TAB PO ONE (09:00)
[2022-10-23] MEDS ORDERED: HOME MED 1 EA UNK (Lisinopril [Lisinopril] 40 MG Tablet) PO SCH (09:00)
[2022-10-23] MEDS: POTASS/SODIUM PHOSPHATE 1 PKT POWD.PACK PO SCH ×2 (09:53→21:19)
[2022-10-23] MEDS: lisinopriL 20 MG TAB PO SCH (09:54)
[2022-10-23] MEDS: VITAMIN D 5,000 UNIT CAP PO SCH (09:55)
[2022-10-23] MEDS: AMLODIPINE 10 MG TAB PO SCH (09:55)
[2022-10-23] MEDS: ENOXAPARIN 80 MG/0.8 ML SQ SCH (09:55)
[2022-10-23] MEDS: CEFTRIAXONE 2,000 MG in NA CHLORIDE 0.9% 100 ML IV SCH (09:57)
[2022-10-23 13:13] VITALS: O2SAT 98
--- NOTE | 2022-10-23 13:37 | P.PN ---
Subjective Date of Service: 10/23/22 Chief Complaint: Pyelonephritis Patient denies any complaint today. She states that she is eating more. No recorded fever. Physical Examination - Vital Signs Temperature: 98.5 F Blood Pressure: 152/70 Pulse: 82 Respirations: 18 Pulse Ox (%): 98 Assessment And Plan - Current Problems (Diagnosis) (1) JED (acute kidney injury) Current Visit: Yes Status: Acute (2) Elevated troponin Current Visit: Yes Status: Acute (3) Pyelonephritis Current Visit: Yes Status: Acute (4) Sepsis Current Visit: Yes Status: Acute Qualifiers: Sepsis type: Streptococcus, unspecified Sepsis acute organ dysfunction status: with acute organ dysfunction Severe sepsis acute organ dysfunction type: unspecified Severe sepsis shock status: without septic shock Qualified Code(s): A40.9 - Streptococcal sepsis, unspecified; R65.20 - Severe sepsis without septic shock (5) Hypertension Current Visit: Yes Status: Chronic Qualifiers: Hypertension type: primary hypertension Qualified Code(s): I10 - Essential (primary) hypertension - Plan Physical Exam General: Alert, In no apparent distress Neck: Supple, no elevated JVD. Respiratory: Clear to auscultation bilaterally, Normal air movement Cardiovascular: Regular rate/rhythm, Normal S1 S2 Gastrointestinal: Normal bowel sounds, nontender abdomen. Musculoskeletal: No tenderness Integumentary: No rashes Neurological: Normal speech, Normal affect. Plan: Blood cultures grew pansensitive E. coli. Urine culture shows no growth. Urine culture was done after patient has received antibiotics Repeat blood culture shows no growth. Acute renal failure resolved. Elevated troponin likely secondary to sepsis. Troponin overall trended flat. ACS not likely. Patient is asymptomatic. Echocardiogram is pending. Continue home antihypertensives. Diet as tolerated. Infectious disease consult. Abdominal ultrasound shows no hydronephrosis. Urology Dr. Sánchez consulted but I am informed he is not available. Patient may follow-up with urology as outpatient. Possible discharge to home in a.m. pending ID recommendation.
--- NOTE | 2022-10-23 13:50 | P.CNS ---
Date of Consult: 10/23/22 Chief Complaint: Pyelonephritis History of Present Illness: Patient is an 82-year-old female with past medical history of hypertension who presented to the emergency department with complaints of epigastric pain that began yesterday. She denies any nausea, vomiting, diarrhea, fever, shortness of breath. Her labs were significant for WBC 19 with left shift, sodium 135, potassium 2.8, glucose 228, BUN 22, creatinine 1.7, T. bili 1.6, troponin 59, 85 segs, 6 bands, lactate 3.1. CT showed left-sided pyelonephritis with mild left- sided hydronephrosis. She is meeting severe sepsis criteria. She was also noted to be in bigeminy initially with a prolonged QT and was given 1 g of magnesium. She was additionally started on Rocephin emergency department ID has been consulted for E. Coli bacteremia and UTI for further IV antibiotics recommendations and management Allergies No Known Allergies Allergy (Unverified 10/20/22 11:57) Home Medications: Amlodipine [Norvasc*] 10 mg PO DAILY 05/14/17 hydroCHLOROthiazide [Hydrochlorothiazide*] 12.5 mg PO DAILY 05/14/17 lisinopriL [Lisinopril] 40 mg PO DAILY 05/14/17 Ciprofloxacin HCl [Cipro 500 MG Tablet] 500 mg PO BID #14 tab 05/18/17 - Past Medical/Surgical History Diabetic: No -: HTN -: Hypothyroidism -: Psychosocial/ Personal History: Patient lives at home with her daughter. - Family History Mother Medical History: Hypertension - Social History Smoking Status: Unknown if ever smoked Alcohol use: No CD- Drugs: No Caffeine use: Yes Place of Residence: Home Review of Systems 10-point ROS is otherwise unremarkable Physical Examination Temp Pulse Resp BP Pulse Ox 98.5 F 82 18 152/70 H 98 10/23/22 13:38 10/23/22 13:38 10/23/22 13:38 10/23/22 13:38 10/23/22 13:38 General: Alert, In no apparent distress, Oriented x3, Other (no appetite) Neck: Supple Respiratory: Clear to auscultation bilaterally Cardiovascular: No edema, Normal S1 S2 Gastrointestinal: Normal bowel sounds, Other (three diarrhea today) Musculoskeletal: No swelling, No tenderness Integumentary: No rashes, No breakdown, No significant lesion Neurological: Normal speech, Normal tone, Normal affect active medications Acetaminophen (Acetaminophen 500 Mg Tab) 500 mg PO Q4HP PRN PRN Reason: Pain scale 2-4 (Mild) Last Admin: 10/20/22 22:47 Dose: 500 mg Amlodipine Besylate (Amlodipine 10 Mg Tab) 10 mg PO DAILY [facility] Last Admin: 10/23/22 09:55 Dose: 10 mg Cholecalciferol (Vitamin D 5,000 Unit Cap) 5,000 unit PO DAILY [facility] Last Admin: 10/23/22 09:55 Dose: 5,000 unit Enoxaparin Sodium (Enoxaparin 80 Mg/0.8 Ml) 70 mg SQ DAILY [facility] Last Admin: 10/23/22 09:55 Dose: 70 mg Ceftriaxone Sodium 2,000 mg/ (Sodium Chloride) 100 mls @ 200 mls/hr IV DAILY [facility]; Protocol Last Admin: 10/23/22 09:57 Dose: 100 mls Lisinopril (Lisinopril 20 Mg Tab) 40 mg PO DAILY [facility] Last Admin: 10/23/22 09:54 Dose: 40 mg Melatonin (Melatonin 5 Mg Tablet) 5 mg PO BEDTIME PRN PRN PRN Reason: INSOMNIA Last Admin: 10/20/22 20:56 Dose: 5 mg Morphine Sulfate (Morphine 2 Mg/Ml Syr) 2 mg IV Q4H PRN PRN Reason: Pain scale 5-7 (Moderate) Last Admin: 10/21/22 13:52 Dose: 2 mg Potassium Phos/Sodium Phos (Potass/Sodium Phosphate 1 Pkt Powd.Pack) 1 pkt PO BID [facility] Stop: 10/24/22 07:00 Last Admin: 10/23/22 09:53 Dose: 1 pkt Sodium Chloride (Flush Normal Saline 10 Ml) 10 ml IV BID [facility] Last Admin: 10/23/22 09:56 Dose: 10 ml Microbiology 10/19/22 17:56 Blood - Blood Aerobic Blood Culture - Final Escherichia Coli 10/19/22 17:56 Blood - Blood Blood Culture Gram Stain - Final 10/19/22 17:56 Blood - Blood Anaerobic Blood Culture - Final Escherichia Coli 10/19/22 17:56 Blood - Blood Gram Stain - Final 10/19/22 18:11 Blood - Blood Aerobic Blood Culture - Final Escherichia Coli 10/19/22 18:11 Blood - Blood Blood Culture Gram Stain - Final 10/19/22 18:11 Blood - Blood Anaerobic Blood Culture - Final Escherichia Coli 10/19/22 18:11 Blood - Blood Gram Stain - Final Imagings Data: CT Abdomen Pelvis W Contrast - 10/19/2022 FINDINGS: Lower chest: Cardiomegaly. Liver: Low-density liver lesions which are unchanged and likely benign. Biliary: No biliary ductal dilatation. Stomach: No significant focal abnormality. Duodenum: No significant focal abnormality. Pancreas: No significant abnormality. Spleen: No significant abnormality. Adrenal: No suspicious lesions. Kidney/ureter: Mild left-sided hydronephrosis. Left ureteral thickening enhancement. Left perinephric stranding. Right left nephrogram. No renal calculi. Too small to characterize and/or benign appearing renal lesions are noted. Retroperitoneum: No retroperitoneal adenopathy. Vascular: No aneurysm. Bowel: No significant focal abnormality. Peritoneum: Small volume of pelvic free fluid . Bladder: Circumferential bladder wall thickening Reproductive: No adnexal masses. Bones: No acute fracture. Grade 1 anterolisthesis of L4 on L5. Other: n/a IMPRESSION: Left-sided pyelonephritis. Mild left-side hydronephrosis. No abscess identified US - Abdomen Pelvis Scan US - 10/23/2022 FINDINGS: The bilateral kidneys are within normal limits in size, the right measuring 10.6 cm and the left measuring 12.4 cm. Aortic velocity: 80 cm/second Right proximal renal artery: 106 cm/second Right mid renal artery: 62 cm/second Right distal renal artery: 58 cm/second Right renal arcuate artery resistive index: 0.8 Right renal artery / aorta ratio: 1.33 Left proximal renal artery: 76 cm/second Left mid renal artery: 79 cm/second Left distal renal artery: 59 cm/second Left renal arcuate artery resistive index: 0.8 Left renal artery/aorta ratio: 1.0 Normal waveforms demonstrated within the bilateral renal arteries. IMPRESSION: No evidence of hemodynamically significant stenosis within the bilateral renal arteries. No hydronephrosis. - Problems (1) Bacteremia Plan: Cultures: - 10/23 UA: Negative - 10/20 UC: Negative - 10/21 BC: Negative - 10/19 BC 11/28: E. Coli Antibiotics: - Had Meropenem 10/20-10/22 - Current on IV Ceftriaxone (10/19- ) Recommendations: - Continue IV Ceftriaxone for total of 14 days from 10/21 (repeated BC negative) - Can switch to PO Cefdinir when discharge (2) UTI (urinary tract infection) Plan: Cultures: - 10/23 UA: Negative - 10/20 UC: Negative - 10/21 BC: Negative - 10/19 BC 11/28: E. Coli Antibiotics: - Had Meropenem 10/20-10/22 - Current on IV Ceftriaxone (10/19- ) Recommendations: - Continue IV Ceftriaxone for total of 14 days from 10/21 (repeated BC negative) - Can switch to PO Cefdinir when discharge Conclusions/Impression: - E. Coli Bacteremia: Continue antibiotics for total of 14 days from 10/21 (repeated BC negative) and can switch to PO when d/c the patient - Pyelonephritis: Secondary to UTI - UTI: E. Coli: Continue antibiotics - Severe protein calorie malnutrition - Anemia of chronic disease - Hypertension - Sepsis - Hypokalemia - Elevated troponin - JED (acute kidney injury) ID will monitor the patient closely for signs of infection with fever and WBC trends Case has been discussed with Dr. Staton, N Thank you Dr. Calero for consultation
--- NOTE | 2022-10-24 04:05 | PN ---
Date of Progress Note: 10/23/2022 Chief Complaint: Acute kidney injury, hydronephrosis, pyelonephritis, urosepsis. Subjective: The patient is an 82-year-old woman with history of hypertension who presented to emerge ncy room because of epigastric pain of 1 day duration. She was admitted on October 19, 2022. She w as found to have significantly elevated WBC up to 19,000 with left shift. She was found to have acut e kidney injury. BUN was 22, creatinine 1.7, glucose was 228, potassium 2.8, total bilirubin 1.6. T roponin 5.9. CT scan showed left-sided pyelonephritis with mild left-sided hydronephrosis. I tonya herbert urologist. The patient has been followed by an Infectious Disease for antibiotics. She was foun d to have prolongation of QT and she received 1 g of magnesium in the emergency room because of QT pr olongation and bigeminy. Recent magnesium level was within normal limits. Blood cultures were obtai joão and showed E coli. Urine culture was done and is pending. Review of Systems: Denies fever, chills. Physical Examination: Lungs: Clear to auscultation bilaterally. Heart: S1, S2. Abdomen: Soft. Extremities: No edema. Impression And Plan: 1.Acute kidney injury in the setting of sepsis and volume depletion unrelated to prerenal azotemia a nd nonoliguric ATN. Avoid nephrotoxic medication and renal function has improved. The patient respo nded to IV fluids. Adjust antibiotics to renal function. 2.Proteinuria. Preliminary workup showed proteinuria upon admission. Urinalysis showed 3+ protein. Several workup is pending. 3.Pyelonephritis. Continue antibiotics and Urology was consulted for hydronephrosis. 4.Hypertension. Avoid PIERRE inhibitor in view of acute kidney injury. 5.Sepsis, severe leukocytosis. White count is improving. 6.Multiple electrolyte abnormalities including hypokalemia, hypomagnesemia, hypophosphatemia, and se condary hyperparathyroidism with known history of vitamin D deficiency. The patient had 25 hydroxy v itamin D level checked during this hospitalization and is started on vitamin D. Intact PTH and PTH r elated protein is ordered and pending. The patient had renal ultrasound done with renal artery Doppl er and PRA aldosterone pending. The patient has history of hypomagnesemia. She may benefit from diu retics with magnesium and potassium sparing effects in the future. She was taken now off HCTZ, which may contribute to electrolyte abnormalities as above. Hypophosphatemia was treated. The patient re ceived supplement. Continue to monitor. EB/MODL Voice ID: [id number] Report ID: [id number]
[2022-10-24 05:49] LABS: Albumin 2.5 g/dL (3.4-5.0); Magnesium 2.2 mg/dL (1.6-2.4); Phosphorus 3.1 mg/dL (2.5-4.9); Potassium 4.2 mmol/L (3.5-5.1)
--- NOTE | 2022-10-24 06:59 | ECHO ---
HEIGHT: 5 ft 5 in WEIGHT: 159 lb 13.362 oz DATE OF STUDY: 10/23/[address]: Shar Calero MD 2-DIMENSIONAL: YES M.MODE: YES DOPPLER: YES COLOR FLOW: YES TDS: PORTABLE: YES DEFINITY: BUBBLE STUDY: DIAGNOSIS: ELEVATED TROPONIN CARDIAC HISTORY: CATHERIZATION: SURGERY: PROSTHETIC VALVE: PACEMAKER: MEASUREMENTS (cm) DIASTOLIC (NORMALS) SYSTOLIC (NORMALS) IVSd 1.0 (0.6-1.2) LA Diam 4.5 (1.9-4.0) LVEF 61% LVIDd 4.8 (3.5-5.7) LVIDs 3.2 (2.0-3.5) %FS 33% LVPWd 1.3 (0.6-1.2) Ao Diam 2.9 (2.0-3.7) 2 DIMENSIONAL ASSESSMENT: RIGHT ATRIUM: NORMAL LEFT ATRIUM: ENLARGED RIGHT VENTRICLE: NORMAL LEFT VENTRICLE: NORMAL TRICUSPID VALVE: MILD TRICUSPID REGURGITATION MITRAL VALVE: MILD MITRAL REGURGITATION PULMONIC VALVE: NORMAL AORTIC VALVE: NORMAL PERICARDIAL EFFUSION: NONE AORTIC ROOT: NORMAL LEFT VENTRICULAR WALL MOTION: NORMAL DOPPLER/COLOR FLOW: SEE BELOW COMMENTS: 1. NORMAL LEFT VENTRICULAR EJECTION FRACTION 55-60% 2. NORMAL WALL MOTION 3. MODERATE DIASTOLIC DYSFUNCTION 4. MILD TO MODERATE MITRAL REGURGITATION 5. MILD TRICUSPID REGURGITATION 6. LEFT ATRIAL ENLARGEMENT TECHNOLOGIST: ARIANA BILL
[2022-10-24] MEDS: lisinopriL 20 MG TAB PO SCH (08:34)
[2022-10-24] MEDS: CEFTRIAXONE 2,000 MG in NA CHLORIDE 0.9% 100 ML IV SCH (08:34)
[2022-10-24] MEDS: VITAMIN D 5,000 UNIT CAP PO SCH (08:34)
[2022-10-24] MEDS: AMLODIPINE 10 MG TAB PO SCH (08:34)
[2022-10-24] MEDS: ENOXAPARIN 80 MG/0.8 ML SQ SCH (08:42)
[2022-10-24 08:48] VITALS: BP 132/73; TEMP 97.6
--- NOTE | 2022-10-24 19:49 | P.DS ---
Admission Date: 10/19/22 Discharge Date: 10/24/22 Disposition: ROUTINE DISCHARGE Discharge Condition: GOOD Reason for Admission: Pyelonephritis Consultations: Nephrology - Dr. Marie Infectious disease - Dr. Staton Brief History of Present Illness: 82-year-old female with past medical history of hypertension presented with complaints of epigastric pain that began 10/18/22. She denies any nausea, vomiting, diarrhea, fever, shortness of breath. Her labs were significant for WBC 19 with left shift, sodium 135, potassium 2.8, glucose 228, BUN 22, creatinine 1.7, T. bili 1.6, troponin 59, 85 segs, 6 bands, lactate 3.1. CT showed left-sided pyelonephritis with mild left-sided hydronephrosis. She was also noted to be in bigeminy initially with a prolonged QT and was given 1 g of magnesium. She was additionally started on Rocephin emergency department. Hospital Course: Problem List: Sepsis secondary to pyelonephritis acute pyelonephritis with bacteremia JED, prerenal / dehydration HTN Elevated troponin Hypokalemia, Acute Patient presented with abdominal pain and diagnosed with urinary tract infection (pyelonephritis) and acute kidney injury. Blood cultures were positive for coon- sensitive e.coli. ID and nephrology were consulted. She was treated with IV Antibiotics and IV fluids with improvement of her symptoms,, bloodwork, and kidney function. She remained afebrille. ID recommended a total 2 week course of antibiotics from 10/21 (date of negative repeat blood culture). She is deemed stable for discharge home. 10 more days of antibiotics - Cefdinir prescribed. Nephrology recommended stopping HCTZ and monitoring. Send out labs were obtained. Follow up in the next few weeks in the office to check kidney function, send-out results, and electrolytes. Patient also found to have Vit D deficiency and started on replacement. Resume other home medications as previously prescribed. Follow up: PCP within 3-5 days. Nephrology: 2-3 weeks Urology: ~[address] noted mild hydronephrosis with pyelonephritis. Ultrasound of her kidneys revealed no hydronephrosis. Urology service was initially consulted early in hospitalization, however the Urology service was unavailable. Consider follow up as outpatient with Urology. Vital Signs/Physical Exam: Temp Pulse Resp BP Pulse Ox 97.6 F 82 16 132/73 98 10/24/22 08:00 10/24/22 08:00 10/24/22 08:00 10/24/22 08:00 10/24/22 08:00 General: Alert, In no apparent distress HEENT: EOMI, Sclerae nonicteric Neck: Supple Respiratory: Clear to auscultation bilaterally, Normal air movement Cardiovascular: Regular rate/rhythm, Normal S1 S2 Gastrointestinal: Normal bowel sounds, No tenderness Musculoskeletal: No contractures, No tenderness Integumentary: No rashes, No significant lesion Neurological: Normal speech, Normal affect Laboratory Data at Discharge: WBC 6.70 K/uL (4.3-10.9) 10/23/22 03:28 Hgb 10.3 g/dL (12.0-15.0) L 10/23/22 03:28 Hct 29.5 % (36.0-45.0) L 10/23/22 03:28 Plt Count 180 K/uL (152-406) 10/23/22 03:28 PT 15.7 SECONDS (9.5-12.5) H 10/19/22 17:56 INR 1.43 10/19/22 17:56 APTT 28.6 SECONDS (24.3-36.9) 10/19/22 17:56 Sodium 136 mmol/L (136-145) 10/24/22 05:22 Potassium 4.2 mmol/L (3.5-5.1) D 10/24/22 05:22 BUN 15 mg/dL (7-18) 10/24/22 05:22 Creatinine 0.95 mg/dL (0.55-1.02) 10/24/22 05:22 Glucose 94 mg/dL (74-106) 10/24/22 05:22 Uric Acid 3.8 mg/dL (2.6-6.0) 10/22/22 07:03 Phosphorus 3.1 mg/dL (2.5-4.9) 10/24/22 05:22 Magnesium 2.2 mg/dL (1.6-2.4) 10/24/22 05:22 Total Bilirubin 0.9 mg/dL (0.2-1.0) 10/22/22 07:03 AST 18 U/L (15-37) 10/22/22 07:03 ALT 14 U/L (13-56) 10/22/22 07:03 Alkaline Phosphatase 51 U/L (45-117) 10/22/22 07:03 Triglycerides 96 mg/dL (<150) 10/20/22 05:33 Cholesterol 96 mg/dL (<200) 10/20/22 05:33 HDL Cholesterol 30 mg/dL (40-60) L 10/20/22 05:33 Cholesterol/HDL Ratio 3.20 10/20/22 05:33 Lipase 52 U/L (73-393) L 10/19/22 15:05 Home Medications: Amlodipine [Norvasc*] 10 mg PO DAILY 05/14/17 lisinopriL [Lisinopril] 40 mg PO DAILY 05/14/17 Cefdinir [Cefdinir*] 300 mg PO BID 10 Days #20 cap 10/24/22 Cholecalciferol (Vitamin D3) [Vitamin D 5,000 IU Cap*] 5,000 unit PO DAILY 30 Days #30 cap 10/24/22 New Medications: Cefdinir [Cefdinir*] 300 mg PO BID 10 Days #20 cap Cholecalciferol (Vitamin D3) [Vitamin D 5,000 IU Cap*] 5,000 unit PO DAILY 30 Days #30 cap Physician Discharge Instructions: Patient presented with abdominal pain and diagnosed with urinary tract infection (pyelonephritis) and acute kidney injury. Blood cultures were positive for coon- sensitive e.coli. ID and nephrology were consulted. She was treated with IV Antibiotics and IV fluids with improvement of her symptoms,, bloodwork, and kidney function. She remained afebrille. ID recommended a total 2 week course of antibiotics from 10/21 (date of negative repeat blood culture). She is deemed stable for discharge home. 10 more days of antibiotics - Cefdinir prescribed. Nephrology recommended stopping HCTZ and monitoring. Send out labs were obtained. Follow up in the next few weeks in the office to check kidney function, send-out results, and electrolytes. Patient also found to have Vit D deficiency and started on replacement. Resume other home medications as previously prescribed. Follow up: PCP within 3-5 days. Nephrology: 2-3 weeks Urology: ~[address] noted mild hydronephrosis with pyelonephritis. Ultrasound of her kidneys revealed no hydronephrosis. Urology service was initially consulted early in hospitalization, however the Urology service was unavailable. Consider follow up as outpatient with Urology. Followup: NONE,NONE [Primary Care Provider] - Time spent managing pt's care (in minutes): 45
[2022-10-26 12:35] LABS: Albumin, (SPE) 2.7 g/dL (3.8-4.8); Alpha-1-Globulins 0.5 g/dL (0.2-0.3); Gamma Globulins 1.3 g/dL (0.8-1.7); INTERPRETATION REPORT
[2022-10-26 23:31] LABS: Vitamin D 1,25-Dihydroxy Total 34 pg/mL (18-72); Vitamin D,1,25-OH2, D2 <8 pg/mL
== END 2022-10-24 10:58 | disposition home or self-care (01) | DRG 871 ==
LOC: ER 14:39 → ERHOLD 20:39 → 2ND 21:54
PROVIDERS: ADMIT Internal Medicine; ATTEND Hospitalist
DX: A41.51 Sepsis due to Escherichia coli [E. coli] (principal); E43 Unspecified severe protein-calorie malnutrition; N17.0 Acute kidney failure with tubular necrosis; N13.6 Pyonephrosis; N25.81 Secondary hyperparathyroidism of renal origin; A40.9 Streptococcal sepsis, unspecified; R65.20 Severe sepsis without septic shock; E03.9 Hypothyroidism, unspecified; I10 Essential (primary) hypertension; E87.6 Hypokalemia; D63.8 Anemia in other chronic diseases classified elsewhere; E83.42 Hypomagnesemia; E83.39 Other disorders of phosphorus metabolism; R94.31 Abnormal electrocardiogram [ECG] [EKG]; R80.9 Proteinuria, unspecified; Z68.26 Body mass index [BMI] 26.0-26.9, adult; Z79.899 Other long term (current) drug therapy; Z20.822 Contact with and (suspected) exposure to COVID-19
CPT/HCPCS: 36415; 74177; 80048; 80053; 80061; 80069; 81001; 81003; 82088; 82306; 82550; 82570; 82652; 83519; 83605; 83690; 83735; 83970; 84100; 84132; 84165; 84244; 84443; 84484; 84550; 85025; 85610; 85730; 86334; 87040; 87077; 87086; 87088; 87186; 87205; 87811; 93005; 93306; 93975; 96374; 96375; 99285; J0696; J1650; J2185; J2270; J3475; J3480; J7030; J7040; J7120; Q9967

== ENCOUNTER 2023-02-13 13:31 | Emergency (ER) | payer OTHER, MEDICARE ==
--- OUTSIDE RECORDS SUMMARY | 2023-02-13 13:35 | XMS REPORT | Continuity of Care Document ---
:1940 Author Organization [facility] t Address [address] [place] [address] [address] [place] [address] Care Team Providers Name Role Phone YOCASTA FUNES Primary Care Physician Unavailable RADIOLOGY Attending Clinician Unavailable Radiology Attending Clinician Unavailable DE BARRETT Attending Clinician Unavailable DELIA GALVEZ Admitting Clinician Unavailable DE BARRETT Admitting Clinician Unavailable Payers Payer Name Policy Type Policy Number Effective Date Expiration Date S sharifa [facility] [place] [id number] 2022 CLASSIC NO PREMIUM 00:00:00 HMO Problems Condition Condition Condition Status Onset Resolution Last Treating Co mments Source Name Details Category Date Date Treatment Clinician Date DIZZINESS, DIZZINESS Diagnosis Active 2019-11-17 Memoria DISSECTION , 3- 06:31:00 l VERTEBRAL DISSECTION 00:00: Her medina ARTERY VERTEBRAL 00 ARTERY Active 11/15/2019 [facility] ILLNESS, ILLNESS, Diagnosis Active 2019-11-17 Memoria UNSPECIFIE UNSPECIFIE 06:31:00 l D D Active Ramos [facility] Allergies, Adverse Reactions, Alerts Allergy Allergy Status Severity Reaction(s) Onset Inactive Treating Comm ents Source Name Type Date Date Clinician NO KNOWN Drug Active [facility] ALLERGIE Class it[facility] of [facility] Medical Branch Social History Social Habit Start Date Stop Date Quantity Comments Source Exposure to 2022-07-30 2022-08-[address] [facility] SARS-CoV-2 (event) 00:00:00 15:27:00 Medica l Branch Social History 2019-11-15 2019-11-15 [facility] 11:12:48 11:12:48 Sex Ass[birth year] At [birth year] [facility] 00:00:00 00:00:00 Medical Branch Smoking Status Start Date Stop Date Source Tobacco smoking consumption [facility] Medical unknown Branch Medications Ordered Filled Start Stop Current Ordering Indication Dosage Frequency Signature Comments Components Source Medication Medication Date Date Medication? Clinician (SIG) Name Name gadobenate 2022- No [id number] .2mL/kg 0.2 mL/kg, [facility] dimeglumine 08-31 Intravenou [...] tab, PO, l tablet 13:52: Daily, # Ramos 00 30 tab, 0 Refill(s), Pharmacy: [id number] meclizine Yes 12.5 mg = Mem oria 12.5 mg 3-22 1 tab, PO, l oral tablet 13:52: BID, PRN He 00 Dizziness, X 15 day, # 30 tab, 0 Refill(s), Pharmacy: [id number] Aspirin 81 Yes 81 mg = 1 Me moria MG Enteric 3-22 tab, PO, l Coated 13:52: Q24H, 0 Tablet 00 Refill(s) atorvastati No Notes: Ángel glenroy n 3-22 (Same as: l 02:00: Lipitor) potassium No Notes: Memori a chloride 20 -21 (Same as: l mEq oral 23:00: K-Dur 20) yan tablet, "Do Not extended Crush" release Give with (KCL) food and full glass of water For patients unable to swallow tablet, dissolve in one half glass of water. Allow about 2 minutes for the tablets to disintegra te. Stir before giving to prepare slurry and administer . Please exclude Patient s with feeding tube less than 14 [place]er (Dobhoff, J-tube etc) and pediatric and patients. [...] s with feeding tube less than 14 [place] (Dobhoff, J-tube etc) and pediatric and patients. Famotidine 2019-0 No Notes: Memor ia 3-21 (Same as: l 14:00: Pepcid) Ramos 00 Saline 2019-0 No Notes: Memoria Flush 0.9% 11-14 Same as: l 14:00: BD Posiflush Sterile Lisinopril No Notes: Memor ia 3-21 (Same as: l 14:00: Prinivil, [place] 00 Zestril) Ativan 2019-0 No Notes: Memoria 3-21 (Same as: l 13:07: Ativan) [place] 00 Aspirin 81 2019-0 No Notes: Do Me moria MG Enteric -21 not crush l Coated 12:00: or chew. Ramos Tablet 00 (Same As: Ecotrin) Labetalol 0 No Notes: Memori a 3-21 (Same as: l 11:18: Normodyne, Ramos Trandate) Push over 2 minutes Give bolus over 2-3 minutes. enalapril 2019-0 No Notes: Memori a 3-21 (Same as: l 11:18: Vasotec-IV [place] ) Ondansetron 2019-0 No Notes: Ángel glenroy -21 (Same as: l 11:18: Zofran) Ramos MEDICATION WASTE Product Size: 4 mg Product Wasted: ___ mg Acetaminoph 2019- No Notes: Do M emoria en 3-21 not exceed l 11:18: 4 gm/day. Ramos 00 (Same as: Tylenol) Saline No Notes: Memoria Flush 0.9% 11-14 Same as: l 11:18: BD Ramos 00 Posiflush Sterile lisinopril No 10 mg = 1 Me moria 10 mg oral 11-14 tab, PO, l tablet 10:55: Daily, # [place] 00 30 tab, 0 Refill(s) Immunizations Ordered Immunization Filled Immunization Date Status Commen ts Source Name Name pneumococcal 2019-11-16 Completed [facility] 13-valent vaccine 17:01:00 [place] influenza virus 2019-11-16 Completed [facility] vaccine, inactivated 17:01:00 Herm yan Vital Signs Vital Name Observation Time Observation Value Comments Source Systolic (mm Hg) 2019-11-16 17:11:00 Ángel rial [place] Diastolic (mm Hg) 2019-11-16 17:11:00 Mem orial Ramos Temperature Oral (F) 2019-11-16 13:00:00 98.4 F [facility] Heart Rate 2019-11-16 13:00:00 [facility] [place] Respitory Rate 2019-11-16 13:00:00 Memori al [place] Systolic (mm Hg) 2019-11-16 13:00:00 Ángel rial [place] Diastolic (mm Hg) 2019-11-16 13:00:00 Mem orial Ramos Temperature Oral (F) 2019-11-16 09:00:00 97.9 F [facility] [place] Heart Rate 2019-11-16 09:00:00 [facility] [place] Respitory Rate 2019-11-16 09:00:00 Memori al Ramos Systolic (mm Hg) 2019-11-16 09:00:00 Ángel rial [place] Diastolic (mm Hg) 2019-11-16 09:00:00 Mem orial [place] Temperature Oral (F) 2019-11-16 05:00:00 97.5 F [facility] [place] Heart Rate 2019-11-16 05:00:00 [facility] [place] Respitory Rate 2019-11-16 05:00:00 Jacquelyn al Ramos Weight 2019-11-15 10:49:00 [facility] Ramos BMI Calculated 2019-11-15 10:49:00 Memori al [place] Height 2019-11-15 10:49:00 154.94 cm [facility] [place] Procedures Procedure Date / Time Performed Performing Clinician Alvarado kessler MR THORACIC SPINE W 2022-08-31 19:41:00 Requisition, Paper Unive [facility] Encounters Start End Encounter Admission Attending Care Care Encounter Source Date/Time Date/Time Type Type Clinicians Facility Department ID 2022-08-31 2022-08-31 Outpatient R RADIOLOGY [facility] [id number] Univers 12:36:29 23:59:00 ity of [facility] 2022-08-31 2022-08-31 Hospital Radiology [facility] [id number] Univers 12:36:29 23:59:00 Encounter [place] [id number] ity [facility] [id number] [facility] [id number] [facility] 804 Branch 2019-11-15 2019-11-16 Observatio nullFlavo [facility] [id number] Memoria 19:07:00 20:36:00 n [facility] 81 l [facility] 2019-11-15 2019-11-16 Outpatient [place], [facility] MED 0081 [facility] 14:07:00 15:36:00 DE Results Test Description Test Time Test Comments Results Result Comments Source CHEM PANEL 2019-11-16 09:37:00 Test Item Value Reference Range Interpretation Comme nts Glucose Lvl (test code = Glucose Lvl) 115 70-99 [facility] [id number] 09:37:00 Test Item Value Reference Range Interpretation Comments BUN (test code = BUN) 14 7-22 [facility] [id number] 09:37:00 Test Item Value Reference Range Interpretation Comments Creatinine Lvl (test code = Creatinine 0.80 0.50-1.40 Lvl) [facility] [id number] 09:37:00 Test Item Value Reference Range Interpretation Comments Sodium Lvl (test code = Sodium Lvl) 141 135-145 [facility] [id number] 09:37:00 Test Item Value Reference Range Interpretation Comments Potassium Lvl (test code = Potassium 3.8 3.5-5.1 Lvl) [facility] [id number] 09:37:00 Test Item Value Reference Range Interpretation Comments Chloride Lvl (test code = Chloride Lvl) 114 95-109 [facility] [id number] 09:37:00 Test Item Value Reference Range Interpretation Comments CO2 (test code = CO2) 21 24-[address] [facility] [id number] 09:37:00 Test Item Value Reference Range Interpretation Comments Calcium Lvl (test code = Calcium Lvl) 9.2 8.5-10.[address] [facility] [id number] 09:37:00 Test Item Value Reference Range Interpretation Comments AGAP (test code = AGAP) 9.8 10.0-20.0 [facility] [id number] 09:37:00 Test Item Value Reference Range Interpretation Comments eGFR (test code = eGFR) [address] [facility] [address] [id number] 12:20:00 Test Item Value Reference Range Interpretation Comments CHD Risk (test code = CHD Risk) 3.56 1 3.90-5.80 [id number] 12:20:00 Test Item Value Reference Range Interpretation Comments LDL (Calculated) (test code = LDL 64 (Calculated)) [id number] 12:20:00 Test Item Value Reference Range Interpretation Comments VLDL (test code = VLDL) [address] [facility] [address] [id number] 12:20:00 Test Item Value Reference Range Interpretation Comments Troponin-I (test code 0.02 See_Comment [Auto mated message] The = Troponin-I) system which g enerated this result transmit piedad reference range : <=0.40. The reference r franco was not used to interpr et this result as south l/abnormal. [facility] Up [id number] 12:20:00 Test Item Value Reference Range Interpretation Comments Glucose Lvl (test code = Glucose Lvl) 107 70-[address] [facility] [address] [facility] [id number] 12:20:00 Test Item Value Reference Range Interpretation Comments BUN (test code = BUN) 13 7-[address] [facility] [address] [facility] [id number] 12:20:00 Test Item Value Reference Range Interpretation Comments Creatinine Lvl (test code = Creatinine 0.80 0.50-1.40 Lvl) [facility] [id number] 12:20:00 Test Item Value Reference Range Interpretation Comments Sodium Lvl (test code = Sodium Lvl) 145 135-145 [facility]2020-03-21 12:20:00 Test Item Value Reference Range Interpretation Comments Potassium Lvl (test code = Potassium 3.0 3.5-5.1 Lvl) [facility]2020-03-21 12:20:00 Test Item Value Reference Range Interpretation Comments Chloride Lvl (test code = Chloride Lvl) 112 95-109 [facility]2020-03-21 12:20:00 Test Item Value Reference Range Interpretation Comments CO2 (test code = CO2) 26 24-32 [place] [id number] 12:20:00 Test Item Value Reference Range Interpretation Comments AGAP (test code = AGAP) 10.0 10.0-20.0 [place] [id number] 12:20:00 Test Item Value Reference Range Interpretation Comments Calcium Lvl (test code = Calcium Lvl) 8.8 8.5-10.5 [place] [id number] 12:20:00 Test Item Value Reference Range Interpretation Comments B/C Ratio (test code = B/C Ratio) 16 1 6-25 [place] 918110-03-21 12:20:00 Test Item Value Reference Range Interpretation Comments Total Protein (test code = Total 7.7 6.4-8.4 Protein) [facility]2020-03-21 12:20:00 Test Item Value Reference Range Interpretation Comments Albumin Lvl (test code = Albumin Lvl) 3.1 3.5-5.0 [place] 918110-03-21 12:20:00 Test Item Value Reference Range Interpretation Comments Globulin (test code = Globulin) 4.6 2.7-4.2 [place] [address]-03-21 12:20:00 Test Item Value Reference Range Interpretation Comments A/G Ratio (test code = A/G Ratio) 0.7 1 0.7-1.6 [place] 918110-03-21 12:20:00 Test Item Value Reference Range Interpretation Comments ALT (test code = ALT) 17 See_Comment [Auto mated message] The system which ge nerated this result transmit piedad reference range : <=65. The reference range was not used to interpr et this result as south l/abnormal. [facility]2020-03-21 12:20:00 Test Item Value Reference Range Interpretation Comments AST (test code = AST) 23 See_Comment [Auto mated message] The system which ge nerated this result transmit piedad reference range : <=37. The reference range was not used to interpr et this result as south l/abnormal. [facility]2020-03-21 12:20:00 Test Item Value Reference Range Interpretation Comments Alk Phos (test code = Alk Phos) 95 39-136 [facility]2020-03-21 12:20:00 Test Item Value Reference Range Interpretation Comments Bili Total (test code = Bili Total) 0.3 0.2-1.3 [place] 918110-03-21 12:20:00 Test Item Value Reference Range Interpretation Comments eGFR (test code = eGFR) 71 [facility]2020-03-21 12:20:00 Test Item Value Reference Range Interpretation Comments Magnesium Lvl (test code = Magnesium 1.8 1.8-2.4 Lvl) [id number] 12:20:00 Test Item Value Reference Range Interpretation Comments WBC (test code = WBC) 4.6 3.7-10.4 [place] 403210-03-21 12:20:00 Test Item Value Reference Range Interpretation Comments RBC (test code = RBC) 4.37 4.20-5.40 [place] 403210-03-21 12:20:00 Test Item Value Reference Range Interpretation Comments Hgb (test code = Hgb) 11.8 12.0-16.0 [place] 403210-03-21 12:20:00 Test Item Value Reference Range Interpretation Comments Hct (test code = Hct) 36.0 36.0-48.0 [place] [address]-03-21 12:20:00 Test Item Value Reference Range Interpretation Comments MCV (test code = MCV) 82.3 80.0-98.0 [place] 403210-03-21 12:20:00 Test Item Value Reference Range Interpretation Comments MCH (test code = MCH) 27.0 pg 27.0-31.0 [place] 403210-03-21 12:20:00 Test Item Value Reference Range Interpretation Comments MCHC (test code = MCHC) 32.8 32.0-36.0 [place] 403210-03-21 12:20:00 Test Item Value Reference Range Interpretation Comments RDW (test code = RDW) 14.2 11.5-14.5 [place] 403210-03-21 12:20:00 Test Item Value Reference Range Interpretation Comments Platelet (test code = Platelet) 223 133-450 [place] 403210-03-21 12:20:00 Test Item Value Reference Range Interpretation Comments MPV (test code = MPV) 9.4 7.4-10.4 [place] 403210-03-21 12:20:00 Test Item Value Reference Range Interpretation Comments Segs (test code = Segs) 35.9 45.0-75.0 [place] 403210-03-21 12:20:00 Test Item Value Reference Range Interpretation Comments Lymphocytes (test code = Lymphocytes) 51.8 20.0-40.0 [place] 403210-03-21 12:20:00 Test Item Value Reference Range Interpretation Comments Monocytes (test code = Monocytes) 8.1 2.0-12.0 [facility] [id number] 12:20:00 Test Item Value Reference Range Interpretation Comments Eosinophils (test code = 3.6 See_Comment [A utomated message] The Eosinophils) system which ge nerated this result tra nsmitted reference range : <=4.0. The reference r franco was not used to int erpret this result as normal/abnormal . [facility] [id number] 12:20:00 Test Item Value Reference Range Interpretation Comments Basophils (test code = 0.6 See_Comment [Aut omated message] The Basophils) system which ge nerated this result tra nsmitted reference range : <=1.0. The reference r franco was not used to int erpret this result as normal/abnormal . [place] 403210-03-21 12:20:00 Test Item Value Reference Range Interpretation Comments Neutrophils # (test code = Neutrophils 1.6 1.5-8.1 #) [facility] D[id number] 12:20:00 Test Item Value Reference Range Interpretation Comments Lymphocytes # (test code = Lymphocytes 2.4 1.0-5.5 #) [facility] [id number] 12:20:00 Test Item Value Reference Range Interpretation Comments Monocytes # (test code 0.4 See_Comment [Aut omated message] The = Monocytes #) system which generated this result tra nsmitted reference range : <=0.8. The reference r franco was not used to int erpret this result as normal/abnormal . [facility] [id number] 12:20:00 Test Item Value Reference Range Interpretation Comments Eosinophils # (test code 0.2 See_Comment [A utomated message] The = Eosinophils #) system whic h generated this result tra nsmitted reference range : <=0.5. The reference r franco was not used to int erpret this result as normal/abnormal . [facility] [id number] 12:20:00 Test Item Value Reference Range Interpretation Comments Basophils # (test code 0.0 See_Comment [Aut omated message] The = Basophils #) system which generated this result tra nsmitted reference range : <=0.2. The reference r franco was not used to int erpret this result as normal/abnormal . [facility] H[id number] 12:20:00 Test Item Value Reference Range Interpretation Comments Treponemal Ab (test code Non-Reactive = Treponemal Ab) *NA*(11/15/19 7:20 AM) [place] [id number] 12:20:00 Test Item Value Reference Range Interpretation Comments Trig (test code = Trig) 116 [facility]HE7509-12-85 12:20:00 Test Item Value Reference Range Interpretation Comments Chol (test code = Chol) 121 [place] [id number] 12:20:00 Test Item Value Reference Range Interpretation Comments HDL (test code = HDL) [address] [facility]
--- NOTE | 2023-02-13 15:27 | RAD REPORT ---
EXAM DESCRIPTION: Gino Single View02/13/2023 3:11 pm CLINICAL HISTORY: Chest pain/scapular pain COMPARISON: 2020 FINDINGS: The lungs appear clear of acute infiltrate. The heart is mildly enlarged IMPRESSION: No acute abnormalities displayed
[2023-02-13] MEDS ORDERED: KETOROLAC 30 MG/ML INJ ONE (15:28)
--- NOTE | 2023-02-13 16:39 | ER ---
Nurse's Notes [facility] Name: Lawanda Sharp Age: 82 yrs Sex: Female : 1940 Arrival Date: 02/13/2023 Time: 13:31 Bed 10 Private MD: Diagnosis: Unspecified symptoms and signs involving the musculoskeletal system;Posterior Chest Wall/scapular Pain Presentation: 02/13 13:56 Chief complaint: Patient states: pain in upper back to left shoulder, denies injury, iw she woke with the pain , denies chest pain or jaw pain , denies n/v , pain to back is aggravated by moving her shoulder upward. Coronavirus screen: At this time, the client does not indicate any symptoms associated with coronavirus-19. Ebola Screen: Patient negative for fever greater than or equal to 101.5 degrees Fahrenheit, and additional compatible Ebola Virus Disease symptoms Patient denies exposure to infectious person. Patient denies travel to an Ebola-affected area in the 21 days before illness onset. No symptoms or risks identified at this time. Initial Sepsis Screen: Does the patient meet any 2 criteria? No. Patient's initial sepsis screen is negative. Does the patient have a suspected source of infection? No. Patient's initial sepsis screen is negative. Risk Assessment: Do you want to hurt yourself or someone else? Patient reports no desire to harm self or others. Onset of symptoms was February 13, 2023. 13:56 Method Of Arrival: Ambulatory iw 13:56 Acuity: SANIYA 3 iw Historical: - Allergies: 13:58 NKDA; iw - PMHx: 13:58 Hypertension; iw - PSHx: 13:58 hysterectomy; iw - Immunization history:: Adult Immunizations. - Social history:: Smoking status: Patient denies any tobacco usage or history of. Screenin:05 [facility] ED Fall Risk Assessment (Adult) History of falling in the last 3 months, nj1 including since admission No falls in past 3 months (0 pts) Confusion or Disorientation No (0 pts) Intoxicated or Sedated No (0 pts) Impaired Gait No (0 pts) Mobility Assist Device Used No (0 pt) Altered Elimination No (0 pt) Score/Fall Risk Level 0 - 2 = Low Risk Oriented to surroundings, Maintained a safe environment, Hourly rounding (assess needs \T\ fall precautionary measures) done. Abuse screen: Denies threats or abuse. Denies injuries from another. Nutritional screening: No deficits noted. Tuberculosis screening: No symptoms or risk factors identified. Assessment: 17:05 General: Appears in no apparent distress. comfortable, Behavior is calm, cooperative, nj1 appropriate for age. 17:05 Pain: Denies pain. Neuro: Level of Consciousness is awake, alert, obeys commands, nj1 Oriented to person, place, time, situation. Cardiovascular: Patient's skin is warm and dry. Respiratory: Airway is patent Respiratory effort is even, unlabored. Vital Signs: 13:56 BP 146 / 95; Pulse 77; Resp 16; Temp 97.9; Pulse Ox 100% on R/A; Weight 68.04 kg; iw Height 5 ft. 5 in. ; Pain 10/10; 17:05 BP 168 / 91; Pulse 75; Resp 16; Pulse Ox 98% on R/A; Pain 0/10; nj1 13:56 Body Mass Index 24.96 (68.04 kg, 165.1 cm) iw 13:56 Pain Scale: Adult iw 17:05 Pain Scale: Adult [facility] ED Course: 13:33 Patient arrived in ED. rg4 13:47 Yifan Ortiz MD is Attending Physician. kdr 13:58 Triage completed. iw 13:59 Arm band placed on. iw 15:13 CXR XRAY In Process Unspecified. EDMS 16:07 Lisa Samson, HERSON is Primary Nurse. nj1 17:05 Patient has correct armband on for positive identification. Bed in low position. Call nm1 light in reach. 17:05 No provider procedures requiring assistance completed. nj1 17:05 Patient did not have IV access during this emergency room visit. nj1 Administered Medications: 15:22 Drug: Ketorolac IM 15 mg Route: IM; Site: right deltoid; mb9 17:05 Follow up: Response: No adverse reaction; Pain is decreased nj Medication: 17:05 VIS not applicable for this client. nj1 Outcome: 16:38 Discharge ordered by . kdr 17:05 Discharged to home ambulatory. nj1 17:05 Condition: stable 17:05 Discharge instructions given to patient, Instructed on discharge instructions, follow up and referral plans. medication usage, Demonstrated understanding of instructions, follow-up care, medications, Prescriptions given X 2. 17:30 Patient left the ED. nj1 Signatures: Dispatcher [employer] EDMS Yifan Ortiz MD MD kdr Betty Perez RN RN iw Ivana Mayberry 4 Anika Delgado RN RN mb9 Lisa Samson RN RN nj1 Corrections: (The following items were deleted from the chart) 14:01 13:56 Chief complaint: Patient states: pain in upper back to left shoulder, denies iw injury, she woke with the pain , denies chest pain or jaw pain , denies n/v , pain worsens when she tried to raise her shoulder up iw
--- NOTE | 2023-02-13 16:39 | EDPHYS ---
Physician Documentation [facility] Name: Lawanda Sharp Age: 82 yrs Sex: Female : 1940 Arrival Date: 02/13/2023 Time: 13:31 Bed 10 Private MD: ED Physician Yifan Ortiz HPI: 02/13 17:43 This 82 yrs old Female presents to ER via Ambulatory with complaints of Back kdr Pain. 17:44 Patient states she woke this morning with left scapular pain. She denies any injury or kdr any other precipitating factor. She has not had this before. She denies chest pain anteriorly or jaw pain. She also denies nausea vomiting. Pain is aggravated by taking a deep breath or twisting her torso or bring her arm upwards.. Onset: The symptoms/episode began/occurred suddenly, this morning. Severity of symptoms: At their worst the symptoms were mild moderate in the emergency department the symptoms are unchanged. The patient has not experienced similar symptoms in the past. The patient has not recently seen a physician. 17:44 Patient had not taking any antique pain medication prior to arrival today. kdr Historical: - Allergies: 13:58 NKDA; iw - PMHx: 13:58 Hypertension; iw - PSHx: 13:58 hysterectomy; iw - Immunization history:: Adult Immunizations. - Social history:: Smoking status: Patient denies any tobacco usage or history of. ROS: 17:44 Constitutional: Negative for fever, chills, and weight loss, Eyes: Negative for injury, kdr pain, redness, and discharge, ENT: Negative for injury, pain, and discharge, Neck: Negative for injury, pain, and swelling, Cardiovascular: Negative for chest pain, palpitations, and edema, Respiratory: Negative for shortness of breath, cough, wheezing, and pleuritic chest pain, Abdomen/GI: Negative for abdominal pain, nausea, vomiting, diarrhea, and constipation, : Negative for injury, bleeding, discharge, and swelling, MS/Extremity: Negative for injury and deformity, Skin: Negative for injury, rash, and discoloration, Neuro: Negative for headache, weakness, numbness, tingling, and seizure activity. Psych: Negative for depression, anxiety, suicide ideation, homicidal ideation, and hallucinations, Allergy/Immunology: Negative for hives, rash, and allergies, Endocrine: Negative for neck swelling, polydipsia, polyuria, polyphagia, and marked weight changes, Hematologic/Lymphatic: Negative for swollen nodes, abnormal bleeding, and unusual bruising. 17:44 Back: Positive for pain at rest, pain with movement, of the left scapular area. Exam: 17:44 Constitutional: This is a well developed, well nourished patient who is awake, alert, kdr and in no acute distress. Head/Face: Normocephalic, atraumatic. Eyes: Pupils equal round and reactive to light, extra-ocular motions intact. Lids and lashes normal. Conjunctiva and sclera are non-icteric and not injected. Cornea within normal limits. Periorbital areas with no swelling, redness, or edema. Neck: Trachea midline, no thyromegaly or masses palpated, and no cervical lymphadenopathy. Supple, full range of motion without nuchal rigidity, or vertebral point tenderness. No Meningismus. Chest/axilla: Normal chest wall appearance and motion. Nontender with no deformity. No lesions are appreciated. Cardiovascular: Regular rate and rhythm with a normal S1 and S2. No gallops, murmurs, or rubs. Normal PMI, no JVD. No pulse deficits. Respiratory: Lungs have equal breath sounds bilaterally, clear to auscultation and percussion. No rales, rhonchi or wheezes noted. No increased work of breathing, no retractions or nasal flaring. Abdomen/GI: Soft, non-tender, with normal bowel sounds. No distension or tympany. No guarding or rebound. No evidence of tenderness throughout. Skin: Warm, dry with normal turgor. Normal color with no rashes, no lesions, and no evidence of cellulitis. MS/ Extremity: Pulses equal, no cyanosis. Neurovascular intact. Full, normal range of motion. Neuro: Awake and alert, GCS 15, oriented to person, place, time, and situation. Cranial nerves II-XII grossly intact. Motor strength 5/5 in all extremities. Sensory grossly intact. Cerebellar exam normal. Normal gait. Psych: Awake, alert, with orientation to person, place and time. Behavior, mood, and affect are within normal limits. 17:44 Back: pain, that is very mild, that is mild, ROM is painful, with all movement, normal spinal alignment noted, CVA tenderness, is absent, vertebral tenderness, is not appreciated, muscle spasm, is appreciated in the left scapular area. Vital Signs: 13:56 BP 146 / 95; Pulse 77; Resp 16; Temp 97.9; Pulse Ox 100% on R/A; Weight 68.04 kg; iw Height 5 ft. 5 in. ; Pain 10/10; 17:05 BP 168 / 91; Pulse 75; Resp 16; Pulse Ox 98% on R/A; Pain 0/10; nj1 13:56 Body Mass Index 24.96 (68.04 kg, 165.1 cm) iw 13:56 Pain Scale: Adult iw 17:05 Pain Scale: Adult nj1 MDM: 16:38 Patient medically screened. kdr 17:44 Data reviewed: vital signs, nurses notes, lab test result(s), radiologic studies. kdr 02/13 14:52 Order name: CXR XRAY; Complete Time: 16:28 kdr Administered Medications: 15:22 Drug: Ketorolac IM 15 mg Route: IM; Site: right deltoid; [facility] 17:05 Follow up: Response: No adverse reaction; Pain is decreased [facility] Disposition Summary: 02/13/23 16:38 Discharge Ordered Location: Home kdr Problem: new kdr Symptoms: are resolved kdr Condition: Stable kdr Diagnosis - Unspecified symptoms and signs involving the musculoskeletal system kdr - Posterior Chest Wall/scapular Pain kdr Followup: kdr - With: Private Physician - When: 2 - 3 days - Reason: If symptoms return, Further diagnostic work-up, Recheck today's complaints, Continuance of care, Re-evaluation by your physician Discharge Instructions: - Discharge Summary Sheet kdr - Acute Back Pain, Adult kdr - Musculoskeletal Pain kdr Forms: - Medication Reconciliation Form kdr - Thank You Letter kdr Prescriptions: - Ibuprofen 600 mg Oral Tablet - take 1 tablet by ORAL route every 6 hours As needed take with food; 15 tablet; kdr Refills: 0, Product Selection Permitted - Cyclobenzaprine 5 mg Oral Tablet - take 1 tablet by ORAL route 3 times per day As needed; 15 tablet; Refills: 0, kdr Product Selection Permitted Signatures: Dispatcher [employer] Yifan Gray MD MD kdr Betty Perez RN RN Sandy, Anika Luna RN RN 9 Lisa Samson RN nj1
[2023-02-13 17:38] VITALS: BP 146/95; TEMP 97.9; O2SAT 100
== END 2023-02-13 17:30 | disposition home or self-care (01) ==
LOC: ER 13:31
DX: R29.91 Unspecified symptoms and signs involving the musculoskeletal system (principal); I10 Essential (primary) hypertension
CPT/HCPCS: 71045

== ENCOUNTER 2023-02-25 11:00 | Emergency (ER) | payer MEDICARE, OTHER ==
--- OUTSIDE RECORDS SUMMARY | 2023-02-25 11:03 | XMS REPORT | Continuity of Care Document ---
:1940 Author Organization [facility] t Address [address] [place] [address] [address] [place] [address] Care Team Providers Name Role Phone YOCASTA FUNES Primary Care Physician Unavailable RADIOLOGY Attending Clinician Unavailable Radiology Attending Clinician Unavailable DE BARRETT Attending Clinician Unavailable DELIA GALVEZ Admitting Clinician Unavailable DE BARRETT Admitting Clinician Unavailable Payers Payer Name Policy Type Policy Number Effective Date Expiration Date S sharifa [facility] [place] [id number] 2022 CLASSIC NO PREMIUM 00:00:00 HMO Problems Condition Condition Condition Status Onset Resolution Last Treating Co mments Source Name Details Category Date Date Treatment Clinician Date DIZZINESS, DIZZINESS Diagnosis Active 2019-11-17 Memoria DISSECTION , 11-14 06:31:00 l VERTEBRAL DISSECTION 00:00: Her medina ARTERY VERTEBRAL 00 ARTERY Active 11/15/2019 [facility] ILLNESS, ILLNESS, Diagnosis Active 2019-11-17 Memoria UNSPECIFIE UNSPECIFIE 06:31:00 l D D Active Ramos [facility] Allergies, Adverse Reactions, Alerts Allergy Allergy Status Severity Reaction(s) Onset Inactive Treating Comm ents Source Name Type Date Date Clinician NO KNOWN Drug Active [facility] Social History Social Habit Start Date Stop Date Quantity Comments Source Exposure to 2022-07-30 2022-08-09 Not sure [facility] SARS-CoV-2 (event) [facility]:00[facility]00 [facility] 2019-11-15 2019-11-15 [facility] 11:12:48 11:12:48 Sex Assigned At [birth year] [facility] 00:00:00 00:00:00 [facility] Branch Smoking Status Start Date Stop Date Source Tobacco smoking consumption [facility] Medical unknown Branch Medications Ordered Filled Start Stop Current Ordering Indication Dosage Frequency Signature Comments Components Source Medication Medication Date Date Medication? Clinician (SIG) Name Name gadobenate 2022- No [id number] .2mL/kg 0.2 mL/kg, [facility] dimeglumine 08-31 Intravenou [...] Ramos 00 30 tab, 0 Refill(s), Pharmacy: [id number] meclizine Yes 12.5 mg = Mem oria 12.5 mg 3-22 1 tab, PO, l oral tablet 13:52: BID, PRN He 00 Dizziness, X 15 day, # 30 tab, 0 Refill(s), Pharmacy: [id number] Aspirin 81 Yes 81 mg = 1 Me moria MG Enteric 3-22 tab, PO, l Coated 13:52: Q24H, 0 [place] Tablet 00 Refill(s) atorvastati No Notes: Ángel glenroy n 3-22 (Same as: l 02:00: Lipitor) potassium No Notes: Memori a chloride 20 -21 (Same as: l mEq oral 23:00: K-Dur 20) Herm yan tablet, "Do Not extended Crush" release Give with (KCL) food and full glass of water For patients unable to swallow tablet, dissolve in one half glass of water. Allow about 2 minutes for the tablets to disintegra te. Stir before giving to prepare slurry and administer . Please exclude Patient s with feeding tube less than 14 Bangladeshi (Dobhoff, J-tube etc) and pediatric and patients. potassium 2020-0 No Notes: Memori a chloride 20 3-21 [...] s with feeding tube less than 14 Bangladeshi (Dobhoff, J-tube etc) and pediatric and patients. Famotidine 2019-0 No Notes: Memor ia 3-21 (Same as: l 14:00: Pepcid) [place] 00 Saline 2019-0 No Notes: Memoria Flush 0.9% 3-21 Same as: l 14:00: BD [place] Posiflush Sterile Lisinopril 2019-0 No Notes: Memor ia 3-21 (Same as: l 14:00: Prinivil, [place] 00 Zestril) Ativan 2019-0 No Notes: Memoria 3-21 (Same as: l 13:07: Ativan) Ramos 00 Aspirin 81 2019-0 No Notes: Do Me moria MG Enteric 3-21 not crush l Coated 12:00: or chew. Ramos Tablet 00 (Same As: Ecotrin) Labetalol 2019-0 No Notes: Memori a 3-21 (Same as: l 11:18: Normodyne, Ramos Trandate) Push over 2 minutes Give bolus over 2-3 minutes. enalapril 2019-0 No Notes: Memori a 3-21 (Same as: l 11:18: Vasotec-IV Ramos ) Ondansetron 2019-0 No Notes: Ángel glenroy 3-21 (Same as: l 11:18: Zofran) [place] MEDICATION WASTE Product Size: 4 mg Product Wasted: ___ mg Acetaminoph 2019-0 No Notes: Do M emoria en 11-14 not exceed l 11:18: 4 gm/day. [place] 00 (Same as: Tylenol) Saline No Notes: Memoria Flush 0.9% 11-14 Same as: l 11:18: BD Ramos 00 Posiflush Sterile lisinopril No 10 mg = 1 Me moria 10 mg oral 11-14 tab, PO, l tablet 10:55: Daily, # [place] 00 30 tab, 0 Refill(s) Immunizations Ordered Immunization Filled Immunization Date Status Commen ts Source Name Name pneumococcal 2019-11-16 Completed [facility] 13-valent vaccine 17:01:00 Ramos influenza virus 2019-11-16 Completed [facility] vaccine, inactivated 17:01:00 Herm yan Vital Signs Vital Name Observation Time Observation Value Comments Source Systolic (mm Hg) 2019-11-16 17:11:00 Ángel rial [place] Diastolic (mm Hg) 2019-11-16 17:11:00 Mem orial [place] Temperature Oral (F) 2019-11-16 13:00:00 98.4 F [facility] [place] Heart Rate 2019-11-16 13:00:00 [facility] Respitory Rate 2019-11-16 13:00:00 Memori al [place] Systolic (mm Hg) 2019-11-16 13:00:00 Ángel rial [place] Diastolic (mm Hg) 2019-11-16 13:00:00 Mem orial Ramos Temperature Oral (F) 2019-11-16 09:00:00 97.9 F [facility] Heart Rate 2019-11-16 09:00:00 [facility] [place] Respitory Rate 2019-11-16 09:00:00 Memori al [place] Systolic (mm Hg) 2019-11-16 09:00:00 Ángel rial [place] Diastolic (mm Hg) 2019-11-16 09:00:00 Mem orial [place] Temperature Oral (F) 2019-11-16 05:00:00 97.5 F [facility] Heart Rate 2019-11-16 05:00:00 [facility] [place] Respitory Rate 2019-11-16 05:00:00 Memori al [place] Weight 2019-11-15 10:49:00 [facility] BMI Calculated 2019-11-15 10:49:00 Memori al [place] Height 2019-11-15 10:49:00 154.94 cm [facility] Procedures Procedure Date / Time Performed Performing Clinician Alvarado kessler MR THORACIC SPINE W 2022-08-31 19:41:00 Requisition, Paper Unive [facility] Encounters Start End Encounter Admission Attending Care Care Encounter Source Date/Time Date/Time Type Type Clinicians Facility Department ID 2022-08-31 2022-08-31 Outpatient R RADIOLOGY [facility] [id number] Univers 12:36:29 23:59:00 it[facility] of [facility] 2022-08-31 2022-08-31 Hospital Radiology [facility] [id number] Univers 12:36:29 23:59:00 Encounter [place] [id number] ity [facility] [id number] [facility] [id number] [facility] 804 Branch 2019-11-15 2019-11-16 Observatio [facility] [id number] Memoria 19:07:00 20:36:00 n [facility] 81 l [facility] 2019-11-15 2019-11-16 Outpatient [place] MED 0081 [facility] 14:07:00 15:36:00 DE Results Test Description Test Time Test Comments Results Result Comments Source CHEM PANEL 2019-11-16 09:37:00 Test Item Value Reference Range Interpretation Comme nts Glucose Lvl (test code = Glucose Lvl) 115 70-99 [facility] [id number] 09:37:00 Test Item Value Reference Range Interpretation Comments BUN (test code = BUN) 14 7-22 [facility] [id number] 09:37:00 Test Item Value Reference Range Interpretation Comments Creatinine Lvl (test code = Creatinine 0.80 0.50-1.40 Lvl) [facility] [id number] 09:37:00 Test Item Value Reference Range Interpretation Comments Sodium Lvl (test code = Sodium Lvl) 141 135-145 [facility] [id number] 09:37:00 Test Item Value Reference Range Interpretation Comments Potassium Lvl (test code = Potassium 3.8 3.5-5.1 Lvl) [facility] [id number] 09:37:00 Test Item Value Reference Range Interpretation Comments Chloride Lvl (test code = Chloride Lvl) 114 95-109 [facility] [id number] 09:37:00 Test Item Value Reference Range Interpretation Comments CO2 (test code = CO2) 21 24-32 [facility] [id number] 09:37:00 Test Item Value Reference Range Interpretation Comments Calcium Lvl (test code = Calcium Lvl) 9.2 8.5-10.5 [facility] [id number] 09:37:00 Test Item Value Reference Range Interpretation Comments AGAP (test code = AGAP) 9.8 10.0-20.0 [facility]2020-03-22 09:37:00 Test Item Value Reference Range Interpretation Comments eGFR (test code = eGFR) 71 [id number] 12:20:00 Test Item Value Reference Range Interpretation Comments CHD Risk (test code = CHD Risk) 3.56 1 3.90-5.80 [facility] [id number] 12:20:00 Test Item Value Reference Range Interpretation Comments LDL (Calculated) (test code = LDL 64 (Calculated)) [facility] [id number] 12:20:00 Test Item Value Reference Range Interpretation Comments VLDL (test code = VLDL) 23 1 [facility]ARD[facility] [id number] 12:20:00 Test Item Value Reference Range Interpretation Comments Troponin-I (test code 0.02 See_Comment [Auto mated message] The = Troponin-I) system which g enerated this result transmit piedad reference range : <=0.40. The reference r franco was not used to interpr et this result as south l/abnormal. [facility] [id number] 12:20:00 Test Item Value Reference Range Interpretation Comments Glucose Lvl (test code = Glucose Lvl) 107 70-99 [facility]2020-03-21 12:20:00 Test Item Value Reference Range Interpretation Comments BUN (test code = BUN) 13 7-22 [facility]2020-03-21 12:20:00 Test Item Value Reference Range Interpretation Comments Creatinine Lvl (test code = Creatinine 0.80 0.50-1.40 Lvl) [facility]2020-03-21 12:20:00 Test Item Value Reference Range Interpretation Comments Sodium Lvl (test code = Sodium Lvl) 145 135-145 [facility]2020-03-21 12:20:00 Test Item Value Reference Range Interpretation Comments Potassium Lvl (test code = Potassium 3.0 3.5-5.1 Lvl) [facility]2020-03-21 12:20:00 Test Item Value Reference Range Interpretation Comments Chloride Lvl (test code = Chloride Lvl) 112 95-109 [facility]2020-03-21 12:20:00 Test Item Value Reference Range Interpretation Comments CO2 (test code = CO2) 26 24-32 [facility]2020-03-21 12:20:00 Test Item Value Reference Range Interpretation Comments AGAP (test code = AGAP) 10.0 10.0-20.0 [facility]2020-03-21 12:20:00 Test Item Value Reference Range Interpretation Comments Calcium Lvl (test code = Calcium Lvl) 8.8 8.5-10.5 [facility]2020-03-21 12:20:00 Test Item Value Reference Range Interpretation Comments B/C Ratio (test code = B/C Ratio) 16 1 6-25 [place] 067530-03-21 12:20:00 Test Item Value Reference Range Interpretation Comments Total Protein (test code = Total 7.7 6.4-8.4 Protein) [facility]2020-03-21 12:20:00 Test Item Value Reference Range Interpretation Comments Albumin Lvl (test code = Albumin Lvl) 3.1 3.5-5.0 [place] 067530-03-21 12:20:00 Test Item Value Reference Range Interpretation Comments Globulin (test code = Globulin) 4.6 2.7-4.2 [place] 067530-03-21 12:20:00 Test Item Value Reference Range Interpretation Comments A/G Ratio (test code = A/G Ratio) 0.7 1 0.7-1.6 [place] 067530-03-21 12:20:00 Test Item Value Reference Range Interpretation Comments ALT (test code = ALT) 17 See_Comment [Auto mated message] The system which ge nerated this result transmit piedad reference range : <=65. The reference range was not used to interpr et this result as south l/abnormal. [facility]2020-03-21 12:20:00 Test Item Value Reference Range Interpretation Comments AST (test code = AST) 23 See_Comment [Auto mated message] The system which ge nerated this result transmit piedad reference range : <=37. The reference range was not used to interpr et this result as south l/abnormal. [facility]2020-03-21 12:20:00 Test Item Value Reference Range Interpretation Comments Alk Phos (test code = Alk Phos) 95 39-136 [place] 067530-03-21 12:20:00 Test Item Value Reference Range Interpretation Comments Bili Total (test code = Bili Total) 0.3 0.2-1.3 [facility]2020-03-21 12:20:00 Test Item Value Reference Range Interpretation Comments eGFR (test code = eGFR) 71 [facility]2020-03-21 12:20:00 Test Item Value Reference Range Interpretation Comments Magnesium Lvl (test code = Magnesium 1.8 1.8-2.4 Lvl) [id number] 12:20:00 Test Item Value Reference Range Interpretation Comments WBC (test code = WBC) 4.6 3.7-10.4 [place] 040600-03-21 12:20:00 Test Item Value Reference Range Interpretation Comments RBC (test code = RBC) 4.37 4.20-5.40 [facility]KpvfnkuLXNOBHEKMK7739-41-66 12:20:00 Test Item Value Reference Range Interpretation Comments Hgb (test code = Hgb) 11.8 12.0-16.0 [place] [address]-03-21 12:20:00 Test Item Value Reference Range Interpretation Comments Hct (test code = Hct) 36.0 36.0-48.0 [place] [address]-03-21 12:20:00 Test Item Value Reference Range Interpretation Comments MCV (test code = MCV) 82.3 80.0-98.0 [place] [address]-03-21 12:20:00 Test Item Value Reference Range Interpretation Comments MCH (test code = MCH) 27.0 pg 27.0-31.0 [place] 040600-03-21 12:20:00 Test Item Value Reference Range Interpretation Comments MCHC (test code = MCHC) 32.8 32.0-36.0 [facility] HospitalEifkikfKLSPUEHRST3435-00-21 12:20:00 Test Item Value Reference Range Interpretation Comments RDW (test code = RDW) 14.2 11.5-14.5 [place] 040600-03-21 12:20:00 Test Item Value Reference Range Interpretation Comments Platelet (test code = Platelet) 223 133-450 [facility] HospitalAxqztsrZMNLKPUZID7015-85-04 12:20:00 Test Item Value Reference Range Interpretation Comments MPV (test code = MPV) 9.4 7.4-10.4 [facility] HospitalVkxskqmORDFACIXUS1003-00-62 12:20:00 Test Item Value Reference Range Interpretation Comments Segs (test code = Segs) 35.9 45.0-75.0 [place] 040600-03-21 12:20:00 Test Item Value Reference Range Interpretation Comments Lymphocytes (test code = Lymphocytes) 51.8 20.0-40.0 [facility] HospitalRretjooXMQCHDFBTL5451-15-54 12:20:00 Test Item Value Reference Range Interpretation Comments Monocytes (test code = Monocytes) 8.1 2.0-12.0 [facility] HospitalEezrsfuBCJSFOULNJ8351-09-61 12:20:00 Test Item Value Reference Range Interpretation Comments Eosinophils (test code = 3.6 See_Comment [A utomated message] The Eosinophils) system which ge nerated this result tra nsmitted reference range : <=4.0. The reference r franco was not used to int erpret this result as normal/abnormal . [facility] HospitalLtefdrgYXNLVRVRUX6287-50-78 12:20:00 Test Item Value Reference Range Interpretation Comments Basophils (test code = 0.6 See_Comment [Aut omated message] The Basophils) system which ge nerated this result tra nsmitted reference range : <=1.0. The reference r franco was not used to int erpret this result as normal/abnormal . [facility] HospitalTsbwpepKUCPQUWIJB0174-98-03 12:20:00 Test Item Value Reference Range Interpretation Comments Neutrophils # (test code = Neutrophils 1.6 1.5-8.1 #) [facility] HospitalNzxeyfsZUDLYYPSNF3014-21-50 12:20:00 Test Item Value Reference Range Interpretation Comments Lymphocytes # (test code = Lymphocytes 2.4 1.0-5.5 #) [facility] HospitalJiilzazDHNMVBRXET3080-98-34 12:20:00 Test Item Value Reference Range Interpretation Comments Monocytes # (test code 0.4 See_Comment [Aut omated message] The = Monocytes #) system which generated this result tra nsmitted reference range : <=0.8. The reference r franco was not used to int erpret this result as normal/abnormal . [facility] H[id number] 12:20:00 Test Item Value Reference Range Interpretation Comments Eosinophils # (test code 0.2 See_Comment [A utomated message] The = Eosinophils #) system whic h generated this result tra nsmitted reference range : <=0.5. The reference r franco was not used to int erpret this result as normal/abnormal . [facility] HospitalWictvrfANKKEYFHKD1329-99-32 12:20:00 Test Item Value Reference Range Interpretation Comments Basophils # (test code 0.0 See_Comment [Aut omated message] The = Basophils #) system which generated this result tra nsmitted reference range : <=0.2. The reference r franco was not used to int erpret this result as normal/abnormal . [facility] St[id number] 12:20:00 Test Item Value Reference Range Interpretation Comments Treponemal Ab (test code Non-Reactive = Treponemal Ab) *NA*(11/15/19 7:20 AM) [facility]aqzzcqLRKNLU6884-89-12 12:20:00 Test Item Value Reference Range Interpretation Comments Trig (test code = Trig) 116 [facility] NorthwestIgjlqedAZOWRA3746-68-14 12:20:00 Test Item Value Reference Range Interpretation Comments Chol (test code = Chol) 121 [place] 175200-03-21 12:20:00 Test Item Value Reference Range Interpretation Comments HDL (test code = HDL) 34 [facility]
[2023-02-25 11:51] LABS: Absolute Lymphocytes (CBC) 1.5 K/uL (0.7-4.9); Hematocrit 37.1 % (36.0-45.0); Lymphocytes % 27.1 % (15.3-44.8); MCV 85.7 fL (80-100); MPV 8.5 fL (7.6-11.3); RBC Red Blood Cell Count 4.33 M/uL (3.86-4.86)
[2023-02-25] MEDS ORDERED: NA CHLORIDE 0.9% 0 ML ONE (11:53)
[2023-02-25] MEDS ORDERED: FAMOTIDINE 20 MG/2 ML VIAL IV ONE ×2 (11:53→11:56)
--- NOTE | 2023-02-25 11:55 | RAD REPORT ---
EXAM DESCRIPTION: US - Abdomen Exam Limited - 02/25/2023 11:43 am CLINICAL HISTORY: Abdominal pain. COMPARISON: 2019 FINDINGS: The gallbladder wall is not thickened. A 13 millimeter mobile gallstone The biliary tree is normal caliber. IMPRESSION: Cholelithiasis without evidence cholecystitis
[2023-02-25] MEDS ORDERED: NA CHLORIDE 0.9% 1,000 ML ONE (11:56)
[2023-02-25 12:08] LABS: Albumin 3.1 g/dL (3.4-5.0); Bilirubin Total 0.4 mg/dL (0.2-1.0); Potassium 3.5 mEq/L (3.5-5.1); Protein, Total 7.5 g/dL (6.4-8.2)
--- NOTE | 2023-02-25 12:38 | RAD REPORT ---
EXAM DESCRIPTION: CT - Abdomen Pelvis W Contrast - 02/25/2023 12:20 pm CLINICAL HISTORY: Abdominal pain COMPARISON: November 2022 TECHNIQUE: Computed axial tomography of the abdomen pelvis was obtained. 100 cc Isovue-300 was admin istered intravenously. Oral contrast was not requested which limits evaluation of bowel and appendix All CT scans are performed using dose optimization technique as appropriate and may include automated exposure control or mA/KV adjustment according to patient size. FINDINGS: Cholelithiasis. Mild gallbladder distention. Mild dilatation common bile Hepatic cyst. Spleen, adrenals pancreas is unremarkable. Small renal cysts. Hysterectomy. No adnexal mass. Trace amount free fluid There is no evidence of diverticulitis. Left spondylosis L4 and L5. Postsurgical changes lumbar spine. Spondylosis results central spinal melonie nosis L3-4. Small umbilical hernia IMPRESSION: Cholelithiasis. Mild gallbladder distention Mild dilatation common bile duct
[2023-02-25 13:25] LABS: Specific Gravity 1.027 (1.005-1.030); Urine Bilirubin NEGATIVE (Negative); Urine Blood Negative (Negative); Urine Clarity Clear (Clear); Urine Color Colorless (Yellow); Urine Glucose NEGATIVE (Negative); Urine Protein NEGATIVE (Negative); Urine Urobilinogen Normal (Normal); Urine pH 6.5 (5.0-7.0)
[2023-02-25] MEDS ORDERED: ACETAMINOPHEN 500 MG TAB ONE (13:43)
--- NOTE | 2023-02-25 13:49 | ER ---
Nurse's Notes [facility] Name: Lawanda Sharp Age: 82 yrs Sex: Female : 1940 Arrival Date: 02/25/2023 Time: 11:00 Bed 5 Private MD: Diagnosis: Other cholelithiasis without obstruction Presentation: 02/25 11:16 Chief complaint: Patient states: Upper abdominal pain x 2 weeks, decreased appetite, ph pain worse after eating, also reports nausea, denies V/D, headache that started last night. Coronavirus screen: Vaccine status: Patient reports receiving the 1st dose of the Covid vaccine. Ebola Screen: No symptoms or risks identified at this time. Initial Sepsis Screen: Does the patient meet any 2 criteria? No. Patient's initial sepsis screen is negative. Does the patient have a suspected source of infection? No. Patient's initial sepsis screen is negative. Risk Assessment: Do you want to hurt yourself or someone else? Patient reports no desire to harm self or others. Onset of symptoms was February 25, 2023. 11:16 Method Of Arrival: Ambulatory ph 11:16 Acuity: SANIYA 3 ph Triage Assessment: 11:19 General: Appears in no apparent distress. comfortable, Behavior is calm, cooperative, ph appropriate for age. Pain: Complains of pain in abdomen and head. Neuro: Level of Consciousness is awake, alert, obeys commands, Oriented to person, place, time, situation, Reports dizziness, headache since last night. Cardiovascular: Capillary refill < 3 seconds in bilateral fingers Patient's skin is warm and dry. Respiratory: Airway is patent Respiratory effort is even, unlabored. GI: Reports upper abdominal pain, nausea, Patient currently denies diarrhea, vomiting. : No signs and/or symptoms were reported regarding the genitourinary system. Derm: Skin is pink, warm \T\ dry. Musculoskeletal: Circulation, motion, and sensation intact. Range of motion: intact in all extremities. Historical: - Allergies: 11:19 NKDA; ph - PMHx: 11:19 Hypertension; ph - PSHx: 11:19 hysterectomy; ph - Immunization history:: Adult Immunizations unknown. - Social history:: Smoking status: Patient denies any tobacco usage or history of. Screenin:20 [facility] ED Fall Risk Assessment (Adult) History of falling in the last 3 months, ph including since admission No falls in past 3 months (0 pts) Confusion or Disorientation No (0 pts) Intoxicated or Sedated No (0 pts) Impaired Gait No (0 pts) Mobility Assist Device Used No (0 pt) Altered Elimination No (0 pt) Score/Fall Risk Level 0 - 2 = Low Risk. Abuse screen: Denies threats or abuse. Denies injuries from another. Nutritional screening: No deficits noted. Tuberculosis screening: No symptoms or risk factors identified. Assessment: 11:21 General: SEE TRIAGE ASSESSMENT. ph 13:01 Reassessment: Patient appears in no apparent distress at this time. Patient and/or hb family updated on plan of care and expected duration. Pain level reassessed. Patient is alert, oriented x 3, equal unlabored respirations, skin warm/dry/pink. 14:00 Reassessment: Patient appears in no apparent distress at this time. Patient and/or ph family updated on plan of care and expected duration. Pain level reassessed. Patient is alert, oriented x 3, equal unlabored respirations, skin warm/dry/pink. Vital Signs: 11:16 BP 164 / 81; Pulse 65; Resp 18; Temp 97.7; Pulse Ox 100% ; Weight 74.84 kg; Height 5 ph ft. 3 in. ; 12:30 BP 154 / 86; Pulse 67; Resp 18; Pulse Ox 99% on R/A; ph 14:00 BP 149 / 78; Pulse 65; Resp 16; Temp 97.9; Pulse Ox 99% on R/A; ph 11:16 Body Mass Index 29.23 (74.84 kg, 160.02 cm) ph ED Course: 11:03 Patient arrived in ED. rg4 11:09 Pia Pimentel FNP-C [facility]. kb 11:09 Yifan Ortiz MD is Attending Physician. kb 11:16 Edna Gillis RN is Primary Nurse. ph 11:19 Triage completed. ph 11:20 Arm band placed on Patient placed in an exam room. ph 11:21 Patient has correct armband on for positive identification. Placed in gown. Bed in low ph position. Call light in reach. Side rails up X 1. Pulse ox on. NIBP on. Door closed. Noise minimized. Warm blanket given. 11:44 Inserted saline lock: 22 gauge in right antecubital area, using aseptic technique. hb Blood collected. 11:45 US Abdomen Limited In Process Unspecified. EDMS 12:22 CT Abd/Pelvis - IV Contrast Only In Process Unspecified. EDMS 14:27 No provider procedures requiring assistance completed. IV discontinued, intact, ph bleeding controlled, No redness/swelling at site. Pressure dressing applied. Administered Medications: 11:48 Drug: NS 0.9% IV 1000 ml Route: IV; Rate: 1 bolus; Site: right antecubital; hb 14:28 Follow up: Response: No adverse reaction; IV Status: Completed infusion ph 11:48 Drug: Famotidine IVP 20 mg Route: IVP; Site: right antecubital; hb 14:28 Follow up: Response: No adverse reaction ph 13:36 Drug: Acetaminophen PO 1000 mg Route: PO; ss 14:28 Follow up: Response: No adverse reaction ph Medication: 14:27 VIS not applicable for this client. ph Outcome: 13:49 Discharge ordered by . kb 14:30 Discharged to home ambulatory, with family. ph 14:30 Condition: good 14:30 Discharge instructions given to patient, family, Instructed on discharge instructions, follow up and referral plans. medication usage, Demonstrated understanding of instructions, follow-up care, medications, Prescriptions given X 2. 14:30 Patient left the ED. ph Signatures: Dispatcher [employer] EDMS Pia Pimentel, DOOR TO DOOR FUNDRAISING COLLECTOR-C DOOR TO DOOR FUNDRAISING COLLECTOR-Tara Duff RN RN ss Hall, Patricia, RN RN Siomara Campos RN RN hb Garcia, Rubi rg4
--- NOTE | 2023-02-25 13:50 | EDPHYS ---
Physician Documentation [facility] Name: Lawanda Sharp Age: 82 yrs Sex: Female : 1940 Arrival Date: 02/25/2023 Time: 11:00 Bed 5 Private MD: ED Physician Yifan Ortiz HPI: 02/25 11:40 This 82 yrs old Female presents to ER via Ambulatory with complaints of kb Headache. 11:40 The patient presents with abdominal pain in the epigastric area. Onset: The kb symptoms/episode began/occurred 2 week(s) ago. The symptoms do not radiate. Associated signs and symptoms: Pertinent positives: fever, headache, nausea, decreased appetite. The symptoms are described as constant. Modifying factors: The symptoms are alleviated by nothing, the symptoms are aggravated by nothing. Severity of pain: At its worst the pain was moderate in the emergency department the pain is unchanged. The patient has not experienced similar symptoms in the past. The patient has not recently seen a physician. 11:43 Pt reports upper abd pain, nausea and decreased foot and fluid intake over the last 2 kb weeks. States she developed a headache and subjective fever last night. Historical: - Allergies: 11:19 NKDA; ph - PMHx: 11:19 Hypertension; ph - PSHx: 11:19 hysterectomy; ph - Immunization history:: Adult Immunizations unknown. - Social history:: Smoking status: Patient denies any tobacco usage or history of. ROS: 11:39 ENT: Negative for injury, pain, and discharge. kb 11:39 Constitutional: Positive for fever. 11:39 Abdomen/GI: Positive for abdominal pain, nausea, Negative for vomiting, diarrhea, constipation. 11:39 Neuro: Positive for headache. 11:39 All other systems are negative. Exam: 11:39 Constitutional: This is a well developed, well nourished patient who is awake, alert, kb and in no acute distress. Head/Face: Normocephalic, atraumatic. ENT: Moist Mucous membranes Cardiovascular: Regular rate and rhythm with a normal S1 and S2. No gallops, murmurs, or rubs. No pulse deficits. Respiratory: Respirations even and unlabored. No increased work of breathing. Talking in full sentences Skin: Warm, dry with normal turgor. Normal color. MS/ Extremity: Pulses equal, no cyanosis. Neurovascular intact. Full, normal range of motion. Neuro: Awake and alert, GCS 15, oriented to person, place, time, and situation. Moves all extremities. Normal gait. 11:39 Abdomen/GI: Inspection: abdomen appears normal, Bowel sounds: normal, Palpation: soft, in all quadrants, mild abdominal tenderness, in the epigastric area. Vital Signs: 11:16 BP 164 / 81; Pulse 65; Resp 18; Temp 97.7; Pulse Ox 100% ; Weight 74.84 kg; Height 5 ph ft. 3 in. ; 12:30 BP 154 / 86; Pulse 67; Resp 18; Pulse Ox 99% on R/A; ph 14:00 BP 149 / 78; Pulse 65; Resp 16; Temp 97.9; Pulse Ox 99% on R/A; ph 11:16 Body Mass Index 29.23 (74.84 kg, 160.02 cm) ph MDM: 11:09 Patient medically screened. kb 11:40 Data reviewed: vital signs, nurses notes. kb 11:41 Differential diagnosis: cholecystitis, Cholelithiasis, gastritis, gastroesophageal kb reflux disease, non-specific abd pain, pancreatitis. Historians other than the Patient: Daughter/Son: daughter. 13:43 Consideration of Admission/Observation Escalation of care including kb admission/observation considered. admission considered, but pt is in no distress, nontoxic in appearance, afebrile and labs wnl. Pt will follow up with surgeon. Counseling: I had a detailed discussion with the patient and/or guardian regarding: the historical points, exam findings, and any diagnostic results supporting the discharge/admit diagnosis, lab results, radiology results, the need for outpatient follow up, a family practitioner, a general surgeon, to return to the emergency department if symptoms worsen or persist or if there are any questions or concerns that arise at home. ED course: Discussed results with family and gave a printed copy of results. Pt is nontoxic in appearance, labs wnl, afebrile, tolerating po intake. Daughter will take pt for follow up tomorrow. . 02/25 11:13 Order name: CBC with Diff; Complete Time: 12:04 kb 02/25 11:13 Order name: CMP; Complete Time: 12:11 kb 02/25 11:13 Order name: Lipase; Complete Time: 12:11 kb 02/25 11:13 Order name: Urinalysis w/ reflexes; Complete Time: 13:26 kb 02/25 11:13 Order name: CT Abd/Pelvis - IV Contrast Only; Complete Time: 12:41 kb 02/25 11:13 Order name: US Abdomen Limited; Complete Time: 12:04 kb 02/25 11:13 Order name: IV Saline Lock; Complete Time: 11:44 kb 02/25 11:13 Order name: Labs collected and sent; Complete Time: 11:44 kb Administered Medications: 11:48 Drug: NS 0.9% IV 1000 ml Route: IV; Rate: 1 bolus; Site: right antecubital; hb 14:28 Follow up: Response: No adverse reaction; IV Status: Completed infusion ph 11:48 Drug: Famotidine IVP 20 mg Route: IVP; Site: right antecubital; hb 14:28 Follow up: Response: No adverse reaction ph 13:36 Drug: Acetaminophen PO 1000 mg Route: PO; ss 14:28 Follow up: Response: No adverse reaction ph Disposition: 14:32 Co-signature as Attending Physician, Yifan Ortiz MD I agree with the assessment and kdr plan of care. Disposition Summary: 02/25/23 13:49 Discharge Ordered Location: Home kb Condition: Stable kb Diagnosis - Other cholelithiasis without obstruction kb Followup: kb - With: Emergency Department - When: As needed - Reason: Worsening of condition Followup: kb - With: Private Physician - When: 2 - 3 days - Reason: Recheck today's complaints, Continuance of care, Re-evaluation by your physician Discharge Instructions: - Discharge Summary Sheet kb - Cholelithiasis, [id number] kb Forms: - Medication Reconciliation Form kb - Thank You Letter kb - Antibiotic Education kb - Prescription Opioid Use kb - [email or web address] kb Prescriptions: - Protonix 40 mg Oral Tablet - take 1 tablet by ORAL route once daily; 30 tablet; Refills: 0, Product kb Selection Permitted - Zofran 4 mg Oral Tablet - take 1 tablet by ORAL route every 6 hours As needed; 12 tablet; Refills: 0, kb Product Selection Permitted Signatures: Dispatcher [facility] EDPia Keating, PEDRO SHABAZZ-Yifan Wiggins MD MD kdr Blanchard, Shelby, RN RN ss Edna Gillis, RN RN ph Siomara Campos, RN RN hb
[2023-02-25 15:06] VITALS: O2SAT 99
[2023-02-25 15:12] VITALS: BP 149/78; TEMP 97.9
== END 2023-02-25 14:30 | disposition home or self-care (01) ==
LOC: ER 11:00
DX: K80.80 Other cholelithiasis without obstruction (principal); I10 Essential (primary) hypertension
CPT/HCPCS: 96361; 85025; 36415; 81003; 83690; 80053; 74177; 76705; 96374; 99284; Q9967; J7030

== ENCOUNTER 2023-03-07 17:07 | Observation (INO) | payer MEDICARE, OTHER ==
--- OUTSIDE RECORDS SUMMARY | 2023-03-07 17:23 | XMS REPORT | Continuity of Care Document ---
:1940 Author Organization [facility] t Address [address] [place] [address] [address] [place] [address] Care Team Providers Name Role Phone YOCASTA FUNES Primary Care Physician Unavailable RADIOLOGY Attending Clinician Unavailable Radiology Attending Clinician Unavailable DE BARRETT Attending Clinician Unavailable DELIA GALVEZ Admitting Clinician Unavailable DE BARRETT Admitting Clinician Unavailable Payers Payer Name Policy Type Policy Number Effective Date Expiration Date S sharifa [facility] [place] [id number] 2022 CLASSIC NO PREMIUM 00:00:00 HMO Problems Condition Condition Condition Status Onset Resolution Last Treating Co mments Source Name Details Category Date Date Treatment Clinician Date DIZZINESS, DIZZINESS Diagnosis Active 2019-11-17 Memoria DISSECTION , 11-14 06:31:00 l VERTEBRAL DISSECTION 00:00: Her medina ARTERY VERTEBRAL 00 ARTERY Active 11/15/2019 [facility] ILLNESS, ILLNESS, Diagnosis Active 2019-11-17 Memoria UNSPECIFIE UNSPECIFIE 06:31:00 l D D Active Ramos [facility] Allergies, Adverse Reactions, Alerts Allergy Allergy Status Severity Reaction(s) Onset Inactive Treating Comm ents Source Name Type Date Date Clinician NO KNOWN Drug Active [facility] ALLERGIE Class [facility] Social History Social Habit Start Date Stop Date Quantity Comments Source Exposure to 2022-07-30 2022-08-09 Not sure [facility] SARS-CoV-2 (event) 00:00:00 15:27:00 Medica [facility] Social History 2019-11-15 2019-11-15 [facility] 11:12:48 11:12:48 Sex Ass[birth year] At [birth year] [facility] 00:00:00 00:00:00 Medical Branch Smoking Status Start Date Stop Date Source Tobacco smoking consumption [facility] unknown Branch Medications Ordered Filled Start Stop Current Ordering Indication Dosage Frequency Signature Comments Components Source Medication Medication Date Date Medication? Clinician (SIG) Name Name gadobenate 2022- No [id number] .2mL/kg 0.2 mL/kg, Univers dimeglumine 08-31 Intravenou [...] Ramos 00 30 tab, 0 Refill(s), Pharmacy: [facility] #[id number] meclizine Yes 12.5 mg = Mem oria 12.5 mg 3-22 1 tab, PO, l oral tablet 13:52: BID, PRN He 00 Dizziness, X 15 day, # 30 tab, 0 Refill(s), Pharmacy: [facility] #[id number] Aspirin 81 Yes 81 mg = 1 Me moria MG Enteric 3-22 tab, PO, l Coated 13:52: Q24H, 0 [place] Tablet 00 Refill(s) atorvastati No Notes: Ángel [...] s with feeding tube less than 14 [place] (Dobhoff, J-tube etc) and pediatric and patients. [...] s with feeding tube less than 14 [place] (Dobhoff, J-tube etc) and pediatric and patients. Famotidine 2019-0 No Notes: Memor ia 3-21 (Same as: l 14:00: Pepcid) [place] 00 Saline 2019-0 No Notes: Memoria Flush 0.9% 3-21 Same as: l 14:00: BD Ramos Posiflush Sterile Lisinopril 2019-0 No Notes: Memor ia 3-21 (Same as: l 14:00: Prinivil, Ramos 00 Zestril) Ativan 2019-0 No Notes: Memoria 3-21 (Same as: l 13:07: Ativan) Ramos 00 Aspirin 81 2019-0 No Notes: Do Me moria MG Enteric 3-21 not crush l Coated 12:00: or chew. [place] Tablet 00 (Same As: Ecotrin) Labetalol 2019-0 No Notes: Memori a 3-21 (Same as: l 11:18: Normodyne, Ramos Trandate) Push over 2 minutes Give bolus over 2-3 minutes. enalapril 2019-0 No Notes: Memori a 3-21 (Same as: l 11:18: Vasotec-IV [place] ) Ondansetron 2019-0 No Notes: Ángel glenroy 3-21 (Same as: l 11:18: Zofran) [place] MEDICATION WASTE Product Size: 4 mg Product Wasted: ___ mg Acetaminoph 2019-0 No Notes: Do M emoria en 11-14 not exceed l 11:18: 4 gm/day. Ramos [...] ts Source Name Name pneumococcal 2019-11-16 Completed [facility] 13-valent vaccine 17:01:00 Ramos influenza virus 2019-11-16 Completed [facility] vaccine, inactivated 17:01:00 Herm yan Vital Signs Vital Name Observation Time Observation Value Comments Source Systolic (mm Hg) 2019-11-16 17:11:00 Ángel rial [place] Diastolic (mm Hg) 2019-11-16 17:11:00 Mem orial [place] Temperature Oral (F) 2019-11-16 13:00:00 98.4 F [facility] [place] Heart Rate 2019-11-16 13:00:00 [facility] Ramos Respitory Rate 2019-11-16 13:00:00 Memori al Ramos Systolic (mm Hg) 2019-11-16 13:00:00 Ángel rial Ramos Diastolic (mm Hg) 2019-11-16 13:00:00 Mem orial Ramos Temperature Oral (F) 2019-11-16 09:00:00 97.9 F [facility] Ramos Heart Rate 2019-11-16 09:00:00 [facility] [place] Respitory Rate 2019-11-16 09:00:00 Memori al [place] Systolic (mm Hg) 2019-11-16 09:00:00 Ángel rial [place] Diastolic (mm Hg) 2019-11-16 09:00:00 Mem orial Ramos Temperature Oral (F) 2019-11-16 05:00:00 97.5 F [facility] Ramos Heart Rate 2019-11-16 05:00:00 [facility] Ramos Respitory Rate 2019-11-16 05:00:00 Memori al Ramos Weight 2019-11-15 10:49:00 [facility] [place] BMI Calculated 2019-11-15 10:49:00 Memori al [place] Height 2019-11-15 10:49:00 154.94 cm [facility] [place] Procedures Procedure Date / Time Performed Performing Clinician Alvarado e MR THORACIC SPINE W 2022-08-31 19:41:00 Requisition, Paper Unive [facility] Encounters Start End Encounter Admission Attending Care Care Encounter Source Date/Time Date/Time Type Type Clinicians Facility Department ID 2023-03-06 2023-03-06 Outpatient SFA SFA [id number] Alexy 08:28:18 08:28:18 0711 F Sigifredo 2022-08-31 2022-08-31 Outpatient R RADIOLOGY [facility] [id number] Univers 12:36:29 23:59:00 ity of [facility] 2022-08-31 2022-08-31 Hospital Radiology [facility] [id number] Univers 12:36:29 23:59:00 Encounter [place] [id number] ity [facility] [id number] [facility] [id number] [facility] [address] [place] 2019-11-15 2019-11-16 [facility] [id number] [facility] 19:07:00 20:36:00 n r [place] 81 l [facility] 2019-11-15 2019-11-16 Outpatient [place] MED 0081 [facility] 14:07:00 15:36:00 DE Results Test Description Test Time Test Comments Results Result Comments Source CHEM PANEL 2019-11-16 09:37:00 Test Item Value Reference Range Interpretation Comme nts Glucose Lvl (test code = Glucose Lvl) 115 70-99 [facility] [id number] 09:37:00 Test Item Value Reference Range Interpretation Comments BUN (test code = BUN) 14 7-22 [facility] [id number] 09:37:00 Test Item Value Reference Range Interpretation Comments Creatinine Lvl (test code = Creatinine 0.80 0.50-1.40 Lvl) [facility] [id number] 09:37:00 Test Item Value Reference Range Interpretation Comments Sodium Lvl (test code = Sodium Lvl) 141 135-145 [facility] [id number] 09:37:00 Test Item Value Reference Range Interpretation Comments Potassium Lvl (test code = Potassium 3.8 3.5-5.1 Lvl) [facility] [id number] 09:37:00 Test Item Value Reference Range Interpretation Comments Chloride Lvl (test code = Chloride Lvl) 114 95-109 [facility] [id number] 09:37:00 Test Item Value Reference Range Interpretation Comments CO2 (test code = CO2) 21 24-32 [facility] [id number] 09:37:00 Test Item Value Reference Range Interpretation Comments Calcium Lvl (test code = Calcium Lvl) 9.2 8.5-10.5 [facility] [id number] 09:37:00 Test Item Value Reference Range Interpretation Comments AGAP (test code = AGAP) 9.8 10.0-20.0 [facility] [id number] 09:37:00 Test Item Value Reference Range Interpretation Comments eGFR (test code = eGFR) 71 [facility]Urul[facility]hlBAINWE8248-08-86 12:20:00 Test Item Value Reference Range Interpretation Comments HDL (test code = HDL) 34 [facility] AntonioDydgqnuTTBGZG9817-05-01 12:20:00 Test Item Value Reference Range Interpretation Comments CHD Risk (test code = CHD Risk) 3.56 1 3.90-5.80 [facility] CenterYdyvhspGZBNQN0550-21-34 12:20:00 Test Item Value Reference Range Interpretation Comments LDL (Calculated) (test code = LDL 64 (Calculated)) [facility] AntonioLoenlfnMUTVLL6347-22-69 12:20:00 Test Item Value Reference Range Interpretation Comments VLDL (test code = VLDL) 23 1 [facility] AntonioCARDIAC [id number] 12:20:00 Test Item Value Reference Range Interpretation Comments Troponin-I (test code 0.02 See_Comment [Auto mated message] The = Troponin-I) system which g enerated this result transmit piedad reference range : <=0.40. The reference r franco was not used to interpr et this result as south l/abnormal. [facility] AntonioHemenkiralik.com [id number] 12:20:00 Test Item Value Reference Range Interpretation Comments Glucose Lvl (test code = Glucose Lvl) 107 70-99 [facility]2020-03-21 12:20:00 Test Item Value Reference Range Interpretation Comments BUN (test code = BUN) 13 7-22 [facility]2020-03-21 12:20:00 Test Item Value Reference Range Interpretation Comments Creatinine Lvl (test code = Creatinine 0.80 0.50-1.40 Lvl) [facility]2020-03-21 12:20:00 Test Item Value Reference Range Interpretation Comments Sodium Lvl (test code = Sodium Lvl) 145 135-145 [facility] CenterRevalesioECU HEALTH MEDICAL [id number] 12:20:00 Test Item Value Reference Range Interpretation Comments Potassium Lvl (test code = Potassium 3.0 3.5-5.1 Lvl) [facility] CenterRevalesioECU HEALTH MEDICAL [id number] 12:20:00 Test Item Value Reference Range Interpretation Comments Chloride Lvl (test code = Chloride Lvl) 112 95-109 [facility]2020-03-21 12:20:00 Test Item Value Reference Range Interpretation Comments CO2 (test code = CO2) 26 24-32 [facility]2020-03-21 12:20:00 Test Item Value Reference Range Interpretation Comments AGAP (test code = AGAP) 10.0 10.0-20.0 [facility]2020-03-21 12:20:00 Test Item Value Reference Range Interpretation Comments Calcium Lvl (test code = Calcium Lvl) 8.8 8.5-10.5 [facility]2020-03-21 12:20:00 Test Item Value Reference Range Interpretation Comments B/C Ratio (test code = B/C Ratio) 16 1 6-25 [facility]2020-03-21 12:20:00 Test Item Value Reference Range Interpretation Comments Total Protein (test code = Total 7.7 6.4-8.4 Protein) [facility]2020-03-21 12:20:00 Test Item Value Reference Range Interpretation Comments Albumin Lvl (test code = Albumin Lvl) 3.1 3.5-5.0 [facility]2020-03-21 12:20:00 Test Item Value Reference Range Interpretation Comments Globulin (test code = Globulin) 4.6 2.7-4.2 [facility]2020-03-21 12:20:00 Test Item Value Reference Range Interpretation Comments A/G Ratio (test code = A/G Ratio) 0.7 1 0.7-1.6 [facility] CenterRevalesioCHEM [id number] 12:20:00 Test Item Value Reference Range Interpretation Comments ALT (test code = ALT) 17 See_Comment [Auto mated message] The system which ge nerated this result transmit piedad reference range : <=65. The reference range was not used to interpr et this result as south l/abnormal. [facility] [employer] [id number] 12:20:00 Test Item Value Reference Range Interpretation Comments AST (test code = AST) 23 See_Comment [Auto mated message] The system which ge nerated this result transmit piedad reference range : <=37. The reference range was not used to interpr et this result as south l/abnormal. [facility] [employer] [id number] 12:20:00 Test Item Value Reference Range Interpretation Comments Alk Phos (test code = Alk Phos) 95 39-136 [facility] [employer] [id number] 12:20:00 Test Item Value Reference Range Interpretation Comments Bili Total (test code = Bili Total) 0.3 0.2-1.3 [facility] [employer] [id number] 12:20:00 Test Item Value Reference Range Interpretation Comments eGFR (test code = eGFR) 71 [facility] [employer] [id number] 12:20:00 Test Item Value Reference Range Interpretation Comments Magnesium Lvl (test code = Magnesium 1.8 1.8-2.4 Lvl) [facility] CenterGsvayulREKZKZHLHY1832-79-48 12:20:00 Test Item Value Reference Range Interpretation Comments WBC (test code = WBC) 4.6 3.7-10.4 [facility] CenterJffffgrGUKIFRLNYZ5594-54-77 12:20:00 Test Item Value Reference Range Interpretation Comments RBC (test code = RBC) 4.37 4.20-5.40 [facility] GpmzbtuXNPOQIKZBJ1194-78-87 12:20:00 Test Item Value Reference Range Interpretation Comments Hgb (test code = Hgb) 11.8 12.0-16.0 [facility] EugwncoYJISPZQTTA6942-18-71 12:20:00 Test Item Value Reference Range Interpretation Comments Hct (test code = Hct) 36.0 36.0-48.0 [facility] OslswkmSICAQJDIZB8656-46-36 12:20:00 Test Item Value Reference Range Interpretation Comments MCV (test code = MCV) 82.3 80.0-98.0 [facility] DallasNeadzegPODWZXJDLF9373-63-01 12:20:00 Test Item Value Reference Range Interpretation Comments MCH (test code = MCH) 27.0 pg 27.0-31.0 [facility] DallasOfsguyhEOZVABKDZZ2874-21-41 12:20:00 Test Item Value Reference Range Interpretation Comments MCHC (test code = MCHC) 32.8 32.0-36.0 [facility] DallasCllenjzJKAVBTWIUE2378-01-48 12:20:00 Test Item Value Reference Range Interpretation Comments RDW (test code = RDW) 14.2 11.5-14.5 [facility] DallasKkmzeepXRSFTBHKQZ3236-36-54 12:20:00 Test Item Value Reference Range Interpretation Comments Platelet (test code = Platelet) 223 133-450 [facility] DallasMzzrkzfVWERBYDUSI8781-65-97 12:20:00 Test Item Value Reference Range Interpretation Comments MPV (test code = MPV) 9.4 7.4-10.4 [facility] DallasRibxkjvRHFSHBDKKR7691-84-83 12:20:00 Test Item Value Reference Range Interpretation Comments Segs (test code = Segs) 35.9 45.0-75.0 [facility] DallasIisxvkdQAHADAZIRV8333-52-68 12:20:00 Test Item Value Reference Range Interpretation Comments Lymphocytes (test code = Lymphocytes) 51.8 20.0-40.0 [facility] DallasHukovfwVKWNNMUOTQ6751-97-41 12:20:00 Test Item Value Reference Range Interpretation Comments Monocytes (test code = Monocytes) 8.1 2.0-12.0 [facility] DallasCxiarriFJPDUZGLOC7747-80-47 12:20:00 Test Item Value Reference Range Interpretation Comments Eosinophils (test code = 3.6 See_Comment [A utomated message] The Eosinophils) system which ge nerated this result tra nsmitted reference range : <=4.0. The reference r franco was not used to int erpret this result as normal/abnormal . [facility] DallasOxkhfrvDNSDZZUAZN9651-61-96 12:20:00 Test Item Value Reference Range Interpretation Comments Basophils (test code = 0.6 See_Comment [Aut omated message] The Basophils) system which ge nerated this result tra nsmitted reference range : <=1.0. The reference r franco was not used to int erpret this result as normal/abnormal . [place] [id number] 12:20:00 Test Item Value Reference Range Interpretation Comments Neutrophils # (test code = Neutrophils 1.6 1.5-8.1 #) [facility] DallasHttmnsoCMTLTTKMHT2227-16-57 12:20:00 Test Item Value Reference Range Interpretation Comments Lymphocytes # (test code = Lymphocytes 2.4 1.0-5.5 #) [facility] DallasDprhnmuZAPHTEYPHU2440-04-41 12:20:00 Test Item Value Reference Range Interpretation Comments Monocytes # (test code 0.4 See_Comment [Aut omated message] The = Monocytes #) system which generated this result tra nsmitted reference range : <=0.8. The reference r franco was not used to int erpret this result as normal/abnormal . [facility] DallasXsrlqyqSPJDGXDJJL3681-59-41 12:20:00 Test Item Value Reference Range Interpretation Comments Eosinophils # (test code 0.2 See_Comment [A utomated message] The = Eosinophils #) system whic h generated this result tra nsmitted reference range : <=0.5. The reference r franco was not used to int erpret this result as normal/abnormal . [facility] DallasKxmjmyoCWFSMIXGGY5920-88-84 12:20:00 Test Item Value Reference Range Interpretation Comments Basophils # (test code 0.0 See_Comment [Aut omated message] The = Basophils #) system which generated this result tra nsmitted reference range : <=0.2. The reference r franco was not used to int erpret this result as normal/abnormal . [facility] AntonioYolwnkvSULNTSTDWM7826-23-70 12:20:00 Test Item Value Reference Range Interpretation Comments Treponemal Ab (test code Non-Reactive = Treponemal Ab) *NA*(11/15/19 7:20 AM) [facility]anoZqwzkutOKKGKN4576-28-74 12:20:00 Test Item Value Reference Range Interpretation Comments Trig (test code = Trig) 116 [place] [id number] 12:20:00 Test Item Value Reference Range Interpretation Comments Chol (test code = Chol) 121 [facility]
--- NOTE | 2023-03-07 18:12 | RAD REPORT ---
EXAM DESCRIPTION: US - Abdomen Exam Limited - 03/07/2023 6:06 pm CLINICAL HISTORY: ABD PAIN COMPARISON: Abdomen Pelvis W Contrast dated 02/25/2023 FINDINGS: The gallbladder demonstrates shadowing gallstones. No pericholecystic fluid or gallbladder wall thickening. The common bile duct is normal measuring 3 mm. The gallbladder is distended. The liver demonstrates no findings of intrahepatic biliary dilatation. IMPRESSION: Distended gallbladder with gallstones but no sonographic evidence of acute cholecystitis .
--- NOTE | 2023-03-07 18:41 | RAD REPORT ---
EXAM DESCRIPTION: RAD - Chest Single View - 03/07/2023 6:32 pm CLINICAL HISTORY: ABDOMINAL DISTENTION COMPARISON: Chest Single View dated 02/13/2023; Chest Pa And Lat (2 Views) dated 04/06/2021; Chest Sin gle View dated 11/14/2019; Chest Single View dated 05/15/2017 FINDINGS: Lines: None. Lungs: No evidence of edema or pneumonia. Pleural: No significant pleural effusions or pneumothorax. Cardiac: Mild cardiomegaly. Mediastinum: Within normal limits. Bones: No acute fractures. Other: None IMPRESSION: No acute cardiopulmonary disease.
[2023-03-07 19:34] LABS: Absolute Lymphocytes (CBC) 2.2 K/uL (0.7-4.9); Hematocrit 39.8 % (36.0-45.0); Lymphocytes % 25.6 % (15.3-44.8); MCV 85.4 fL (80-100); RBC Red Blood Cell Count 4.66 M/uL (3.86-4.86)
[2023-03-07] MEDS ORDERED: FAMOTIDINE 20 MG/2 ML VIAL IV ONE (19:35)
[2023-03-07] MEDS ORDERED: NA CHLORIDE 0.9% 500 ML ONE (19:35)
[2023-03-07 19:56] LABS: Albumin 3.9 g/dL (3.4-5.0); Bilirubin Direct 0.2 mg/dL (0-0.2); Bilirubin Indirect, Calculated 0.4 mg/dL (0.2-0.8); Bilirubin Total 0.6 mg/dL (0.2-1.0); Magnesium 2.2 mg/dL (1.6-2.4); Potassium 3.8 mEq/L (3.5-5.1); Troponin High Sensitivity 13.1 pg/mL (<58.9)
--- NOTE | 2023-03-07 20:14 | RAD REPORT ---
EXAM DESCRIPTION: CTAbdomen Pelvis W Contrast - 03/07/2023 8:03 pm CLINICAL HISTORY: ABD PAIN COMPARISON: Abdomen Pelvis W Contrast dated 02/25/2023; Abdomen Pelvis W Contrast dated 10/19/2022; Abdomen Pelvis W Contrast dated 03/04/2020; Abdomen Pelvis W Contrast dated 05/29/2019; Abdomen Exa m Limited dated 03/07/2023 TECHNIQUE: CT of the abdomen and pelvis was performed. All CT scans are performed using dose optimization technique as appropriate and may include automated exposure control or mA/KV adjustment according to patient size. FINDINGS: Lower chest: No acute abnormality. Mild circumferential thickened distal esophagus which c ould reflect esophagitis. Coronary calcifications. Liver: Multiple low-density liver lesions which have benign imaging features in are unchanged. Biliary: Cholelithiasis. No CT evidence of acute cholecystitis. The common bile duct measures 8 carlos manuel meters at the ampulla. It is normal in caliber measuring 5 millimeters at the level the barron hepatis . Stomach: Mild diffuse gastric wall thickening. Duodenum: No significant focal abnormality. Pancreas: No significant abnormality. Spleen: No significant abnormality. Adrenal: No suspicious lesions. Kidney/ureter: No hydronephrosis. No renal calculi. Too small to characterize and/or benign appearing renal lesions are noted. Retroperitoneum: No retroperitoneal adenopathy. Vascular: No aneurysm. Atherosclerosis . Bowel: Small volume of pelvic free fluid which is abnormal but nonspecific. This has been present on prior exams. . No appendicitis. Peritoneum: No ascites or free air. Bladder: Mild circumferential bladder wall thickening and enhancement. Reproductive: Hysterectomy. Bones: No acute fracture. Multilevel degenerative changes are present in the spine. Other: n/a IMPRESSION: No acute intra-abdominal or pelvic finding. Cholelithiasis without CT is of acute cholecystitis. Question gastric wall thickening that could indicate gastritis. The finding has been present on multi ple prior CTs. Endoscopy could further evaluate. Mild bladder wall thickening and enhancement. Correlate with urinalysis to exclude cystitis.
--- NOTE | 2023-03-07 20:59 | EDPHYS ---
Physician Documentation [facility] Name: Lawanda Sharp Age: 82 yrs Sex: Female : 1940 Arrival Date: 03/07/2023 Time: 17:07 Bed 8 Private MD: ED Physician Destin Cooley HPI: 03/07 20:23 This 82 yrs old Female presents to ER via Ambulatory with complaints of sandip Abdominal Pain. 20:23 The patient presents with abdominal pain in the epigastric area, in the upper abdomen, sandip abdominal distention in the upper abdomen. Onset: The symptoms/episode began/occurred 2 day(s) ago. The patient presents to the emergency department with nausea, vomiting, abdominal pain, of the epigastric area, right upper quadrant and left upper quadrant. Onset: The symptoms/episode began/occurred 2 day(s) ago. Possible causes: unknown. The symptoms are aggravated by nothing. The symptoms are alleviated by food . Associated signs and symptoms: Pertinent positives: abdominal pain, nausea, vomiting. The symptoms do not radiate. Associated signs and symptoms: Pertinent positives: nausea and vomiting. Severity of pain: At its worst the pain was moderate in the emergency department the pain is unchanged. Historical: - Allergies: 17:21 NKDA; ll1 - PMHx: 17:21 Hypertension; ll1 - PSHx: 17:21 hysterectomy; ll1 - Immunization history:: Client reports receiving the 2nd dose of the Covid vaccine. - Social history:: Smoking status: Patient denies any tobacco usage or history of. - Family history:: not pertinent. ROS: 20:55 Constitutional: Negative for fever, chills, and weight loss, Eyes: Negative for injury, sandip pain, redness, and discharge, ENT: Negative for injury, pain, and discharge, Neck: Negative for injury, pain, and swelling, Cardiovascular: Negative for chest pain, palpitations, and edema, Respiratory: Negative for shortness of breath, cough, wheezing, and pleuritic chest pain, Back: Negative for injury and pain, : Negative for injury, bleeding, discharge, and swelling, MS/Extremity: Negative for injury and deformity, Skin: Negative for injury, rash, and discoloration, Neuro: Negative for headache, weakness, numbness, tingling, and seizure, Psych: Negative for depression, anxiety, suicide ideation, homicidal ideation, and hallucinations, Allergy/Immunology: Negative for hives, rash, and allergies, Endocrine: Negative for neck swelling, polydipsia, polyuria, polyphagia, and marked weight changes, Hematologic/Lymphatic: Negative for swollen nodes, abnormal bleeding, and unusual bruising. 20:55 Abdomen/GI: Positive for abdominal pain, of the epigastric area and left lower quadrant. Exam: 20:55 Constitutional: This is a well developed, well nourished patient who is awake, alert, sandip and in no acute distress. Head/Face: Normocephalic, atraumatic. Eyes: Pupils equal round and reactive to light, extra-ocular motions intact. Lids and lashes normal. Conjunctiva and sclera are non-icteric and not injected. Cornea within normal limits. Periorbital areas with no swelling, redness, or edema. ENT: Nares patent. No nasal discharge, no septal abnormalities noted. Tympanic membranes are normal and external auditory canals are clear. Oropharynx with no redness, swelling, or masses, exudates, or evidence of obstruction, uvula midline. Mucous membranes moist. Neck: Trachea midline, no thyromegaly or masses palpated, and no cervical lymphadenopathy. Supple, full range of motion without nuchal rigidity, or vertebral point tenderness. No Meningismus. Chest/axilla: Normal chest wall appearance and motion. Nontender with no deformity. No lesions are appreciated. Cardiovascular: Regular rate and rhythm with a normal S1 and S2. No gallops, murmurs, or rubs. Normal PMI, no JVD. No pulse deficits. Respiratory: Lungs have equal breath sounds bilaterally, clear to auscultation and percussion. No rales, rhonchi or wheezes noted. No increased work of breathing, no retractions or nasal flaring. Back: No spinal tenderness. No costovertebral tenderness. Full range of motion. Female : Normal external genitalia. Skin: Warm, dry with normal turgor. Normal color with no rashes, no lesions, and no evidence of cellulitis. MS/ Extremity: Pulses equal, no cyanosis. Neurovascular intact. Full, normal range of motion. Neuro: Awake and alert, GCS 15, oriented to person, place, time, and situation. Cranial nerves II-XII grossly intact. Motor strength 5/5 in all extremities. Sensory grossly intact. Cerebellar exam normal. Normal gait. Psych: Awake, alert, with orientation to person, place and time. Behavior, mood, and affect are within normal limits. 20:55 Abdomen/GI: Inspection: distension, Bowel sounds: normal, Palpation: mild abdominal tenderness, moderate abdominal tenderness, in the epigastric area, right upper quadrant and left lower quadrant, Liver: no appreciated palpable abnormalities, Hernia: not appreciated. 21:02 ECG was reviewed by the Attending Physician. [facility] Vital Signs: 17:22 BP 191 / 106; Pulse 68; Resp 18; Temp 97.6; Pulse Ox 100% ; Weight 61.69 kg; Height 5 ll1 ft. 5 in. ; Pain 10/10; 19:40 BP 205 / 93; Pulse 65; Resp 19 S; Pulse Ox 99% on R/A; ha1 20:40 BP 200 / 102; Pulse 75; Resp 16 S; Pulse Ox 98% on R/A; ha1 21:40 BP 193 / 99; Pulse 86; Resp 16 S; Pulse Ox 99% on R/A; ha1 22:30 BP 165 / 55; Pulse 80; Resp 18; Pulse Ox 98% on R/A; ha1 17:22 Body Mass Index 22.63 (61.69 kg, 165.1 cm) ll1 17:22 Pain Scale: Adult ll1 MDM: 17:38 Patient medically screened. [facility] 21:01 Differential diagnosis: Nonspecific abd pain, cholecystitis, pancreatitis, sandip gastroenteritis, AAA, cholecystitis, Cholelithiasis, diverticulitis, gastritis, Irritable bowel syndrome, Mesenteric ischemia or infarction, non-specific abd pain, pancreatitis, Peptic Ulcer Disease, Perf. Duodenal Ulcer, Peritonitis, Pyelonephritis, Ureterolithiasis, urinary tract infection. Data reviewed: vital signs, nurses notes, lab test result(s), EKG, radiologic studies, CT scan, ultrasound. Consideration of Admission/Observation Patient was admitted/placed on observation. Escalation of care including admission/observation considered. I considered the following discharge prescriptions or medication management in the emergency department Medications were administered in the Emergency Department. See MAR. Independent interpretation of the following test(s) in the Emergency Department EKG: See my EKG interpretation above. Test considered but Not performed: MRI: no mrcp done. Historians other than the Patient: Daughter/Son: daughter informed. Care significantly affected by the following chronic conditions: Hypertension, Obesity. Counseling: I had a detailed discussion with the patient and/or guardian regarding: the historical points, exam findings, and any diagnostic results supporting the discharge/admit diagnosis, the presence of at least one elevated blood pressure reading (>120/80) during this emergency department visit, lab results, radiology results, the need for further work-up and treatment in the hospital. 03/07 17:39 Order name: Basic Metabolic Panel; Complete Time: 20:22 [facility] 03/07 17:39 Order name: CBC with Diff; Complete Time: 20:22 [facility] 03/07 17:39 Order name: LFT's; Complete Time: 20:22 [facility] 03/07 17:39 Order name: Magnesium; Complete Time: 20:22 [facility] 03/07 17:39 Order name: NT PRO-BNP; Complete Time: 20:22 [facility] 03/07 17:39 Order name: PT-INR [facility] 03/07 17:39 Order name: Troponin HS; Complete Time: 20:22 [facility] 03/07 17:39 Order name: Urinalysis w/ reflexes [facility] 03/07 17:39 Order name: Lipase; Complete Time: 20:22 [facility] 03/07 21:15 Order name: Urinalysis w/ reflexes [facility] 03/07 21:15 Order name: Basic Metabolic Panel [facility] 03/07 21:15 Order name: Basic Metabolic Panel [facility] 03/07 21:15 Order name: CBC with Automated Diff [facility] 03/07 21:15 Order name: CBC with Automated Diff [facility] 03/07 21:15 Order name: Magnesium [facility] 03/07 21:15 Order name: Magnesium [facility] 03/07 21:15 Order name: Phosphorus [facility] 03/07 21:15 Order name: Phosphorus [facility] 03/07 21:15 Order name: Troponin High Sensitivity [facility] 03/07 21:15 Order name: Troponin High Sensitivity [facility] 03/07 21:15 Order name: Troponin High Sensitivity [facility] 03/07 21:15 Order name: Troponin High Sensitivity [facility] 03/07 21:15 Order name: NT PRO-BNP [facility] 03/07 23:09 Order name: NT PRO-BNP [facility] 03/07 17:39 Order name: XRAY Chest (1 view); Complete Time: 18:52 [facility] 03/07 17:39 Order name: CT Abd/Pelvis - IV Contrast Only; Complete Time: 20:22 [facility] 03/07 17:39 Order name: US Abdomen Limited; Complete Time: 18:52 [facility] 03/07 17:39 Order name: EKG; Complete Time: 17:40 [facility] 03/07 21:15 Order name: [facility] 03/07 17:39 Order name: Cardiac monitoring; Complete Time: 19:27 [facility] 03/07 17:39 Order name: EKG - Nurse/Tech; Complete Time: 19:16 [facility] 03/07 17:39 Order name: IV Saline Lock; Complete Time: 19:27 [facility] 03/07 17:39 Order name: Labs collected and sent; Complete Time: 19:27 [facility] 03/07 17:39 Order name: O2 Per Protocol; Complete Time: 19: [facility] 03/07 17:39 Order name: O2 Sat Monitoring; Complete Time: 19:27 [facility] EC:02 Rate is 63 beats/min. Rhythm is regular. QRS [place] is Normal. [place] interval is normal. QRS sandip interval is normal. QT interval is normal. No Q waves. T waves are Normal. No ST changes noted. Clinical impression: NSR w/ Non-specific ST/T Changes, LVH, and No evidence of ischemia. Interpreted by me. Reviewed by me. Administered Medications: 19:38 Drug: NS 0.9% IV 500 ml Route: IV; Rate: bolus; Site: right antecubital; jb4 23:13 Follow up: Response: No adverse reaction; IV Status: Completed infusion; IV Intake: ha1 500ml 19:38 Drug: Famotidine IVP 20 mg Route: IVP; Site: right antecubital; jb4 20:15 Follow up: Response: No adverse reaction; Nausea is decreased ha1 20:26 CANCELLED (Duplicate Order): hydrALAZINE IVP 10 mg IVP once sandip 20:26 CANCELLED (Duplicate Order): HYDROmorphone IVP 1 mg IVP once sandip 20:26 CANCELLED (Duplicate Order): Ondansetron IVP 4 mg IVP once; over 2 minutes sandip 20:26 CANCELLED (Duplicate Order): Promethazine IM 25 mg IM once sandip 21:21 Drug: Ondansetron IVP 4 mg Route: IVP; Site: right antecubital; ha1 21:50 Follow up: Response: No adverse reaction ha1 21:24 Drug: fentaNYL (PF) IVP 25 mcg Route: IVP; Site: right antecubital; ha1 21:50 Follow up: Response: No adverse reaction; Pain is decreased; RASS: Alert and Calm (0) ha1 21:24 Drug: fentaNYL (PF) IVP 25 mcg Route: IVP; Site: right antecubital; ha1 21:50 Follow up: Response: No adverse reaction; Pain is decreased; RASS: Alert and Calm (0) ha1 21:30 Drug: Piperacillin-Tazobactam IVPB 3.375 grams Route: IVPB; Infused Over: 60 mins; ha1 Site: right antecubital; 23:13 Follow up: Response: No adverse reaction; IV Status: Completed infusion; IV Intake: ha1 100ml Disposition Summary: 03/07/23 20:58 Hospitalization Ordered Hospitalization Status: Observation sandip Provider: Edmund Nelson cha Location: Telemetry/MedSurg (observation) sandip Condition: Fair sandip Problem: new sandip Symptoms: have improved sandip Bed/Room Type: Standard [facility] Room Assignment: 212(03/07/23 21:37) Diagnosis - Epigastric abdominal tenderness sandip - Abdominal tenderness sandip - UTI/ Urinary tract infection, site not specified sandip - Gastritis, unspecified sandip - Calculus of gallbladder without cholecystitis without obstruction sandip - Essential (primary) hypertension sandip Forms: - Medication Reconciliation Form sandip - SBAR form sandip Signatures: Dispatcher [employer] EDMS Destin Cooley MD MD cha Garcia, Cindy, RN RN Carmelo Trimble RN RN jb4 Lauren Erickson RN RN 1 Daniela Flores RN RN 1 Corrections: (The following items were deleted from the chart) 20:26 20:23 hydrALAZINE IVP 10 mg IVP once ordered. sandip sandip 20:26 20:23 HYDROmorphone IVP 1 mg IVP once ordered. [facility] sandip 20:26 20:23 Ondansetron IVP 4 mg IVP once; over 2 minutes ordered. sandip sandip 20:26 20:23 Promethazine IM 25 mg IM once ordered. [facility] sandip 20:26 20:23 Constitutional: Negative for fever, chills, and weight loss, Eyes: Negative for sandip injury, pain, redness, and discharge, ENT: Negative for injury, pain, and discharge, Neck: Negative for injury, pain, and swelling, Cardiovascular: Negative for chest pain, palpitations, and edema, Respiratory: Negative for shortness of breath, cough, wheezing, and pleuritic chest pain, Back: Negative for injury and pain, : Negative for injury, bleeding, discharge, and swelling, MS/Extremity: Negative for injury and deformity, Skin: Negative for injury, rash, and discoloration, Neuro: Negative for headache, weakness, numbness, tingling, and seizure, Psych: Negative for depression, anxiety, suicide ideation, homicidal ideation, and hallucinations, Allergy/Immunology: Negative for hives, rash, and allergies, Endocrine: Negative for neck swelling, polydipsia, polyuria, polyphagia, and marked weight changes, Hematologic/Lymphatic: Negative for swollen nodes, abnormal bleeding, and unusual bruising, sandip 20:26 20:23 Abdomen/GI: Positive for abdominal pain, nausea and vomiting, abdominal cramps, sandip of the right upper quadrant and left upper quadrant, sandip 20:26 20:23 Constitutional: This is a well developed, well nourished patient who is awake, sandip alert, and in no acute distress. Head/Face: Normocephalic, atraumatic. Eyes: Pupils equal round and reactive to light, extra-ocular motions intact. Lids and lashes normal. Conjunctiva and sclera are non-icteric and not injected. Cornea within normal limits. Periorbital areas with no swelling, redness, or edema. ENT: Nares patent. No nasal discharge, no septal abnormalities noted. Tympanic membranes are normal and external auditory canals are clear. Oropharynx with no redness, swelling, or masses, exudates, or evidence of obstruction, uvula midline. Mucous membranes moist. Neck: Trachea midline, no thyromegaly or masses palpated, and no cervical lymphadenopathy. Supple, full range of motion without nuchal rigidity, or vertebral point tenderness. No Meningismus. Chest/axilla: Normal chest wall appearance and motion. Nontender with no deformity. No lesions are appreciated. Respiratory: Lungs have equal breath sounds bilaterally, clear to auscultation and percussion. No rales, rhonchi or wheezes noted. No increased work of breathing, no retractions or nasal flaring. Back: No spinal tenderness. No costovertebral tenderness. Full range of motion. Female : Normal external genitalia. Skin: Warm, dry with normal turgor. Normal color with no rashes, no lesions, and no evidence of cellulitis. MS/ Extremity: Pulses equal, no cyanosis. Neurovascular intact. Full, normal range of motion. Neuro: Awake and alert, GCS 15, oriented to person, place, time, and situation. Cranial nerves II-XII grossly intact. Motor strength 5/5 in all extremities. Sensory grossly intact. Cerebellar exam normal. Normal gait. Psych: Awake, alert, with orientation to person, place and time. Behavior, mood, and affect are within normal limits. sandip 20:26 20:23 Cardiovascular: Rate: tachycardic, sandip sandip 21:37 20:58 sandip cg
--- NOTE | 2023-03-07 20:59 | ER ---
Nurse's Notes [facility] Name: Lawanda Sharp Age: 82 yrs Sex: Female : 1940 Arrival Date: 03/07/2023 Time: 17:07 Bed 8 Private MD: Diagnosis: Epigastric abdominal tenderness;Abdominal tenderness;UTI/ Urinary tract infection, site not specified;Gastritis, unspecified;Calculus of gallbladder without cholecystitis without obstruction;Essential (primary) hypertension Presentation: 03/07 17:22 Chief complaint: Patient states: Upper abdominal pain, N/V for 12 hours. Coronavirus ll1 screen: Vaccine status: Patient reports receiving the 2nd dose of the covid vaccine. Client denies travel out of the [place] in the last 14 days. At this time, the client does not indicate any symptoms associated with coronavirus-19. Ebola Screen: Patient denies travel to an Ebola-affected area in the 21 days before illness onset. Initial Sepsis Screen: Does the patient meet any 2 criteria? No. Patient's initial sepsis screen is negative. Does the patient have a suspected source of infection? Yes: Acute abdominal pain. Risk Assessment: Do you want to hurt yourself or someone else? Patient reports no desire to harm self or others. Onset of symptoms was March 07, 2023. 17:22 Method Of Arrival: Ambulatory ll1 17:22 Acuity: SANIYA 3 ll1 Triage Assessment: 17:23 General: Appears uncomfortable, Behavior is calm, cooperative, appropriate for age. ll1 Pain: Complains of pain in abdomen. GI: Reports upper abdominal pain, nausea, vomiting. Historical: - Allergies: 17:21 NKDA; ll1 - PMHx: 17:21 Hypertension; ll1 - PSHx: 17:21 hysterectomy; ll1 - Immunization history:: Client reports receiving the 2nd dose of the Covid vaccine. - Social history:: Smoking status: Patient denies any tobacco usage or history of. - Family history:: not pertinent. Screenin:20 [facility] ED Fall Risk Assessment (Adult) History of falling in the last 3 months, ha1 including since admission No falls in past 3 months (0 pts) Confusion or Disorientation No (0 pts) Intoxicated or Sedated No (0 pts) Impaired Gait Yes (1 pt) Mobility Assist Device Used Yes (1 pt) Altered Elimination No (0 pt) Score/Fall Risk Level 0 - 2 = Low Risk Oriented to surroundings, Maintained a safe environment, Educated pt \T\ family on fall prevention, incl call for assistance when getting out of bed. Abuse screen: Denies threats or abuse. Denies injuries from another. Nutritional screening: No deficits noted. Tuberculosis screening: No symptoms or risk factors identified. Assessment: 19:40 General: Appears uncomfortable, Behavior is cooperative. Pain: Complains of pain in ha1 abdomen Pain does not radiate. Pain currently is 10 out of 10 on a pain scale. Quality of pain is described as throbbing. Neuro: Level of Consciousness is awake, alert, obeys commands, Oriented to person, place, time, situation. Cardiovascular: Patient's skin is warm and dry. Respiratory: Airway is patent Respiratory effort is even, unlabored, Respiratory pattern is regular, symmetrical. GI: Abdomen is round non-distended, Bowel sounds present X 4 quads. Abd is soft Abdomen is tender to palpation in right upper quadrant Reports nausea, vomiting. Musculoskeletal: Circulation, motion, and sensation intact. Range of motion: intact in all extremities. 20:40 Reassessment: Patient and/or family updated on plan of care and expected duration. Pain ha1 level reassessed. Patient is alert, oriented x 3, equal unlabored respirations, skin warm/dry/pink. 21:40 Reassessment: Patient and/or family updated on plan of care and expected duration. Pain ha1 level reassessed. Patient is alert, oriented x 3, equal unlabored respirations, skin warm/dry/pink. Patient states symptoms have improved. 22:40 Reassessment: Patient and/or family updated on plan of care and expected duration. Pain ha1 level reassessed. Patient is alert, oriented x 3, equal unlabored respirations, skin warm/dry/pink. Vital Signs: 17:22 BP 191 / 106; Pulse 68; Resp 18; Temp 97.6; Pulse Ox 100% ; Weight 61.69 kg; Height 5 ll1 ft. 5 in. ; Pain 10/10; 19:40 BP 205 / 93; Pulse 65; Resp 19 S; Pulse Ox 99% on R/A; ha1 20:40 BP 200 / 102; Pulse 75; Resp 16 S; Pulse Ox 98% on R/A; ha1 21:40 BP 193 / 99; Pulse 86; Resp 16 S; Pulse Ox 99% on R/A; ha1 22:30 BP 165 / 55; Pulse 80; Resp 18; Pulse Ox 98% on R/A; ha1 17:22 Body Mass Index 22.63 (61.69 kg, 165.1 cm) ll1 17:22 Pain Scale: Adult ll1 ED Course: 17:09 Patient arrived in ED. im 17:23 Triage completed. ll1 17:23 Arm band placed on. ll1 17:38 Destin Cooley MD is Attending Physician. sandip 18:08 US Abdomen Limited In Process Unspecified. EDMS 18:34 XRAY Chest (1 view) In Process Unspecified. EDMS 19:20 Patient has correct armband on for positive identification. Placed in gown. Bed in low ha1 position. Call light in reach. Side rails up X 1. Side rails up X2. 19:27 Daniela Flores, RN is Primary Nurse. ha1 19:27 Basic Metabolic Panel Sent. ha1 19:27 CBC with Diff Sent. ha1 19:27 LFT's Sent. ha1 19:27 Magnesium Sent. ha1 19:27 NT PRO-BNP Sent. ha1 20:00 Inserted saline lock: 22 gauge in right antecubital area, using aseptic technique. ha1 Blood collected. 20:05 CT Abd/Pelvis - IV Contrast Only In Process Unspecified. EDMS 20:57 Edmund Nelson MD is Hospitalizing Provider. sandip 23:15 No provider procedures requiring assistance completed. Patient admitted, IV remains in ha1 place. 23:16 Provided Education on: need for admit . ha1 Administered Medications: 19:38 Drug: NS 0.9% IV 500 ml Route: IV; Rate: bolus; Site: right antecubital; jb4 23:13 Follow up: Response: No adverse reaction; IV Status: Completed infusion; IV Intake: ha1 500ml 19:38 Drug: Famotidine IVP 20 mg Route: IVP; Site: right antecubital; jb4 20:15 Follow up: Response: No adverse reaction; Nausea is decreased ha 20:26 CANCELLED (Duplicate Order): hydrALAZINE IVP 10 mg IVP once [facility] 20:26 CANCELLED (Duplicate Order): HYDROmorphone IVP 1 mg IVP once sandip 20:26 CANCELLED (Duplicate Order): Ondansetron IVP 4 mg IVP once; over 2 minutes sandip 20:26 CANCELLED (Duplicate Order): Promethazine IM 25 mg IM once sandip 21:21 Drug: Ondansetron IVP 4 mg Route: IVP; Site: right antecubital; ha1 21:50 Follow up: Response: No adverse reaction ha1 21:24 Drug: fentaNYL (PF) IVP 25 mcg Route: IVP; Site: right antecubital; ha1 21:50 Follow up: Response: No adverse reaction; Pain is decreased; RASS: Alert and Calm (0) ha1 21:24 Drug: fentaNYL (PF) IVP 25 mcg Route: IVP; Site: right antecubital; ha1 21:50 Follow up: Response: No adverse reaction; Pain is decreased; RASS: Alert and Calm (0) ha1 21:30 Drug: Piperacillin-Tazobactam IVPB 3.375 grams Route: IVPB; Infused Over: 60 mins; ha1 Site: right antecubital; 23:13 Follow up: Response: No adverse reaction; IV Status: Completed infusion; IV Intake: ha1 100ml Medication: 21:55 VIS not applicable for this client. ha1 Intake: 23:13 IV: 500ml; Total: 500ml. ha1 23:13 IV: 100ml; Total: 600ml. ha1 Outcome: 20:58 Decision to Hospitalize by Provider. sandip 23:15 Admitted to Med/surg accompanied by tech, family with patient, via wheelchair, room ha1 212, with chart, Report called to HERSON Clark 23:15 Condition: stable 23:15 Discharge instructions given to patient, family, Instructed on the need for admit, Demonstrated understanding of instructions. 23:16 Patient left the ED. ha1 Signatures: Dispatcher [employer] EDMS Destin Cooley MD MD cha Bryson, James, RN RN jb4 Lauren Erickson RN RN ll1 Daniela Flores RN RN ha1 Mary Ann Patton Corrections: (The following items were deleted from the chart) 23:12 21:54 Reassessment: Patient and/or family updated on plan of care and expected ha1 duration. Pain level reassessed. Patient is alert, oriented x 3, equal unlabored respirations, skin warm/dry/pink. Patient states symptoms have improved. ha1
--- NOTE | 2023-03-07 21:05 | P.HP ---
Certification for Inpatient Patient admitted to: Observation With expected LOS: <2 Midnights Practitioner: I am a practitioner with admitting privileges, knowledge of patient current condition, hospital course, and medical plan of care. Services: Services provided to patient in accordance with Admission requirements found in Title 42 Section 412.3 of the Code of Federal Regulations Patient History Date of Service: 03/07/23 Reason for admission: Abdominal pain History of Present Illness: 82-year-old female with past medical history of hypertension and hypothyroidism, recurrent UTI presents to the emergency room for abdominal pain. She reports abdominal pain for the past 2 to 3 weeks is being followed by surgeon, she reports abdominal pain was worse today. Reports epigastric pain, right upper quadrant pain, abdominal distention with nausea and vomiting that started yesterday. She reports abdominal pain is 7 out of 10. She denies fever, shortness of breath, cough, chest pain, dizziness, edema. ER course Patient received Zosyn, 500 cc normal saline bolus, fentanyl for pain, Patient was hypertensive Lopressor 5 mg IV x1, Pepcid, Zofran as needed, CBC unremarkable, Mild hyponatremia, BUN 16, creatinine 1.9, troponin normal at 13.1, BNP elevated at 1722, UA 250 leukoesterase, 20-50 WBCs, Chest x-ray IMPRESSION: No acute cardiopulmonary disease. CT of the abdomen Cholelithiasis without CT is of acute cholecystitis Mild circumferential thickened distal esophagus which could reflect esophagitis. Coronary calcifications, Multiple low-density liver lesions which have benign imaging features in are unchange, Multilevel degenerative changes are present in the spine. Mild bladder wall thickening and enhancement. Correlate with urinalysis to exclude cystitis. . Allergies No Known Allergies Allergy (Unverified 10/20/22 11:57) Home Medications: Amlodipine [Norvasc*] 10 mg PO DAILY 05/14/17 lisinopriL [Lisinopril] 40 mg PO DAILY 05/14/17 Cefdinir [Cefdinir*] 300 mg PO BID 10 Days #20 cap 10/24/22 Cholecalciferol (Vitamin D3) [Vitamin D 5,000 IU Cap*] 5,000 unit PO DAILY 30 Days #30 cap 10/24/22 - Past Medical/Surgical History Diabetic: No -: HTN -: Hypothyroidism -: -: Hysterectomy Psychosocial/ Personal History: Patient lives at home with her daughter. - Family History Mother -: Hypertension - Social History Alcohol use: No CD- Drugs: No Caffeine use: Yes Review of Systems 10-point ROS is otherwise unremarkable Physical Examination - Physical Exam General: Alert, In no apparent distress, Oriented x3 HEENT: Atraumatic, Normocephalic, PERRLA Neck: Supple, 2+ carotid pulse no bruit, JVD not distended Respiratory: Clear to auscultation bilaterally, Normal air movement Cardiovascular: No edema, Regular rate/rhythm, Normal S1 S2 Capillary refill: <2 Seconds Gastrointestinal: Normal bowel sounds (Epigastric, right upper quadrant tenderness, suprapubic tenderness, no rebound tenderness) Musculoskeletal: No clubbing Integumentary: No rashes Neurological: Normal strength at 5/5 x4 extr, Cranial nerves 3-12 intact - Studies Laboratory Data (last 24 hrs) 03/07/23 19:25: WBC 8.70, Hgb 13.2, Hct 39.8, Plt Count 255 03/07/23 19:25: Sodium 135 L, Potassium 3.8, BUN 16, Creatinine 1.09 H, Glucose 101, Magnesium 2.2, Total Bilirubin 0.6, AST 27, ALT 23, Alkaline Phosphatase 100, Lipase 28 Assessment and Plan - Plan Assessment plan Cholelithiasis without cholecystitis Abdominal pain nausea vomiting Recurrent acute cystitis Hypertensive urgency Elevated BNP Esophagitis Essential hypertension Hypothyroidism DVT prophylaxis Assessment plan -Cholelithiasis without cholecystitis-surgery consult, CT of the abdomen Cholelithiasis without CT is of acute cholecystitis Mild circumferential thickened distal esophagus which could reflect esophagitis. Coronary calcifications, Multiple low-density liver lesions which have benign imaging features in are unchange, Multilevel degenerative changes are present in the spine. Mild bladder wall thickening and enhancement. Correlate with urinalysis to exclude cystitis. -Abdominal pain nausea vomiting-as needed analgesics, antiemetics -Recurrent acute cystitis-IV Zosyn, -Esophagitis-PPI, -Elevated BNP-echo in the a.m. cardiology consult evaluated BNP, trend BNP, TREND troponin -Hypertensive urgency-as needed antihypertensives -Essential hypertension-resume appropriate home medications -Hypothyroidism- DVT prophylaxis Lovenox Diet n.p.o. after midnight Full code Discharge Plan: Home Plan to discharge in: 24 Hours - Advance Directives Does patient have a Living Will: No Does patient have a Durable POA for Healthcare: No - Code Status/Comfort Care Code Status Assessed: Yes Code Status: Full Code Physician Review: Patient Assessed, Agree with Above Assessment and Plan Critical Care: No Time Spent Managing Pts Care (In Minutes): 55
[2023-03-07] MEDS ORDERED: ALPRAZOLAM 0.25 MG TABLET PO PRN (21:13)
[2023-03-07] MEDS ORDERED: ACETAMINOPHEN 500 MG TAB PO PRN (21:13)
[2023-03-07] MEDS ORDERED: ONDANSETRON 4 MG/2 ML VIAL IV PRN (21:13)
[2023-03-07 21:20] LABS: Specific Gravity 1.006 (1.005-1.030); Urine Bacteria None Seen /HPF (<20); Urine Bilirubin NEGATIVE (Negative); Urine Blood Negative (Negative); Urine Clarity Turbid (Clear); Urine Color Light-Yellow (Yellow); Urine Glucose NEGATIVE (Negative); Urine Protein NEGATIVE (Negative); Urine RBC None Seen /HPF (None Seen); Urine Urobilinogen Normal (Normal)
[2023-03-07] MEDS ORDERED: MORPHINE 4 MG/ML SYR IV ONE (21:25)
[2023-03-07 21:29] LABS: Transitional Epithelial <5 /HPF (None Seen)
[2023-03-07] MEDS ORDERED: METOPROLOL TARTRATE 5 MG/5 ML INJ IV STA (21:30)
[2023-03-07] MEDS ORDERED: NA CHLORIDE 0.9% 100 ML ONE (21:32)
[2023-03-07] MEDS ORDERED: FENTANYL CITR 100 MCG/2 ML ONE (21:32)
[2023-03-07] MEDS ORDERED: PIPERACIL/TAZO 3.375 GM VIAL IV ONE (21:32)
[2023-03-07 22:24] LABS: Protime INR ND
[2023-03-07 23:09] LABS: Troponin High Sensitivity 14.2 pg/mL (<58.9)
[2023-03-08] MEDS ORDERED: MORPHINE 4 MG/ML SYR IV ONE (01:00)
[2023-03-08] MEDS: PIPER TAZO 3.375 GM in NA CHLORIDE 0.9% 100 ML IV SCH ×3 (02:10→18:31)
[2023-03-08 02:42] VITALS: BMI 22.6
[2023-03-08 03:51] LABS: Absolute Lymphocytes (CBC) 1.1 K/uL (0.7-4.9); Hematocrit 37.6 % (36.0-45.0); Lymphocytes % 10.8 % (15.3-44.8); MCV 85.9 fL (80-100); MPV 9.5 fL (7.6-11.3); RBC Red Blood Cell Count 4.37 M/uL (3.86-4.86)
[2023-03-08 04:14] LABS: Magnesium 1.9 mg/dL (1.6-2.4); Phosphorus 3.1 mg/dL (2.5-4.9); Troponin High Sensitivity 13.3 pg/mL (<58.9)
[2023-03-08] MEDS ORDERED: MORPHINE 4 MG/ML SYR IV PRN (07:04)
[2023-03-08] MEDS: NA CHLORIDE 0.9% 1,000 ML IV SCH ×2 (07:24→18:30)
[2023-03-08] MEDS ORDERED: PNEUMOCOCCAL VACCINE 0.5 ML IMVAC ONE (08:00)
--- NOTE | 2023-03-08 14:28 | P.CNS ---
Date of Consult: 03/08/23 PC: I was asked to see this 83-year-old female in regards to her right upper quadrant abdominal pain HPC: Patient presented the emergency room with severe right upper quadrant abdominal pain, radiating to her back. Describes it is very very severe. States has been going on for actually about a week or 2. PSHx: Negative PMHx: Hypertension Social Hx: No known allergies Sys R: No cough, wheeze, shortness of breath. No chest pain or palpitations. Denies any urinary complaints O/E: Awake alert uncomfortable at the moment otherwise strong looking 83-year-old female HEENT: Not jaundiced Chest: Chest movement equal bilaterally Abd: Soft but does have tenderness in the right upper quadrant with of almost a positive Prieto sign. [place]: Intact Data: Has documented gallstones Impression: This patient has what appears to be attacks of biliary colic. Plan: When I mentioned surgery without hesitation this lady agreed to have it done. She has been miserable she says for the last 2 weeks. I explained the risks of the procedure possible consequences of injury bleeding infection need for further surgeries and procedures. She is more than ready to have it done.
[2023-03-08] MEDS ORDERED: BUPIVACAINE 0.25% PF 30 ML VIAL ONE (14:51)
[2023-03-08] MEDS ORDERED: LIDOCAINE 2% MPF 5 ML VIAL ONE (15:00)
[2023-03-08] MEDS ORDERED: FENTANYL CITR 100 MCG/2 ML ONE ×2 (15:00→18:14)
[2023-03-08] MEDS ORDERED: propofoL 200 MG/20 ML VIAL IV ONE (15:00)
[2023-03-08] MEDS ORDERED: ROCURONIUM 50 MG/5 ML VIAL IV ONE (15:00)
[2023-03-08] MEDS ORDERED: GLYCOPYRROLATE 0.2 MG/ML SYR ONE (15:01)
[2023-03-08] MEDS ORDERED: MIDAZOLAM HCL 2 MG/2 ML INJ ONE (15:01)
[2023-03-08] MEDS ORDERED: ONDANSETRON 4 MG/2 ML VIAL ONE (15:04)
[2023-03-08] MEDS ORDERED: NEOSTIGMINE 1 MG/ML -10 ML VIAL ONE (15:04)
[2023-03-08] MEDS ORDERED: NA CHLORIDE 0.9% 1,000 ML ONE (15:19)
--- NOTE | 2023-03-08 15:45 | EKG ---
Test Date: 2023-03-07 Test Time: 19:12:03 Finish Photographer: LINO MEASUREMENT RESULTS: Intervals: Rate: 63 ME: 186 QRSD: 86 QT: 400 QTc: 409 [place]: P: 42 ME: 186 QRS: -14 T: 13 INTERPRETIVE STATEMENTS: Normal sinus rhythm Left ventricular hypertrophy with repolarization abnormality Cannot rule out Septal infarct, age undetermined Abnormal ECG Compared to ECG 12/14/2022 16:17:03 Left ventricular hypertrophy now present Early repolarization now present Myocardial infarct finding now present Ventricular premature complex(es) no longer present ST (T wave) deviation no longer present Electronically Signed On 03-08-23 15:43:26 CDT by Abdiaziz Mathews
[2023-03-08] MEDS ORDERED: SUCCINYLCHOLINE 20 MG/ML (10 ML) IV ONE (16:14)
[2023-03-08] MEDS ORDERED: EPHEDRINE SULF 50 MG/ML VIAL ONE (16:30)
--- NOTE | 2023-03-08 17:25 | P.OP ---
Preoperative diagnosis: Cholecystitis with cholelithiasis Postoperative diagnosis: The same Primary procedure: Laparoscopic cholecystectomy Secondary procedure: Cholangiogram Other procedure(s): Tap block Anesthesia: General Estimated blood loss: Less than 10 cc Operative Technique: Patient brought the operating room placed supine on the table. After the induction of adequate general endotracheal anesthesia, there the abdomen was prepped with a DuraPrep solution, and she was draped in usual aseptic manner. A subumbilical incision was made. This was brought down through the skin and subcutaneous tissue. The Visiport was used to enter the peritoneal cavity and created pneumoperitoneum to approximately 12 mmHg. Under direct vision a 5 mm trocar was placed in the upper midline, and 2 other 5 mm trocars on the right side of the abdomen. We could visualize the peritoneal cavity. We could see a markedly distended gallbladder in the right upper quadrant. The contents of the gallbladder were aspirated using a aspirating needle. The bile was yellow in color. With the patient now placed in reverse Trendelenburg and rolled towards the left side a grasper was placed on the fundus of the gallbladder. Another down by Maharaj's pouch. Applying lateral traction we were able to dissect out and expose the cystic duct and artery. The cystic duct having been identified, a clip was placed between it and the gallbladder itself. An opening was made into the cystic duct through which we obtained intraoperative cholangiogram. Our initial passing of the catheter led to some resistance due to valves. By inserting the catheter and then dilating it we were able to pass it down actually into the true common bile duct. Our cholangiogram showed a dilated cystic duct and extrahepatic biliary tree however there was contrast flowing through to the duodenum itself we were able to press the catheter which is a 7 Lithuanian through the sphincter into the duodenum the balloon was blown up so we can see under fluoroscopy that we were in the duodenum and there was no evidence of any obstruction at the ampulla the balloon was deflated and pulled back into the common bile duct and hence through the cystic duct at this point clips were used to secure the cystic duct which was now fully transected the cystic artery was divided with electrocautery the gallbladder was then dissected free from the liver bed, placed into an Endo Catch, and brought out through the umbilical trocar site a tap block had been done earlier in the procedure with 0.25% Marcaine both on the left and right sides. The umbilical fascia was approximated using the Endo Close and an absorbable stitch. The pneumoperitoneum was collapsed, the sutures tied, and frandy applied to the skin. At the end of the procedure she was stable and sent to the recovery room. Needle sponge instrument count were correct. No drains were placed. Complications: None Transferred to: Recovery Room Condition: Good
[2023-03-08] MEDS: HYDROMORPHONE HCL 1 MG/ML INJ ONE ×4 (17:30→17:46)
[2023-03-08] MEDS ORDERED: LABETALOL HCL 100 MG/20 ML ONE (17:37)
[2023-03-08] MEDS ORDERED: HYDROCODONE/APAP 7.5/325 MG TAB PO PRN (17:38)
[2023-03-08] MEDS ORDERED: LABETALOL 20 MG/4ML SYRINGE IV ONE (17:39)
--- NOTE | 2023-03-08 18:32 | CON ---
Date of Consultation: 03/08/2023 Reason For Consultation: Elevated BNP and also cardiac preop risk assessment. History Of Present Illness: An -[id number]-[id number] female with history of hypertension, hypothyroidi sm, who presented to the emergency room with abdominal pain and thinking it is gallbladder disease. She has severe tenderness in the right upper quadrant. Routine blood work was done in the hospital, NT-proBNP was elevated. The patient claimed that she never had any cardiac disease up until she star piedad having problem with her abdominal pain, she used to be very active. She can climb 2 flights of [employer] tairs without symptoms. Past Medical History: As outlined above in HPI. Medications: Refer consult sheet for detailed list. Allergies: NO KNOWN DRUG ALLERGIES. Family History: No premature coronary artery disease or cancer. Social History: She does not smoke or drink. Does not use any drugs. Review of Systems: All systems reviewed are they were negative except as mentioned in the HPI. Physical Examination: Vital signs: Reviewed. Head and Neck: Pupils are equal, reactive to light. Intact eye movements. No JVD. No cervical lym phadenopathy. Neck: Supple. Thyroid is not enlarged. Lungs: Clear to auscultation bilaterally. No rhonchi, wheezing, or crackles. No accessory muscle u se. Heart: Regular rate and rhythm. No extra sounds. Abdomen: Soft, nontender. Bowel sounds positive. No organomegaly. No masses or hernia. No rigidi ty or rebound. Extremities: No edema, clubbing, or cyanosis. Intact pulses. Skin: No rash was noted. Neuro: Alert, awake, oriented x3. No acute focal deficits appreciated. Investigations: BUN 15, creatinine 1.1, hemoglobin 12.5. Assessment/recommendation: 1.Elevated NT-proBNP. No shortness of breath above the chronic diastolic heart failure. Await on t he echocardiogram. 2.Preop cardiac risk assessment. The patient might need cholecystectomy for acute cholecystitis. S urgery appears to be rather urgent. Inpatient exercise capacity is acceptable without symptoms. I r ecommend to proceed for cholecystectomy if clinically indicated. SR/MODL Voice ID: [id number] Report ID: [id number]
[2023-03-08 20:39] VITALS: O2SAT 94
[2023-03-09] MEDS: PIPER TAZO 3.375 GM in NA CHLORIDE 0.9% 100 ML IV SCH ×2 (01:25→08:37)
--- NOTE | 2023-03-09 07:34 | RAD REPORT ---
EXAM DESCRIPTION: RAD - Cholangiogram Oper-Xray Or - 03/09/2023 7:14 am CLINICAL HISTORY: IOC COMPARISON: None available. FINDINGS: Nine Images were sent to PACS, documenting an image guided intraoperative cholangiography procedure. No radiologist was available for the procedure, nor will any image interpretation he provi ded. Please refer to the procedural report for additional details. Fluoroscopy time: 0.4 Minutes. IMPRESSION: Documentation of fluoroscopy utilization as above.
[2023-03-09] MEDS: NA CHLORIDE 0.9% 1,000 ML IV SCH (08:35)
[2023-03-09 08:56] VITALS: BP 164/108; TEMP 98.5
--- NOTE | 2023-03-09 09:20 | ECHO ---
HEIGHT: 5 ft 5 in WEIGHT: 136 lb 0 oz DATE OF STUDY: 03/08/[address]: Rosetta Felix RETAIL AIDE-Vera 2-DIMENSIONAL: YES M.MODE: YES DOPPLER: YES COLOR FLOW: YES TDS: YES PORTABLE: YES DEFINITY: N O BUBBLE STUDY: NO DIAGNOSIS: HYPERTENSION URGENCY CARDIAC HISTORY: CATHERIZATION: SURGERY: PROSTHETIC VALVE: PACEMAKER: MEASUREMENTS (cm) DIASTOLIC (NORMALS) SYSTOLIC (NORMALS) IVSd 1.1 (0.6-1.2) LA Diam 3.9 (1.9-4.0) LVEF 64% LVIDd 3.9 (3.5-5.7) LVIDs 2.6 (2.0-3.5) %FS 34% LVPWd 1.3 (0.6-1.2) Ao Diam 2.8 (2.0-3.7) 2 DIMENSIONAL ASSESSMENT: RIGHT ATRIUM: NORMAL LEFT ATRIUM: ENLARGED RIGHT VENTRICLE: NORMAL LEFT VENTRICLE: NORMAL TRICUSPID VALVE: NORMAL MITRAL VALVE: MILD MR PULMONIC VALVE: NORMAL AORTIC VALVE: MILD AI PERICARDIAL EFFUSION: NONE AORTIC ROOT: NORMAL LEFT VENTRICULAR WALL MOTION: NORMAL DOPPLER/COLOR FLOW: SEE BELOW COMMENTS: 1. NORMAL LEFT VENTRICULAR EJECTION FRACTION 60-65%. 2. NORMAL WALL MOTION. 3. MILD MITRAL REGURGITATION. 4. MILD AORTIC REGURGITATION. 5. GRADE I DIASTOLIC DYSFUNCTION. 6. LEFT ATRIAL ENLARGEMENT. TECHNOLOGIST: Parth BILL
[2023-03-09] MEDS ORDERED: ORPHENADRINE CITRATE 100 MG PO PRN (09:38)
[2023-03-09] MEDS ORDERED: carvediloL 12.5 MG TAB PO SCH (09:38)
--- NOTE | 2023-03-09 09:50 | P.PN ---
Date of Service: 03/08/23 Subjective Patient continues to do well. Scheduled for lap bradford today. Physical Examination - Vitals Reviewed - Physical Exam General: Alert, In no apparent distress, Oriented x3 Respiratory: Clear to auscultation bilaterally, Normal air movement Cardiovascular: No edema, Regular rate/rhythm, Normal S1 S2 Gastrointestinal: Normal bowel sounds (Epigastric, right upper quadrant tenderness, suprapubic tenderness, no rebound tenderness) Neurological: No focal deficits Assessment and Plan -Assessment Assessment Cholelithiasis without cholecystitis Abdominal pain nausea vomiting Recurrent acute cystitis Hypertensive urgency Elevated BNP Esophagitis Essential hypertension Hypothyroidism DVT prophylaxis - Plan Plan 1. N.p.o. 2. Surgery consultation; patient scheduled for lap bradford today 3. Patient denies any cardiac disease or respiratory illnesses. Patient ambulates well and does not get short of breath. Patient is able to walk up steps without shortness of breath. Patient low risk for any cardiopulmonary complications and would advise proceeding with surgery. Discharge Plan: Home Plan to discharge in: 24 Hours - Advance Directives Does patient have a Living Will: No Does patient have a Durable POA for Healthcare: No - Code Status/Comfort Care Code Status Assessed: Yes Code Status: Full Code Physician Review: Patient Assessed, Agree with Above Assessment and Plan Critical Care: No Time Spent Managing Pts Care (In Minutes): 55
[2023-03-09] MEDS ORDERED: CYCLOBENZAPRINE 10 MG TAB PO SCH (14:00)
[2023-03-09] MEDS ORDERED: AMPICILLIN TRIHYDRATE 500 MG PO SCH (14:00)
[2023-03-09] MEDS ORDERED: CETIRIZINE HCL 5 MG TABLET PO SCH (21:00)
[2023-03-09] MEDS ORDERED: NITROFURANTOIN MACROCRYSTAL 100 MG PO SCH (21:00)
[2023-03-10] MEDS ORDERED: LEVOTHYROXINE SOD 0.075 MG TAB PO SCH (06:30)
[2023-03-10] MEDS ORDERED: MONTELUKAST 10 MG TAB PO SCH (09:00)
[2023-03-10] MEDS ORDERED: lisinopriL 20 MG TAB PO SCH (09:00)
[2023-03-10] MEDS ORDERED: HOME MED 1 EA UNK (Lisinopril [Lisinopril] 40 MG Tablet) PO SCH (09:00)
== END 2023-03-09 10:58 | disposition home or self-care (01) ==
LOC: ER 17:07 → ERHOLD 21:08 → 2ND 21:49
PROVIDERS: ADMIT Hospitalist; ATTEND Hospitalist
PROC: BF502Z0 Other Imaging of Bile Ducts using Fluorescing Agent, Intraoperative (ICD-10-PCS; 2023-03-08)
PROC: 0FT44ZZ Resection of Gallbladder, Percutaneous Endoscopic Approach (ICD-10-PCS; principal; 2023-03-08 16:30)
DX: K80.10 Calculus of gallbladder with chronic cholecystitis without obstruction (principal); E03.9 Hypothyroidism, unspecified; Z87.440 Personal history of urinary (tract) infections; R11.2 Nausea with vomiting, unspecified; R10.13 Epigastric pain; R10.11 Right upper quadrant pain; I16.0 Hypertensive urgency; K20.90 Esophagitis, unspecified without bleeding; R79.89 Other specified abnormal findings of blood chemistry
CPT/HCPCS: 96365; 96361; 93005; 93306; 87088; 85025 ×2; 81001; 87086; 80048 ×2; 36415; 83735 ×2; 84100; 85610; 80076; 88304; 84484 ×4; 83690; 83880 ×2; 74177; 74300; 71045; 76705; 94760 ×4; 96375; 99285; 96366; 47563; Q9967; J2704; J2710; J2543 ×6; J2001; J2250; J3010 ×3; J1170 ×2; J2405 ×2; J7040; J7030 ×4

== ENCOUNTER 2023-11-30 14:46 | Emergency (ER) | payer OTHER ==
--- OUTSIDE RECORDS SUMMARY | 2023-11-30 14:49 | XMS REPORT | Continuity of Care Document ---
Author Name Unknown Address [address] [place] [address] [facility] Address [address] [place] [address] Care Team Providers Care Hand Dry Cleaner Name Role Phone YOCASTA FUNES Primary Care Physician Maria Elena FOX Montes De Oca Attending Clinician FOX Osborn Attending Clinician JESSIE Arreola Attending Clinician Unavailable Doctor Unassigned, Nicholls Attending Clinician U navailable RADIOLOGY Attending Clinician Unavailable Radiology Attending Clinician Unavailable DELIA GALVEZ Admitting Clinician Unavailable Payers Payer Name Policy Type Policy Number Effective Date Expirati on Date Source [employer] [place] [employer] [employer] PREMIUM HMO [id number] 2022 00:00:00 Allergies, Adverse Reactions, Alerts Allergy Name Allergy Type Status Severity Reaction(s) Onset Date Inactive Date Treating Clinician Comments Source NO KNOWN ALLERGIE S Drug Class Active [facility] Social History Social Habit Start Date Stop Date Quantity Comments Source [facility] to SARS-CoV-2 (event) 2022-07-30 00:00:00 2022-08-09 15:27:00 Not sure [facility] Sex Assigned At 1940 00:00:00 1940 00:00:00 [facility] Smoking Status Start Date Stop Date Source Tobacco smoking consumption unknown [facility] Medications Ordered Medication Name Filled Medication Name Start Date Stop Date Current Medication? Ordering Clinician Indication Dosage Frequency Signature (SIG) Comments Components Source gadobenate dimeglumine (MULTIHANCE -15 mL) injection 0.2 mL/kg 08-31 19:30: 00 08-31 19:28 :00 No [id number] .2mL/kg 0.2 mL/kg, Intravenou s, ONCE, 1 dose, On Mary Kate 08/31/22 at 1330, Routine [facility] Procedures Procedure Date / Time Performed Performing Clinicia n Source ASSIGNMENT OF BENEFITS 2023-11-15 17:46:19 Docto r Unassigned, Nicholls [facility] PHYSICIAN ORDERS 2023-10-18 06:01:00 Doctor Unas signed, Nicholls [facility] REFERRAL- REQUEST/RESPONSE 2023-08-23 06:01:00 Doctor Unassigned, Nicholls [facility] MR THORACIC SPINE W WO CONTRAST 2022-08-31 19:41:00 Requisition, Paper [facility] Encounters Start Date/Time End Date/Time Encounter Type Admission Type Attending Clinicians Care Facility Care Department Encounter ID Source 2023-12-07 09:30:00 2023-12-07 09:30:00 Outpatient FOX COOPER CRAIG [facility] [id number] [facility] 2023-11-15 13:00:00 2023-11-15 13:53:51 Outpatient JESSIE ELLIS [facility] [id number] [facility] 2023-11-15 00:00:00 2023-11-15 00:00:00 Orders Only Doctor Unassigned, Nicholls [place] [id number] [facility] 2023-10-18 00:00:00 2023-10-18 00:00:00 Orders Only Doctor Unassigned, Nicholls [id number] [facility] 2023-08-23 00:00:00 2023-08-23 00:00:00 Orders Only Doctor Unassigned, Nicholls [id number] [facility] 2023-08-14 11:17:44 2023-08-14 11:17:44 Outpatient [facility] [id number] Romelia Sigifredo 2023-03-06 08:28:18 2023-03-06 08:28:18 Outpatient [facility] [id number] Alex[address] Mei 2022-08-31 12:36:29 2022-08-31 23:59:00 Outpatient R RADIOLOGY [facility] [id number] [facility] 2022-08-31 12:36:29 2022-08-31 23:59:00 Hospital Encounter Radiology [facility] [id number] [facility]
--- NOTE | 2023-11-30 15:57 | RAD REPORT ---
EXAM DESCRIPTION: RAD - Chest Single View - 11/30/2023 3:51 pm CLINICAL HISTORY: upper abdomen pain COMPARISON: Chest Pa And Lat (2 Views) dated 05/24/2023; Chest Single View dated 03/07/2023; Chest Sin gle View dated 02/13/2023; Chest Pa And Lat (2 Views) dated 04/06/2021 FINDINGS: Lines: None. Lungs: No evidence of edema or pneumonia. Pleural: No significant pleural effusions or pneumothorax. Cardiac: The heart size is within normal limits. Mediastinum: Within normal limits. Bones: No acute fractures. Other: None IMPRESSION: No acute cardiopulmonary disease.
[2023-11-30 16:00] LABS: Absolute Basophils 0.1 K/uL (0-0.5); Absolute Lymphocytes (CBC) 1.2 K/uL (0.7-4.9); Absolute Monocytes 0.6 K/uL (0.1-1.3); Absolute Neutrophil 7.5 K/uL (1.8-8.0); Basophils % 0.6 % (0-1.3); Eosinophils % 0.4 % (0-4.4); Hematocrit 42.1 % (36.0-45.0); Lymphocytes % 12.9 % (15.3-44.8); MCH 28.6 pg (27.0-35.0); MCHC 33.1 g/dL (32.0-36.0); MCV 86.4 fL (80-100); MPV 9.9 fL (7.6-11.3); Monocytes % 6.4 % (3.3-12.3); Neutrophils % 79.7 % (41.7-73.7); Platelets 236 thou/uL (152-406); RBC Red Blood Cell Count 4.88 M/uL (3.86-4.86); Red Cell Distribution Width 13.7 % (12.1-15.2)
[2023-11-30] MEDS ORDERED: FAMOTIDINE 20 MG/2 ML VIAL IV ONE (16:00)
[2023-11-30] MEDS ORDERED: ONDANSETRON 4 MG/2 ML VIAL ONE (16:00)
[2023-11-30] MEDS ORDERED: DICYCLOMINE HCL 20 MG/2 ML AMP IM ONE (16:00)
[2023-11-30 16:15] LABS: Specific Gravity > 1.030 (1.005-1.030); Urine Bacteria <20 /HPF (<20); Urine Bilirubin NEGATIVE (Negative); Urine Blood Trace (Negative); Urine Clarity Extremely Turbid (Clear); Urine Color Yellow (Yellow); Urine Culture Reflex Order REFLEXED; Urine Glucose NEGATIVE (Negative); Urine Ketones NEGATIVE (Negative); Urine Microscopic Reflex YN ORDER UMIC; Urine Mucus 2+ /HPF (None Seen); Urine Nitrite NEGATIVE (Negative); Urine Protein 2+ (Negative); Urine Urobilinogen Normal (Normal); Urine WBC 20-50 /HPF (<5)
[2023-11-30] MEDS ORDERED: MORPHINE 2 MG/ML SYR ONE (16:26)
[2023-11-30 16:50] LABS: Albumin 3.7 g/dL (3.4-5.0); Albumin/Globulin Ratio 0.8 (1.1-1.8); Anion Gap 10.1 mEq/L (5.0-15.0); Bilirubin Total 0.8 mg/dL (0.2-1.0); Globulin 4.9 g/dL (2.3-3.5); Magnesium 1.9 mg/dL (1.6-2.4); Potassium 3.1 mEq/L (3.5-5.1); Protein, Total 8.6 g/dL (6.4-8.2)
--- NOTE | 2023-11-30 17:46 | RAD REPORT ---
EXAM DESCRIPTION: CTAbdomen Pelvis W Contrast - 11/30/2023 5:25 pm CLINICAL HISTORY: ABD PAIN COMPARISON: Abdomen Pelvis W Contrast dated 03/07/2023; Abdomen Pelvis W Contrast dated 02/25/2023; Abdomen Pelvis W Contrast dated 10/19/2022; Abdomen Pelvis W Contrast dated 03/04/2020 TECHNIQUE: CT of the abdomen and pelvis was performed. All CT scans are performed using dose optimization technique as appropriate and may include automated exposure control or mA/KV adjustment according to patient size. FINDINGS: Lower chest: Cardiomegaly. Mild fluid in the distal esophagus. Liver: Intrahepatic biliary ductal dilatation. Benign-appearing low-density lesion in the inferior as pect of right hepatic lobe. Other too small to characterize low-density lesions noted that are likely benign. Biliary: Cholecystectomy. Extrahepatic biliary duct dilatation. Common bile duct measures 15 millimet ers. Stomach: No significant focal abnormality. Duodenum: No significant focal abnormality. Pancreas: No significant abnormality. Spleen: No significant abnormality. Adrenal: No suspicious lesions. Kidney/ureter: No hydronephrosis. No renal calculi. Too small to characterize and/or benign appearing renal lesions are noted. Retroperitoneum: No retroperitoneal adenopathy. Vascular: No aneurysm. Bowel: Scattered air-fluid levels are present within the colon.. Peritoneum: No ascites or free air. Bladder: Grossly unremarkable. Reproductive: No adnexal masses. Bones: No acute fracture. Multilevel degenerative changes are present in the spine. Other: Coarse calcifications in the flanks. IMPRESSION: No acute intra-abdominal or pelvic finding. Scattered air-fluid levels throughout the co lopez likely reflecting diarrheal disease. Cholecystectomy. Extrahepatic biliary duct dilatation may be related to the postcholecystectomy state. Correlate with LFTs. If abnormal, could consider MRCP or E HANDCREW FOREMAN for further evaluation .
[2023-11-30] MEDS ORDERED: POTASSIUM 25 MEQ EFFERV TAB ONE (18:09)
[2023-11-30] MEDS ORDERED: CEFTRIAXONE 1000 MG/VIAL ONE (18:20)
--- NOTE | 2023-11-30 18:57 | EDPHYS ---
Physician Documentation [facility] Name: Lawanda Sharp Age: 83 yrs Sex: Female : 1940 Arrival Date: 11/30/2023 Time: 14:46 Bed 20 Private MD: Esperanza Tyler ED Physician Neville Taylor HPI: 11/29 15:15 This 83 yrs old Female presents to ER via Ambulatory with complaints of cp Abdominal Pain, Diarrhea. 15:15 The patient presents with abdominal pain that is diffuse. Onset: The symptoms/episode cp began/occurred last night, and became worse today. Associated signs and symptoms: Pertinent positives: nausea and vomiting, diarrhea, Pertinent negatives: blood in stools, constipation, fever, vomiting blood. The symptoms are described as constant. Severity of pain: in the emergency department the pain is unchanged despite home interventions. Historical: - Allergies: 14:50 NKDA; ll1 - PMHx: 14:50 Hypertension; ll1 - PSHx: 14:50 hysterectomy; ll1 - Immunization history:: Adult Immunizations up to date. - Infectious Disease History:: Denies. CDIFF, C. Auris, ESBL, MRSA (w/in 1 year), VRE (w/in 1 year), TB, . - Social history:: Smoking status: Patient denies any tobacco usage or history of. ROS: 15:20 Constitutional: Negative for chills, fever, poor PO intake, cp 15:20 Eyes: Negative for injury, pain, redness, and discharge, cp 15:20 ENT: Negative for drainage from ear(s), ear pain, sore throat, difficulty swallowing, difficulty handling secretions, 15:20 Cardiovascular: Negative for chest pain, 15:20 Respiratory: Negative for cough, shortness of breath, sputum production, 15:20 Abdomen/GI: Positive for abdominal pain, nausea and vomiting, diarrhea, Negative for constipation, hematemesis, black/tarry stool, 15:20 Neuro: Negative for altered mental status, headache, syncope, 15:20 All other systems are negative, Exam: 15:25 Constitutional: The patient appears in no acute distress, alert, awake, cp non-diaphoretic, non-toxic, well developed, well nourished, uncomfortable, 15:25 Head/Face: Normocephalic, atraumatic. cp 15:25 Eyes: Periorbital structures: appear normal, Conjunctiva: normal, no exudate, no injection, Sclera: no appreciated abnormality, Lids and lashes: appear normal, bilaterally, 15:25 ENT: External ear(s): are unremarkable, Nose: is normal, Mouth: Lips: moist, Oral mucosa: moist, Posterior pharynx: Airway: no evidence of obstruction, patent, 15:25 Chest/axilla: Inspection: normal, 15:25 Cardiovascular: Rate: normal, Rhythm: regular, 15:25 Respiratory: the patient does not display signs of respiratory distress, Respirations: normal, no use of accessory muscles, no retractions, labored breathing, is not present, Breath sounds: are clear throughout, no decreased breath sounds, no stridor, no wheezing, 15:25 Abdomen/GI: Inspection: abdomen appears normal, Bowel sounds: active, all quadrants, Palpation: soft, in all quadrants, moderate abdominal tenderness, in all quadrants, rebound tenderness, is not appreciated, involuntary guarding, is not appreciated, 15:25 Back: CVA tenderness, is absent, 15:25 Neuro: Orientation: to person, place \T\ time. Mentation: is normal, Motor: moves all fours, strength is normal, Vital Signs: 14:58 BP 155 / 99; Pulse 95; Resp 17; Temp 97.3; Pulse Ox 99% ; Weight 72.57 kg; Height 5 ft. ll1 5 in. ; Pain 9/10; 16:00 BP 152 / 83; Pulse 77; Resp 18; Pulse Ox 95% ; cp4 17:00 BP 151 / 87; Pulse 78; Resp 18; Pulse Ox 95% ; cp4 18:00 BP 153 / 87; Pulse 79; Resp 18; Pulse Ox 96% ; cp4 14:58 Body Mass Index 26.63 (72.57 kg, 165.1 cm) ll1 14:58 Pain Scale: Adult ll1 MDM: 14:54 Patient medically screened. cp 16:00 Differential diagnosis: bowel obstruction, cholecystitis, Cholelithiasis, cp diverticulitis, non-specific abd pain, pancreatitis, Pyelonephritis, urinary tract infection. 18:56 Data reviewed: vital signs, nurses notes, lab test result(s), radiologic studies, CT cp scan, and as a result, I will discharge patient. 18:56 I considered the following discharge prescriptions or medication management in the emergency department Medications were administered in the Emergency Department. See MAR. Counseling: I had a detailed discussion with the patient and/or guardian regarding the historical points, exam findings, and any diagnostic results supporting the discharge/admit diagnosis, the presence of at least one elevated blood pressure reading (>120/80) during this emergency department visit, lab results, radiology results, to return to the emergency department if symptoms worsen or persist or if there are any questions or concerns that arise at home. Response to treatment: the patient's symptoms have markedly improved after treatment, patient is well hydrated. and as a result, I will discharge patient. 11/29 15:02 Order name: CBC with Diff; Complete Time: 16:10 11/29 16:10 Interpretation: Normal except: RBC 4.88; NADINE% 79.7; LYM% 12.9. 11/29 15:02 Order name: CMP; Complete Time: 17:49 11/29 18:15 Interpretation: Normal except: K 3.1; CL 108; GLUC 132; BUN 22; CRE 1.23; GFR 44; TP cp 8.6; GLOB 4.9; A/G 0.8. 11/29 15:02 Order name: Lipase; Complete Time: 17:49 cp 11/29 15:02 Order name: Urinalysis w/ reflexes; Complete Time: 16:17 cp 11/29 18:15 Interpretation: Normal except: UCLA Extremely Turbid; Urine SG > 1.030; UBLD Trace; cp UPROT 2+; UESTR 250; UWBC 20-50; URBC 5-10. 04 15:02 Order name: Magnesium; Complete Time: 17:49 cp 11/29 16:19 Order name: Urine Culture EDMS 11/29 15:36 Order name: CT Abd/Pelvis - IV Contrast Only; Complete Time: 17:49 cp 11/29 15:36 Order name: XRAY Chest (1 view); Complete Time: 16:10 cp 11/29 15:02 Order name: IV Saline Lock; Complete Time: 15:58 cp 11/29 15:02 Order name: Labs collected and sent; Complete Time: 15:59 Administered Medications: 16:06 Drug: Famotidine IVP 20 mg IVP once; dilute with 10 mL 0.9% NaCl; give over 2 minutes cp4 Route: IVP; Site: right wrist; 18:30 Follow up: Response: No adverse reaction cp4 16:06 Not Given (Patient Refused): [id number] mg IM once cp4 16:07 Drug: Ondansetron IVP 4 mg IVP once; over 2 minutes Route: IVP; Site: right wrist; cp4 18:30 Follow up: Response: No adverse reaction cp4 16:29 Drug: morphine IVP or IV 2 mg IVP once over 4 mins Route: IVP; Infused Over: 4 mins; cp4 Site: right wrist; 18:31 Follow up: Response: No adverse reaction cp4 18:15 Drug: Potassium PO Effervescent Tablet 25 mEq PO once; dissolve in 4 ounces of water or cp4 juice Route: PO; 18:31 Follow up: Response: No adverse reaction cp4 18:15 Drug: Potassium PO Effervescent Tablet 50 mEq PO once; dissolve in 4 ounces of water or cp4 juice Route: PO; 18:31 Follow up: Response: No adverse reaction cp4 18:28 Drug: Rocephin IV 1 grams IV at calculated rate once; Given slow IV push per pharmacy cp4 instructions Route: IV; Rate: calculated rate; Site: right wrist; 18:31 Follow up: Response: No adverse reaction; IV Status: Completed infusion cp4 Disposition Summary: 11/30/23 18:57 Discharge Ordered Notes: Location: Home cp Problem: new cp Symptoms: have improved cp Condition: Stable cp Diagnosis - Nausea with vomiting, unspecified cp - Diarrhea, unspecified cp - Abdominal pain, unspecified cp - Hypokalemia cp Followup: cp - With: Private Physician - When: 2 - 3 days - Reason: Recheck today's complaints Discharge Instructions: - Discharge Summary Sheet cp - Abdominal Pain, Adult cp - Diarrhea, Adult cp - Nausea and Vomiting, Adult cp - Urinary Tract Infection, Adult cp Forms: - Medication Reconciliation Form cp - Thank You Letter cp - Antibiotic Education cp - Prescription Opioid Use cp - Patient Portal Instructions cp - Leadership Thank You Letter cp Prescriptions: - Zofran 4 mg Oral Tablet - take 1 tablet ORAL route every 12 hours As needed; 20 tablet; Refills: 0, cp Product Selection Permitted - cefpodoxime 100 mg Oral tablet - take 1 tablet ORAL route every 12 hours for 7 days take with food; 14 tablet; cp Refills: 0, Product Selection Permitted - dicyclomine 20 mg Oral tablet - take 1 tablet ORAL route 4 times per day; 14 tablet; Refills: 0, Product cp Selection Permitted Signatures: Dispatcher [employer] Destin Carrasquillo PA PA cp Lewis, Lynsay RN RN ll1 Donna Galloway cp4
--- NOTE | 2023-11-30 18:57 | ER ---
Nurse's Notes [facility] [place] Name: Lawanda Sharp Age: 83 yrs Sex: Female : 1940 Arrival Date: 11/30/2023 Time: 14:46 Bed 20 Private MD: Esperanza Tyler Diagnosis: Nausea with vomiting, unspecified;Diarrhea, unspecified;Abdominal pain, unspecified;Hypokalemia Presentation: 11/29 14:53 Chief complaint: Patient states: Abdominal pain with nausea and diarrhea since last ll1 night after eating pizza. No fever. 14:53 Method Of Arrival: Ambulatory ll1 14:58 Coronavirus screen: Client denies travel out of the [place] in the last 14 days. At this ll1 time, the client does not indicate any symptoms associated with coronavirus-19. Ebola Screen: Patient denies travel to an Ebola-affected area in the 21 days before illness onset. Initial Sepsis Screen: Does the patient meet any 2 criteria? No. Patient's initial sepsis screen is negative. Does the patient have a suspected source of infection? No. Patient's initial sepsis screen is negative. Risk Assessment: Do you want to hurt yourself or someone else? Patient reports no desire to harm self or others. Onset of symptoms was November 29, 2023. 14:58 Acuity: SANIYA 3 ll1 Triage Assessment: 14:53 General: Appears uncomfortable, Behavior is calm, cooperative, appropriate for age. ll1 Pain: Complains of pain in abdomen Quality of pain is described as aching, crampy. GI: Reports upper abdominal pain, diarrhea, nausea. Historical: - Allergies: 14:50 NKDA; ll1 - PMHx: 14:50 Hypertension; ll1 - PSHx: 14:50 hysterectomy; ll1 - Immunization history:: Adult Immunizations up to date. - Infectious Disease History:: Denies. CDIFF, C. Auris, ESBL, MRSA (w/in 1 year), VRE (w/in 1 year), TB, . - Social history:: Smoking status: Patient denies any tobacco usage or history of. Screenin:22 [facility] ED Fall Risk Assessment (Adult) History of falling in the last 3 months, cp4 including since admission No falls in past 3 months (0 pts) Confusion or Disorientation No (0 pts) Intoxicated or Sedated No (0 pts) Impaired Gait No (0 pts) Mobility Assist Device Used No (0 pt) Altered Elimination No (0 pt) Score/Fall Risk Level 0 - 2 = Low Risk Oriented to surroundings, Maintained a safe environment, Assessed \T\ reinforced patient's understanding of fall precautions, Hourly rounding (assess needs \T\ fall precautionary measures) done. Abuse screen: Denies threats or abuse. Nutritional screening: No deficits noted. Tuberculosis screening: No symptoms or risk factors identified. Assessment: 18:22 General: Appears uncomfortable, Behavior is calm, cooperative, appropriate for age. GI: cp4 Bowel sounds present X 4 quads. Abdomen is tender to palpation X 4 quads. Vital Signs: 14:58 BP 155 / 99; Pulse 95; Resp 17; Temp 97.3; Pulse Ox 99% ; Weight 72.57 kg; Height 5 ft. ll1 5 in. ; Pain 9/10; 16:00 BP 152 / 83; Pulse 77; Resp 18; Pulse Ox 95% ; cp4 17:00 BP 151 / 87; Pulse 78; Resp 18; Pulse Ox 95% ; cp4 18:00 BP 153 / 87; Pulse 79; Resp 18; Pulse Ox 96% ; cp4 14:58 Body Mass Index 26.63 (72.57 kg, 165.1 cm) ll1 14:58 Pain Scale: Adult ll1 ED Course: 14:49 Patient arrived in ED. mr 14:49 Esperanza Tyler DO is Private Physician. mr 14:50 Arm band placed on. ll1 14:52 Destin Gaitan PA is PHCP. cp 14:52 Neville Taylor MD is Attending Physician. cp 14:59 Triage completed. ll1 15:34 Donna Galloway is Primary Nurse. cp4 15:35 Patient placed in an exam room, on a stretcher. ll1 15:46 Radiology exam delayed due to patient is not appropriately dressed for the exam at this az time. 15:52 XRAY Chest (1 view) In Process Unspecified. EDMS 15:56 Warm blanket given. Tread-on socks given. em1 15:56 Inserted saline lock: 22 gauge in right forearm, using aseptic technique. Blood em1 collected. 15:59 CBC with Diff Sent. cp4 15:59 CMP Sent. cp4 15:59 Lipase Sent. cp4 15:59 Urinalysis w/ reflexes Sent. cp4 15:59 Magnesium Sent. cp4 17:26 CT Abd/Pelvis - IV Contrast Only In Process Unspecified. EDMS 18:22 Bed in low position. Call light in reach. Side rails up X 1. cp4 18:22 No provider procedures requiring assistance completed. cp4 19:32 intact, bleeding controlled, No redness/swelling at site. Pressure dressing applied. cp4 19:33 Provided Education on: abdominal pain. cp4 Administered Medications: 16:06 Drug: Famotidine IVP 20 mg IVP once; dilute with 10 mL 0.9% NaCl; give over 2 minutes cp4 Route: IVP; Site: right wrist; 18:30 Follow up: Response: No adverse reaction cp4 16:06 Not Given (Patient Refused): [id number] mg IM once cp4 16:07 Drug: Ondansetron IVP 4 mg IVP once; over 2 minutes Route: IVP; Site: right wrist; cp4 18:30 Follow up: Response: No adverse reaction cp4 16:29 Drug: morphine IVP or IV 2 mg IVP once over 4 mins Route: IVP; Infused Over: 4 mins; cp4 Site: right wrist; 18:31 Follow up: Response: No adverse reaction cp4 18:15 Drug: Potassium PO Effervescent Tablet 25 mEq PO once; dissolve in 4 ounces of water or cp4 juice Route: PO; 18:31 Follow up: Response: No adverse reaction cp4 18:15 Drug: Potassium PO Effervescent Tablet 50 mEq PO once; dissolve in 4 ounces of water or cp4 juice Route: PO; 18:31 Follow up: Response: No adverse reaction cp4 18:28 Drug: Rocephin IV 1 grams IV at calculated rate once; Given slow IV push per pharmacy cp4 instructions Route: IV; Rate: calculated rate; Site: right wrist; 18:31 Follow up: Response: No adverse reaction; IV Status: Completed infusion cp4 Medication: 18:22 VIS not applicable for this client. cp4 Outcome: 18:57 Discharge ordered by . cp 19:32 Discharged to home ambulatory, cp4 19:32 Condition: stable 19:32 Discharge instructions given to patient, Instructed on discharge instructions, follow up and referral plans. medication usage, Demonstrated understanding of instructions, follow-up care, medications, Prescriptions given X 3, 19:33 Patient left the ED. cp4 Signatures: Dispatcher [employer] EDMS TungAnika Reg Reg mr TejedaNoe em1 Destin Gaitan PA PA Vashti Lieberman Lynsay, RN RN ll1 Donna Glaloway cp4 Corrections: (The following items were deleted from the chart) 14:59 14:53 Chief complaint: Patient states: Abdominal pain with diarrhea for days. ll1 ll1
[2023-11-30 21:47] VITALS: TEMP 97.3
[2023-11-30 22:19] VITALS: BP 153/87; O2SAT 96
== END 2023-11-30 19:33 | disposition home or self-care (01) ==
LOC: ER 14:46
DX: E87.6 Hypokalemia (principal); R19.7 Diarrhea, unspecified; R10.9 Unspecified abdominal pain; I10 Essential (primary) hypertension
CPT/HCPCS: 87088; 85025; 81001; 87086; 36415; 83735; 83690; 80053; 74177; 71045; 96375; 96374; 99284; Q9967; J0500; J2270; J2405; J0696; 87077; 87186

== ENCOUNTER 2023-12-31 16:35 | Emergency (ER) | payer OTHER ==
--- OUTSIDE RECORDS SUMMARY | 2023-12-31 16:39 | XMS REPORT | Continuity of Care Document ---
Author Name Unknown Address [address] [place] [address] [facility] Address [address] [place] [address] Care Team Providers Care Ferry Operator Name Role Phone Dru LIZAMA, Jose Keller Primary Care Physician Pricilla Sahrma PTA Attending Clinician Unav FOX Garcia Attending Clinician FOX Osborn Attending Clinician JESSIE Arreola Attending Clinician Unavailable Doctor Unassigned, Arden Attending Clinician U navailable RADIOLOGY Attending Clinician Unavailable Radiology Attending Clinician DELIA Kuo Admitting Clinician Unavailable Payers Payer Name Policy Type Policy Number Effective Date Expirati on Date Source Allergies, Adverse Reactions, Alerts Allergy Name Allergy Type Status Severity Reaction(s) Onset Date Inactive Date Treating Clinician Comments Source NO KNOWN ALLERGIE S Drug Class Active [facility] Social History Social Habit Start Date Stop Date Quantity Comments Source Sexual orientation U [facility] Exposure to SARS-CoV-2 (event) 2022-07-30 00:00:00 2022-08-09 15:27:00 Not sure [facility] Sex Assigned At 1940 00:00:00 1940 00:00:00 [facility] Smoking Status Start Date Stop Date Source Tobacco smoking consumption unknown [facility] Medications Ordered Medication Name Filled Medication Name Start Date Stop Date Current Medication? Ordering Clinician Indication Dosage Frequency Signature (SIG) Comments Components Source gadobenate dimeglumine (MULTIHANCE -15 mL) injection 0.2 mL/kg 08-31 19:30: 00 08-31 19:28 :00 No [id number] .2mL/kg 0.2 mL/kg, Intravenou s, ONCE, 1 dose, On Mary Kate 08/31/22 at 1330, Routine [facility] Procedures Procedure Date / Time Performed Performing Clinicia n Source ASSIGNMENT OF BENEFITS 2023-11-15 17:46:19 Docto r Unassigned, Arden [facility] PHYSICIAN ORDERS 2023-10-18 06:01:00 Doctor Unas signed, Arden [facility] REFERRAL- REQUEST/RESPONSE 2023-08-23 06:01:00 Doctor Unassigned, Arden [facility] MR THORACIC SPINE W WO CONTRAST 2022-08-31 19:41:00 Requisition, Paper [facility] Encounters Start Date/Time End Date/Time Encounter Type Admission Type Attending Clinicians Care Facility Care Department Encounter ID Source 2023-12-07 00:00:00 2023-12-07 00:00:00 Case Management Pricilla Sharma [facility] [id number] [facility] 2023-11-30 09:30:00 2023-11-30 09:30:00 Outpatient FOX COOPER [facility] [id number] [facility] 2023-11-15 13:00:00 2023-11-15 13:53:51 Outpatient JESSIE ELLIS [facility] [id number] [facility] 2023-11-15 00:00:00 2023-11-15 00:00:00 Orders Only Doctor Unassigned, Arden [facility] [id number] [facility] 2023-10-18 00:00:00 2023-10-18 00:00:00 Orders Only Doctor Unassigned, Arden [facility] [id number] [facility] 2023-08-23 00:00:00 2023-08-23 00:00:00 Orders Only Doctor Unassigned, Arden [facility] [id number] [facility] 2023-08-14 11:17:44 2023-08-14 11:17:44 Outpatient [facility] [id number] Alexy Romelia Sigifredo 2023-03-06 08:28:18 2023-03-06 08:28:18 Outpatient [facility] [id number] Alexy Romelia Sigifredo 2022-08-31 12:36:29 2022-08-31 23:59:00 Outpatient R RADIOLOGY [facility] [id number] [facility] 2022-08-31 12:36:29 2022-08-31 23:59:00 Hospital Encounter Radiology [facility] [id number] [facility]
[2023-12-31] MEDS ORDERED: CEFTRIAXONE 1000 MG/VIAL ONE (17:01)
[2023-12-31] MEDS ORDERED: ONDANSETRON 4 MG/2 ML VIAL ONE (17:01)
[2023-12-31] MEDS ORDERED: ACETAMINOPHEN 500 MG TAB ONE (17:02)
[2023-12-31] MEDS ORDERED: NA CHLORIDE 0.9% 2,000 ML ONE (17:02)
--- NOTE | 2023-12-31 17:30 | RAD REPORT ---
EXAM DESCRIPTION: RAD - Chest Single View - 12/31/2023 5:24 pm CLINICAL HISTORY: COUGH Chest pain. COMPARISON: Chest Single View dated 11/30/2023; Chest Pa And Lat (2 Views) dated 05/24/2023; Chest Sing le View dated 03/07/2023; Chest Single View dated 02/13/2023 FINDINGS: Portable technique limits examination quality. The lungs are grossly clear. The heart is mildly enlarged in size. No displaced fractures. IMPRESSION: No acute intrathoracic process suspected.
[2023-12-31 17:36] LABS: Absolute Lymphocytes (CBC) 1.3 K/uL (0.7-4.9); Absolute Monocytes 0.8 K/uL (0.1-1.3); Absolute Neutrophil 8.5 K/uL (1.8-8.0); Basophils % 0.4 % (0-1.3); Hematocrit 39.1 % (36.0-45.0); Hemoglobin 13.2 g/dL (12.0-15.0); Lymphocytes % 12.6 % (15.3-44.8); MCH 28.7 pg (27.0-35.0); MCHC 33.7 g/dL (32.0-36.0); MCV 85.3 fL (80-100); MPV 9.6 fL (7.6-11.3); Monocytes % 7.4 % (3.3-12.3); Neutrophils % 79.6 % (41.7-73.7); Platelets 192 thou/uL (152-406); RBC Red Blood Cell Count 4.59 M/uL (3.86-4.86); Red Cell Distribution Width 14.5 % (12.1-15.2)
[2023-12-31 17:39] LABS: PT Prothrombin Time 13.2 SECONDS (9.5-12.5); PTT, Activated Partial Thromb 28.2 SECONDS (24.3-36.9); Protime INR 1.21
[2023-12-31 17:46] LABS: Albumin 3.8 g/dL (3.4-5.0); Albumin/Globulin Ratio 0.8 (1.1-1.8); Anion Gap 9.5 mEq/L (5.0-15.0); Bilirubin Total 1.4 mg/dL (0.2-1.0); Globulin 4.6 g/dL (2.3-3.5); Potassium 3.5 mEq/L (3.5-5.1); Protein, Total 8.4 g/dL (6.4-8.2)
[2023-12-31 18:12] LABS: INFLUENZA A NAA NEGATIVE (NEGATIVE); RESPIRATORY SYNCYTIAL VIR NAA NEGATIVE (NEGATIVE); SARS-COV-2 RT PCR NEGATIVE (NEGATIVE)
--- NOTE | 2023-12-31 18:46 | RAD REPORT ---
EXAM DESCRIPTION: CTAbdomen Pelvis W Contrast - 12/31/2023 6:20 pm CLINICAL HISTORY: Abdominal pain. ABD PAIN COMPARISON: Abdomen Pelvis W Contrast dated 11/30/2023; Abdomen Pelvis W Contrast dated 03/07/2023; Abdomen Pelvis W Contrast dated 02/25/2023; Abdomen Pelvis W Contrast dated 10/19/2022 TECHNIQUE: Biphasic CT imaging of the abdomen and pelvis was performed with 100 ml non-ionic IV cont rast. All CT scans are performed using dose optimization technique as appropriate and may include automated exposure control or mA/KV adjustment according to patient size. FINDINGS: Emphysematous lung bases. Mild fatty liver is seen with several benign cyst. Cholecystectomy clips. The spleen, pancreas, adren al glands and kidneys are within normal limits. Small right renal cyst. No bowel obstruction, free air, free fluid or abscess. Nonvisualized appendix. No evidence of signi ficant lymphadenopathy. No suspicious bony findings. Mild degenerative levoscoliosis of the lumbar spine. IMPRESSION: No acute intra-abdominal or pelvic finding.
[2023-12-31 20:40] LABS: Specific Gravity > 1.030 (1.005-1.030); Sqamous Epithelial <5 /HPF (None Seen); Urine Bacteria None Seen /HPF (<20); Urine Bilirubin NEGATIVE (Negative); Urine Blood Negative (Negative); Urine Clarity Clear (Clear); Urine Color Light-Yellow (Yellow); Urine Culture Reflex Order REFLEXED; Urine Glucose NEGATIVE (Negative); Urine Ketones NEGATIVE (Negative); Urine Microscopic Reflex YN ORDER UMIC; Urine Mucus Slight /HPF (None Seen); Urine Nitrite 1+ (Negative); Urine Protein TRACE (Negative); Urine Urobilinogen Normal (Normal); Urine WBC >50 /HPF (<5); Urine WBC Clump Rare /HPF (None Seen); Urine pH 6.5 (5.0-7.0)
--- NOTE | 2023-12-31 21:08 | ER ---
Nurse's Notes [facility] Name: Lawanda Sharp Age: 83 yrs Sex: Female : 1940 Arrival Date: 12/31/2023 Time: 16:35 Bed 16 Private MD: Esperanza Tyler Diagnosis: UTI/ Urinary tract infection, site not specified Presentation: 12/30 16:48 Chief complaint: Patient's son or daughter states: body aches, generalized not feeling as6 well. Coronavirus screen: At this time, the client does not indicate any symptoms associated with coronavirus-19. Ebola Screen: No symptoms or risks identified at this time. Initial Sepsis Screen: Does the patient meet any 2 criteria? No. Patient's initial sepsis screen is negative. Does the patient have a suspected source of infection? No. Patient's initial sepsis screen is negative. Risk Assessment: Do you want to hurt yourself or someone else? Patient reports no desire to harm self or others. Onset of symptoms was December 31, 2023. 16:48 Method Of Arrival: Wheelchair as6 16:48 Acuity: SANIYA 3 as6 Historical: - Allergies: 16:49 NKDA; as6 - PMHx: 16:49 Hypertension; as6 - PSHx: 16:49 hysterectomy; Cholecystectomy; as6 - Immunization history:: Adult Immunizations up to date. - Infectious Disease History:: Denies. - Social history:: Smoking status: Patient denies any tobacco usage or history of. Screenin:32 [facility] ED Fall Risk Assessment (Adult) History of falling in the last 3 months, kc6 including since admission No falls in past 3 months (0 pts) Confusion or Disorientation No (0 pts) Intoxicated or Sedated No (0 pts) Impaired Gait No (0 pts) Mobility Assist Device Used No (0 pt) Altered Elimination No (0 pt) Score/Fall Risk Level 0 - 2 = Low Risk. Abuse screen: Denies threats or abuse. Denies injuries from another. Nutritional screening: No deficits noted. Tuberculosis screening: No symptoms or risk factors identified. Assessment: 17:33 General: Appears in no apparent distress. uncomfortable, well groomed, well developed, kc6 Behavior is calm, cooperative, appropriate for age, Reports chills for fever for feeling ill for fatigue for. Pain: Complains of pain in abdomen. Neuro: Level of Consciousness is awake, alert, obeys commands, Oriented to person, place, time, situation, Appropriate for age. Cardiovascular: Capillary refill < 3 seconds. Respiratory: Airway is patent Trachea midline Respiratory effort is even, unlabored, Respiratory pattern is regular, symmetrical. GI: No signs and/or symptoms were reported involving the gastrointestinal system. : Reports urinary frequency. EENT: No signs and/or symptoms were reported regarding the EENT system. Derm: No signs and/or symptoms reported regarding the dermatologic system. Skin is intact, is healthy with good turgor, Skin is diaphoretic, Skin is pale, Skin temperature is hot. Musculoskeletal: No signs and/or symptoms reported regarding the musculoskeletal system. Circulation, motion, and sensation intact. Capillary refill < 3 seconds, Range of motion: intact in all extremities. 18:24 Reassessment: Patient appears in no apparent distress at this time. No changes from kc6 previously documented assessment. Patient and/or family updated on plan of care and expected duration. Pain level reassessed. Patient is alert, oriented x 3, equal unlabored respirations, skin warm/dry/pink. 19:00 General: Appears in no apparent distress. comfortable, Behavior is calm, cooperative, jw7 appropriate for age. 19:00 Pain: Denies pain. Neuro: Level of Consciousness is awake, alert, obeys commands, jw7 Oriented to person, place, time, situation, Appropriate for age. Cardiovascular: Heart tones S1 S2 present Capillary refill < 3 seconds Clubbing of nail beds is absent JVD is absent Patient's skin is warm and dry. Respiratory: Airway is patent Trachea midline Respiratory effort is even, unlabored, Respiratory pattern is regular, symmetrical. GI: Abdomen is flat, non-distended, Bowel sounds present X 4 quads. : Reports urinary frequency. EENT: No deficits noted. No signs and/or symptoms were reported regarding the EENT system. Derm: No signs and/or symptoms reported regarding the dermatologic system. Skin is intact, is healthy with good turgor, Skin is dry, Skin is normal, Skin temperature is warm. Musculoskeletal: No signs and/or symptoms reported regarding the musculoskeletal system. Circulation, motion, and sensation intact. Range of motion: intact in all extremities. 20:00 Reassessment: Patient appears in no apparent distress at this time. No changes from jw7 previously documented assessment. Patient and/or family updated on plan of care and expected duration. Pain level reassessed. Patient is alert, oriented x 3, equal unlabored respirations, skin warm/dry/pink. 21:23 Reassessment: Patient appears in no apparent distress at this time. No changes from jw7 previously documented assessment. Patient and/or family updated on plan of care and expected duration. Pain level reassessed. Patient is alert, oriented x 3, equal unlabored respirations, skin warm/dry/pink. Vital Signs: 16:48 BP 91 / 48; Pulse 56; Resp 18 S; Temp 99.2(O); Pulse Ox 100% on R/A; Weight 72.57 kg as6 (R); Height 5 ft. 0 in. (R); Pain 10/10; 17:13 BP 127 / 76; Pulse 71; ec2 17:34 BP 127 / 76; Pulse 68; Resp 26 S; Pulse Ox 99% on R/A; kc6 19:00 BP 99 / 56; Pulse 75; Resp 19 S; Pulse Ox 97% on R/A; jw7 20:00 BP 113 / 65; Pulse 69; Resp 20 S; Pulse Ox 98% on R/A; jw7 21:00 BP 123 / 69; Pulse 75; Resp 20 S; Pulse Ox 98% on R/A; jw7 16:48 Body Mass Index 31.25 (72.57 kg, 152.4 cm) as6 16:48 Pain Scale: Adult as6 Vitals: 17:34 Cardiac Rhythm Assessment Sinus rhythm W/unifocal PVC's. kc6 ED Course: 16:40 Patient arrived in ED. mr 16:40 Evangelina Kay MD is Private Physician. mr 16:40 Esperanza Tyler DO is Private Physician. mr 16:42 Khurram Morejon MD is Attending Physician. ec2 16:49 Triage completed. as6 16:50 Arm band placed on. as6 16:57 Nida Christensen, HERSON is Primary Nurse. kc6 17:26 Chest Single View XRAY In Process Unspecified. EDMS 17:30 Inserted saline lock: 20 gauge in right antecubital area, using aseptic technique. kc6 Inserted saline lock: 22 gauge in right forearm, using aseptic technique. 17:33 Patient has correct armband on for positive identification. Placed in gown. Bed in low kc6 position. Call light in reach. Side rails up X2. Adult w/ patient. Client placed on continuous cardiac and pulse oximetry monitoring. NIBP monitoring applied. body team member on. Warm blanket given. Pillow given. 17:41 Margarito Ipa, TANK FILLER-C is PHCP. kb 18:22 CT Abd/Pelvis - IV Contrast Only In Process Unspecified. EDMS 19:05 Report given to Mariluz Keita RN. kc6 19:10 Provided Education on: Use of Call Light. jw7 19:28 Warm blanket given. oe 20:31 Urinalysis w/ reflexes Sent. jw7 21:29 No provider procedures requiring assistance completed. IV discontinued, intact, jw7 bleeding controlled, No redness/swelling at site. Pressure dressing applied. Administered Medications: 17:19 Drug: Acetaminophen PO 1000 mg PO once Route: PO; kc6 21:29 Follow up: Response: No adverse reaction jw7 17:19 Drug: Ondansetron IVP 4 mg IVP once; over 2 minutes Route: IVP; Site: right antecubital;kc6 21:28 Follow up: Response: No adverse reaction; Marked relief of symptoms; Nausea is decreasedjw7 17:29 Drug: NS 0.9% IV (30 ml/kg) 30 ml/kg IV at bolus once; Sepsis Protocol Route: IV; Rate: kc6 bolus; Site: right forearm; 21:29 Follow up: Response: No adverse reaction; IV Status: Completed infusion; IV Intake: jw7 2000ml 17:30 Drug: Rocephin IV 1 grams IV at calculated rate once; Given slow IV push per pharmacy kc6 instructions Route: IV; Rate: calculated rate; Site: right forearm; 21:29 Follow up: Response: No adverse reaction; IV Status: Completed infusion; IV Intake: [id number] Medication: 21:30 VIS not applicable for this client. jw7 Intake: 21:29 IV: 50ml; Total: 50ml. jw7 21:29 IV: 2000ml; Total: 2050ml. jw7 Outcome: 21:07 Discharge ordered by MD. pate 21:29 Discharged to home via wheelchair, with family, jw7 21:29 Condition: stable 21:29 Discharge instructions given to patient, family, Instructed on discharge instructions, follow up and referral plans. medication usage, Demonstrated understanding of instructions, follow-up care, medications, Prescriptions given X 1, 21:30 Patient left the ED. jw7 Signatures: Dispatcher [employer] EDMS Pia Pimentel, TANK FILLER-C TANK FILLER-Ckb Anika Ruby, Reg Reg mr Tiffany, Zheng oe Zaid Renee RN RN as6 Mariluz Keita RN RN jw7 Nida Christensen RN RN kc6 Khurram Morejon MD MD ec2 Corrections: (The following items were deleted from the chart) 17:34 17:34 Cardiac Rhythm Assessment Sinus rhythm W/PAC's kc6 kc6
--- NOTE | 2023-12-31 21:08 | EDPHYS ---
Physician Documentation [facility] Name: Lawanda Sharp Age: 83 yrs Sex: Female : 1940 Arrival Date: 12/31/2023 Time: 16:35 Bed 16 Private MD: Esperanza Tyler ED Physician Khurram Morejon HPI: 12/30 16:54 This 83 yrs old Female presents to ER via Wheelchair with complaints of Fever. ec2 16:54 Patient arrives today for evaluation of fever and bodyaches. Patient having several ec2 hours of symptoms. Patient reports some associated nausea, no vomiting, no abdominal pain, no urinary complaints. Some cough, no sore throat.. Historical: - Allergies: 16:49 NKDA; as6 - PMHx: 16:49 Hypertension; as6 - PSHx: 16:49 hysterectomy; Cholecystectomy; as6 - Immunization history:: Adult Immunizations up to date. - Infectious Disease History:: Denies. - Social history:: Smoking status: Patient denies any tobacco usage or history of. ROS: 16:54 Constitutional: as per hpi ec2 Exam: 16:54 Constitutional: GEN: NAD Head: atraumatic Eyes: EOMI Ears: External ears are ec2 normal. CV: regular rate LUNGS: no respiratory distress ABD: non-distended, soft, nontender, guarding, not rigid SKIN: no evidence of rashes MSK: no evidence of trauma NEURO: moves all extremities equally Vital Signs: 16:48 BP 91 / 48; Pulse 56; Resp 18 S; Temp 99.2(O); Pulse Ox 100% on R/A; Weight 72.57 kg as6 (R); Height 5 ft. 0 in. (R); Pain 10/10; 17:13 BP 127 / 76; Pulse 71; ec2 17:34 BP 127 / 76; Pulse 68; Resp 26 S; Pulse Ox 99% on R/A; kc6 19:00 BP 99 / 56; Pulse 75; Resp 19 S; Pulse Ox 97% on R/A; jw7 20:00 BP 113 / 65; Pulse 69; Resp 20 S; Pulse Ox 98% on R/A; jw7 21:00 BP 123 / 69; Pulse 75; Resp 20 S; Pulse Ox 98% on R/A; jw7 16:48 Body Mass Index 31.25 (72.57 kg, 152.4 cm) as6 16:48 Pain Scale: Adult as6 MDM: 16:54 Data reviewed: vital signs. ED course: Patient arrives today for evaluation of fever ec2 and bodyaches. Examination remarkable for well-appearing nontoxic individual who has soft blood pressures otherwise no tachycardia and a benign abdomen. Will obtain lab work, CT imaging, viral swabs. Will give the patient crystalloid as well as an x-ray.. 16:56 Patient medically screened. ec2 17:19 ED course: EKG independently reviewed and interpreted by me, shows normal sinus rhythm, ec2 rate of 71, no acute ST segment elevations, intervals are nonconcerning, PVC noted.. 17:36 ED course: On reassessment patient with improving hypotension.. ec2 21:05 Consideration of Admission/Observation Escalation of care including kb admission/observation considered. admission considered, but pt is nontoxic in appearance. Discussed outpatient treatment with pt and family, all in agreement. Will return if needed. Historians other than the Patient: Daughter/Son: daughter. Counseling: I had a detailed discussion with the patient and/or guardian regarding the historical points, exam findings, and any diagnostic results supporting the discharge/admit diagnosis, lab results, radiology results, the need for outpatient follow up, a family practitioner, to return to the emergency department if symptoms worsen or persist or if there are any questions or concerns that arise at home. 12/30 16:54 Order name: Blood Culture Adult (2) ec2 12/30 16:54 Order name: CBC with Diff; Complete Time: 17:39 ec2 12/30 16:54 Order name: CMP; Complete Time: 17:47 ec2 12/30 16:54 Order name: Lactate w/ 2H reflex if indic.; Complete Time: 17:57 ec2 12/30 16:54 Order name: Protime (+inr); Complete Time: 17:47 ec2 12/30 16:54 Order name: Ptt, Activated; Complete Time: 17:47 ec2 12/30 16:54 Order name: Urinalysis w/ reflexes; Complete Time: 21:02 ec2 12/30 16:54 Order name: COVID-19/FLU A+B/RSV; Complete Time: 18:16 ec2 12/30 20:44 Order name: Urine Culture [facility] 12/30 16:54 Order name: Chest Single View XRAY; Complete Time: 17:39 ec2 12/30 16:54 Order name: CT Abd/Pelvis - IV Contrast Only; Complete Time: 18:47 ec2 12/30 16:54 Order name: EKG; Complete Time: 16:55 ec2 12/30 16:54 Order name: Accucheck; Complete Time: 17:18 ec2 12/30 16:54 Order name: Cardiac monitoring; Complete Time: 17:18 ec2 12/30 16:54 Order name: EKG - Nurse/Tech; Complete Time: 17:18 ec2 12/30 16:54 Order name: IV Saline Lock - Large Bore; Complete Time: 17:18 ec2 12/30 16:54 Order name: Labs collected and sent; Complete Time: 17:18 ec2 12/30 16:54 Order name: O2 Per Protocol; Complete Time: 17:00 ec2 12/30 16:54 Order name: O2 Sat Monitoring; Complete Time: 17:00 ec2 12/30 16:54 Order name: Vital Signs; Complete Time: 17:00 ec2 Administered Medications: 17:19 Drug: Acetaminophen PO 1000 mg PO once Route: PO; kc6 21:29 Follow up: Response: No adverse reaction jw7 17:19 Drug: Ondansetron IVP 4 mg IVP once; over 2 minutes Route: IVP; Site: right antecubital;kc6 21:28 Follow up: Response: No adverse reaction; Marked relief of symptoms; Nausea is decreasedjw7 17:29 Drug: NS 0.9% IV (30 ml/kg) 30 ml/kg IV at bolus once; Sepsis Protocol Route: IV; Rate: kc6 bolus; Site: right forearm; 21:29 Follow up: Response: No adverse reaction; IV Status: Completed infusion; IV Intake: jw7 2000ml 17:30 Drug: Rocephin IV 1 grams IV at calculated rate once; Given slow IV push per pharmacy kc6 instructions Route: IV; Rate: calculated rate; Site: right forearm; 21:29 Follow up: Response: No adverse reaction; IV Status: Completed infusion; IV Intake: [id number] Disposition Summary: 12/31/23 21:07 Discharge Ordered Notes: Location: Home kb Condition: Stable kb Diagnosis - UTI/ Urinary tract infection, site not specified kb Followup: kb - With: Emergency Department - When: As needed - Reason: Worsening of condition Followup: kb - With: Private Physician - When: 2 - 3 days - Reason: Recheck today's complaints, Continuance of care, Re-evaluation by your physician Discharge Instructions: - Discharge Summary Sheet kb - Urinary Tract Infection, Adult, [id number] kb Forms: - Medication Reconciliation Form kb - Antibiotic Education kb - Prescription Opioid Use kb - Patient Portal Instructions kb - Leadership Thank You Letter kb Prescriptions: - Augmentin 875-125 mg Oral Tablet - take 1 tablet ORAL route every 12 hours for 10 days; 20 tablet; Refills: 0, kb Product Selection Permitted Signatures: Dispatcher [employer] Pia Aggarwal, PEDRO SHABAZZ-Zaid Booth RN RN as6 Nida Christensen RN RN kc6 Khurram Morejon MD MD ec2 Mariluz Keita RN jw7
[2023-12-31 21:51] VITALS: BP 123/69; TEMP 99.2; O2SAT 98
--- NOTE | 2024-01-01 14:01 | EKG ---
Test Date: 2023-12-31 Test Time: 17:12:23 Crusher Foreman: ELIZABETH MEASUREMENT RESULTS: Intervals: Rate: 73 TX: 162 QRSD: 88 QT: 384 QTc: 423 [place]: P: 36 TX: 162 QRS: 9 T: 91 INTERPRETIVE STATEMENTS: Normal sinus rhythm Anterior infarct, age undetermined Abnormal ECG Compared to ECG 03/07/2023 19:12:03 Left ventricular hypertrophy no longer present Early repolarization no longer present Myocardial infarct finding still present Electronically Signed On 01-01-24 13:58:29 CDT by Abdiaziz Mathews
--- NOTE | 2024-01-02 13:08 | EKG ---
Test Date: 2023-12-31 Test Time: 17:13:08 Ip Architect: ELIZABETH MEASUREMENT RESULTS: Intervals: Rate: 71 CA: 164 QRSD: 88 QT: 396 QTc: 430 [place]: P: 30 CA: 164 QRS: 10 T: 101 INTERPRETIVE STATEMENTS: Sinus rhythm with occasional premature ventricular complexes Anterior infarct, age undetermined Abnormal ECG Compared to ECG 12/31/2023 17:12:23 Ventricular premature complex(es) now present Myocardial infarct finding still present Electronically Signed On 01-02-24 13:07:13 CDT by Abdiaziz Mathews
== END 2023-12-31 21:30 | disposition home or self-care (01) ==
LOC: ER 16:35
DX: N39.0 Urinary tract infection, site not specified (principal); Z11.52 Encounter for screening for COVID-19; I10 Essential (primary) hypertension
CPT/HCPCS: 96365; 93005; 87040 ×2; 87088; 85025; 81001; 87086; 36415; 85610; 83605; 85730; 80053; 0241U; 74177; 71045; 96375; 99285; 96366; Q9967; J2405; J7030; J0696

== ENCOUNTER 2024-04-10 10:49 | Inpatient (IN) | payer OTHER ==
[2024-04-10] MEDS ORDERED: NA CHLORIDE 0.9% 1,000 ML ONE (11:10)
[2024-04-10 11:52] LABS: Absolute Basophils 0.1 K/uL (0-0.5); Absolute Eosinophils 0.1 K/uL (0-0.5); Absolute Monocytes 0.6 K/uL (0.1-1.3); Absolute Neutrophil 6.5 K/uL (1.8-8.0); Basophils % 0.6 % (0-1.3); Eosinophils % 0.7 % (0-4.4); Hematocrit 35.8 % (36.0-45.0); Hemoglobin 11.8 g/dL (12.0-15.0); Lymphocytes % 21.6 % (15.3-44.8); MCH 29.9 pg (27.0-35.0); MCHC 33.1 g/dL (32.0-36.0); MCV 90.5 fL (80-100); MPV 10.8 fL (7.6-11.3); Monocytes % 6.9 % (3.3-12.3); Neutrophils % 70.2 % (41.7-73.7); Platelets 180 thou/uL (152-406); RBC Red Blood Cell Count 3.95 M/uL (3.86-4.86); Red Cell Distribution Width 14.8 % (12.1-15.2)
[2024-04-10 12:01] LABS: Specific Gravity > 1.030 (1.005-1.030); Sqamous Epithelial <5 /HPF (None Seen); Urine Bacteria <20 /HPF (<20); Urine Bilirubin NEGATIVE (Negative); Urine Blood Trace (Negative); Urine Clarity Extremely Turbid (Clear); Urine Color Yellow (Yellow); Urine Culture Reflex Order REFLEXED; Urine Glucose NEGATIVE (Negative); Urine Ketones NEGATIVE (Negative); Urine Microscopic Reflex YN ORDER UMIC; Urine Mucus Slight /HPF (None Seen); Urine Nitrite NEGATIVE (Negative); Urine Protein 1+ (Negative); Urine RBC <5 /HPF (None Seen); Urine Urobilinogen Normal (Normal)
[2024-04-10 12:08] LABS: PT Prothrombin Time 13.4 SECONDS (9.4-12.5); Protime INR 1.2
[2024-04-10 12:15] LABS: Albumin 3.2 g/dL (3.4-5.0); Albumin/Globulin Ratio 0.8 (1.1-1.8); Anion Gap 8.7 mEq/L (5.0-15.0); Bilirubin Direct 0.2 mg/dL (0-0.2); Bilirubin Indirect, Calculated 0.4 mg/dL (0.2-0.8); Bilirubin Total 0.6 mg/dL (0.2-1.0); Globulin 4.1 g/dL (2.3-3.5); Magnesium 2.1 mg/dL (1.6-2.4); Potassium 3.7 mEq/L (3.5-5.1); Protein, Total 7.3 g/dL (6.4-8.2); Troponin High Sensitivity 16.8 pg/mL (<58.9)
[2024-04-10] MEDS ORDERED: CEFTRIAXONE 1000 MG/VIAL ONE (12:20)
[2024-04-10] MEDS ORDERED: ONDANSETRON 4 MG/2 ML VIAL ONE (12:20)
[2024-04-10] MEDS ORDERED: FENTANYL CITR 100 MCG/2 ML ONE (12:21)
--- NOTE | 2024-04-10 12:50 | RAD REPORT ---
EXAM DESCRIPTION: CTAbdomen Pelvis W Contrast - 04/10/2024 12:37 pm CLINICAL HISTORY: Abdominal pain. ABD PAIN COMPARISON: Abdomen Pelvis W Contrast dated 12/31/2023; Abdomen Pelvis W Contrast dated 11/30/2023; Abdomen Pelvis W Contrast dated 03/07/2023; Abdomen Pelvis W Contrast dated 02/25/2023 TECHNIQUE: Venous phase CT imaging of the abdomen and pelvis was performed with 100 ml non-ionic IV contrast. All CT scans are performed using dose optimization technique as appropriate and may include automated exposure control or mA/KV adjustment according to patient size. FINDINGS: Bilateral pleural effusions are present, greater on the right. Mild interstitial pulmonary edema likely present. Mild fatty liver. The liver contains several benign appearing cysts. Cholecystectomy clips. The splee n, pancreas, adrenal glands and kidneys show no acute finding. Benign cyst suspected inferior posteri or right kidney. Common bile duct is mildly prominent, unchanged. No bowel obstruction, free air, free fluid or abscess. Moderate stool is present throughout the colon . The appendix is not identified as a discrete structure, however, no secondary findings of appendici tis are identified. Trace pelvic free fluid in the pelvis. No evidence of significant lymphadenopath y. Moderate lumbar degenerative changes. 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 IMPRESSION: No acute intra-abdominal or pelvic finding. Bilateral pleural effusions, slightly greater on the right.
--- NOTE | 2024-04-10 13:16 | RAD REPORT ---
EXAM DESCRIPTION: Gino Single View04/10/2024 11:25 am CLINICAL HISTORY: Abdominal pain COMPARISON: December 2023 FINDINGS: Small bilateral pleural effusions. Mild bilateral interstitial lung opacities. Cardiomegaly IMPRESSION: Mild CHF
[2024-04-10] MEDS ORDERED: FUROSEMIDE 20 MG/ 2ML VIAL ONE (14:48)
[2024-04-10] MEDS ORDERED: NITROGLYCERIN 1 GM PKT TD ONE (14:48)
[2024-04-10] MEDS ORDERED: METOPROLOL TAR 25 MG TAB ONE (14:48)
[2024-04-10] MEDS ORDERED: FAMOTIDINE 20 MG/2 ML VIAL IV ONE (14:48)
[2024-04-10] MEDS ORDERED: ENOXAPARIN 60 MG/0.6 ML SQ ONE (14:49)
[2024-04-10] MEDS ORDERED: METOPROLOL TARTRATE 5 MG/5 ML INJ IV ONE (14:59)
--- NOTE | 2024-04-10 15:00 | EDPHYS ---
Physician Documentation [facility] Veronica Name: Lawanda Sharp Age: 84 yrs Sex: Female : 1940 Arrival Date: 04/10/2024 Time: 10:49 Bed 15 Private MD: ED Physician Destin Cooley HPI: 04/10 14:47 This 84 yrs old Female presents to ER via Ambulatory with complaints of sandip Abdominal Pain. 14:47 The patient presents with a history of irregular heart beat, heart racing. Context: The sandip symptoms occur at rest. Onset: The symptoms/episode began/occurred 2 day(s) ago. Modifying factors: The symptoms are aggravated by nothing. The symptoms are alleviated by nothing. remaining still. The patient presents with abdominal pain in the epigastric area. Onset: The symptoms/episode began/occurred 3 day(s) ago. Severity of pain: At its worst the pain was moderate in the emergency department the pain has improved mildly. Historical: - Allergies: 11: NKDA; iw - PMHx: 11: Hypertension; iw - PSHx: 11:01 Cholecystectomy; hysterectomy; iw - Immunization history:: Adult Immunizations up to date. - Infectious Disease History:: Denies. - Social history:: Smoking status: Patient denies any tobacco usage or history of. - Family history:: not pertinent. ROS: 14:51 Constitutional: Negative for fever, chills, and weight loss, Eyes: Negative for injury, sandip pain, redness, and discharge, ENT: Negative for injury, pain, and discharge, Neck: Negative for injury, pain, and swelling, Respiratory: Negative for shortness of breath, cough, wheezing, and pleuritic chest pain, Back: Negative for injury and pain, : Negative for injury, bleeding, discharge, and swelling, MS/Extremity: Negative for injury and deformity, Skin: Negative for injury, rash, and discoloration, Neuro: Negative for headache, weakness, numbness, tingling, and seizure, Psych: Negative for depression, anxiety, suicide ideation, homicidal ideation, and hallucinations, Allergy/Immunology: Negative for hives, rash, and allergies, Endocrine: Negative for neck swelling, polydipsia, polyuria, polyphagia, and marked weight changes, Hematologic/Lymphatic: Negative for swollen nodes, abnormal bleeding, and unusual bruising, 14:51 Cardiovascular: Positive for palpitations, 14:51 Respiratory: Positive for shortness of breath, at rest. 14:51 Abdomen/GI: Positive for abdominal pain, nausea, abdominal cramps, of the epigastric area, right upper quadrant and left upper quadrant, 14:51 MS/extremity: Negative for acute changes, swelling, tenderness, Exam: 14:51 Constitutional: This is a well developed, well nourished patient who is awake, alert, sandip and in no acute distress. Head/Face: Normocephalic, atraumatic. Eyes: Pupils equal round and reactive to light, extra-ocular motions intact. Lids and lashes normal. Conjunctiva and sclera are non-icteric and not injected. Cornea within normal limits. Periorbital areas with no swelling, redness, or edema. ENT: Nares patent. No nasal discharge, no septal abnormalities noted. Tympanic membranes are normal and external auditory canals are clear. Oropharynx with no redness, swelling, or masses, exudates, or evidence of obstruction, uvula midline. Mucous membranes moist. Neck: Trachea midline, no thyromegaly or masses palpated, and no cervical lymphadenopathy. Supple, full range of motion without nuchal rigidity, or vertebral point tenderness. No Meningismus. Chest/axilla: Normal chest wall appearance and motion. Nontender with no deformity. No lesions are appreciated. Respiratory: Lungs have equal breath sounds bilaterally, clear to auscultation and percussion. No rales, rhonchi or wheezes noted. No increased work of breathing, no retractions or nasal flaring. Back: No spinal tenderness. No costovertebral tenderness. Full range of motion. Female : Normal external genitalia. Skin: Warm, dry with normal turgor. Normal color with no rashes, no lesions, and no evidence of cellulitis. MS/ Extremity: Pulses equal, no cyanosis. Neurovascular intact. Full, normal range of motion. Neuro: Awake and alert, GCS 15, oriented to person, place, time, and situation. Cranial nerves II-XII grossly intact. Motor strength 5/5 in all extremities. Sensory grossly intact. Cerebellar exam normal. Normal gait. Psych: Awake, alert, with orientation to person, place and time. Behavior, mood, and affect are within normal limits. 14:51 Cardiovascular: Rate: tachycardic, actual rate is 99 bpm, Rhythm: irregularly irregular, Pulses: Pulses are 4+ in bilateral radial, brachial, femoral, popliteal, posterior tibial and and dorsalis pedis arteries.. Heart sounds: normal, normal S1and S2, no S3 or S4, no murmur, no rub, no gallop, Edema: is not appreciated, JVD: is not appreciated, 14:51 ECG was reviewed by the Attending Physician. 14:53 ECG was reviewed by the Attending Physician. sandip Vital Signs: 11:00 BP 202 / 103; Pulse 90; Resp 16; Temp 98.4; Pulse Ox 97% on R/A; Weight 68.04 kg; iw Height 5 ft. 5 in. ; Pain 10/10; 11:47 BP 156 / 99; Pulse 107; Resp 20 S; Pulse Ox 100% on R/A; kc6 12:57 Pulse 92; Resp 17 S; Pulse Ox 100% on R/A; kc6 13:18 BP 169 / 103; Pulse 100; Resp 20 S; Pulse Ox 100% on R/A; kc6 14:36 BP 170 / 113; Pulse 99; Resp 20 S; Pulse Ox 100% on R/A; kc6 15:32 BP 176 / 111; Pulse 108; Resp 19 S; Pulse Ox 99% on R/A; kc6 15:44 BP 168 / 84; kc6 11:00 Body Mass Index 24.96 (68.04 kg, 165.1 cm) iw 11:00 Pain Scale: Adult iw MDM: 10:52 Patient medically screened. sandip 14:54 Differential diagnosis: arrythmia, dehydration, stress disorder, bowel obstruction, sandip diverticulitis, gastritis, gastroesophageal reflux disease, Herpes Zoster, Mesenteric ischemia or infarction, non-specific abd pain, pancreatitis, Peptic Ulcer Disease, Ureterolithiasis, urinary tract infection. Data reviewed: vital signs, nurses notes, lab test result(s), EKG, radiologic studies, CT scan, plain films. Management of patient was discussed with the following: Hospitalist: ABDOMINAL PAIN, NEW ONSET AIB. I considered the following discharge prescriptions or medication management in the emergency department Medications were administered in the Emergency Department. See MAR. Independent interpretation of the following test(s) in the Emergency Department EKG: See my EKG interpretation above. Test considered but Not performed: Ultrasound NO 2 D ECHO. Historians other than the Patient: PT WELL INFORMED. Care significantly affected by the following chronic conditions: Hypertension, Obesity. Counseling: I had a detailed discussion with the patient and/or guardian regarding the historical points, exam findings, and any diagnostic results supporting the discharge/admit diagnosis, the presence of at least one elevated blood pressure reading (>120/80) during this emergency department visit, lab results, the need for further work-up and treatment in the hospital. 04/10 10:53 Order name: Basic Metabolic Panel; Complete Time: 14:04/10 10:53 Order name: CBC with Diff; Complete Time: 12:04/10 10:53 Order name: LFT's; Complete Time: 14:04/10 10:53 Order name: Magnesium; Complete Time: 14:04/10 10:53 Order name: NT PRO-BNP; Complete Time: 14: sandip 04/10 10:53 Order name: PT-INR; Complete Time: 12:04/10 10:53 Order name: Troponin HS; Complete Time: 14: [facility] 04/10 10:53 Order name: Lipase; Complete Time: 14: [facility] 04/10 10:53 Order name: Urinalysis w/ reflexes; Complete Time: 12:04/10 12:03 Order name: Urine Culture EDMA 04/10 14:41 Order name: TSH [facility] 04/10 10:53 Order name: XRAY Chest (1 view); Complete Time: 14: [facility] 04/10 10:53 Order name: CT Abd/Pelvis - IV Contrast Only; Complete Time: 14:04/10 14:12 Order name: EKG; Complete Time: 14:12 04/10 10:53 Order name: Cardiac monitoring; Complete Time: 11:19 04/10 10:53 Order name: EKG - Nurse/Tech; Complete Time: 11:04/10 10:53 Order name: IV Saline Lock; Complete Time: 11:47 04/10 10:53 Order name: Labs collected and sent; Complete Time: 11:47 04/10 10:53 Order name: O2 Per Protocol; Complete Time: 11:04/10 10:53 Order name: O2 Sat Monitoring; Complete Time: 11:04/10 12:00 Order name: Labs - recollect needed: recollect light blue top; Complete Time: 12:05 bd 04/10 14:12 Order name: EKG - Nurse/Tech; Complete Time: 14:30 sandip EC:51 Rate is 99 beats/min. Rhythm is irregularly irregular. QRS Shelby is Normal. SD interval sandip is normal. QRS interval is normal. QT interval is normal. No Q waves. T waves are Normal. No ST changes noted. Clinical impression: Atrial Fibrillation. Interpreted by me. Reviewed by me. 14:53 Rate is 99 beats/min. Rhythm is irregularly irregular. QRS Shelby is Normal. SD interval sandip is normal. QRS interval is normal. QT interval is normal. No Q waves. T waves are Normal. No ST changes noted. Clinical impression: Atrial Fibrillation. Interpreted by me. Reviewed by me. Administered Medications: 14:44 Discontinued: ns 0.9% 1000 ml IV at 1 bolus Per protocol; 1000 mL bolus sandip 11:47 Drug: NS 0.9% IV 1000 ml IV at 1 bolus Per protocol; 1000 mL bolus Route: IV; Rate: 1 kc6 bolus; Site: right forearm; 12:17 Follow up: Response: No adverse reaction; IV Status: Completed infusion; IV Intake: kc6 1000ml 12:30 Drug: Rocephin IV 1 grams IV at per protocol once; Given slow IV push per pharmacy kc6 instructions Route: IV; Rate: per protocol; Site: right forearm; 13:21 Follow up: Response: No adverse reaction; IV Status: Completed infusion; IV Intake: [id number] 12:30 Drug: fentaNYL (PF) IVP 50 mcg IVP once Route: IVP; Site: right forearm; kc6 13:21 Follow up: Response: No adverse reaction; Pain is decreased; RASS: Alert and Calm (0) kc6 12:30 Drug: Ondansetron IVP 4 mg IVP once; over 2 minutes Route: IVP; Site: right forearm; kc6 13:21 Follow up: Response: No adverse reaction 6 15:17 Drug: Famotidine IVP 20 mg IVP once; dilute with 10 mL 0.9% NaCl; give over 2 minutes ar6 Route: IVP; Site: right antecubital; 15:17 Drug: Furosemide IVP 20 mg IVP once; give over 2 minutes Route: IVP; Site: right ar6 antecubital; 15:17 Drug: Nitroglycerin Transdermal Ointment 2 % 0.5 inches Transdermal once Route: ar6 Transdermal; Site: anterior chest wall; 15:17 Drug: Metoprolol IVP 2.5 mg IVP once; Hold for SBP <100 or HR <60. Route: IVP; Site: ar6 right antecubital; 15:18 Drug: Metoprolol PO 25 mg PO once Route: PO; ar6 15:18 Drug: Enoxaparin Sub-Q 1 mg/kg Sub-Q once Route: Sub-Q; Site: left lower abdomen; ar6 15:43 Drug: Metoprolol IVP 2.5 mg IVP every 5 minutes; Hold for SBP < 100 or HR < 60. x3 kc6 Route: IVP; Site: right forearm; Disposition Summary: 04/10/24 14:59 Hospitalization Ordered Notes: Hospitalization Status: Inpatient Admission sandip Provider: Lalo Taylor cha Location: Telemetry/MedSurg (Inpatient) sandip Condition: Fair sandip Problem: new sandip Symptoms: have improved sandip Bed/Room Type: Standard sandip Room Assignment: 203(04/10/24 15:45) iw Diagnosis - Generalized abdominal tenderness sandip - Essential (primary) hypertension sandip - Pleural effusion in other conditions classified elsewhere - BILATERAL , RIGHT sandip GREATER THAN LEFT - Persistent atrial fibrillation - NEW ONSET sandip Forms: - Medication Reconciliation Form sandip - SBAR form snadip - Leadership Thank You Letter sandip Signatures: Dispatcher [employer] EDMS Shaye Pollard Corey, MD MD cha Williams, Irene, RN RN iw Nida Christensen RN RN kc6 Marian Culver RN RN ar6 Corrections: (The following items were deleted from the chart) 10:54 10:54 BASIC METABOLIC PANEL+C.LAB.BRZ ordered. EDMS EDMS 10:54 10:54 CBC+H.LAB.BRZ ordered. EDMS EDMS 10:54 10:54 HEPATIC FUNCTION+C.LAB.BRZ ordered. EDMS EDMS 10:54 10:54 MAGNESIUM+C.LAB.BRZ ordered. EDMS EDMS 10:54 10:54 PROBNP+C.LAB.BRZ ordered. EDMS EDMS 10:54 10:54 PROTIME (+INR)+COAG.LAB.BRZ ordered. EDMS EDMS 10:54 10:54 Troponin High Sensitivity+C.LAB.BRZ ordered. EDMS EDMS 10:54 10:54 LIPASE+C.LAB.BRZ ordered. EDMS EDMS 10:54 10:54 Urinalysis+U.LAB.BRZ ordered. EDMS EDMS 10:54 10:54 Chest Single View+RAD.RAD.BRZ ordered. EDMS EDMS 10:54 10:54 Abdomen Pelvis W Con+CT.RAD.BRZ ordered. EDMS EDMS 15:45 14:59 sandip iw
--- NOTE | 2024-04-10 15:00 | ER ---
Nurse's Notes [facility] Name: Lawanda Sharp Age: 84 yrs Sex: Female : 1940 Arrival Date: 04/10/2024 Time: 10:49 Bed 15 Private MD: Diagnosis: Generalized abdominal tenderness;Essential (primary) hypertension;Pleural effusion in other conditions classified elsewhere-BILATERAL , RIGHT GREATER THAN LEFT;Persistent atrial fibrillation-NEW ONSET Presentation: 04/10 11:00 Chief complaint: Patient states: upper abd pain since a week ago , denies n/v/d. iw Coronavirus screen: At this time, the client does not indicate any symptoms associated with coronavirus-19. Ebola Screen: No symptoms or risks identified at this time. Initial Sepsis Screen: Does the patient meet any 2 criteria? No. Patient's initial sepsis screen is negative. Does the patient have a suspected source of infection? No. Patient's initial sepsis screen is negative. Risk Assessment: Do you want to hurt yourself or someone else?. Onset of symptoms was April 03, 2024. 11:00 Method Of Arrival: Ambulatory iw 11:00 Acuity: SANIYA 3 iw Historical: - Allergies: 11:01 NKDA; iw - PMHx: 11:01 Hypertension; iw - PSHx: 11:01 Cholecystectomy; hysterectomy; iw - Immunization history:: Adult Immunizations up to date. - Infectious Disease History:: Denies. - Social history:: Smoking status: Patient denies any tobacco usage or history of. - Family history:: not pertinent. Screenin:19 [facility] ED Fall Risk Assessment (Adult) History of falling in the last 3 months, kc6 including since admission No falls in past 3 months (0 pts) Confusion or Disorientation No (0 pts) Intoxicated or Sedated No (0 pts) Impaired Gait No (0 pts) Mobility Assist Device Used No (0 pt) Altered Elimination No (0 pt) Score/Fall Risk Level 0 - 2 = Low Risk. Abuse screen: Denies threats or abuse. Denies injuries from another. Nutritional screening: No deficits noted. Tuberculosis screening: No symptoms or risk factors identified. Assessment: 11:22 General: Appears in no apparent distress. uncomfortable, well groomed, well developed, kc6 Behavior is calm, cooperative, appropriate for age. Pain: Complains of pain in epigastric area and left upper quadrant. Neuro: Level of Consciousness is awake, alert, obeys commands, Oriented to person, place, time, situation, Appropriate for age. Cardiovascular: Denies chest pain, Capillary refill < 3 seconds Rhythm is atrial fibrillation With PVC's. Respiratory: Airway is patent Trachea midline Respiratory effort is even, labored, Respiratory pattern is symmetrical, tachypnea. GI: Abdomen is flat, non-distended, Bowel sounds present X 4 quads. Abd is soft X 4 quads Abdomen is tender to palpation in epigastric area and left upper quadrant Reports upper abdominal pain, Patient currently denies diarrhea, nausea, vomiting. : No signs and/or symptoms were reported regarding the genitourinary system. Urine is clear. EENT: No signs and/or symptoms were reported regarding the EENT system. Derm: No signs and/or symptoms reported regarding the dermatologic system. Skin is intact, is healthy with good turgor, Skin is pink, warm \\T\\ dry. Musculoskeletal: No signs and/or symptoms reported regarding the musculoskeletal system. Circulation, motion, and sensation intact. Capillary refill < 3 seconds, Range of motion: intact in all extremities. 12:22 Reassessment: Patient appears in no apparent distress at this time. No changes from kc6 previously documented assessment. Patient and/or family updated on plan of care and expected duration. Pain level reassessed. Patient is alert, oriented x 3, equal unlabored respirations, skin warm/dry/pink. 13:17 Reassessment: Patient appears in no apparent distress at this time. No changes from kc6 previously documented assessment. Patient and/or family updated on plan of care and expected duration. Pain level reassessed. Patient is alert, oriented x 3, equal unlabored respirations, skin warm/dry/pink. 14:36 Reassessment: Patient appears in no apparent distress at this time. No changes from kc6 previously documented assessment. Patient and/or family updated on plan of care and expected duration. Pain level reassessed. Patient is alert, oriented x 3, equal unlabored respirations, skin warm/dry/pink. 15:32 Reassessment: Patient appears in no apparent distress at this time. No changes from kc6 previously documented assessment. Patient and/or family updated on plan of care and expected duration. Pain level reassessed. Patient is alert, oriented x 3, equal unlabored respirations, skin warm/dry/pink. Vital Signs: 11:00 BP 202 / 103; Pulse 90; Resp 16; Temp 98.4; Pulse Ox 97% on R/A; Weight 68.04 kg; iw Height 5 ft. 5 in. ; Pain 10/10; 11:47 BP 156 / 99; Pulse 107; Resp 20 S; Pulse Ox 100% on R/A; kc6 12:57 Pulse 92; Resp 17 S; Pulse Ox 100% on R/A; kc6 13:18 BP 169 / 103; Pulse 100; Resp 20 S; Pulse Ox 100% on R/A; kc6 14:36 BP 170 / 113; Pulse 99; Resp 20 S; Pulse Ox 100% on R/A; kc6 15:32 BP 176 / 111; Pulse 108; Resp 19 S; Pulse Ox 99% on R/A; kc6 15:44 BP 168 / 84; kc6 11:00 Body Mass Index 24.96 (68.04 kg, 165.1 cm) iw 11:00 Pain Scale: Adult iw ED Course: 10:52 Patient arrived in ED. mr 10:52 Destin Cooley MD is Attending Physician. sandip 11:01 Triage completed. iw 11:02 Arm band placed on. iw 11:07 Nida Christensen, RN is Primary Nurse. kc6 11:19 Patient has correct armband on for positive identification. Bed in low position. Call kc6 light in reach. Side rails up X 1. nuclear monitoring technician on. Pulse ox on. NIBP on. Door closed. Noise minimized. Lights dimmed. Warm blanket given. Pillow given. 11:27 XRAY Chest (1 view) In Process Unspecified. EDMS 12:05 Lab(s) recollected, by me, sent to lab. kc6 12:39 CT Abd/Pelvis - IV Contrast Only In Process Unspecified. EDMS 14:30 1204 CM met with patient at bedside Patient identified by name and . Demographic ane sheet confirmed and changes sent to appropriate personnel. Mrs. Sharp states she lives a lone in a trailer home. Prior to this hospital visit, Mrs. Sharp states she still drives and performs ADLs independently and without physical limitations. No MPOA in place, patient states "I'll do it later." No HH, home oxygen, no DME or other medical services. Mrs. Sharp drove her vehicle to the hospital and intends to drive home upon discharge, but states her daughter Марина Disla is able to transport her home should she need assistance. CM team will continue to follow and coordinate care. 14:58 Lalo Taylor MD is Hospitalizing Provider. sandip 16:27 No provider procedures requiring assistance completed. Patient admitted, IV remains in mb9 place. Administered Medications: 14:44 Discontinued: ns 0.9% 1000 ml IV at 1 bolus Per protocol; 1000 mL bolus sandip 11:47 Drug: NS 0.9% IV 1000 ml IV at 1 bolus Per protocol; 1000 mL bolus Route: IV; Rate: 1 kc6 bolus; Site: right forearm; 12:17 Follow up: Response: No adverse reaction; IV Status: Completed infusion; IV Intake: kc6 1000ml 12:30 Drug: Rocephin IV 1 grams IV at per protocol once; Given slow IV push per pharmacy kc6 instructions Route: IV; Rate: per protocol; Site: right forearm; 13:21 Follow up: Response: No adverse reaction; IV Status: Completed infusion; IV Intake: [id number] 12:30 Drug: fentaNYL (PF) IVP 50 mcg IVP once Route: IVP; Site: right forearm; kc6 13:21 Follow up: Response: No adverse reaction; Pain is decreased; RASS: Alert and Calm (0) kc6 12:30 Drug: Ondansetron IVP 4 mg IVP once; over 2 minutes Route: IVP; Site: right forearm; kc6 13:21 Follow up: Response: No adverse reaction 6 15:17 Drug: Famotidine IVP 20 mg IVP once; dilute with 10 mL 0.9% NaCl; give over 2 minutes ar6 Route: IVP; Site: right antecubital; 15:17 Drug: Furosemide IVP 20 mg IVP once; give over 2 minutes Route: IVP; Site: right ar6 antecubital; 15:17 Drug: Nitroglycerin Transdermal Ointment 2 % 0.5 inches Transdermal once Route: ar6 Transdermal; Site: anterior chest wall; 15:17 Drug: Metoprolol IVP 2.5 mg IVP once; Hold for SBP <100 or HR <60. Route: IVP; Site: ar6 right antecubital; 15:18 Drug: Metoprolol PO 25 mg PO once Route: PO; ar6 15:18 Drug: Enoxaparin Sub-Q 1 mg/kg Sub-Q once Route: Sub-Q; Site: left lower abdomen; ar6 15:43 Drug: Metoprolol IVP 2.5 mg IVP every 5 minutes; Hold for SBP < 100 or HR < 60. x3 kc6 Route: IVP; Site: right forearm; Intake: 12:17 IV: 1000ml; Total: 1000ml. kc6 13:21 IV: 50ml; Total: 1050ml. kc6 Outcome: 14:59 Decision to Hospitalize by Provider. sandip 16:28 Admitted to Med/surg mb9 16:28 Condition: stable 16:28 Instructed on the need for admit, 16:28 Patient left the ED. mb9 Signatures: Dispatcher [employer] EDDestin Padilla MD MD cha Rivera, Anika, Reg Reg mr Betty Perez, Nida Damon RN, RN RN 6 Anika Quinones RN RN mb9 Roberts, Amber, RN RN ar6 Veronica Del Toro RN RN ane Corrections: (The following items were deleted from the chart) 15:43 15:16 Metoprolol IVP 2.5 mg IVP in right antecubital ar6 kc6
--- NOTE | 2024-04-10 15:58 | P.HP ---
Certification for Inpatient Patient admitted to: Inpatient With expected LOS: >2 Midnights Patient will require the following post-hospital care: None Practitioner: I am a practitioner with admitting privileges, knowledge of patient current condition, hospital course, and medical plan of care. Services: Services provided to patient in accordance with Admission requirements found in Title 42 Section 412.3 of the Code of Federal Regulations Patient History Date of Service: 04/10/24 Reason for admission: No onset CHF/A-fib History of Present Illness: 84-year-old female with history of hypertension, GERD presents to the emergency department with chief complaint of epigastric pain, shortness of breath. She reports has been dealing with the epigastric pain for 2 days now and the shortness of breath started earlier today. She was evaluated in the emergency department and found to be in new onset atrial fibrillation, blood pressure was also quite high with a systolic of 203. Chest x-ray showed mild CHF pattern, CT of the abdomen pelvis with contrast showed no acute intra-abdominal or pelvic findings, bilateral pleural effusions slightly greater on the right. ED provider wishes to admit patient for new onset atrial fibrillation, suspected new onset CHF, hypertension. Allergies No Known Allergies Allergy (Unverified 03/07/23 23:45) Home Medications: lisinopriL [Lisinopril] 40 mg PO DAILY 05/14/17 Ampicillin Trihydrate 500 mg PO TID 03/08/23 Cetirizine HCl [Zyrtec*] 10 mg PO BID 03/08/23 Cyclobenzaprine [Flexeril*] 10 mg PO TID 03/08/23 Levothyroxine Sodium [Unithroid] 75 mcg PO DAILY 03/08/23 Montelukast [Singulair*] 10 mg PO DAILY 03/08/23 Nitrofurantoin Macrocrystal [Macrodantin] 100 mg PO BID 03/08/23 Orphenadrine Citrate [Orphenadrine Citrate ER] 100 mg PO BIDP PRN 03/08/23 carvediloL [Coreg*] 12.5 mg PO BID 03/08/23 Amox/Clavulanate [Augmentin 875-125 Tab] 1 each PO BID #10 tab 03/09/23 Hydrocodone 10/APAP 325 [[place] 10/325] 1 tab PO Q6H PRN #20 tab 03/09/23 Ondansetron [Zofran] 4 mg PO Q6H PRN #10 tab 03/09/23 - Past Medical/Surgical History Diabetic: No -: HTN -: Hypothyroidism -: borderline diabetic -: chronic kidney infection -: GERD -: -: Hysterectomy -: Cholecystectomy Psychosocial/ Personal History: Patient lives at home alone - Family History Mother -: Hypertension - Social History Alcohol use: No CD- Drugs: No Caffeine use: Yes Place of Residence: Home Review of Systems 10-point ROS is otherwise unremarkable Respiratory: Shortness of Breath Gastrointestinal: Abdominal Pain Physical Examination - Physical Exam General: Alert, In no apparent distress, Oriented x3 HEENT: Atraumatic, PERRLA, EOMI Neck: Supple, 2+ carotid pulse no bruit, No LAD Respiratory: Diminished Cardiovascular: Normal S1 S2, Irregular heart rate/rhythm (A-fib rate 100) Gastrointestinal: Normal bowel sounds, No tenderness Musculoskeletal: No tenderness Integumentary: No rashes Neurological: Normal speech, Normal strength at 5/5 x4 extr - Studies Laboratory Data (last 24 hrs) 04/10/24 04/10/24 04/10/24 11:59 11:30 11:30 WBC 9.30 Hgb 11.8 L Hct 35.8 L Plt Count 180 PT 13.4 H INR 1.20 Sodium 141 Potassium 3.7 BUN 26 H Creatinine 1.12 H Glucose 111 H Magnesium 2.1 Total Bilirubin 0.6 AST 23 ALT 27 Alkaline Phosphatase 75 Lipase 31 Assessment and Plan - Plan Assessment: Dyspnea, bilateral pleural effusions suspect new onset CHFunknown EF New onset atrial fibrillation with rapid ventricular response Hypertensive urgencyunderlying primary hypertension Epigastric pain History of GERD Plan: Dyspnea, bilateral pleural effusions suspect new onset CHFunknown EF New onset atrial fibrillation with rapid ventricular response Continue IV diuresis, cardiology consult in place Echocardiogram ordered, continue monitor on telemetry Carvedilol continued at 12.5 mg twice daily as taken at home [id number] score is 4 warranting anticoagulation, started on Eliquis Appreciate further input from cardiology Hypertensive urgencyunderlying primary hypertension Nitropatch placed in ED Continue lisinopril, carvedilol which patient has not taken today Blood pressure improving Epigastric pain History of GERD Continue home PPI Will trend troponins and monitor on telemetry given possibility of atypical chest pain DVT PPX: Eliquis Code status: Full Discharge Plan: Home Plan to discharge in: 48 Hours - Advance Directives Does patient have a Living Will: No Does patient have a Durable POA for Healthcare: No - Code Status/Comfort Care Code Status Assessed: Yes (Full code) Critical Care: No Time Spent Managing Pts Care (In Minutes): 63
[2024-04-10] MEDS: carvediloL 12.5 MG TAB PO SCH (17:18)
[2024-04-10] MEDS: PNEUMOCOCCAL VACCINE 0.5 ML IMVAC ONE (18:00)
[2024-04-10] MEDS: APIXABAN 5 MG TABLET PO SCH (19:38)
[2024-04-10] MEDS: ACETAMINOPHEN 325 MG TABLET PO PRN (19:38)
[2024-04-11] MEDS ORDERED: Oxycodone HCl/Acetaminophen 5/325 MG TAB PO PRN (01:07)
[2024-04-11] MEDS: Oxycodone HCl/Acetaminophen 5/325 MG TAB PO PRN (02:27)
[2024-04-11 06:22] LABS: Absolute Basophils 0.1 K/uL (0-0.5); Absolute Lymphocytes (CBC) 1.5 K/uL (0.7-4.9); Absolute Monocytes 0.7 K/uL (0.1-1.3); Absolute Neutrophil 5.9 K/uL (1.8-8.0); Basophils % 1.1 % (0-1.3); Eosinophils % 0.6 % (0-4.4); Hematocrit 32.6 % (36.0-45.0); Hemoglobin 10.9 g/dL (12.0-15.0); MCH 30.2 pg (27.0-35.0); MCHC 33.6 g/dL (32.0-36.0); MCV 89.9 fL (80-100); MPV 9.9 fL (7.6-11.3); Monocytes % 8.5 % (3.3-12.3); Neutrophils % 71.8 % (41.7-73.7); Platelets 150 thou/uL (152-406); RBC Red Blood Cell Count 3.62 M/uL (3.86-4.86); Red Cell Distribution Width 14.4 % (12.1-15.2)
[2024-04-11 06:39] LABS: Anion Gap 7.7 mEq/L (5.0-15.0); Potassium 3.7 mEq/L (3.5-5.1); Troponin High Sensitivity 19.7 pg/mL (<58.9)
[2024-04-11] MEDS: PANTOPRAZOLE 40MG TABLET PO SCH (08:28)
[2024-04-11] MEDS: FUROSEMIDE 20 MG/ 2ML VIAL IV SCH (08:28)
[2024-04-11] MEDS: lisinopriL 20 MG TAB PO SCH (08:28)
[2024-04-11] MEDS: SOTALOL HCL 80 MG TAB PO SCH (08:30)
--- NOTE | 2024-04-11 08:48 | P.CNS ---
Date of Consult: 04/11/24 Chief Complaint: No onset CHF/A-fib History of Present Illness: Patient with PMH of HTN, presented with epigastric discomfort, found to be in AF w RVR, denies chest pain, no SOB, no dizzy spells, no syncope. Allergies No Known Allergies Allergy (Unverified 03/07/23 23:45) Home medications list reviewed: Yes Home Medications: lisinopriL [Lisinopril] 40 mg PO DAILY 05/14/17 carvediloL [Coreg*] 12.5 mg PO BID 03/08/23 Famotidine 40 mg PO BEDTIME 04/10/24 Pantoprazole [Protonix Tab*] 40 mg PO DAILY 04/10/24 - Past Medical/Surgical History Diabetic: No -: HTN -: Hypothyroidism -: borderline diabetic -: chronic kidney infection -: GERD -: -: Hysterectomy -: Cholecystectomy Psychosocial/ Personal History: Patient lives at home alone - Family History Mother Medical History: Hypertension - Social History Smoking Status: Unknown if ever smoked Alcohol use: No CD- Drugs: No Caffeine use: Yes Place of Residence: Home Review of Systems 10-point ROS is otherwise unremarkable Physical Examination Temp Pulse Resp BP Pulse Ox 97.3 F 90 16 140/82 96 04/11/24 08:00 04/11/24 08:00 04/11/24 08:00 04/11/24 08:00 04/11/24 08:00 General: Alert, In no apparent distress HEENT: Atraumatic, PERRLA, Mucous membr. moist/pink, EOMI, Sclerae nonicteric Neck: Supple, 2+ carotid pulse no bruit, No LAD, Without JVD or thyroid abnormality Respiratory: Clear to auscultation bilaterally, Normal air movement Cardiovascular: Irregular heart rate/rhythm Gastrointestinal: Normal bowel sounds, No tenderness Musculoskeletal: No tenderness Integumentary: No rashes Neurological: Normal gait, Normal speech, Normal tone, Normal affect Lymphatics: No axilla or inguinal lymphadenopathy Laboratory Data (last 24 hrs) 04/10/24 04/10/24 04/10/24 11:59 11:30 11:30 WBC 9.30 Hgb 11.8 L Hct 35.8 L Plt Count 180 PT 13.4 H INR 1.20 Sodium 141 Potassium 3.7 BUN 26 H Creatinine 1.12 H Glucose 111 H Magnesium 2.1 Total Bilirubin 0.6 AST 23 ALT 27 Alkaline Phosphatase 75 Lipase 31 - Problems (1) Atrial fibrillation Current Visit: Yes Status: Acute Plan: start patient on Sotalol 80 mg po BID Eliquis 5 mg po BID (2) Hypertension Current Visit: No Status: Chronic Plan: continue coreg, lisinopril Qualifiers: Hypertension type: primary hypertension Qualified Code(s): I10 - Essential (primary) hypertension
--- OUTSIDE RECORDS SUMMARY | 2024-04-11 09:39 | XMS REPORT | Continuity of Care Document ---
Author Name Unknown Address [address] [facility] [address] [place] [address] [facility] thconnect Address [address] 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 Role Phone YOCASTA FUNES Primary Care Physician Maria Elena vailable JUSTIN CANTU Attending Clinician Unavailab Pricilla uCba PTA Attending Clinician Unav ailable FOX T[place] Attending Clinician UnavailFOX Barlow Attending Clinician UnavailJESSIE Jeffery Attending Clinician Unavailable Doctor Unassigned, [place] Attending Clinician U navailable RADIOLOGY Attending Clinician Unavailable Radiology Attending Clinician Unavailable DE BARRETT Attending Clinician Un available JUSTIN CANTU Admitting Clinician Unavailab DELIA Hoffman Admitting Clinician Unavailable DE BARRETT Admitting Clinician Un available Payers Payer Name Policy Type Policy Number Effective Date Expirati on Date Source [employer] MEDICARE [id number] 2024 00:00:00 Problems Condition Name Condition Details Condition Category Status Onset Date Resolution Date Last Treatment Date Treating Clinician Comments Source DIZZINESS, DISSECTION VERTEBRAL ARTERY DIZZINESS, DISSECTION VERTEBRAL ARTERY Active 11/15/2019 [facility] Diagnosis Active 11-14 00:00: 00 2019-11-17 06:31:00 Dago Beasley ILLNESS, UNSPECIFIE D ILLNESS, UNSPECIFIE D Active [facility] Diagnosis Active 2019-11-17 06:31:00 Dago Beasley Allergies, Adverse Reactions, Alerts Allergy Name Allergy Type Status Severity Reaction(s) Onset Date Inactive Date Treating Clinician Comments Source NO KNOWN ALLERGIE S Drug Class Active [facility] Social History Social Habit Start Date Stop Date Quantity Comments Source Sexual orientation U [facility] Exposure to SARS-CoV-2 (event) 2022-07-30 00:00:00 2022-08-09 15:27:00 Not sure [facility] Social History 2019-11-15 11:12:48 2019-11-15 11:12:48 Melina Beasley Sex Assigned At 1940 00:00:00 1940 00:00:00 [facility] Smoking Status Start Date Stop Date Source Tobacco smoking consumption unknown [facility] Medications Ordered Medication Name Filled Medication Name Start Date Stop Date Current Medication? Ordering Clinician Indication Dosage Frequency Signature (SIG) Comments Components Source gadobenate dimeglumine (MULTIHANCE -15 mL) injection 0.2 mL/kg 08-31 19:30: 00 08-31 19:28 :00 No [id number] .2mL/kg 0.2 mL/kg, Intravenou s, ONCE, 1 dose, On Mary Kate 08/31/22 at 1330, Routine [facility] Plavix 11-16 14:00: 00 No Notes: (Same As: Plavix) Dago Beasley Plavix 11-15 20:26: 00 Yes Notes: (Same As: Plavix) Dago Beasley lisinopril 20 mg oral tablet 11-15 13:52: 00 Yes 20 mg = 1 tab, PO, Daily, # 30 tab, 0 Refill(s), [facility]acy: [id number] Dago Beasley meclizine 12.5 mg oral tablet 11-15 13:52: 00 Yes 12.5 mg = 1 tab, PO, BID, PRN Dizziness, X 15 day, # 30 tab, 0 Refill(s), [facility]acy: [id number] Dago Beasley Aspirin 81 MG Enteric Coated Tablet 11-15 13:52: 00 Yes 81 mg = 1 tab, PO, Q24H, 0 Refill(s) Dago Beasley atorvastati n 11-15 02:00: 00 No Notes: (Same as: Lipitor) Mercedeztyrel tabitha Beasley potassium chloride 20 mEq oral tablet, extended release (KCL) 11-14 23:00: 00 No Notes: (Same as: K-Dur 20) "Do Not Crush" Give with food and full glass of water For patients unable to swallow tablet, dissolve in one half glass of water. Allow about 2 minutes for the tablets to disintegra te. Stir before giving to prepare slurry and administer . Please exclude Patient s with feeding tube less than 14 [place] (Dobhoff, J-tube etc) and pediatric and patients. Mercedeztyrel Beasley potassium chloride 20 mEq oral tablet, extended release (KCL) 11-14 17:11: 00 No Notes: (Same as: K-Dur 20) "Do Not Crush" Give with food and full glass of water For patients unable to swallow tablet, dissolve in one half glass of water. Allow about 2 minutes for the tablets to disintegra te. Stir before giving to prepare slurry and administer . Please exclude Patient s with feeding tube less than 14 [place]ian (Dobhoff, J-tube etc) and pediatric and patients. Dago Beasley Famotidine 11-14 14:00: 00 No Notes: (Same as: Pepcid) Dago Beasley Saline Flush 0.9% 11-14 14:00: 00 No Notes: Same as: BD Posiflush Sterile Dago Beasley Lisinopril 11-14 14:00: 00 No Notes: (Same as: Prinivil, Zestril) Dago Beasley Ativan 11-14 13:07: 00 No Notes: (Same as: Ativan) Dago Beasley Aspirin 81 MG Enteric Coated Tablet 11-14 12:00: 00 No Notes: Do not crush or chew. (Same As: Ecotrin) Dago Beasley Labetalol 11-14 11:18: 00 No Notes: (Same as: Normodyne, Trandate) Push over 2 minutes Give bolus over 2-3 minutes. Dago Beasley enalapril 11-14 11:18: 00 No Notes: (Same as: Vasotec-IV ) Dago Beasley Ondansetron 11-14 11:18: 00 No Notes: (Same as: Zofran) MEDICATION WASTE Product Size: 4 mg Product Wasted: ___ mg Dago Beasley Acetaminoph en 11-14 11:18: 00 No Notes: Do not exceed 4 gm/day. (Same as: Tylenol) Dago Marcosann Saline Flush 0.9% 11-14 11:18: 00 No Notes: Same as: BD Posiflush Sterile Dago Beasley lisinopril 10 mg oral tablet 11-14 10:55: 00 No 10 mg = 1 tab, PO, Daily, # 30 tab, 0 Refill(s) Dago Beasley Vital Signs Vital Name Observation Time Observation Value Comments S ource Systolic (mm Hg) 2019-11-16 17:11:00 [facility] Diastolic (mm Hg) 2019-11-16 17:11:00 [facility] [place] Temperature Oral (F) 2019-11-16 13:00:00 98.4 F [facility] Heart Rate 2019-11-16 13:00:00 [facility] Respitory Rate 2019-11-16 13:00:00 [facility] [place] Systolic (mm Hg) 2019-11-16 13:00:00 [facility] Diastolic (mm Hg) 2019-11-16 13:00:00 [facility] Temperature Oral (F) 2019-11-16 09:00:00 97.9 F [facility] Heart Rate 2019-11-16 09:00:00 [facility] [place] Respitory Rate 2019-11-16 09:00:00 [facility] Systolic (mm Hg) 2019-11-16 09:00:00 [facility] Diastolic (mm Hg) 2019-11-16 09:00:00 [facility] Temperature Oral (F) 2019-11-16 05:00:00 97.5 F [facility] Heart Rate 2019-11-16 05:00:00 [facility] Respitory Rate 2019-11-16 05:00:00 [facility] [place] Weight 2019-11-15 10:49:00 [facility] BMI Calculated 2019-11-15 10:49:00 [facility] Height 2019-11-15 10:49:00 154.94 cm [facility] [place] Procedures Procedure Date / Time Performed Performing Clinicia n Source ASSIGNMENT OF BENEFITS 2023-11-15 17:46:19 Docto r Unassigned, [place] [facility] PHYSICIAN ORDERS 2023-10-18 06:01:00 Doctor Unas signed, [place] [facility] REFERRAL- REQUEST/RESPONSE 2023-08-23 06:01:00 Doctor Unassigned, [place] [facility] MR THORACIC SPINE W WO CONTRAST 2022-08-31 19:41:00 Requisition, [place] [facility] Encounters Start Date/Time End Date/Time Encounter Type Admission Type Attending Clinicians Care Facility Care Department Encounter ID Source 2024-02-04 08:30:00 2024-02-04 08:30:00 Outpatient JUSTIN BARKLEY [facility] ANS [id number] [facility] 2023-12-07 00:00:00 2023-12-07 00:00:00 Case Management [facility] 1..840.114 [id number] [facility] 2023-11-27 09:30:00 2023-11-27 09:30:00 Outpatient FOX COOPER CRAIG [facility] [id number] [facility] 2023-11-15 13:00:00 2023-11-15 13:53:51 Outpatient JESSIE ELLIS [facility] [id number] [facility] 2023-11-15 00:00:00 2023-11-15 00:00:00 Orders Only Doctor Unassigned, [place] [facility] 1..840.114 350.1.13.10 [id number] [id number] [facility] 2023-10-18 00:00:00 2023-10-18 00:00:00 Orders Only Doctor Unassigned, [place] [facility] [id number] [id number] [facility] 2023-08-23 00:00:00 2023-08-23 00:00:00 Orders Only Doctor Unassigned, [place] [facility] [id number] 350.1.13.10 [id number] [facility] 2023-08-14 11:17:44 2023-08-14 11:17:44 Outpatient [facility] [id number] [place] 2023-03-06 08:28:18 2023-03-06 08:28:18 Outpatient [facility] [id number] [place] 2022-08-31 12:36:29 2022-08-31 23:59:00 Outpatient R RADIOLOGY [facility] [id number] [facility] 2022-08-31 12:36:29 2022-08-31 23:59:00 Hospital Encounter Radiology [facility] [id number] [id number] [id number] [id number] [facility] 2019-11-15 19:07:00 2019-11-16 20:36:00 Observatio n nullFlavo r [facility] [id number] Dago lu [place] 2019-11-15 14:07:00 2019-11-16 15:36:00 Outpatient DE BARRETT [facility] [id number] [facility] Results Test Description Test Time Test Comments Results Result Co mments Source [facility]2020-03-22 09:37:00* Test Item Value Reference Range Interpretation Comme nts BUN (test code = BUN) 14 03-17 [facility]2020-03-22 09:37:00* Test Item Value Reference Range Interpretation Comme nts Creatinine Lvl (test code = Creatinine Lvl) 0.80 0.50-1.40 [facility]2020-03-22 09:37:00* Test Item Value Reference Range Interpretation Comme nts Sodium Lvl (test code = Sodium Lvl) 141 135-145 [facility] [id number] 09:37:00* Test Item Value Reference Range Interpretation Comme nts Potassium Lvl (test code = P otassium Lvl) 3.8 3.5-5.1 [facility] [id number] 09:37:00* Test Item Value Reference Range Interpretation Comme nts Chloride Lvl (test code = Chloride Lvl) 114 95-109 [facility] [id number] 09:37:00* Test Item Value Reference Range Interpretation Comme nts CO2 (test code = CO2) 21 24-32 [facility] [id number] 09:37:00* Test Item Value Reference Range Interpretation Comme nts Calcium Lvl (test code = Calcium Lvl) 9.2 8.5-10.5 [facility] [id number] 09:37:00* Test Item Value Reference Range Interpretation Comme nts AGAP (test code = AGAP) 9.8 10.0-20.0 [facility] [id number] 09:37:00* Test Item Value Reference Range Interpretation Comme nts eGFR (test code = eGFR) 71 [facility] [id number] 12:20:00* Test Item Value Reference Range Interpretation Comme nts AST (test code = AST) 23 See_Comment [A utomated message] The system which generated this result transmitted reference range: <=37. The reference range was not used to interpret this result as normal/abnormal. [facility] [id number] 12:20:00* Test Item Value Reference Range Interpretation Comme nts Alk Phos (test code = Alk Phos) 95 39-136 [facility] [id number] 12:20:00* Test Item Value Reference Range Interpretation Comme nts Bili Total (test code = Bili Total) 0.3 0.2-1.3 [facility] [id number] 12:20:00* Test Item Value Reference Range Interpretation Comme nts eGFR (test code = eGFR) 71 [facility] [id number] 12:20:00* Test Item Value Reference Range Interpretation Comme nts Magnesium Lvl (test code = M agnesium Lvl) 1.8 1.8-2.4 [id number] 12:20:00* Test Item Value Reference Range Interpretation Comme nts WBC (test code = WBC) 4.6 3.7-10.4 [facility] [id number] 12:20:00* Test Item Value Reference Range Interpretation Comme nts RBC (test code = RBC) 4.37 4.20-5.40 [facility] CampusBtkjkihWMUPIXVFBT2204-11-44 12:20:00* Test Item Value Reference Range Interpretation Comme nts Hgb (test code = Hgb) 11.8 12.0-16.0 [facility] Camp[id number] 12:20:00* Test Item Value Reference Range Interpretation Comme nts Hct (test code = Hct) 36.0 36.0-48.0 [facility] CampusEgaxbqzZWMNVWCTVG2337-95-17 12:20:00* Test Item Value Reference Range Interpretation Comme nts MCV (test code = MCV) 82.3 80.0-98.0 [facility] CampusUkqxkjnCUEZQGWMMZ4890-66-72 12:20:00* Test Item Value Reference Range Interpretation Comme nts MCH (test code = MCH) 27.0 pg 27.0-31.0 [facility] CampusZiphtqjPDDCKDLBMA8369-56-59 12:20:00* Test Item Value Reference Range Interpretation Comme nts MCHC (test code = MCHC) 32.8 32.0-36.0 [facility] CampusXztjlwjPBOSCEPSOW5746-95-22 12:20:00* Test Item Value Reference Range Interpretation Comme nts RDW (test code = RDW) 14.2 11.5-14.5 [facility] CampusCrbdewgOEGKHHBTBE8816-33-04 12:20:00* Test Item Value Reference Range Interpretation Comme nts Platelet (test code = Platelet) 223 133-450 [facility] [id number] 12:20:00* Test Item Value Reference Range Interpretation Comme nts MPV (test code = MPV) 9.4 7.4-10.4 [facility] CampusSajjxmxZVJDFNAJUT5890-85-53 12:20:00* Test Item Value Reference Range Interpretation Comme nts Segs (test code = Segs) 35.9 45.0-75.0 [facility] CampusGuukbqxOLQSZQLUFL7306-05-99 12:20:00* Test Item Value Reference Range Interpretation Comme nts Lymphocytes (test code = Lymphocytes) 51.8 20.0-40.0 [facility] CampusHbtvootLDFUEQTPFQ6254-38-23 12:20:00* Test Item Value Reference Range Interpretation Comme nts Monocytes (test code = Monocytes) 8.1 2.0-12.0 [facility] CampusOxqcdwwSUKLKFAHNI4733-93-65 12:20:00* Test Item Value Reference Range Interpretation Comme nts Eosinophils (test code = Eosinophils) 3.6 See_Comment [Automated messa ge] The system which generated this result transmitted reference range: <=4.0. The reference range was not used to interpret this result as normal/abnormal. [facility] CampusIkabkgsNDCRJNAVPJ9549-08-26 12:20:00* Test Item Value Reference Range Interpretation Comme nts Basophils (test code = Basophils) 0.6 See_Comment [Automated messa ge] The system which generated this result transmitted reference range: <=1.0. The reference range was not used to interpret this result as normal/abnormal. [facility] CampusZnjtupvEKYTFVBOBO2716-50-67 12:20:00* Test Item Value Reference Range Interpretation Comme nts Neutrophils # (test code = N eutrophils #) 1.6 1.5-8.1 [facility] CampusBsmvoaqFXUIQUMCKC2641-60-02 12:20:00* Test Item Value Reference Range Interpretation Comme nts Lymphocytes # (test code = L ymphocytes #) 2.4 1.0-5.5 [facility] CampusNpcocvfAZLFZOLCYL1585-46-98 12:20:00* Test Item Value Reference Range Interpretation Comme nts Monocytes # (test code = Monocytes #) 0.4 See_Comment [Automated messa ge] The system which generated this result transmitted reference range: <=0.8. The reference range was not used to interpret this result as normal/abnormal. [facility] CampusNchdzwcUANVQNGUKZ4698-38-56 12:20:00* Test Item Value Reference Range Interpretation Comme nts Eosinophils # (test code = Eosinophils #) 0.2 See_Comment [Automated mess age] The system which generated this result transmitted reference range: <=0.5. The reference range was not used to interpret this result as normal/abnormal. [place] [id number] 12:20:00* Test Item Value Reference Range Interpretation Comme nts Basophils # (test code = Basophils #) 0.0 See_Comment [Automated Scoupon] The system which generated this result transmitted reference range: <=0.2. The reference range was not used to interpret this result as normal/abnormal. [facility]arxwhhBKDWOKWOXC2571-72-61 12:20:00* Test Item Value Reference Range Interpretation Comme nts Treponemal Ab (test code = Treponemal Ab) Non-Reactive *NA*(11/15/19 7:20 AM) [facility]woodXpzavsoTGMUBJ4843-28-23 12:20:00* Test Item Value Reference Range Interpretation Comme nts Trig (test code = Trig) 116 [facility]EoqdavdFSDGGS2106-49-67 12:20:00* Test Item Value Reference Range Interpretation Comme nts Chol (test code = Chol) 121 [facility]fbtfpkUCPFCU7643-36-55 12:20:00* Test Item Value Reference Range Interpretation Comme nts HDL (test code = HDL) 34 [facility]woodHavhkskPJTUTM7447-25-05 12:20:00* Test Item Value Reference Range Interpretation Comme nts CHD Risk (test code = CHD Risk) 3.56 1 3.90-5.80 [facility] HospitalQllwcbqJONYVI4710-21-82 12:20:00* Test Item Value Reference Range Interpretation Comme nts LDL (Calculated) (test code = LDL (Calculated)) 64 [facility] HospitalQijmegiJGOBJB2700-88-72 12:20:00* Test Item Value Reference Range Interpretation Comme nts VLDL (test code = VLDL) 23 1 [facility]CARDI[facility] [id number] 12:20:00* Test Item Value Reference Range Interpretation Comme nts Troponin-I (test code = Troponin-I) 0.02 See_Comment [Automated Scoupon] The system which generated this result transmitted reference range: <=0.40. The reference range was not used to interpret this result as normal/abnormal. [facility]wood[facility] [id number] 12:20:00* Test Item Value Reference Range Interpretation Comme nts Glucose Lvl (test code = Glucose Lvl) 107 70-99 [facility] [id number] 12:20:00* Test Item Value Reference Range Interpretation Comme nts BUN (test code = BUN) 13 7-22 [facility] [id number] 12:20:00* Test Item Value Reference Range Interpretation Comme nts Creatinine Lvl (test code = Creatinine Lvl) 0.80 0.50-1.40 [facility] [id number] 12:20:00* Test Item Value Reference Range Interpretation Comme nts Sodium Lvl (test code = Sodium Lvl) 145 135-145 [facility] [id number] 12:20:00* Test Item Value Reference Range Interpretation Comme nts Potassium Lvl (test code = P otassium Lvl) 3.0 3.5-5.1 [facility] [id number] 12:20:00* Test Item Value Reference Range Interpretation Comme nts Chloride Lvl (test code = Chloride Lvl) 112 95-109 [facility] [id number] 12:20:00* Test Item Value Reference Range Interpretation Comme nts CO2 (test code = CO2) 26 24-32 [facility] [id number] 12:20:00* Test Item Value Reference Range Interpretation Comme nts AGAP (test code = AGAP) 10.0 10.0-20.0 [facility] [id number] 12:20:00* Test Item Value Reference Range Interpretation Comme nts Calcium Lvl (test code = Calcium Lvl) 8.8 8.5-10.5 [facility] [id number] 12:20:00* Test Item Value Reference Range Interpretation Comme nts B/C Ratio (test code = B/C Ratio) 16 1 6-25 [facility] [id number] 12:20:00* Test Item Value Reference Range Interpretation Comme nts Total Protein (test code = T otal Protein) 7.7 6.4-8.4 [facility] [id number] 12:20:00* Test Item Value Reference Range Interpretation Comme nts Albumin Lvl (test code = Albumin Lvl) 3.1 3.5-5.0 [facility] [id number] 12:20:00* Test Item Value Reference Range Interpretation Comme nts Globulin (test code = Globulin) 4.6 2.7-4.2 [facility] [id number] 12:20:00* Test Item Value Reference Range Interpretation Comme nts A/G Ratio (test code = A/G Ratio) 0.7 1 0.7-1.6 [facility] [id number] 12:20:00* Test Item Value Reference Range Interpretation Comme nts ALT (test code = ALT) 17 See_Comment [A utomated message] The system which generated this result transmitted reference range: <=65. The reference range was not used to interpret this result as normal/abnormal. [facility]
--- NOTE | 2024-04-11 09:48 | P.PN ---
Date of Service: 04/11/24 Subjective: Still some left upper quadrant abdominal pain No acute events overnight Still in A-fib, rate controlled ROS: 10 point ROS as noted above, otherwise negative Physical exam GEN: Alert, oriented, NAD HEENT: Normal conjunctiva, sclera anicteric CV: A-fib rate around 100, no edema Pulm: Nonlabored respirations on room air ABD: Soft, mild left upper quadrant tenderness, nondistended MSK: No joint tenderness Integumentary: No rashes Neuro: Normal speech, normal affect Vitals reviewed Assessment: Dyspnea, bilateral pleural effusions suspect new onset CHFunknown EF New onset atrial fibrillation with rapid ventricular response Hypertensive urgencyunderlying primary hypertension Epigastric pain History of GERD Plan: Dyspnea, bilateral pleural effusions suspect new onset CHFunknown EF New onset atrial fibrillation with rapid ventricular response Switched to PO lasix, cardiology following Echocardiogram ordered, continue monitor on telemetry Carvedilol continued at 12.5 mg twice daily as taken at home [id number] score is 4 warranting anticoagulation, started on Eliquis Started on sotalol AM 04/11 Echo pending Appreciate further input from cardiology Hypertensive urgencyunderlying primary hypertension Nitropatch placed in ED Continue lisinopril, carvedilol Blood pressure improving Epigastric pain History of GERD Continue home PPI Troponin negative x3 DVT PPX: Eliquis Code status: Full Discharge Plan: Home Plan to discharge in: 48 Hours Time Spent Managing Pts Care (In Minutes): 35
--- NOTE | 2024-04-11 14:55 | ECHO ---
HEIGHT: 5 ft 5 in WEIGHT: 150 lb 0 oz DATE OF STUDY: 04/11/[address]: Jake Bobby NP 2-DIMENSIONAL: YES M.MODE: YES DOPPLER: YES COLOR FLOW: YES TDS: PORTABLE: YES DEFINITY: BUBBLE STUDY: DIAGNOSIS: NEW ONSET ATRIAL FIBRILLATION/ POSSIBLE CONGESTIVE HEART FAILURE CARDIAC HISTORY: CATHERIZATION: SURGERY: PROSTHETIC VALVE: PACEMAKER: MEASUREMENTS (cm) DIASTOLIC (NORMALS) SYSTOLIC (NORMALS) IVSd 1.0 (0.6-1.2) LA Diam 4.4 (1.9-4.0) LVEF 55% LVIDd 4.0 (3.5-5.7) LVIDs 2.9 (2.0-3.5) %FS 27% LVPWd 1.2 (0.6-1.2) Ao Diam 2.9 (2.0-3.7) 2 DIMENSIONAL ASSESSMENT: RIGHT ATRIUM: NORMAL LEFT ATRIUM: SEVERE DILATED RIGHT VENTRICLE: NORMAL LEFT VENTRICLE: NORMAL TRICUSPID VALVE: MILD TRICUSPID REGURGITATION MITRAL VALVE: MILD MITRAL REGURGITATION PULMONIC VALVE: NORMAL AORTIC VALVE: NORMAL PERICARDIAL EFFUSION: NONE AORTIC ROOT: NORMAL LEFT VENTRICULAR WALL MOTION: NORMAL DOPPLER/COLOR FLOW: DIASTOLIC DYSFUNCTION COMMENTS: 1. NORMAL LEFT VENTRICULAR SYSTOLIC FUNCTION, EJECTION FRACTION 55%, NORMAL WALL MOTION 2. DIASTOLIC DYSFUNCTION 3. SEVERE DILATED LEFT ATRIUM 4. MILD TO MODERATE MITRAL REGURGITATION 5. ELEVATED FILLING PRESSURE (RIGHT ATRIAL PRESSURE GREATER THAN 20 mmHg) TECHNOLOGIST: LAURA OCONNOR
[2024-04-11] MEDS: PNEUMOCOCCAL VACCINE 0.5 ML IMVAC ONE (17:11)
[2024-04-11] MEDS: FUROSEMIDE 20 MG TABLET PO SCH (17:11)
[2024-04-11] MEDS: FAMOTIDINE 20 MG TAB PO SCH (20:38)
[2024-04-11] MEDS ORDERED: HOME MED 1 EA UNK (Famotidine [Famotidine] 40 MG Tablet) PO SCH (21:00)
[2024-04-12 08:14] LABS: Absolute Eosinophils 0.1 K/uL (0-0.5); Absolute Lymphocytes (CBC) 1.5 K/uL (0.7-4.9); Absolute Monocytes 0.6 K/uL (0.1-1.3); Basophils % 0.7 % (0-1.3); Eosinophils % 1.2 % (0-4.4); Hematocrit 31.7 % (36.0-45.0); Hemoglobin 10.7 g/dL (12.0-15.0); Lymphocytes % 29.1 % (15.3-44.8); MCH 29.9 pg (27.0-35.0); MCHC 33.6 g/dL (32.0-36.0); MCV 88.9 fL (80-100); MPV 10.3 fL (7.6-11.3); Monocytes % 11.7 % (3.3-12.3); Neutrophils % 57.3 % (41.7-73.7); Nucleated Red Blood Cells % 0.1 % (0-0); Platelets 162 thou/uL (152-406); RBC Red Blood Cell Count 3.57 M/uL (3.86-4.86); Red Cell Distribution Width 13.9 % (12.1-15.2)
[2024-04-12 08:37] LABS: Anion Gap 7.7 mEq/L (5.0-15.0); Potassium 3.7 mEq/L (3.5-5.1)
--- NOTE | 2024-04-12 11:21 | P.PN ---
Subjective Date of Service: 04/12/24 Chief Complaint: No onset CHF/A-fib Subjective: No new changes, No C/O voiced, Tolerating diet, Ambulating, Improving Review of Systems 10-point ROS is otherwise unremarkable Physical Examination - Vital Signs Temperature: 97.2 F Blood Pressure: 178/106 Pulse: 72 Respirations: 23 Pulse Ox (%): 98 - Physical Exam General: Alert, In no apparent distress HEENT: Atraumatic, PERRLA, EOMI Neck: Supple, JVD not distended Respiratory: Clear to auscultation bilaterally, Normal air movement Cardiovascular: Irregular heart rate/rhythm Gastrointestinal: Normal bowel sounds, No tenderness Musculoskeletal: No tenderness Integumentary: No rashes Neurological: Normal speech, Normal tone, Normal affect Lymphatics: No axilla or inguinal lymphadenopathy - Studies Microbiology Data (last 24 hrs): 04/10/24 11:30 Clean Catch Urine [place] Count - Final BETWEEN 10,000 & 100,000 CFU/ML 04/10/24 11:30 Clean Catch Urine - Final Escherichia Coli Medications List Reviewed: Yes Assessment And Plan - Current Problems (Diagnosis) (1) Atrial fibrillation Current Visit: Yes Status: Acute Plan: start patient on Sotalol 80 mg po BID, EKG pending Eliquis 5 mg po BID (2) Hypertension Current Visit: No Status: Chronic Plan: continue coreg, lisinopril Qualifiers: Hypertension type: primary hypertension Qualified Code(s): I10 - Essential (primary) hypertension (3) PVC (premature ventricular contraction) Current Visit: Yes Status: Acute Plan: continue Coreg, Sotalol will need outpatient stress test.
[2024-04-12] MEDS: SUCRALFATE 1GM/10ML UCUP PO SCH (11:30)
[2024-04-12] MEDS: ONDANSETRON 4 MG/2 ML VIAL IV ONE (12:01)
--- NOTE | 2024-04-12 13:23 | P.PN ---
Date of Service: 04/12/24 Subjective: Still some left upper quadrant abdominal pain No acute events overnight Still in A-fib, rate controlled ROS: 10 point ROS as noted above, otherwise negative Physical exam GEN: Alert, oriented, NAD HEENT: Normal conjunctiva, sclera anicteric CV: A-fib rate around 100, no edema Pulm: Nonlabored respirations on room air ABD: Soft, mild left upper quadrant tenderness, nondistended MSK: No joint tenderness Integumentary: No rashes Neuro: Normal speech, normal affect Vitals reviewed Assessment: Dyspnea, bilateral pleural effusions suspect new onset CHFunknown EF New onset atrial fibrillation with rapid ventricular response Hypertensive urgencyunderlying primary hypertension Epigastric pain History of GERD Plan: Dyspnea, bilateral pleural effusions suspect new onset CHFunknown EF New onset atrial fibrillation with rapid ventricular response Continue IV lasix while in hospital, cardiology following Echocardiogram shows diastolic dysfunction, continue monitor on telemetry Carvedilol continued at 12.5 mg twice daily as taken at home [id number] score is 4 warranting anticoagulation, started on Eliquis Started on sotalol AM 04/11 Repeat EKG at night to eval QTc Possible discharge in the morning Hypertensive urgencyunderlying primary hypertension Nitropatch placed in ED Continue lisinopril, carvedilol Blood pressure still elevated Epigastric pain History of GERD Continue home PPI Troponin negative x3 CT abdomen/pelvis negative for acute findings Lipase within normal limits Repeat CMP/lipase tomorrow morning Will trial Carafate History of cholecystectomy DVT PPX: Eliquis Code status: Full Discharge Plan: Home Plan to discharge in: 48 Hours Time Spent Managing Pts Care (In Minutes): 35
[2024-04-12] MEDS: FUROSEMIDE 20 MG/ 2ML VIAL IV SCH (17:26)
[2024-04-12 17:40] VITALS: BMI 24.7
[2024-04-13 05:46] LABS: Absolute Lymphocytes (CBC) 1.6 K/uL (0.7-4.9); Absolute Monocytes 0.5 K/uL (0.1-1.3); Absolute Neutrophil 2.6 K/uL (1.8-8.0); Basophils % 0.8 % (0-1.3); Hematocrit 33.9 % (36.0-45.0); Hemoglobin 11.7 g/dL (12.0-15.0); Lymphocytes % 32.3 % (15.3-44.8); MCH 30.3 pg (27.0-35.0); MCHC 34.4 g/dL (32.0-36.0); MCV 88.1 fL (80-100); MPV 9.8 fL (7.6-11.3); Monocytes % 11.2 % (3.3-12.3); Neutrophils % 54.7 % (41.7-73.7); Nucleated Red Blood Cells % 0.1 % (0-0); Platelets 185 thou/uL (152-406); RBC Red Blood Cell Count 3.84 M/uL (3.86-4.86); Red Cell Distribution Width 13.9 % (12.1-15.2)
[2024-04-13 06:01] LABS: Albumin 2.8 g/dL (3.4-5.0); Albumin/Globulin Ratio 0.7 (1.1-1.8); Anion Gap 10.4 mEq/L (5.0-15.0); Bilirubin Total 0.5 mg/dL (0.2-1.0); Globulin 4.1 g/dL (2.3-3.5); Potassium 3.4 mEq/L (3.5-5.1); Protein, Total 6.9 g/dL (6.4-8.2)
--- NOTE | 2024-04-13 08:01 | RAD REPORT ---
EXAM DESCRIPTION: RAD - Chest Single View - 04/13/2024 6:20 am CLINICAL HISTORY: eval effusions/volume status after diuresis COMPARISON: Chest Single View dated 04/10/2024; Chest Single View dated 12/31/2023; Chest Single View d ated 11/30/2023; Chest Pa And Lat (2 Views) dated 05/24/2023; Abdomen Pelvis W Contrast dated FINDINGS: Lines: None. Lungs: Diffuse prominence of the pulmonary interstitium is marginally improved. Pleural: Small bilateral effusions. Cardiac: Cardiomegaly. Mediastinum: Within normal limits. Bones: No acute fractures. Other: None IMPRESSION: Mild improvement in pulmonary edema with similar size of the small pleural effusions.
--- NOTE | 2024-04-13 11:20 | P.PN ---
Subjective Date of Service: 04/13/24 Chief Complaint: No onset CHF/A-fib Subjective: No new changes, No C/O voiced, Tolerating diet, Ambulating, Improving Review of Systems 10-point ROS is otherwise unremarkable Physical Examination - Vital Signs Temperature: 97.0 F Blood Pressure: 166/108 Pulse: 71 Respirations: 20 Pulse Ox (%): 96 - Physical Exam General: Alert, In no apparent distress HEENT: Atraumatic, PERRLA, EOMI Neck: Supple, JVD not distended Respiratory: Clear to auscultation bilaterally, Normal air movement Cardiovascular: Regular rate/rhythm, Normal S1 S2 Gastrointestinal: Normal bowel sounds, No tenderness Musculoskeletal: No tenderness Integumentary: No rashes Neurological: Normal speech, Normal tone, Normal affect Lymphatics: No axilla or inguinal lymphadenopathy - Studies Microbiology Data (last 24 hrs): 04/10/24 11:30 Clean Catch Urine [place] Count - Final BETWEEN 10,000 & 100,000 CFU/ML 04/10/24 11:30 Clean Catch Urine - Final Escherichia Coli Medications List Reviewed: Yes Assessment And Plan - Current Problems (Diagnosis) (1) Atrial fibrillation Current Visit: Yes Status: Acute Plan: EKG shows normal QTc, patient is in sinus rhythm with few runs of sinus bradycardia Lower Sotalol to 40 mg po BID Eliquis 5 mg po BID Continue to monitor on tele overnight. (2) Hypertension Current Visit: No Status: Chronic Plan: continue coreg, lisinopril add HCTZ 25 mg daily Qualifiers: Hypertension type: primary hypertension Qualified Code(s): I10 - Essential (primary) hypertension (3) PVC (premature ventricular contraction) Current Visit: Yes Status: Acute Plan: continue Coreg, Sotalol will need outpatient stress test.
[2024-04-13] MEDS: hydroCHLOROthiazide 25 MG TAB PO ONE (11:37)
--- NOTE | 2024-04-13 14:18 | P.PN ---
Date of Service: 04/13/24 Subjective: Having some sinus bradycardia this morning No other acute events overnight ROS: 10 point ROS as noted above, otherwise negative Physical exam GEN: Alert, oriented, NAD HEENT: Normal conjunctiva, sclera anicteric CV: A-fib rate around in the 50s Pulm: Nonlabored respirations on room air ABD: Soft, mild left upper quadrant tenderness, nondistended MSK: No joint tenderness Integumentary: No rashes Neuro: Normal speech, normal affect Vitals reviewed Assessment: Dyspnea, bilateral pleural effusions suspect new onset CHFunknown EF New onset atrial fibrillation with rapid ventricular response Now with sinus bradycardia Hypertensive urgencyunderlying primary hypertension Epigastric pain History of GERD Plan: Dyspnea, bilateral pleural effusions suspect new onset CHFunknown EF New onset atrial fibrillation with rapid ventricular response Now with sinus bradycardia Switched from Lasix to p.o. hydrochlorothiazide Echocardiogram shows diastolic dysfunction, continue monitor on telemetry Carvedilol continued at 12.5 mg twice daily as taken at home [id number] score is 4 warranting anticoagulation, started on Eliquis Started on sotalol AM 04/11 QTc within normal notes after third dose although patient developed bradycardia morning of 04/13 Dose of sotalol reduced to 40 mg this evening 04/13, continue to monitor on telemetry Possible discharge in the morning Hypertensive urgencyunderlying primary hypertension Continue lisinopril, carvedilol Add HCTZ 25 mg, started on 04/13 Epigastric pain History of GERD Continue home PPI Troponin negative x3 CT abdomen/pelvis negative for acute findings Lipase within normal limits History of cholecystectomy Started on Carafate 04/12 with significant improvement, recommend outpatient follow-up with GI for further evaluation/EGD DVT PPX: Eliquis Code status: Full Discharge Plan: Home Plan to discharge in: 48 Hours Time Spent Managing Pts Care (In Minutes): 35
[2024-04-13] MEDS: SOTALOL HCL 80 MG TAB PO SCH (17:18)
[2024-04-14 06:50] LABS: Albumin/Globulin Ratio 0.8 (1.1-1.8); Bilirubin Total 0.5 mg/dL (0.2-1.0); Globulin 3.9 g/dL (2.3-3.5); Protein, Total 6.9 g/dL (6.4-8.2)
[2024-04-14] MEDS: POTASSIUM 25 MEQ EFFERV TAB PO ONE (08:53)
[2024-04-14] MEDS: hydroCHLOROthiazide 25 MG TAB PO SCH (08:54)
--- NOTE | 2024-04-14 11:41 | P.PN ---
Date of Service: 04/14/24 Subjective: HR improved No acute events overnight Still with intermittent left upper quadrant pain-improved with Carafate ROS: 10 point ROS as noted above, otherwise negative Physical exam GEN: Alert, oriented, NAD HEENT: Normal conjunctiva, sclera anicteric CV: NSR rate 50s-60s Pulm: Nonlabored respirations on room air ABD: Soft, mild left upper quadrant tenderness, nondistended MSK: No joint tenderness Integumentary: No rashes Neuro: Normal speech, normal affect Vitals reviewed Assessment: Acute diastolic congestive heart failure Dyspnea, bilateral pleural effusions New onset atrial fibrillation with rapid ventricular response-resolved sinus bradycardia Hypertensive urgencyunderlying primary hypertension Epigastric pain History of GERD Plan: Acute diastolic congestive heart failure Dyspnea, bilateral pleural effusions New onset atrial fibrillation with rapid ventricular response-resolved sinus bradycardia Switched from Lasix to p.o. hydrochlorothiazide Echocardiogram shows diastolic dysfunction, continue monitor on telemetry On admission patient was taking lisinopril 40 mg daily, carvedilol 12.5 mg twice daily She was darted on sotalol 80 mg twice daily for new onset atrial fibrillation She developed severe bradycardia dropping into the 30s after converting to normal sinus rhythm 04/13 Her medications were adjusted and she is currently on lisinopril 40 mg daily, HCTZ 25 mg daily, hydralazine 25 mg 3 times daily [id number] score is 4 warranting anticoagulation, started on Eliquis Will continue to monitor on telemetry today, monitor blood pressure during hospitalization PT consultation If patient works well with PT, is not significantly bradycardic, blood pressure is stable and labs are okay possible discharge tomorrow morning Will need prescriptions for Eliquis, hydralazine, hydrochlorothiazide as well as Carafate liquid Would be holding carvedilol, sotalol and following up closely with cardiology outpatient for further management Hypertensive urgencyunderlying primary hypertension Continue lisinopril 40 mg daily Add HCTZ 25 mg, started on 04/13 Stop carvedilol, sotalol Hydralazine 25 mg 3 times daily by mouth added 04/14 Epigastric pain History of GERD Continue home PPI Troponin negative x3 CT abdomen/pelvis negative for acute findings Lipase within normal limits History of cholecystectomy Started on Carafate 04/12 with significant improvement, recommend outpatient follow-up with GI for further evaluation/EGD DVT PPX: Eliquis Code status: Full Discharge Plan: Home Plan to discharge in: 24 to 48 hours Time Spent Managing Pts Care (In Minutes): 35
[2024-04-14] MEDS: HYDRALAZINE HCL 25 MG TABLET PO SCH (13:00)
--- NOTE | 2024-04-14 16:50 | P.PN ---
Subjective Date of Service: 04/14/24 Chief Complaint: No onset CHF/A-fib Subjective: No new changes, No C/O voiced, Tolerating diet, Ambulating, Improving Review of Systems 10-point ROS is otherwise unremarkable Physical Examination - Vital Signs Temperature: 98.3 F Blood Pressure: 175/83 Pulse: 64 Respirations: 20 Pulse Ox (%): 95 - Physical Exam General: Alert, In no apparent distress HEENT: Atraumatic, PERRLA, EOMI Neck: Supple, JVD not distended Respiratory: Clear to auscultation bilaterally, Normal air movement Cardiovascular: Regular rate/rhythm, Normal S1 S2 Gastrointestinal: Normal bowel sounds, No tenderness Musculoskeletal: No tenderness Integumentary: No rashes Neurological: Normal speech, Normal tone, Normal affect Lymphatics: No axilla or inguinal lymphadenopathy - Studies Medications List Reviewed: Yes Assessment And Plan - Current Problems (Diagnosis) (1) Atrial fibrillation Current Visit: Yes Status: Acute Plan: EKG shows normal QTc, patient is in sinus rhythm with few runs of sinus bradycardia Sotalol has been on hold, Eliquis 5 mg po BID Continue to monitor on tele overnight. (2) Hypertension Current Visit: No Status: Chronic Plan: continue lisinopril HCTZ 25 mg daily continue to hold coreg Hydralazine 25 mg po TID Qualifiers: Hypertension type: primary hypertension Qualified Code(s): I10 - Essential (primary) hypertension (3) PVC (premature ventricular contraction) Current Visit: Yes Status: Acute Plan: will need outpatient stress test.
[2024-04-15 04:37] VITALS: O2SAT 95
[2024-04-15 05:43] LABS: Albumin 3.3 g/dL (3.4-5.0); Albumin/Globulin Ratio 0.7 (1.1-1.8); Anion Gap 8.4 mEq/L (5.0-15.0); Bilirubin Total 0.6 mg/dL (0.2-1.0); Globulin 4.6 g/dL (2.3-3.5); Potassium 3.4 mEq/L (3.5-5.1); Protein, Total 7.9 g/dL (6.4-8.2)
[2024-04-15] MEDS: POTASSIUM CL SA 10 MEQ TAB PO ONE (08:45)
[2024-04-15 08:59] VITALS: BP 160/105; TEMP 98.5
--- NOTE | 2024-04-15 09:45 | P.PN ---
Subjective Date of Service: 04/15/24 Chief Complaint: No onset CHF/A-fib Subjective: No new changes, No C/O voiced, Tolerating diet, Ambulating, Improving Review of Systems 10-point ROS is otherwise unremarkable Physical Examination - Vital Signs Temperature: 98.5 F Blood Pressure: 160/105 Pulse: 66 Respirations: 18 Pulse Ox (%): 100 - Physical Exam General: Alert, In no apparent distress HEENT: Atraumatic, PERRLA, EOMI Neck: Supple, JVD not distended Respiratory: Clear to auscultation bilaterally, Normal air movement Cardiovascular: Regular rate/rhythm, Normal S1 S2 Gastrointestinal: Normal bowel sounds, No tenderness Musculoskeletal: No tenderness Integumentary: No rashes Neurological: Normal speech, Normal tone, Normal affect Lymphatics: No axilla or inguinal lymphadenopathy - Studies Medications List Reviewed: Yes Assessment And Plan - Current Problems (Diagnosis) (1) Atrial fibrillation Current Visit: Yes Status: Acute Plan: EKG shows normal QTc, patient is in sinus rhythm with few runs of sinus bradycardia Sotalol has been on hold, Eliquis 5 mg po BID OK to discharge, will get 14 days monitor when seen at clinic (2) Hypertension Current Visit: No Status: Chronic Plan: continue lisinopril HCTZ 25 mg daily continue to hold coreg Increase Hydralazine to 50 mg po TID Qualifiers: Hypertension type: primary hypertension Qualified Code(s): I10 - Essential (primary) hypertension (3) PVC (premature ventricular contraction) Current Visit: Yes Status: Acute Plan: will need outpatient stress test.
--- NOTE | 2024-04-15 09:49 | P.DS ---
Admission Date: 04/10/24 Discharge Date: 04/15/24 Disposition: ROUTINE DISCHARGE Discharge Condition: GOOD Reason for Admission: No onset CHF/A-fib Vital Signs/Physical Exam: Temp Pulse Resp BP Pulse Ox 98.5 F 66 18 160/105 H 100 04/15/24 09:45 04/15/24 09:45 04/15/24 09:45 04/15/24 09:45 04/15/24 09:45 Laboratory Data at Discharge: WBC 4.80 thou/uL (4.3-10.9) 04/13/24 05:16 Hgb 11.7 g/dL (12.0-15.0) L D 04/13/24 05:16 Hct 33.9 % (36.0-45.0) L 04/13/24 05:16 Plt Count 185 thou/uL (152-406) 04/13/24 05:16 PT 13.4 SECONDS (9.4-12.5) H 04/10/24 11:59 INR 1.20 04/10/24 11:59 Sodium 141 mEq/L (136-145) 04/15/24 05:07 Potassium 3.4 mEq/L (3.5-5.1) L D 04/15/24 05:07 BUN 28 mg/dL (7-18) H 04/15/24 05:07 Creatinine 1.29 mg/dL (0.55-1.02) H 04/15/24 05:07 Glucose 111 mg/dL (74-106) H 04/15/24 05:07 Magnesium 2.1 mg/dL (1.6-2.4) 04/14/24 05:25 Total Bilirubin 0.6 mg/dL (0.2-1.0) 04/15/24 05:07 AST 20 U/L (15-37) 04/15/24 05:07 ALT 33 U/L (13-56) 04/15/24 05:07 Alkaline Phosphatase 77 U/L (45-117) 04/15/24 05:07 Triglycerides 78 mg/dL (<150) 04/11/24 06:06 Cholesterol 101 mg/dL (<200) 04/11/24 06:06 HDL Cholesterol 42 mg/dL (40-60) 04/11/24 06:06 Cholesterol/HDL Ratio 2.40 04/11/24 06:06 Lipase 78 U/L (13-75) H 04/15/24 05:07 Home Medications: lisinopriL [Lisinopril] 40 mg PO DAILY 05/14/17 Famotidine 40 mg PO BEDTIME 04/10/24 Pantoprazole [Protonix Tab*] 40 mg PO DAILY 04/10/24 Apixaban [Eliquis] 5 mg PO BID 30 Days #60 tablet 04/15/24 Hydralazine [Apresoline*] 25 mg PO TID 30 Days #90 tab 04/15/24 Sucralfate [Carafate*] 10 ml PO ACHS 7 Days #280 ml 04/15/24 hydroCHLOROthiazide [Hydrodiuril*] 25 mg PO DAILY 30 Days #30 tab 04/15/24 New Medications: Hydralazine [Apresoline*] 25 mg PO TID 30 Days #90 tab Sucralfate [Carafate*] 10 ml PO ACHS 7 Days #280 ml Apixaban [Eliquis] 5 mg PO BID 30 Days #60 tablet hydroCHLOROthiazide [Hydrodiuril*] 25 mg PO DAILY 30 Days #30 tab Physician Discharge Instructions: Lawanda Sharp was treated for atrial fibrillation with rapid ventricular response. She responded well to treatment but then started to show a slow heart rate. Medications were adjusted and her heart rate remained stable. Please follow up with cardiology, Dr. Britt in one week for continued management. Please follow up with gastroenterology, Dr. Cast, for epigastric pain that was successfully treated with carafate. Continue taking carafate for seven days and continue your home dose protonix. 1. Please call and schedule a follow-up appointment with your PCP in 3-5 days - Please follow-up with your PCP for medication refills/adjustments 2. Please call and schedule a follow-up appointment with Dr. Britt in one week 3. Please call and schedule a follow-up with Gastroenterology, Dr Cast, in two weeks concerning the epigastric pain which was improved with carafate 3. Continue heart healthy diet 4. activity restrictions, fall precaution but independent 5. Return to the ED if symptoms worsen New medications Eliquis 5 mg PO twice daily Carafate 10 ml with meals and before bedtime for 7 days Hydralazine 25 mg threes times daily hydrochlorothiazide 25 mg daily STOP medication Coreg- this was causing a slow heart rate, this will be re-evaluated by Dr. Britt at your visit Diet: AHA Activity: Ad david Followup: Jovan Britt MD [ACTIVE - CAN ADMIT] - Esperanza Tyler DO [Primary Care Provider] - Timmy Cast MD [ASSOCIATE-ACTIVE - CAN ADMIT] -
--- NOTE | 2024-04-15 17:49 | EKG ---
Test Date: 2024-04-14 Test Time: 09:11:23 Foam Cutting Supervisor: LUIS MEASUREMENT RESULTS: Intervals: Rate: 59 MA: 182 QRSD: 98 QT: 470 QTc: 465 [place]: P: 63 MA: 182 QRS: 3 T: 6 INTERPRETIVE STATEMENTS: Sinus bradycardia with premature atrial complexes with aberrant conduction with junctional escape complexes Septal infarct, age undetermined Abnormal ECG Compared to ECG 04/10/2024 14:27:07 Atrial premature complex(es) now present Junctional escape complex(es) now present Aberrant conduction of supraventricular beat(s) now present Myocardial infarct finding now present Atrial fibrillation no longer present Ventricular premature complex(es) no longer present Electronically Signed On 04-15-24 17:46:02 CDT by Jovan Britt
--- NOTE | 2024-04-15 17:54 | EKG ---
Test Date: 2024-04-12 Test Time: 21:38:35 Tabulating Supervisor: LIZBETH MEASUREMENT RESULTS: Intervals: Rate: 68 [place]: QRSD: 88 QT: 450 QTc: 478 [place]: P: [place]: QRS: 0 T: 18 INTERPRETIVE STATEMENTS: Atrial fibrillation Septal infarct, age undetermined Abnormal ECG Compared to ECG 04/10/2024 14:27:07 Myocardial infarct finding now present Ventricular premature complex(es) no longer present Electronically Signed On 04-15-24 17:48:26 CDT by Jovan Britt
--- NOTE | 2024-04-15 18:03 | EKG ---
Test Date: 2024-04-10 Test Time: 14:27:07 Hazmat Truck Driver: GAUDENCIO MEASUREMENT RESULTS: Intervals: Rate: 99 [place]: QRSD: 88 QT: 354 QTc: 454 [place]: P: [place]: QRS: 21 T: 71 INTERPRETIVE STATEMENTS: Atrial fibrillation with premature ventricular or aberrantly conducted complexes Abnormal ECG Compared to ECG 04/10/2024 11:16:19 Myocardial infarct finding no longer present Electronically Signed On 04-15-24 17:52:34 CDT by Jovan Britt
--- NOTE | 2024-04-15 18:04 | EKG ---
Test Date: 2024-04-10 Test Time: 11:16:19 [employer] Radio Operator: ELIZABETH MEASUREMENT RESULTS: Intervals: Rate: 99 [place]: QRSD: 88 QT: 346 QTc: 444 [place]: P: [place]: QRS: 40 T: 63 INTERPRETIVE STATEMENTS: Atrial fibrillation with premature ventricular or aberrantly conducted complexes Possible Anterior infarct, age undetermined Abnormal ECG Compared to ECG 12/31/2023 17:13:08 Sinus rhythm no longer present Myocardial infarct finding still present Electronically Signed On 04-15-24 17:53:03 CDT by Jovan Britt
--- NOTE | 2024-04-18 13:37 | EKG ---
Test Date: 2024-04-13 Test Time: 11:51:34 Forestry Adviser: MARIA ISABEL MEASUREMENT RESULTS: Intervals: Rate: 59 [place]: 178 QRSD: 92 QT: 480 QTc: 475 [place]: P: 54 [place]: 178 QRS: 4 T: 28 INTERPRETIVE STATEMENTS: Sinus bradycardia with frequent premature ventricular complexes Otherwise normal ECG Compared to ECG 04/12/2024 21:39:56 Atrial fibrillation no longer present Myocardial infarct finding no longer present Electronically Signed On 04-18-24 13:30:38 CDT by Jovan Britt
--- NOTE | 2024-04-18 13:38 | EKG ---
Test Date: 2024-04-12 Test Time: 21:39:56 Type Casting Machine Operator: LIZBETH MEASUREMENT RESULTS: Intervals: Rate: 58 [place]: QRSD: 94 QT: 452 QTc: 443 [place]: P: [place]: QRS: 4 T: 23 INTERPRETIVE STATEMENTS: Atrial fibrillation with premature ventricular or aberrantly conducted complexes Septal infarct, age undetermined Abnormal ECG Compared to ECG 04/12/2024 21:38:35 Ventricular premature complex(es) now present Myocardial infarct finding still present Electronically Signed On 04-18-24 13:30:50 CDT by Jovan Britt
== END 2024-04-15 12:04 | disposition home or self-care (01) | DRG 291 ==
LOC: ER 10:49 → ERHOLD 15:22 → 2ND 16:03
PROVIDERS: ADMIT Hospitalist; ATTEND Internal Medicine
DX: I11.0 Hypertensive heart disease with heart failure (principal); I50.31 Acute diastolic (congestive) heart failure; I48.19 Other persistent atrial fibrillation; I16.0 Hypertensive urgency; E03.9 Hypothyroidism, unspecified; I49.3 Ventricular premature depolarization; K21.9 Gastro-esophageal reflux disease without esophagitis; R00.1 Bradycardia, unspecified; R82.71 Bacteriuria; Z60.2 Problems related to living alone; Z79.01 Long term (current) use of anticoagulants; Z79.02 Long term (current) use of antithrombotics/antiplatelets; Z90.49 Acquired absence of other specified parts of digestive tract; Z79.890 Hormone replacement therapy; Z79.899 Other long term (current) drug therapy; Z90.710 Acquired absence of both cervix and uterus
CPT/HCPCS: 36415; 71045; 74177; 80048; 80053; 80061; 80076; 81001; 83690; 83735; 83880; 84443; 84484; 85025; 85610; 87086; 87088; 93005; 93306; 96372; 97161; 99285; J0696; J1650; J1940; J2405; J3010; J7030; Q9967

== ENCOUNTER 2024-09-15 12:55 | Inpatient (IN) | payer OTHER ==
--- OUTSIDE RECORDS SUMMARY | 2024-09-15 12:58 | XMS REPORT | Continuity of Care Document ---
Author Name Unknown Address [address] [facility] [address] [place] [address] [facility] Address [address] [facility] [address] [place] [address] Care Team Providers Care Student Development Coordinator Name Role Phone YOCASTA FUNES Primary Care Physician Maria Elena vailaCLAIRE Carter Attending Clinician Unavailable JUSTIN CANTU Attending Clinician Unavailab [place] PTA Attending Clinician Unav ailable FOX [place] Attending Clinician UnavailFOX Balrow Attending Clinician UnavailJESSIE Jeffery Attending Clinician Unavailable Doctor Unassigned, [place] Attending Clinician U navailable RADIOLOGY Attending Clinician Unavailable Radiology Attending Clinician Unavailable DE BARRETT Attending Clinician Un available JUSTIN CANTU Admitting Clinician Unavailab DELIA Hoffman Admitting Clinician Unavailable DE BARRETT Admitting Clinician Un available Payers Payer Name Policy Type Policy Number Effective Date Expirati on Date Source [employer] MEDICARE [id number] 2024 00:00:00 Problems Condition Name Condition Details Condition Category Status Onset Date Resolution Date Last Treatment Date Treating Clinician Comments Source DIZZINESS, DISSECTION VERTEBRAL ARTERY DIZZINESS, DISSECTION VERTEBRAL ARTERY Active 11/15/2019 [facility] Diagnosis Active 11-14 00:00: 00 2019-11-17 06:31:00 Dago Beasley ILLNESS, UNSPECIFIE D ILLNESS, UNSPECIFIE D Active [facility] Diagnosis Active 2019-11-17 06:31:00 Dago Beasley Allergies, Adverse Reactions, Alerts Allergy Name Allergy Type Status Severity Reaction(s) Onset Date Inactive Date Treating Clinician Comments Source NO KNOWN ALLERGIE S Drug Class Active [facility] Social History Social Habit Start Date Stop Date Quantity Comments Source Sexual orientation U [facility] Exposure to SARS-CoV-2 (event) 2022-07-30 00:00:00 2022-08-09 15:27:00 Not sure [facility] Social History 2019-11-15 11:12:48 2019-11-15 11:12:48 Melina Ramos Sex Ass[birth year] At 1940 00:00:00 1940 00:00:00 [facility] Smoking Status Start Date Stop Date Source Tobacco smoking consumption unknown [facility] Medications Ordered Medication Name Filled Medication Name Start Date Stop Date Current Medication? Ordering Clinician Indication Dosage Frequency Signature (SIG) Comments Components Source gadobenate dimeglumine (MULTIHANCE -15 mL) injection 0.2 mL/kg 08-31 19:30: 00 08-31 19:28 :00 No [id number] .2mL/kg 0.2 mL/kg, Intravenou s, ONCE, 1 dose, On Sun08/31/22 at 1330, Routine [facility] Plavix 11-16 14:00: 00 No Notes: (Same As: Plavix) Dago Beasley Plavix 11-15 20:26: 00 Yes Notes: (Same As: Plavix) Dago Beasley lisinopril 20 mg oral tablet 11-15 13:52: 00 Yes 20 mg = 1 tab, PO, Daily, # 30 tab, 0 Refill(s), Pharmacy: [facility][id number] Dago Beasley meclizine 12.5 mg oral tablet 11-15 13:52: 00 Yes 12.5 mg = 1 tab, PO, BID, PRN Dizziness, X 15 day, # 30 tab, 0 Refill(s), Pharmacy: [facility] #[id number] Dago Beasley Aspirin 81 MG Enteric Coated Tablet 11-15 13:52: 00 Yes 81 mg = 1 tab, PO, Q24H, 0 Refill(s) Dago Beasley atorvastati n 11-15 02:00: 00 No Notes: (Same as: Lipitor) Dago Beasley potassium chloride 20 mEq oral tablet, [...] s with feeding tube less than 14 [place] (Dobhoff, J-tube etc) and pediatric and patients. Dago Beasley potassium chloride 20 mEq oral tablet, [...] s with feeding tube less than 14 [place] (Dobhoff, J-tube etc) and pediatric and patients. [...] minutes Give bolus over 2-3 minutes. Dago Marcosann enalapril 11-14 11:18: 00 No Notes: (Same [...] PO, Daily, # 30 tab, 0 Refill(s) Mercedeztyrel lu Ramos Vital Signs Vital Name Observation Time Observation Value Comments S ource Systolic (mm Hg) 2019-11-16 17:11:00 [facility] Diastolic (mm Hg) 2019-11-16 17:11:00 [facility] Temperature Oral (F) 2019-11-16 13:00:00 98.4 F [facility] Heart Rate 2019-11-16 13:00:00 [facility] [place] Respitory Rate 2019-11-16 13:00:00 [facility] Systolic (mm Hg) 2019-11-16 13:00:00 [facility] [place] Diastolic (mm Hg) 2019-11-16 13:00:00 [facility] Temperature Oral (F) 2019-11-16 09:00:00 97.9 F [facility] Heart Rate 2019-11-16 09:00:00 [facility] Respitory Rate 2019-11-16 09:00:00 [facility] Systolic (mm Hg) 2019-11-16 09:00:00 [facility] Diastolic (mm Hg) 2019-11-16 09:00:00 [facility] [place] Temperature Oral (F) 2019-11-16 05:00:00 97.5 F [facility] Heart Rate 2019-11-16 05:00:00 [facility] [place] Respitory Rate 2019-11-16 05:00:00 [facility] [place] Weight 2019-11-15 10:49:00 [facility] BMI Calculated 2019-11-15 10:49:00 [facility] [place] [facility] Height 2019-11-15 10:49:00 154.94 cm [facility] [place] Procedures Procedure Date / Time Performed Performing Clinicia n Source ASSIGNMENT OF BENEFITS 2023-11-15 17:46:19 Docto r Unassigned, [place] [facility] PHYSICIAN ORDERS 2023-10-18 06:01:00 Doctor Unas signed, [place] [facility] REFERRAL- REQUEST/RESPONSE 2023-08-23 06:01:00 Doctor Unassigned, [place] [facility] MR THORACIC SPINE W WO CONTRAST 2022-08-31 19:41:00 Requisition, Paper [facility] Encounters Start Date/Time End Date/Time Encounter Type Admission Type Attending Clinicians Care Facility Care Department Encounter ID Source 2024-06-03 10:00:00 2024-06-03 10:00:00 Outpatient CLAIRE PAUL [facility] [id number] [facility] 2024-05-27 09:30:00 2024-05-27 09:30:00 Outpatient CLAIRE PAUL [facility] [id number] [facility] 2024-02-04 08:30:00 2024-02-04 08:30:00 Outpatient JUSTIN BARKLEY [facility] ANS [id number] [facility] 2023-12-07 00:00:00 2023-12-07 00:00:00 Case Management Pricilla Sharma [facility] [id number] [facility] 2023-11-27 09:30:00 2023-11-27 09:30:00 Outpatient FOX COOPER CRAIG [facility] [id number] [facility] 2023-11-15 13:00:00 2023-11-15 13:53:51 Outpatient R JESSIE HANSON [facility] [id number] [facility] 2023-11-15 00:00:00 2023-11-15 00:00:00 Orders Only Doctor Unassigned, [place] [facility] [id number] [id number] [facility] 2023-10-18 00:00:00 2023-10-18 00:00:00 Orders Only Doctor Unassigned, [place] [facility] [id number] [id number] [facility] 2023-08-23 00:00:00 2023-08-23 00:00:00 Orders Only Doctor Unassigned, [place] [facility] [id number] [id number] [id number] [facility] 2023-08-14 11:17:44 2023-08-14 11:17:44 Outpatient [facility] [id number] Alexy Mei 2023-03-06 08:28:18 2023-03-06 08:28:18 Outpatient [facility] [id number] Alexy Mei 2022-08-31 12:36:29 2022-08-31 23:59:00 Outpatient R RADIOLOGY [facility] [id number] [facility] 2022-08-31 12:36:29 2022-08-31 23:59:00 Hospital Encounter Radiology [facility] [id number] [id number] [id number] [facility] 2019-11-15 19:07:00 2019-11-16 20:36:00 Observatio n nullFlavo r [facility] [id number] [place]ago [facility] [place] 2019-11-15 14:07:00 2019-11-16 15:36:00 Outpatient DE BARRETT [facility] [id number] [facility] Results Test Description Test Time Test Comments Results Result Co mments Source [facility] [id number] 12:20:00* Test Item Value Reference Range Interpretation Comme nts Troponin-I (test code = Troponin-I) 0.02 See_Comment [Automated ChartsNow (now MusicQubed)a ge] The system which generated this result transmitted reference range: <=0.40. The reference range was not used to interpret this result as normal/abnormal. [facility] [id number] 12:20:00* Test Item Value Reference Range Interpretation Comme nts Glucose Lvl (test code = Glucose Lvl) 107 70-99 [facility] [id number] 12:20:00* Test Item Value Reference Range Interpretation Comme nts WBC (test code = WBC) 4.6 3.7-10.4 [facility] [id number] 12:20:00* Test Item Value Reference Range Interpretation Comme nts Treponemal Ab (test code = Treponemal Ab) Non-Reactive *NA*(11/15/19 7:20 AM) [facility] [id number] 12:20:00* Test Item Value Reference Range Interpretation Comme nts Trig (test code = Trig) 116 [facility]
[2024-09-15 13:27] LABS: Absolute Basophils 0.1 K/uL (0-0.5); Absolute Eosinophils 0.1 K/uL (0-0.5); Absolute Lymphocytes (CBC) 1.7 K/uL (0.7-4.9); Absolute Monocytes 0.4 K/uL (0.1-1.3); Absolute Neutrophil 7.5 K/uL (1.8-8.0); Basophils % 0.7 % (0-1.3); Eosinophils % 1.1 % (0-4.4); Hematocrit 38.5 % (36.0-45.0); Hemoglobin 12.9 g/dL (12.0-15.0); Lymphocytes % 17.7 % (15.3-44.8); MCH 28.4 pg (27.0-35.0); MCHC 33.6 g/dL (32.0-36.0); MCV 84.6 fL (80-100); MPV 9.7 fL (7.6-11.3); Monocytes % 4.1 % (3.3-12.3); Neutrophils % 76.4 % (41.7-73.7); Platelets 228 thou/uL (152-406); RBC Red Blood Cell Count 4.55 M/uL (3.86-4.86)
[2024-09-15 14:02] LABS: SARS-CoV-2 Antigen CONTROL BLUE LINE VIS/BG OK; SARS-CoV-2 Antigen Rapid Res Negative (Negative)
[2024-09-15] MEDS ORDERED: CEFTRIAXONE 1000 MG/VIAL ONE (14:05)
[2024-09-15] MEDS ORDERED: NA CHLORIDE 0.9% 1,000 ML ONE (14:05)
--- NOTE | 2024-09-15 14:09 | RAD REPORT ---
EXAM: Chest Single View HISTORY: COUGH COMPARISON: 05/14/24 FINDINGS: LUNGS/PLEURA: Diffuse increased interstitial prominence. No consolidative airspace disease. Small ple ural effusions difficult to exclude. MEDIASTINUM: The mediastinal silhouette is within normal limits. CARDIAC: Mild cardiomegaly UPPER ABDOMEN: No significant abnormality. BONES: No acute abnormality. LINES/TUBES/OTHER: N/A IMPRESSION: Mild pulmonary edema.
[2024-09-15 14:19] LABS: D-Dimer 1.771 FEUug/mL (0-0.500); PT Prothrombin Time 13.1 SECONDS (9.4-12.5); PTT, Activated Partial Thromb 23.2 SECONDS (24.3-36.9); Protime INR 1.25
[2024-09-15 14:34] LABS: Anion Gap 10.7 mEq/L (5.0-15.0); Thyroid Stimulating Hormone 2.19 uIU/mL (0.358-3.740); Troponin High Sensitivity 20.3 pg/mL (<58.9)
[2024-09-15 14:36] LABS: Potassium 2.7 mEq/L (3.5-5.1)
[2024-09-15] MEDS ORDERED: POTASSIUM CL SA 10 MEQ TAB PO ONE (14:53)
[2024-09-15] MEDS ORDERED: Magnesium Sulfate 2gm IVPB 2 G/50 ML BAG IV ONE (14:53)
[2024-09-15] MEDS ORDERED: KCL 20 MEQ/100 mL IVPB 100 ML IV ONE (14:53)
--- NOTE | 2024-09-15 15:07 | RAD REPORT ---
EXAMINATION: CTA CHEST PE CLINICAL INDICATION: Female, 84 years old. eval for PE TECHNIQUE: This examination was performed according to an angiographic protocol with 3D post-processi ng. This involves 3D reconstructions, MIPs, volume rendered images and/or shaded surface rendering. One or more of the following dose reduction techniques were used: Automated exposure control, adjustm ent of the mA and/or kV according to patient size, and/or iterative reconstruction. Unless otherwise specified, incidental findings do not require dedicated imaging follow-up. [id number]. COMPARISON: Same day chest radiograph. FINDINGS: LOWER NECK: Visualized thyroid gland and soft tissues are normal. LUNGS AND AIRWAYS: Interlobular septal thickening.Atelectasis as a result of the pleural effusions. PLEURA: Small bilateral pleural effusions. MEDIASTINUM AND LYMPH NODES: No mediastinal mass or fluid collection. Normal size mediastinal, hilar, and axillary lymph nodes. THORACIC AORTA: No thoracic aortic aneurysm. PULMONARY ARTERIES: Caliber is within normal limits. No pulmonary emboli identified. HEART: Moderate cardiomegaly. Coronary arterial calcifications are present.Trace pericardial effusion . OSSEOUS STRUCTURES AND CHEST WALL: Multilevel degenerative changes. No acute fracture. UPPER ABDOMEN: No acute abnormalities.Cholecystectomy. Benign-appearing low-density lesion in the hep atic dome. IMPRESSION: No evidence of pulmonary emboli to the subsegmental level. Pulmonary edema with small bilateral pleur al effusions.
--- NOTE | 2024-09-15 15:18 | EDPHYS ---
Physician Documentation [facility] Name: Lawanda Sharp Age: 84 yrs Sex: Female : 1940 Arrival Date: 09/15/2024 Time: 12:55 Bed 4 Private MD: ED Physician Khurram Morejon HPI: 09/15 13:04 This 84 yrs old Female presents to ER via Unassigned with complaints of ec2 Breathing Difficulty. 13:04 Patient arrives today for evaluation of upper respiratory symptoms. Patient reports ec2 that she has been having cough and cold symptoms as well as congestion. No fevers, no nausea, no vomiting, no leg swelling. No history of heart failure.. Historical: - Allergies: 13:06 NKDA; cm10 - Home Meds: 13:41 lisinopril 40 mg oral tablet 1 tab daily [Active]; cetirizine 10 mg oral tablet 1 tab 2 ll1 times per day [Active]; levothyroxine 75 mcg capsule 1 cap daily [Active]; Eliquis 5 mg oral tablet 1 tab 2 times per day [Active]; hydralazine 25 mg Oral tablet 1 tab 3 times per day [Active]; hydrocodone-acetaminophen 5-325 mg Oral tablet 1 tab as needed for pain [Active]; hydrochlorothiazide 25 mg Oral tablet 1 tab daily [Active]; - PMHx: 13:06 Hypertension; cm10 - PSHx: 13:06 Cholecystectomy; hysterectomy; cm10 - Immunization history:: Adult Immunizations up to date. - Infectious Disease History:: Denies. - Social history:: Smoking status: unknown. ROS: 13:04 Constitutional: as per hpi ec2 Exam: 13:04 Constitutional: GEN: NAD Head: atraumatic Eyes: EOMI Ears: External ears are ec2 normal. CV: tachycardiaLUNGS: no respiratory distress, no wheezes or rales or rhonchi ABD: non-distended SKIN: no evidence of rashes MSK: no evidence of trauma Vital Signs: 13:06 BP 160 / 119; Pulse 125; Resp 20; Temp 98.2(O); Pulse Ox 100% on R/A; Weight 68.04 kg; cm10 Height 5 ft. 5 in. ; Pain 0/10; 13:20 BP 157 / 125; Pulse 140; Resp 19; Pulse Ox 98% on R/A; ll1 13:40 BP 154 / 103; Pulse 104; Resp 18; Pulse Ox 100% on R/A; ll1 14:35 BP 175 / 116; Pulse 102; Resp 18; Pulse Ox 97% on R/A; ll1 15:01 BP 133 / 96; Pulse 103; Resp 18; Pulse Ox 95% on R/A; ll1 15:41 BP 125 / 81; Pulse 100; ec2 13:06 Body Mass Index 24.96 (68.04 kg, 165.1 cm) cm10 13:06 Pain Scale: Adult cm10 MDM: 13:00 Medical Screening Exam initiated ec2 13:04 Data reviewed: vital signs, nurses notes. ED course: Patient arrives today for ec2 evaluation of of shortness of breath. Examination is unrevealing. Will obtain a cardiac workup as well as viral swabs. Differential includes volume overload, viral infection, ACS. 13:12 ED course: EKG independently reviewed and interpreted by me, shows atrial fibrillation, ec2 rate of 125, no acute ST segment elevations, ectopy noted as well.. 14:45 ED course: Metabolic profile shows hypokalemia with potassium of 2.7. Renal dysfunction ec2 with a GFR 49. BNP elevated at 4200, troponin within normal ranges. Thyroid studies are unremarkable. Will give the patient potassium.. 15:17 ED course: CT imaging shows bilateral pleural effusions, trace, subsequently I had ec2 stopped the crystalloid infusion. Will give the patient Lasix. Supplement to the patient's hypokalemia. Will admit for diuresis. Discussed with hospitalist, pending admission.. 15:18 ED course: Additionally patient does have tachycardia, did have an elevated lactic ec2 acid, I do not believe this to be infectious in origin outpatient I did originally give empiric antibiotic coverage however I I do not suspect the patient's lactic acidosis secondary to systemic inflammatory response. Additionally patient would not benefit from additional crystalloid given the patient's likely has heart failure, additionally patient is hypertensive and would not benefit from pressors either.. 15:20 ED course: Further discussion with patient, patient does report a history of heart ec2 failure. Also history of atrial fibrillation, is on Eliquis.. 09/15 13:03 Order name: Basic Metabolic Panel; Complete Time: 14:45 ec2 09/15 13:03 Order name: CBC with Diff; Complete Time: 14:00 ec2 09/15 13:03 Order name: NT PRO-BNP; Complete Time: 14:45 ec2 09/15 13:03 Order name: Troponin HS; Complete Time: 14:45 ec2 09/15 13:03 Order name: Influenza Screen (a \T\ B); Complete Time: 14:11 ec2 09/15 13:03 Order name: SARS RAPID; Complete Time: 14:11 ec2 09/15 13:11 Order name: Blood Culture Adult (2) ec2 09/15 13:11 Order name: Lactate w/ 2H reflex if indic.; Complete Time: 14:11 ec2 09/15 13:11 Order name: Protime (+inr); Complete Time: 14:28 ec2 09/15 13:11 Order name: Ptt, Activated; Complete Time: 14:28 ec2 09/15 13:11 Order name: D-Dimer; Complete Time: 14:28 ec2 09/15 14:02 Order name: Ghost Lactate-NO COLLECT Timer; Complete Time: 16:01 EDMS 09/15 14:05 Order name: T4 Free; Complete Time: 14:45 EDMS 09/15 14:05 Order name: Thyroid Stimulating Hormone; Complete Time: 14:45 EDMS 09/15 14:07 Order name: Glucose, Ancillary Testing; Complete Time: 14:11 EDMS 09/15 16:12 Order name: Potassium EDMS 09/15 13:03 Order name: XRAY Chest (1 view); Complete Time: 14:11 ec2 09/15 14:28 Order name: CT Chest For PE Angio; Complete Time: 15:08 ec2 09/15 13:11 Order name: EKG; Complete Time: 13:11 ec2 09/15 13:03 Order name: Cardiac monitoring; Complete Time: 14:01 ec2 09/15 13:03 Order name: EKG - Nurse/Tech; Complete Time: 14:00 ec2 09/15 13:03 Order name: IV Saline Lock; Complete Time: 14:00 ec2 09/15 13:03 Order name: Labs collected and sent; Complete Time: 14:00 ec2 09/15 13:03 Order name: O2 Per Protocol; Complete Time: 14:00 ec2 09/15 13:03 Order name: O2 Sat Monitoring; Complete Time: 14:00 2 09/15 13:11 Order name: Accucheck; Complete Time: 13:57 2 09/15 13:11 Order name: IV Saline Lock - Large Bore; Complete Time: 13:20 ec2 09/15 13:11 Order name: Vital Signs; Complete Time: 13:20 2 09/15 13:35 Order name: Labs - recollect needed: recollect blue and lavender top; Complete Time: bd 13:57 Administered Medications: 14:15 Drug: Rocephin IV 1 grams IV at bolus once; Given slow IV push per pharmacy ll1 instructions Route: IV; Rate: bolus; Site: right antecubital; 15:32 Follow up: Response: No adverse reaction; IV Status: Completed infusion; IV Intake: 26ncuc4 14:15 Drug: NS 0.9% IV 1000 ml IV at 1 bolus Per protocol; to be given as a bolus over 60 ll1 minutes Route: IV; Rate: 1 bolus; Site: right antecubital; 15:41 Follow up: Response: No adverse reaction; IV Status: Order to discontinue infusion; IV ll1 Intake: 300ml 15:01 Drug: Magnesium Sulfate IVPB 2 grams IVPB once over 30 mins Route: IVPB; Infused Over: ll1 30 mins; Site: right antecubital; 15:42 Follow up: Response: No adverse reaction; IV Status: Completed infusion; IV Intake: ll1 100ml 15:01 Drug: Potassium Chloride PO 40 mEq PO once Route: PO; ll1 15:42 Follow up: Response: No adverse reaction ll1 15:42 Drug: Potassium Chloride IV 20 mEq IV at calculated rate once; administer over 1-2 ll1 hours {Note: NS rider at 125 ml/hr.} Route: IV; Rate: calculated rate; Site: right antecubital; 18:09 Follow up: IV Status: Completed infusion iw 15:45 Drug: Furosemide IVP 40 mg IVP once; give over 2 minutes Route: IVP; Site: right jb4 antecubital; 16:45 Follow up: Response: No adverse reaction iw Disposition Summary: 09/15/24 15:18 Hospitalization Ordered Notes: Hospitalization Status: Inpatient Admission ec2 Provider: Lalo Taylor ec2 Location: Telemetry/MedSurg (Inpatient) ec2 Condition: Stable ec2 Problem: an acute exacerbation ec2 Symptoms: have improved ec2 Bed/Room Type: Standard ec2 Room Assignment: 205(09/15/24 17:27) bd Diagnosis - Heart failure, unspecified ec2 Forms: - Medication Reconciliation Form ec2 - SBAR form ec2 - Leadership Thank You Letter ec2 Signatures: Dispatcher [employer] EDMS Shaye Pollard Carmelo Guajardo RN RN [id number] Lauren Erickson RN RN ll1 Terese Tejeda RN RN cm10 Khurram Morejon MD MD ec2 Betty Perez RN iw Corrections: (The following items were deleted from the chart) 13:04 13:04 BASIC METABOLIC PANEL+C.LAB.BRZ ordered. EDMS EDMS 13:04 13:04 CBC+H.LAB.BRZ ordered. EDMS EDMS 13:04 13:04 PROBNP+C.LAB.BRZ ordered. EDMS EDMS 13:04 13:04 Troponin High Sensitivity+C.LAB.BRZ ordered. EDMS EDMS 13:04 13:04 Influenza Screen (A \T\ B)+BA.LAB.BRZ ordered. EDMS EDMS 13:04 13:04 SARS-COV-2 Antigen Rapid+I.LAB.BRZ ordered. EDMS EDMS 13:04 13:04 Chest Single View+RAD.RAD.BRZ ordered. EDMS EDMS 13:06 13:04 Constitutional: GEN: NAD Head: atraumatic Eyes: EOMI Ears: External ears are ec2 normal. CV: regular rate LUNGS: no respiratory distress, no wheezes or rales or rhonchi ABD: non-distended SKIN: no evidence of rashes MSK: no evidence of trauma ec2 14:05 13:40 THYROID STIMULAT HORMONE+C.LAB.BRZ ordered. EDMS EDMS 14:05 13:40 T4 FREE+C.LAB.BRZ ordered. EDMS EDMS 17:27 15:18 ec2 bd
--- NOTE | 2024-09-15 15:18 | ER ---
Nurse's Notes [facility] Name: Lawanda Sharp Age: 84 yrs Sex: Female : 1940 Arrival Date: 09/15/2024 Time: 12:55 Bed 4 Private MD: Diagnosis: Heart failure, unspecified Presentation: 09/15 13:06 Chief complaint: Patient states: Shortness of breath onset this morning at 0800. Pt cm10 also reports cough. Coronavirus screen: Client denies travel out of the [place] in the last 14 days. Ebola Screen: Patient denies travel to an Ebola-affected area in the 21 days before illness onset. Initial Sepsis Screen: Does the patient meet any 2 criteria? HR > 90 bpm. Does the patient have a suspected source of infection? No. Patient's initial sepsis screen is negative. Risk Assessment: Do you want to hurt yourself or someone else? Patient reports no desire to harm self or others. Onset of symptoms was September 15, 2024. 13:06 Acuity: SANIYA 2 cm10 13:06 Method Of Arrival: Wheelchair cm10 Triage Assessment: 13:07 General: Appears in no apparent distress. uncomfortable, Behavior is calm, cooperative. cm10 Neuro: No deficits noted. Level of Consciousness is awake, alert, obeys commands, Oriented to person, place, time, situation, Appropriate for age. Respiratory: No deficits noted. Reports shortness of breath Airway is patent Respiratory effort is labored, Respiratory pattern is symmetrical. 13:24 Respiratory: Onset: The symptoms/episode began/occurred this morning, the patient has ll1 moderate shortness of breath. Historical: - Allergies: 13:06 NKDA; cm10 - Home Meds: 13:41 lisinopril 40 mg oral tablet 1 tab daily [Active]; cetirizine 10 mg oral tablet 1 tab 2 ll1 times per day [Active]; levothyroxine 75 mcg capsule 1 cap daily [Active]; Eliquis 5 mg oral tablet 1 tab 2 times per day [Active]; hydralazine 25 mg Oral tablet 1 tab 3 times per day [Active]; hydrocodone-acetaminophen 5-325 mg Oral tablet 1 tab as needed for pain [Active]; hydrochlorothiazide 25 mg Oral tablet 1 tab daily [Active]; - PMHx: 13:06 Hypertension; cm10 - PSHx: 13:06 Cholecystectomy; hysterectomy; cm10 - Immunization history:: Adult Immunizations up to date. - Infectious Disease History:: Denies. - Social history:: Smoking status: unknown. Screenin:23 [facility] ED Fall Risk Assessment (Adult) History of falling in the last 3 months, ll1 including since admission No falls in past 3 months (0 pts) Confusion or Disorientation No (0 pts) Intoxicated or Sedated No (0 pts) Impaired Gait Yes (1 pt) Mobility Assist Device Used Yes (1 pt) Altered Elimination No (0 pt) Score/Fall Risk Level 0 - 2 = Low Risk Maintained a safe environment, Hourly rounding (assess needs \\T\\ fall precautionary measures) done. Abuse screen: Denies threats or abuse. Nutritional screening: No deficits noted. Tuberculosis screening: No symptoms or risk factors identified. Assessment: 13:21 General: Appears distressed, uncomfortable, Behavior is calm, cooperative, appropriate ll1 for age. Pain: Denies pain. Cardiovascular: Reports palpitations, shortness of breath, Rhythm is atrial fibrillation with rapid ventricular response. Respiratory: Reports shortness of breath at rest labored breathing Airway is patent Trachea midline Respiratory effort is even, unlabored, Respiratory pattern is regular. EENT: Reports nasal discharge constant sniffing, states she always has "sinus" problems. Not worse than usual. 13:41 Reassessment: No changes from previously documented assessment. Patient and/or family ll1 updated on plan of care and expected duration. Pain level reassessed. 13:57 Reassessment: No changes from previously documented assessment. Patient and/or family ll1 updated on plan of care and expected duration. Pain level reassessed. Patient is alert, oriented x 3, equal unlabored respirations, skin warm/dry/pink. 15:01 Reassessment: No changes from previously documented assessment. Patient and/or family ll1 updated on plan of care and expected duration. Pain level reassessed. Patient is alert, oriented x 3, equal unlabored respirations, skin warm/dry/pink. Vital Signs: 13:06 BP 160 / 119; Pulse 125; Resp 20; Temp 98.2(O); Pulse Ox 100% on R/A; Weight 68.04 kg; cm10 Height 5 ft. 5 in. ; Pain 0/10; 13:20 BP 157 / 125; Pulse 140; Resp 19; Pulse Ox 98% on R/A; ll1 13:40 BP 154 / 103; Pulse 104; Resp 18; Pulse Ox 100% on R/A; ll1 14:35 BP 175 / 116; Pulse 102; Resp 18; Pulse Ox 97% on R/A; ll1 15:01 BP 133 / 96; Pulse 103; Resp 18; Pulse Ox 95% on R/A; ll1 15:41 BP 125 / 81; Pulse 100; ec2 13:06 Body Mass Index 24.96 (68.04 kg, 165.1 cm) cm10 13:06 Pain Scale: Adult cm10 ED Course: 12:58 Patient arrived in ED. al6 12:58 Khurram Morejon MD is Attending Physician. ec2 13:00 Lauren Erickson, HERSON is Primary Nurse. ll1 13:00 Arm band placed on Patient placed in an exam room, on a stretcher. ll1 13:07 Triage completed. cm10 13:23 Patient has correct armband on for positive identification. Bed in low position. ll1 Provided Education on: ER procedures and process. Client placed on continuous cardiac and pulse oximetry monitoring. NIBP monitoring applied. satellite project site monitor on. 13:23 Initial lab(s) drawn, by me, sent to lab. COVID swab sent to lab. Flu and/or RSV swab ll1 sent to lab. Inserted saline lock: 22 gauge in right antecubital area, using aseptic technique. Blood collected. Flushed with 10 mL NS. 13:37 XRAY Chest (1 view) In Process Unspecified. EDMS 13:45 Second set of blood cultures drawn. ll1 13:55 Lab(s) recollected, by me, sent to lab. ll1 13:57 Blood Culture Adult (2) Sent. ll1 14:52 CT Chest For PE Angio In Process Unspecified. EDMS 15:18 Lalo Taylor MD is Hospitalizing Provider. ec2 18:08 No provider procedures requiring assistance completed. Patient admitted, IV remains in iw place. Administered Medications: 14:15 Drug: Rocephin IV 1 grams IV at bolus once; Given slow IV push per pharmacy ll1 instructions Route: IV; Rate: bolus; Site: right antecubital; 15:32 Follow up: Response: No adverse reaction; IV Status: Completed infusion; IV Intake: 27ovmm8 14:15 Drug: NS 0.9% IV 1000 ml IV at 1 bolus Per protocol; to be given as a bolus over 60 ll1 minutes Route: IV; Rate: 1 bolus; Site: right antecubital; 15:41 Follow up: Response: No adverse reaction; IV Status: Order to discontinue infusion; IV ll1 Intake: 300ml 15:01 Drug: Magnesium Sulfate IVPB 2 grams IVPB once over 30 mins Route: IVPB; Infused Over: ll1 30 mins; Site: right antecubital; 15:42 Follow up: Response: No adverse reaction; IV Status: Completed infusion; IV Intake: ll1 100ml 15:01 Drug: Potassium Chloride PO 40 mEq PO once Route: PO; ll1 15:42 Follow up: Response: No adverse reaction ll1 15:42 Drug: Potassium Chloride IV 20 mEq IV at calculated rate once; administer over 1-2 ll1 hours {Note: NS rider at 125 ml/hr.} Route: IV; Rate: calculated rate; Site: right antecubital; 18:09 Follow up: IV Status: Completed infusion iw 15:45 Drug: Furosemide IVP 40 mg IVP once; give over 2 minutes Route: IVP; Site: right jb4 antecubital; 16:45 Follow up: Response: No adverse reaction iw Medication: 13:23 VIS not applicable for this client. ll1 Intake: 15:32 IV: 10ml; Total: 10ml. ll1 15:41 IV: 300ml; Total: 310ml. ll1 15:42 IV: 100ml; Total: 410ml. ll1 Outcome: 15:18 Decision to Hospitalize by Provider. ec2 18:09 Admitted to Med/surg accompanied by tech, via wheelchair, room 205, with chart, iw 18:09 Condition: good 18:09 Discharge instructions given to patient, family, Instructed on the need for admit, Demonstrated understanding of instructions, 18:09 Patient left the ED. iw Signatures: Dispatcher [employer] Betty Anne RN RN iw Carmelo Trimble RN RN jb4 Lauren Erickson RN RN ll1 Terese Tejeda RN RN cm10 Khurram Morejon MD MD 2 Yun Benitez
[2024-09-15] MEDS ORDERED: FUROSEMIDE 40 MG/4 ML VIAL ONE (15:34)
[2024-09-15] MEDS ORDERED: NA CHLORIDE 0.9% 250 ML ONE (15:36)
--- NOTE | 2024-09-15 16:18 | P.HP ---
Certification for Inpatient Patient admitted to: Inpatient With expected LOS: >2 Midnights Patient will require the following post-hospital care: None Practitioner: I am a practitioner with admitting privileges, knowledge of patient current condition, hospital course, and medical plan of care. Services: Services provided to patient in accordance with Admission requirements found in Title 42 Section 412.3 of the Code of Federal Regulations Patient History Date of Service: 09/15/24 History of Present Illness: 84-year-old female history of relatively recently diagnosed chronic diastolic congestive heart failure, atrial fibrillation now on chronic anticoagulation, hypertension, GERD presents to the emergency department with chief complaint of shortness of breath. She reports her symptoms began this morning after an emotional situation with her family. She denies chest pain but does report dyspnea at rest. She was evaluated in the emergency department her labs were significant for initial high sensitive troponin of 20.3 BNP of 4234 creatinine 1.12 potassium 2.7 D-dimer 1.771 subsequent CTA of the chest was performed which revealed no PE, pulmonary edema with small bilateral pleural effusions. She was given IV Lasix, IV and p.o. potassium. Initially she was in A-fib RVR with a rate in 120s but heart rate has improved to around 90 currently still in A-fib. Patient be admitted for further evaluation and management of acute CHF, hypokalemia. Allergies No Known Allergies Allergy (Unverified 03/07/23 23:45) Home Medications: lisinopriL [Lisinopril] 40 mg PO DAILY 05/14/17 Famotidine 40 mg PO BEDTIME 04/10/24 Pantoprazole [Protonix Tab*] 40 mg PO DAILY 04/10/24 Apixaban [Eliquis] 5 mg PO BID 30 Days #60 tablet 04/15/24 Hydralazine [Apresoline*] 25 mg PO TID 30 Days #90 tab 04/15/24 Sucralfate [Carafate*] 10 ml PO ACHS 7 Days #280 ml 04/15/24 hydroCHLOROthiazide [Hydrodiuril*] 25 mg PO DAILY 30 Days #30 tab 04/15/24 - Past Medical/Surgical History Diabetic: No -: HTN -: Hypothyroidism -: borderline diabetic -: chronic kidney infection -: GERD -: -: Hysterectomy -: Cholecystectomy Psychosocial/ Personal History: Patient lives at home alone - Family History Mother -: Hypertension - Social History Alcohol use: No CD- Drugs: No Caffeine use: Yes Review of Systems 10-point ROS is otherwise unremarkable Respiratory: Shortness of Breath Physical Examination - Physical Exam General: Alert, In no apparent distress, Oriented x3 HEENT: Atraumatic, PERRLA, Mucous membr. moist/pink, EOMI, Sclerae nonicteric Neck: Supple, 2+ carotid pulse no bruit, No LAD, Without JVD or thyroid abnormality Respiratory: Diminished Cardiovascular: No edema, Irregular heart rate/rhythm (A-fib rate in the 90s) Gastrointestinal: Normal bowel sounds, No tenderness Musculoskeletal: No tenderness Integumentary: No rashes Neurological: Normal gait, Normal speech, Normal strength at 5/5 x4 extr, Normal tone, Normal affect Lymphatics: No axilla or inguinal lymphadenopathy - Studies Laboratory Data (last 24 hrs) 09/15/24 09/15/24 09/15/24 13:50 13:50 13:15 WBC 9.80 Hgb 12.9 Hct 38.5 Plt Count 228 PT 13.1 H INR 1.25 APTT 23.2 L Sodium 138 Potassium 2.7 L BUN 13 Creatinine 1.12 H Glucose 180 H Microbiology Data (last 24 hrs): 09/15/24 13:13 Nasopharnyx Influenza Type A Antigen Screen - Final 09/15/24 13:13 Nasopharnyx Influenza Type B Antigen Screen - Final Assessment and Plan - Plan Assessment: Acute on chronic diastolic congestive heart failure Atrial fibrillation on chronic anticoagulation with RVR Hypokalemia Hypertension History of GERD Plan: Acute on chronic diastolic congestive heart failure Was previously prescribed HCTZ 25 mg daily Now with significant hypokalemia at 2.7 No lower extremity edema but does have pulmonary edema, small pleural effusions and does feel short of breath Potassium replaced in ED, given Lasix in ED Repeat potassium tonight, replace per protocol Lasix ordered for the morning, holding HCTZ for now May consider switch from HCTZ to Lasix Cardiology consulted Had recent stress test at the end of last year that was fine per patient family Echo during last admission showed normal EF Atrial fibrillation on chronic anticoagulation with RVR In March of last year patient was admitted for A-fib RVR Tried sotalol, carvedilol but developed severe bradycardia during that admission and those medications were held Has not been on any beta-blockers or other antiarrhythmics at home Heart rate was elevated on arrival in the 120s but this is improved she is currently in A-fib in the 90s Continue to monitor, appreciate further input from cardiology Hypokalemia Replaced in ED, protocol in place Repeat potassium at 8:00 tonight, replace per protocol Hypertension History of GERD Continue home medications DVT PPX: Eliquis Code status: Full Discharge Plan: Home Plan to discharge in: 48 Hours - Advance Directives Does patient have a Living Will: No Does patient have a Durable POA for Healthcare: No - Code Status/Comfort Care Code Status Assessed: Yes (Full code) Critical Care: No Time Spent Managing Pts Care (In Minutes): 67
[2024-09-15 18:28] VITALS: BMI 25.0
[2024-09-15] MEDS: ACETAMINOPHEN 325 MG TABLET PO PRN (19:33)
[2024-09-15] MEDS: HYDRALAZINE HCL 25 MG TABLET PO SCH (21:05)
[2024-09-15] MEDS: POTASSIUM CL SA 10 MEQ TAB PO ONE (21:05)
[2024-09-15] MEDS: APIXABAN 5 MG TABLET PO SCH (21:06)
[2024-09-16 05:20] LABS: Absolute Eosinophils 0.1 K/uL (0-0.5); Absolute Monocytes 0.5 K/uL (0.1-1.3); Absolute Neutrophil 2.1 K/uL (1.8-8.0); Basophils % 0.9 % (0-1.3); Eosinophils % 2.4 % (0-4.4); Hematocrit 33.9 % (36.0-45.0); Hemoglobin 11.5 g/dL (12.0-15.0); Lymphocytes % 42.1 % (15.3-44.8); MCH 28.7 pg (27.0-35.0); MCV 84.3 fL (80-100); MPV 9.9 fL (7.6-11.3); Monocytes % 10.2 % (3.3-12.3); Neutrophils % 44.4 % (41.7-73.7); Nucleated Red Blood Cells % 0.2 % (0-0); Platelets 194 thou/uL (152-406); RBC Red Blood Cell Count 4.01 M/uL (3.86-4.86); Red Cell Distribution Width 13.3 % (12.1-15.2)
[2024-09-16 05:47] LABS: Anion Gap 7.6 mEq/L (5.0-15.0); Magnesium 2.3 mg/dL (1.6-2.4); Phosphorus 2.1 mg/dL (2.5-4.9); Potassium 3.6 mEq/L (3.5-5.1); Thyroid Stimulating Hormone 2.49 uIU/mL (0.358-3.740)
[2024-09-16] MEDS: POTASS/SODIUM PHOSPHATE 1 PKT POWD.PACK PO SCH (08:06)
[2024-09-16] MEDS: PANTOPRAZOLE 40MG TABLET PO SCH (08:07)
[2024-09-16] MEDS: FUROSEMIDE 20 MG/ 2ML VIAL IV SCH (08:07)
[2024-09-16] MEDS: POTASSIUM CL SA 10 MEQ TAB PO ONE (08:07)
[2024-09-16] MEDS: lisinopriL 20 MG TAB PO SCH (08:07)
[2024-09-16] MEDS ORDERED: HOME MED 1 EA UNK (Lisinopril [Lisinopril] 40 MG Tablet) PO SCH (09:00)
--- NOTE | 2024-09-16 09:55 | P.PN ---
Date of Service: 09/16/24 Subjective Awake, no new complaints on RA ROS 10 point ROS as noted above, otherwise negative Physical Exam General: Alert and Oriented x3, NAD HEENT: Atraumatic, PERRLA, Mucous membr. moist/pink, EOMI, Sclerae nonicteric Neck: Supple, 2+ carotid pulse no bruit, No LAD, Without JVD or thyroid abnormality Respiratory: Diminished, on RA Cardiovascular: No edema, Afib with rate control Gastrointestinal: Normal bowel sounds, No tenderness Musculoskeletal: No tenderness Integumentary: No rashes Neurological: Normal gait, Normal speech, Normal strength at 5/5 x4 extr, Normal tone, Normal affect Vitals Reviewed Problem list Acute on chronic diastolic congestive heart failure Pulmonary edema with small bilateral pleural effusions Atrial fibrillation on chronic anticoagulation with RVR Hypokalemia Hypophosphatemia Hypertension History of GERD Assessment and Plan Acute on chronic diastolic congestive heart failure Pulmonary edema with small bilateral pleural effusions Was previously prescribed HCTZ 25 mg daily Significant hypokalemia at 2.7 improved to 3.6 (09/16) No lower extremity edema but does have pulmonary edema, small pleural effusions and does feel short of breath Potassium replaced in ED, given Lasix in ED Repeat potassium tonight, replace per protocol Lasix BID, holding HCTZ for now May consider switch from HCTZ to Lasix at discharge Cardiology consulted Had recent stress test at the end of last year that was fine per patient family Echo during last admission showed normal EF UOP and daily weights Atrial fibrillation on chronic anticoagulation with RVR In March of last year patient was admitted for A-fib RVR Tried sotalol, carvedilol but developed severe bradycardia during that admission and those medications were held Has not been on any beta-blockers or other antiarrhythmics at home Heart rate was elevated on arrival in the 120s but this is improved she is currently in A-fib in the 90s Continue to monitor- heart rate controlled (09/16), appreciate further input from cardiology Hypokalemia Hypophosphatemia K 3.6, Phos 2.[address] Monitor AM labs Hypertension History of GERD Continue home medications DVT PPX: Eliquis Code status: Full Discharge Plan: Home Plan to discharge in: 48 Hours
[2024-09-17 01:25] VITALS: O2SAT 98
[2024-09-17 04:55] LABS: Absolute Basophils 0.1 K/uL (0-0.5); Absolute Eosinophils 0.1 K/uL (0-0.5); Absolute Monocytes 0.6 K/uL (0.1-1.3); Basophils % 1.2 % (0-1.3); Hematocrit 34.9 % (36.0-45.0); Hemoglobin 12.1 g/dL (12.0-15.0); MCH 28.8 pg (27.0-35.0); MCHC 34.6 g/dL (32.0-36.0); MCV 83.4 fL (80-100); MPV 9.9 fL (7.6-11.3); Monocytes % 8.2 % (3.3-12.3); Neutrophils % 44.6 % (41.7-73.7); Nucleated Red Blood Cells % 0.1 % (0-0); Platelets 174 thou/uL (152-406); RBC Red Blood Cell Count 4.18 M/uL (3.86-4.86); Red Cell Distribution Width 13.3 % (12.1-15.2)
[2024-09-17 05:05] LABS: Anion Gap 7.4 mEq/L (5.0-15.0); Phosphorus 3.9 mg/dL (2.5-4.9); Potassium 3.4 mEq/L (3.5-5.1)
[2024-09-17] MEDS: POTASSIUM CL SA 10 MEQ TAB PO ONE (08:33)
--- NOTE | 2024-09-17 10:29 | P.DS ---
Admission Date: 09/15/24 Discharge Date: 09/17/24 Disposition: ROUTINE DISCHARGE Discharge Condition: GOOD Brief History of Present Illness: Diagnosis Acute on chronic diastolic congestive heart failure Pulmonary edema with small bilateral pleural effusions Atrial fibrillation on chronic anticoagulation with RVR Hypokalemia Hypophosphatemia Hypertension History of GERD HPI 09/15/2024 Lawanda Sharp is an 84-year-old female history of relatively recently diagnosed chronic diastolic congestive heart failure, atrial fibrillation now on chronic anticoagulation, hypertension, GERD presents to the emergency department with chief complaint of shortness of breath. She reports her symptoms began this morning after an emotional situation with her family. She denies chest pain but does report dyspnea at rest. She was evaluated in the emergency department her labs were significant for initial high sensitive troponin of 20.3 BNP of 4234 creatinine 1.12 potassium 2.7 D-dimer 1.771 subsequent CTA of the chest was performed which revealed no PE, pulmonary edema with small bilateral pleural effusions. She was given IV Lasix, IV and p.o. potassium. Initially she was in A-fib RVR with a rate in 120s but heart rate has improved to around 90 currently still in A-fib. Patient be admitted for further evaluation and management of acute CHF, hypokalemia. Hospital Course: [text] She has remained on room air at this admission. On 09/17/24, Lawanda was seen on morning rounds and deemed medically stable for discharge. Lawanda was discharged with instructions to schedule follow-up appointments with PCP and Dr. Britt. Lawanda was provided prescriptions for Lasix and potassium. Physical Exam General: AAO x3, NAD HEENT: Atraumatic, PERRLA, Mucous membr. moist/pink, EOMI, Sclerae nonicteric Neck: Supple, 2+ carotid pulse no bruit, No LAD, Without JVD or thyroid abnormality Respiratory: Normal air movement, on RA Cardiovascular: No edema, Afib with rate control Gastrointestinal: Normal bowel sounds, No tenderness Musculoskeletal: No tenderness Integumentary: No rashes Neurological: Normal gait, Normal speech, Normal strength at 5/5 x4 extr, Normal tone, Normal affect Vital Signs/Physical Exam: Temp Pulse Resp BP Pulse Ox 98 F 81 16 128/87 99 09/17/24 08:00 09/17/24 08:00 09/17/24 08:00 09/17/24 08:00 09/17/24 08:00 Laboratory Data at Discharge: WBC 6.80 thou/uL (4.3-10.9) 09/17/24 04:42 Hgb 12.1 g/dL (12.0-15.0) 09/17/24 04:42 Hct 34.9 % (36.0-45.0) L 09/17/24 04:42 Plt Count 174 thou/uL (152-406) 09/17/24 04:42 PT 13.1 SECONDS (9.4-12.5) H 09/15/24 13:50 INR 1.25 09/15/24 13:50 APTT 23.2 SECONDS (24.3-36.9) L 09/15/24 13:50 Sodium 140 mEq/L (136-145) 09/17/24 04:42 Potassium 3.4 mEq/L (3.5-5.1) L 09/17/24 04:42 BUN 15 mg/dL (7-18) 09/17/24 04:42 Creatinine 1.31 mg/dL (0.55-1.02) H 09/17/24 04:42 Glucose 125 mg/dL (74-106) H 09/17/24 04:42 Phosphorus 3.9 mg/dL (2.5-4.9) 09/17/24 04:42 Magnesium 2.0 mg/dL (1.6-2.4) 09/17/24 04:42 Home Medications: lisinopriL [Lisinopril] 40 mg PO DAILY 05/14/17 Famotidine 40 mg PO BEDTIME 04/10/24 Pantoprazole [Protonix Tab*] 40 mg PO DAILY 04/10/24 Apixaban [Eliquis] 5 mg PO BID 30 Days #60 tablet 04/15/24 Hydralazine [Apresoline*] 25 mg PO TID 30 Days #90 tab 04/15/24 Sucralfate [Carafate*] 10 ml PO ACHS 7 Days #280 ml 04/15/24 Furosemide [Lasix] 20 mg PO DAILY 30 Days #30 tab 09/17/24 Potassium Oral Tab [Klor-Con 10 mEq Tab] 20 meq PO DAILY 30 Days #30 tab 09/17/24 New Medications: Potassium Oral Tab [Klor-Con 10 mEq Tab] 20 meq PO DAILY 30 Days #30 tab Furosemide [Lasix] 20 mg PO DAILY 30 Days #30 tab Physician Discharge Instructions: Treated for congestive heart failure exacerbation and low potassium, she has responded well to Lasix, blood pressure has been stable and potassium has been replaced. 1. Please call and schedule a follow-up appointment with your PCP in 3-5 days - Please follow-up with your PCP for medication refills/adjustments 2. Please call and schedule a follow-up appointment with Dr. Britt with cardiology in 1 week -Cardiology will manage Lasix dosing 3. Continue heart healthy diet 4. activity restrictions fall precautions 5. Return to the ED if symptoms worsen New medications Lasix 20 mg daily Potassium 20 mg once dailytake while taking Lasix Stop medication HydroDIURIL-replaced with Lasix Diet: AHA Activity: Fall precautions Followup: NONE,NONE [Primary Care Provider] - Jovan Britt MD [ACTIVE - CAN ADMIT] -
[2024-09-17 16:34] VITALS: BP 136/66; TEMP 97.8
--- NOTE | 2024-09-18 13:03 | EKG ---
Test Date: 2024-09-15 Test Time: 13:08:29 Wrapper Stemmer Operator: JOSE MEASUREMENT RESULTS: Intervals: Rate: 125 CA: QRSD: 80 QT: 340 QTc: 490 [place]: P: CA: QRS: 42 T: 175 INTERPRETIVE STATEMENTS: Atrial fibrillation ST & T wave abnormality, consider lateral ischemia Abnormal ECG Compared to ECG 04/14/2024 09:11:23 ST (T wave) deviation now present Possible ischemia now present Sinus bradycardia no longer present Atrial premature complex(es) no longer present Junctional escape complex(es) no longer present Aberrant conduction of supraventricular beat(s) no longer present Myocardial infarct finding no longer present Electronically Signed On 09-18-24 12:59:51 [employer] by Jovan Britt
== END 2024-09-17 17:49 | disposition home or self-care (01) | DRG 291 ==
LOC: ER 12:55 → ERHOLD 16:04 → 2ND 17:54
PROVIDERS: ADMIT Hospitalist; ATTEND Internal Medicine
DX: I11.0 Hypertensive heart disease with heart failure (principal); I50.33 Acute on chronic diastolic (congestive) heart failure; E87.6 Hypokalemia; I48.91 Unspecified atrial fibrillation; E83.39 Other disorders of phosphorus metabolism; K21.9 Gastro-esophageal reflux disease without esophagitis; Z60.2 Problems related to living alone; Z79.01 Long term (current) use of anticoagulants; Z90.49 Acquired absence of other specified parts of digestive tract; Z79.890 Hormone replacement therapy; Z79.899 Other long term (current) drug therapy; Z90.710 Acquired absence of both cervix and uterus; Z11.52 Encounter for screening for COVID-19
CPT/HCPCS: 36415; 71045; 71275; 80048; 82947; 83605; 83735; 83880; 84100; 84132; 84439; 84443; 84484; 85025; 85379; 85610; 85730; 87040; 87205; 87804; 87811; 93005; 96365; 96366; 96367; 96375; 97116; 97161; 99285; J0696; J1940; J3475; J3480; J7030; J7050; Q9967

== ENCOUNTER 2024-09-23 19:12 | Inpatient (IN) | payer OTHER ==
--- NOTE | 2024-09-23 20:33 | RAD REPORT ---
EXAM: Chest Single View HISTORY: epigastric pain COMPARISON: 09/15/2024 FINDINGS: LUNGS/PLEURA: The lungs are clear. No pleural effusions or pneumothorax. No pulmonary edema. MEDIASTINUM: The mediastinal silhouette is within normal limits. CARDIAC: Mild cardiomegaly UPPER ABDOMEN: No significant abnormality. BONES: No acute abnormality. LINES/TUBES/OTHER: N/A IMPRESSION: No evidence of acute cardiopulmonary disease.
[2024-09-23 20:44] LABS: Absolute Basophils 0.1 K/uL (0-0.5); Absolute Eosinophils 0.1 K/uL (0-0.5); Absolute Monocytes 0.4 K/uL (0.1-1.3); Absolute Neutrophil 2.5 K/uL (1.8-8.0); Basophils % 1.3 % (0-1.3); Hematocrit 39.8 % (36.0-45.0); Hemoglobin 13.5 g/dL (12.0-15.0); Lymphocytes % 39.3 % (15.3-44.8); MCH 28.5 pg (27.0-35.0); MCHC 34.1 g/dL (32.0-36.0); MCV 83.6 fL (80-100); Monocytes % 8.2 % (3.3-12.3); Neutrophils % 49.2 % (41.7-73.7); Nucleated Red Blood Cells % 0.1 % (0-0); Platelets 184 thou/uL (152-406); RBC Red Blood Cell Count 4.76 M/uL (3.86-4.86)
[2024-09-23 21:03] LABS: Albumin 3.4 g/dL (3.4-5.0); Albumin/Globulin Ratio 0.7 (1.1-1.8); Anion Gap 13.4 mEq/L (5.0-15.0); Bilirubin Total 0.6 mg/dL (0.2-1.0); Protein, Total 8.4 g/dL (6.4-8.2); Troponin High Sensitivity 17.7 pg/mL (<58.9)
[2024-09-23 21:55] LABS: Potassium 3.4 mEq/L (3.5-5.1)
--- NOTE | 2024-09-23 22:26 | RAD REPORT ---
EXAMINATION: CT ABDOMEN AND PELVIS WITHOUT CONTRAST CLINICAL INDICATION: Female, 84 years old.ABD PAIN TECHNIQUE: CT abdomen and pelvis was performed, without IV contrast, as per department protocol. Axia l, sagittal and coronal reconstructions were obtained. One or more of the following dose reduction techniques were used: Automated exposure control, adjustment of the mA and/or kV according to the pat ient size, and/or iterative reconstruction. Unless otherwise specified, incidental findings do not require dedicated imaging follow-up. [id number]. IV CONTRAST: Not administered. COMPARISON: 04/10/2024 FINDINGS: The lack of intravenous contrast limits the sensitivity of this exam for evaluation of solid visceral organs, vascular structures, and retroperitoneum. LOWER CHEST: No acute process identified.Cardiomegaly. Small pericardial effusion UPPER GI: No significant abnormality. LIVER: Benign appearing low density liver lesions. No suspicious mass. GALLBLADDER/BILE DUCTS: Cholecystectomy. Moderate extra-hepatic biliary ductal dilatation is likely r elated to the post-cholecystectomy state and was present previously. Consider correlating with LFT's.? PANCREAS: No mass, ductal dilation, or radha-pancreatic fluid. SPLEEN: Unremarkable. ADRENALS: No adrenal masses. KIDNEYS AND URETERS: No hydronephrosis.Low density and/or too small to characterize renal lesions whi ch are statistically benign. ABDOMINAL AORTA AND OTHER VESSELS: Moderate atherosclerotic changes without aortic aneurysm. PERITONEUM: Trace pelvic free fluid. This was present in the prior CT as well. LYMPH NODES: No pathologic lymphadenopathy. ABDOMINAL WALL: Unremarkable SMALL BOWEL/COLON: Small bowel has normal course and caliber. No colonic wall thickening or pericolon ic inflammatory changes.Nonvisualized appendix but no secondary signs of acute appendicitis. URINARY BLADDER: Underdistended but grossly unremarkable. REPRODUCTIVE ORGANS: Uterus surgically absent. No adnexal abnormality. MUSCULOSKELETAL: Multilevel degenerative changes in the spine. No acute fracture. ADDITIONAL FINDINGS: None. IMPRESSION: No acute or significant abnormalities in the abdomen or pelvis, with evaluation limited by lack of IV contrast.
--- NOTE | 2024-09-23 22:43 | EDPHYS ---
Physician Documentation [facility] Name: Lawanda Sharp Age: 84 yrs Sex: Female : 1940 Arrival Date: 09/23/2024 Time: 19:12 Bed 20 Private MD: ED Physician Erich Patricia HPI: 09/23 21:05 This 84 yrs old Female presents to ER via Ambulatory with complaints of kb Abdominal Pain, Headache. 21:05 Patient is an 84-year-old female who presents for epigastric pain that started today. kb Denies nausea, vomiting, diarrhea, fever, shortness of breath, chest pain. No tenderness on exam. No aggravating or alleviating factors.. Historical: - Allergies: 19:26 NKDA; cm10 - PMHx: 19:26 Hypertension; cm10 - PSHx: 19:26 Cholecystectomy; hysterectomy; cm10 - Immunization history:: Adult Immunizations up to date. - Infectious Disease History:: Denies. - Social history:: Smoking status: Patient denies any tobacco usage or history of. ROS: 21:05 Constitutional: As per HPI kb Exam: 21:05 Constitutional: This is a well developed, well nourished patient who is awake, alert, kb and in no acute distress. Head/Face: Normocephalic, atraumatic. ENT: Moist Mucous membranes Cardiovascular: Regular rate Respiratory: Respirations even and unlabored. No increased work of breathing. Talking in full sentences Abdomen/GI: Soft, non-tender. No distention Skin: Warm, dry with normal turgor. Normal color. MS/ Extremity: Pulses equal, no cyanosis. Neurovascular intact. Full, normal range of motion. Neuro: Awake and alert, GCS 15, oriented to person, place, time, and situation. 21:05 ECG was reviewed by the Attending Physician. Vital Signs: 19:24 BP 102 / 61; Pulse 83; Resp 15; Temp 98.1(O); Pulse Ox 100% ; Weight 68.04 kg; Height 5 cm10 ft. 5 in. ; Pain 9/10; 21:43 BP 102 / 86; Pulse 55; Resp 12; Pulse Ox 100% on R/A; jb4 22:30 BP 122 / 85; Pulse 73; Resp 20; Pulse Ox 100% on R/A; jb4 23:30 BP 97 / 82; Pulse 80; Resp 18; Pulse Ox 94% on R/A; jb4 09/24 01:00 BP 105 / 65; Pulse 63; Resp 18; Pulse Ox 97% on R/A; jb4 02:00 BP 98 / 63; Pulse 79; Resp 16; Pulse Ox 98% on R/A; jb4 03:00 BP 127 / 98; Pulse 76; Resp 20; Pulse Ox 98% on R/A; jb4 09/23 19:24 Body Mass Index 24.96 (68.04 kg, 165.1 cm) cm10 09/23 19:24 Pain Scale: Adult cm10 MDM: 09/23 19:20 Medical Screening Exam initiated kb 21:05 Data reviewed: vital signs, nurses notes. kb 22:36 Differential diagnosis: cholecystitis, Cholelithiasis, gastritis, gastroesophageal kb reflux disease, non-specific abd pain, pancreatitis. Consideration of Admission/Observation Patient was admitted/placed on observation. Escalation of care including admission/observation considered. 22:38 Counseling: I had a detailed discussion with the patient and/or guardian regarding the kb historical points, exam findings, and any diagnostic results supporting the discharge/admit diagnosis, lab results, radiology results, the need for further work-up and treatment in the hospital. 22:41 Management of patient was discussed with the following: Hospitalist: Dr Moreira accepts kb pt for admission. Historians other than the Patient: Daughter/Son: daughter. 09/23 19:27 Order name: CBC with Diff; Complete Time: 20:58 kb 09/23 19:27 Order name: CMP kb 09/23 19:27 Order name: Lipase kb 09/23 19:27 Order name: Urinalysis w/ reflexes kb 09/23 19:27 Order name: Troponin HS kb 09/24 07:00 Order name: Phosphorus EDMS 09/24 07:00 Order name: Magnesium EDMS 09/23 19:27 Order name: XRAY Chest (1 view); Complete Time: 20:43 kb 09/23 22:11 Order name: Abdomen ; Complete Time: 22:30 EDMS 09/23 19:27 Order name: IV Saline Lock; Complete Time: 21:48 kb 09/23 19:27 Order name: Labs collected and sent; Complete Time: 21:48 kb 09/23 19:27 Order name: EKG - Nurse/Tech; Complete Time: 21:47 kb EC:05 Rate is 64 beats/min. Rhythm is irregularly irregular. QRS [place] is Normal. QRS interval kb is normal at 98 msec. QT interval is normal at 451 msec. Administered Medications: 22:55 Drug: NS 0.9% IV 500 ml 500 ml IV at 1 bolus once; to be given as a bolus over 30 jb4 minutes Volume: 500 ml; Route: IV; Rate: 1 bolus; Site: right antecubital; 23:25 Follow up: Response: No adverse reaction; IV Status: Completed infusion; IV Intake: jb4 500ml Disposition: 09/24 09:05 Co-signature as Attending Physician, Erich Patricia MD I reviewed the patient's care rt provided by the Advanced Practice Provider and agree with the diagnosis and treatment plan. Disposition Summary: 09/23/24 22:43 Hospitalization Ordered Notes: Hospitalization Status: Observation kb Provider: Baron Moreira Condition: Stable kb Problem: new kb Symptoms: are unchanged kb Bed/Room Type: Standard kb Location: Telemetry/MedSurg (observation)(09/24/24 14:01) bd Room Assignment: 205(09/24/24 14:01) bd Diagnosis - Epigastric pain kb - Acute kidney failure, unspecified kb Forms: - Medication Reconciliation Form kb - SBAR form kb - Leadership Thank You Letter kb Signatures: Dispatcher [employer] EDMS Pia Pimentel FNP-C [employer]-Shaye Jung James, RN RN jb4 Kanika Mcmanus RN RN vc1 Erich Patricia MD MD rt Terese Tejeda, RN RN cm10 Corrections: (The following items were deleted from the chart) 09/23 19:28 19:27 CBC+H.LAB.BRZ ordered. EDMS EDMS 19:28 19:27 COMPREHENSIVE METABOLIC PANEL+C.LAB.BRZ ordered. EDMS EDMS 19:28 19:27 LIPASE+C.LAB.BRZ ordered. EDMS EDMS 19:28 19:28 Urinalysis+U.LAB.BRZ ordered. EDMS EDMS 19:28 19:28 Troponin High Sensitivity+C.LAB.BRZ ordered. EDMS EDMS 19:28 19:28 Abdomen Pelvis W Con+CT.RAD.BRZ ordered. EDMS EDMS 19:28 Chest Single View+RAD.RAD.BRZ ordered. EDMS EDMS 09/24 01:03 09/23 22:43 Telemetry/MedSurg (observation) kb vc1 09/24 01:03 09/23 22:43 kb vc1 09/24 14:01 01:03 [facility] ER HOLD vc1 bd 14:01 01:03 ERHOLD- vc1 bd
--- NOTE | 2024-09-23 22:43 | ER ---
Nurse's Notes [facility] Name: Lawanda Sharp Age: 84 yrs Sex: Female : 1940 Arrival Date: 09/23/2024 Time: 19:12 Bed 20 Private MD: Diagnosis: Epigastric pain;Acute kidney failure, unspecified Presentation: 09/23 19:24 Chief complaint: Patient states: Epigastric abdominal pain onset today. Pt denies any cm10 nausea, vomiting or diarrhea. Coronavirus screen: Client denies travel out of the [place] in the last 14 days. Ebola Screen: Patient denies travel to an Ebola-affected area in the 21 days before illness onset. Initial Sepsis Screen: Does the patient meet any 2 criteria? No. Patient's initial sepsis screen is negative. Does the patient have a suspected source of infection? No. Patient's initial sepsis screen is negative. Risk Assessment: Do you want to hurt yourself or someone else? Patient reports no desire to harm self or others. Onset of symptoms was September 23, 2024. 19:24 Method Of Arrival: Ambulatory cm10 19:24 Acuity: SANIYA 3 cm10 Triage Assessment: 19:26 General: Appears in no apparent distress. uncomfortable, Behavior is calm, cooperative. cm10 Pain: Complains of pain in epigastric area Pain does not radiate. Pain currently is 9 out of 10 on a pain scale. Neuro: No deficits noted. Level of Consciousness is awake, alert, obeys commands, Oriented to person, place, time, situation, Appropriate for age. Respiratory: No deficits noted. Airway is patent Respiratory effort is even, unlabored, Respiratory pattern is regular, symmetrical. Historical: - Allergies: 19:26 NKDA; cm10 - PMHx: 19:26 Hypertension; cm10 - PSHx: 19:26 Cholecystectomy; hysterectomy; cm10 - Immunization history:: Adult Immunizations up to date. - Infectious Disease History:: Denies. - Social history:: Smoking status: Patient denies any tobacco usage or history of. Screenin:43 [facility] ED Fall Risk Assessment (Adult) History of falling in the last 3 months, jb4 including since admission No falls in past 3 months (0 pts) Confusion or Disorientation No (0 pts) Intoxicated or Sedated No (0 pts) Impaired Gait No (0 pts) Mobility Assist Device Used No (0 pt) Altered Elimination No (0 pt) Score/Fall Risk Level 0 - 2 = Low Risk Oriented to surroundings, Maintained a safe environment. Abuse screen: Denies threats or abuse. Nutritional screening: No deficits noted. Tuberculosis screening: No symptoms or risk factors identified. Assessment: 20:00 Reassessment: Patient appears in no apparent distress at this time. Patient and/or jb4 family updated on plan of care and expected duration. Pain level reassessed. Patient is alert, oriented x 3, equal unlabored respirations, skin warm/dry/pink. 21:00 Reassessment: Patient appears in no apparent distress at this time. Patient and/or jb4 family updated on plan of care and expected duration. Pain level reassessed. Patient is alert, oriented x 3, equal unlabored respirations, skin warm/dry/pink. 22:00 Reassessment: Patient appears in no apparent distress at this time. Patient and/or jb4 family updated on plan of care and expected duration. Pain level reassessed. Patient is alert, oriented x 3, equal unlabored respirations, skin warm/dry/pink. 23:00 Reassessment: Patient appears in no apparent distress at this time. Patient and/or jb4 family updated on plan of care and expected duration. Pain level reassessed. Patient is alert, oriented x 3, equal unlabored respirations, skin warm/dry/pink. 09/24 00:00 Reassessment: Patient appears in no apparent distress at this time. Patient and/or jb4 family updated on plan of care and expected duration. Pain level reassessed. Patient is alert, oriented x 3, equal unlabored respirations, skin warm/dry/pink. 01:00 Reassessment: Pt resting in bed with eyes closed, respirations are even and unlabored jb4 with no s/s of pain or distress noted. 02:00 Reassessment: Patient appears in no apparent distress at this time. No changes from jb4 previously documented assessment. Vital Signs: 09/23 19:24 BP 102 / 61; Pulse 83; Resp 15; Temp 98.1(O); Pulse Ox 100% ; Weight 68.04 kg; Height 5 cm10 ft. 5 in. ; Pain 9/10; 21:43 BP 102 / 86; Pulse 55; Resp 12; Pulse Ox 100% on R/A; jb4 22:30 BP 122 / 85; Pulse 73; Resp 20; Pulse Ox 100% on R/A; jb4 23:30 BP 97 / 82; Pulse 80; Resp 18; Pulse Ox 94% on R/A; jb4 09/24 01:00 BP 105 / 65; Pulse 63; Resp 18; Pulse Ox 97% on R/A; jb4 02:00 BP 98 / 63; Pulse 79; Resp 16; Pulse Ox 98% on R/A; jb4 03:00 BP 127 / 98; Pulse 76; Resp 20; Pulse Ox 98% on R/A; jb4 09/23 19:24 Body Mass Index 24.96 (68.04 kg, 165.1 cm) cm10 09/23 19:24 Pain Scale: Adult cm10 ED Course: 09/23 19:15 Patient arrived in ED. im 19:19 Pia Pimentel FNP-C [facility] kb 19:19 Erich Patricia MD is Attending Physician. kb 19:26 Triage completed. cm10 19:26 Arm band placed on right wrist. Patient placed in waiting room. cm10 20:10 XRAY Chest (1 view) In Process Unspecified. EDMS 20:28 Radiology exam delayed due to lab results not completed at this time. IV insertion jc4 attempt and/or patient not having appropriate IV at this time. 21:43 Patient has correct armband on for positive identification. Bed in low position. Call jb4 light in reach. Side rails up X 1. Provided Education on: plan of care. 22:14 Abdomen In Process Unspecified. EDMS 22:42 Baron Moreira MD is Hospitalizing Provider. kb 09/24 02:00 Carmelo Trimble, RN is Primary Nurse. jb4 03:19 No provider procedures requiring assistance completed. Patient admitted, IV remains in jb4 place. Administered Medications: 09/23 22:55 Drug: NS 0.9% IV 500 ml 500 ml IV at 1 bolus once; to be given as a bolus over 30 jb4 minutes Volume: 500 ml; Route: IV; Rate: 1 bolus; Site: right antecubital; 23:25 Follow up: Response: No adverse reaction; IV Status: Completed infusion; IV Intake: jb4 500ml Medication: 09/24 12:05 VIS not applicable for this client. jl7 Intake: 09/23 23:25 IV: 500ml; Total: 500ml. jb4 Outcome: 22:43 Decision to Hospitalize by Provider. kb 09/24 03:19 Admitted to ER Hold. Please see [facility] for further documentation. jb4 Condition: stable Discharge instructions given to patient, Instructed on the need for admit, Demonstrated understanding of instructions, 15:23 Patient left the ED. jl7 Signatures: Dispatcher [employer] EDPia Keating, PROCEDURE MANAGER-C PROCEDURE MANAGER-CkCarmelo Ellis, RN RN jb4 Milan Salazar RN RN jl7 Mary Ann Patton Clarissa, RN RN cm10 Osbaldo Becerril jc4
[2024-09-23] MEDS ORDERED: NA CHLORIDE 0.9% 500 ML ONE (22:51)
--- NOTE | 2024-09-24 00:56 | P.HP ---
Certification for Inpatient Patient admitted to: Inpatient With expected LOS: >2 Midnights Practitioner: I am a practitioner with admitting privileges, knowledge of patient current condition, hospital course, and medical plan of care. Services: Services provided to patient in accordance with Admission requirements found in Title 42 Section 412.3 of the Code of Federal Regulations Patient History Date of Service: 09/24/24 Reason for admission: Abdominal pain History of Present Illness: 84 yrs old Female with past medical history of hypertension, atrial fibrillation, and GERD who came to ER with abdominal pain and headache which started today and has been progressively getting worse. Denies any nausea vomiting diarrhea. Denies any fever or chills. No chest pain or shortness of breath. Pain is mostly located in the epigastric region. Patient had a history of GERD previously was told to do EGD and colonoscopy at that time. At the time of interview the pain is 3 out of 10 in severity She was assessed in the ER and had a CT of the abdomen pelvis. CT of the abdomen pelvis shows no acute changes Patient is being admitted for further management Allergies No Known Allergies Allergy (Unverified 03/07/23 23:45) Home medications list reviewed: Yes Home Medications: lisinopriL [Lisinopril] 40 mg PO DAILY 05/14/17 Famotidine 40 mg PO BEDTIME 04/10/24 Pantoprazole [Protonix Tab*] 40 mg PO DAILY 04/10/24 Apixaban [Eliquis] 5 mg PO BID 30 Days #60 tablet 04/15/24 Hydralazine [Apresoline*] 25 mg PO TID 30 Days #90 tab 04/15/24 Sucralfate [Carafate*] 10 ml PO ACHS 7 Days #280 ml 04/15/24 Furosemide [Lasix] 20 mg PO DAILY 30 Days #30 tab 09/17/24 Potassium Oral Tab [Klor-Con 10 mEq Tab] 20 meq PO DAILY 30 Days #30 tab 09/17/24 - Past Medical/Surgical History Diabetic: No Past Medical History: Reviewed- Non-Contributory -: HTN -: Hypothyroidism -: borderline diabetic -: chronic kidney infection -: GERD Past Surgical History: Reviewed- Non-Contributory -: -: Hysterectomy -: Cholecystectomy Psychosocial/ Personal History: Patient lives at home alone - Family History Family History: Reviewed- Non-Contributory - Family History Mother -: Hypertension - Social History Smoking Status: Never smoker Alcohol use: No CD- Drugs: No Caffeine use: Yes Review of Systems 10-point ROS is otherwise unremarkable Physical Examination - Physical Exam General: Alert, In no apparent distress, Oriented x3 HEENT: Atraumatic, Normocephalic Neck: Supple, 2+ carotid pulse no bruit Respiratory: Clear to auscultation bilaterally, Normal air movement Cardiovascular: Normal pulses, Regular rate/rhythm Capillary refill: <2 Seconds Gastrointestinal: Soft and benign, W/out hepatosplenomegaly, Tenderness Musculoskeletal: No clubbing, No swelling Integumentary: No rashes Neurological: Normal speech, Normal strength at 5/5 x4 extr, Cranial nerves 3-12 intact, Normal reflexes 2+ Lymphatics: No axilla or inguinal lymphadenopathy - Studies Laboratory Data (last 24 hrs) 09/23/24 09/23/24 20:30 20:30 WBC 5.10 Hgb 13.5 Hct 39.8 Plt Count 184 Sodium 137 Potassium 3.4 L BUN 29 H Creatinine 2.10 H Glucose 205 H Total Bilirubin 0.6 AST 35 ALT 23 Alkaline Phosphatase 68 Lipase 50 Assessment and Plan - Plan Epigastric pain History of GERD Started on PPI Continue sucralfate Will get a GI consult Atrial fibrillation Rate controlled at this time Continue home medications Will hold Eliquis for now Hypertension Antihypertensives titrated Continue home medications and titrate as needed JED Monitor renal parameters Electrolytes monitor and replace accordingly GI/DVT prophylaxis Advanced directive full code Discharge Plan: Home Plan to discharge in: 48 Hours - Advance Directives Does patient have a Living Will: No Does patient have a Durable POA for Healthcare: No - Code Status/Comfort Care Code Status: Full Code Time Spent Managing Pts Care (In Minutes): 48
[2024-09-24] MEDS ORDERED: ACETAMINOPHEN 325 MG TABLET PO PRN (00:57)
[2024-09-24] MEDS ORDERED: ONDANSETRON 4 MG/2 ML VIAL IV PRN (00:57)
[2024-09-24] MEDS: NA CHLORIDE 0.9% 1,000 ML IV SCH (01:00)
[2024-09-24] MEDS ORDERED: MORPHINE 2 MG/ML SYR IV PRN (01:02)
[2024-09-24] MEDS ORDERED: SODIUM CHLORIDE 0.9% 10ML INJ IV PRN (01:02)
[2024-09-24] MEDS ORDERED: HYDROCODONE/APAP 5/325 MG TAB PO PRN (01:02)
[2024-09-24] MEDS: PANTOPRAZOLE 40 MG INJ IVP SCH (01:03)
--- OUTSIDE RECORDS SUMMARY | 2024-09-24 02:36 | XMS REPORT | Continuity of Care Document ---
Author Name Unknown Address [address] [facility] [address] [place] [address] [facility] Address [address] [facility] [address] [place] [address] Care Team Providers Care Health Psychologist Name Role Phone YOCASTA FUNES Primary Care Physician Maria Elena vailable CLAIRE RODRIGUEZ Attending Clinician Unavailable JUSTIN CANTU Attending Clinician Unavailab [place] PTA Attending Clinician Unav ailable FOX T[place] Attending Clinician UnavailFOX Barlow Attending Clinician UnavailJESSIE Jeffery Attending Clinician Unavailable Doctor Unassigned, [place] Attending Clinician U navailable RADIOLOGY Attending Clinician Unavailable Radiology Attending Clinician Unavailable DE BARRETT Attending Clinician Un available JUSTIN CANTU Admitting Clinician Unavailab EDLIA Hoffman Admitting Clinician Unavailable DE BARRETT Admitting Clinician Un available Payers Payer Name Policy Type Policy Number Effective Date Expirati on Date Source [employer] MEDICARE [id number] 2024 00:00:00 Problems Condition Name Condition Details Condition Category Status Onset Date Resolution Date Last Treatment Date Treating Clinician Comments Source DIZZINESS, DISSECTION VERTEBRAL ARTERY DIZZINESS, DISSECTION VERTEBRAL ARTERY Active 11/15/2019 [facility] Diagnosis Active 11-14 00:00: 00 2019-11-17 06:31:00 [facility] ILLNESS, UNSPECIFIE D ILLNESS, UNSPECIFIE D Active [facility] Diagnosis Active 2019-11-17 06:31:00 Dago Beasley Allergies, Adverse Reactions, Alerts Allergy Name Allergy Type Status Severity Reaction(s) Onset Date Inactive Date Treating Clinician Comments Source NO KNOWN ALLERGIE S Drug Class Active [facility] Social History Social Habit Start Date Stop Date Quantity Comments Source Sexual orientation U [facility] Exposure to SARS-CoV-2 (event) 2022-07-30 00:00:00 2022-08-09 15:27:00 Not sure [facility] Social History 2019-11-15 11:12:48 2019-11-15 11:12:48 Melina Beasley Sex Ass[birth year] At 1940 00:00:00 1940 00:00:00 [facility] Smoking Status Start Date Stop Date Source Tobacco smoking consumption unknown [facility] Medications Ordered Medication Name Filled Medication Name Start Date Stop Date Current Medication? Ordering Clinician Indication Dosage Frequency Signature (SIG) Comments Components Source gadobenate dimeglumine (MULTIHANCE -15 mL) injection 0.2 mL/kg 08-31 19:30: 00 08-31 19:28 :00 No [id number] .2mL/kg 0.2 mL/kg, Intravenou s, ONCE, 1 dose, On Sun08/31/22 at 1330, Routine [facility] Plavix 11-16 14:00: 00 No Notes: (Same As: Plavix) Dago Beasley Plavix 11-15 20:26: 00 Yes Notes: (Same As: Plavix) Dago Beasley lisinopril 20 mg oral tablet 11-15 13:52: 00 Yes 20 mg = 1 tab, PO, Daily, # 30 tab, 0 Refill(s), Pharmacy: [id number] Dago Beasley meclizine 12.5 mg oral tablet 11-15 13:52: 00 Yes 12.5 mg = 1 tab, PO, BID, PRN Dizziness, X 15 day, # 30 tab, 0 Refill(s), Pharmacy: [facility] #[id number] Dago Beasley Aspirin 81 MG Enteric Coated [...] s with feeding tube less than 14 Korean (Dobhoff, J-tube etc) and pediatric and patients. [...] s with feeding tube less than 14 Korean (Dobhoff, J-tube etc) and pediatric and patients. Dago Marcosann Famotidine 11-14 14:00: 00 No Notes: (Same as: Pepcid) Dago Marcosann Saline Flush 0.9% 11-14 14:00: 00 No Notes: Same as: BD Posiflush Sterile Dago Marcosann Lisinopril 11-14 14:00: 00 No Notes: (Same as: Prinivil, Zestril) Dago tabitha Beasley Ativan 11-14 13:07: 00 No Notes: (Same as: Ativan) Dago tabitha Lowman Aspirin 81 MG Enteric Coated Tablet 11-14 12:00: 00 No Notes: Do not crush or chew. (Same As: Ecotrin) Dago Marcosann Labetalol 11-14 11:18: 00 No Notes: (Same as: Normodyne, Trandate) Push over 2 minutes Give bolus over 2-3 minutes. Dago Marcosann enalapril 11-14 11:18: 00 No Notes: (Same as: Vasotec-IV ) Dago Marcosann Ondansetron 11-14 11:18: 00 No Notes: (Same as: Zofran) MEDICATION WASTE Product Size: 4 mg Product Wasted: ___ mg Dago Beasley Acetaminoph en 11-14 11:18: 00 No Notes: Do not exceed 4 gm/day. (Same as: Tylenol) Dago tabitha Lowman Saline Flush 0.9% 11-14 11:18: 00 No Notes: Same as: BD Posiflush Sterile Dago Marcosann lisinopril 10 mg oral tablet 11-14 10:55: 00 No 10 mg = 1 tab, PO, Daily, # 30 tab, 0 Refill(s) Dago Beasley Vital Signs Vital Name Observation Time Observation Value Comments S ource Systolic (mm Hg) 2019-11-16 17:11:00 [facility] Diastolic (mm Hg) 2019-11-16 17:11:00 [facility] Temperature Oral (F) 2019-11-16 13:00:00 98.4 F [facility] Heart Rate 2019-11-16 13:00:00 [facility] Respitory Rate 2019-11-16 13:00:00 [facility] Systolic (mm Hg) 2019-11-16 13:00:00 [facility] Diastolic (mm Hg) 2019-11-16 13:00:00 [facility] Temperature Oral (F) 2019-11-16 09:00:00 97.9 F [facility] Heart Rate 2019-11-16 09:00:00 [facility] Respitory Rate 2019-11-16 09:00:00 [facility] Systolic (mm Hg) 2019-11-16 09:00:00 [facility] Diastolic (mm Hg) 2019-11-16 09:00:00 [facility] Temperature Oral (F) 2019-11-16 05:00:00 97.5 F [facility] Heart Rate 2019-11-16 05:00:00 [facility] Respitory Rate 2019-11-16 05:00:00 [facility] Weight 2019-11-15 10:49:00 [facility] BMI Calculated 2019-11-15 10:49:00 [facility] Height 2019-11-15 10:49:00 154.94 cm [facility] Procedures Procedure Date / Time Performed Performing Clinicia n Source ASSIGNMENT OF BENEFITS 2023-11-15 17:46:19 Docto r Unassigned, [place] [facility] PHYSICIAN ORDERS 2023-10-18 06:01:00 Doctor Unas signed, [place] [facility] REFERRAL- REQUEST/RESPONSE 2023-08-23 06:01:00 Doctor Unassigned, [place] [facility] MR THORACIC SPINE W WO CONTRAST 2022-08-31 19:41:00 Requisition, Paper [facility] Encounters Start Date/Time End Date/Time Encounter Type Admission Type Attending Clinicians Care Facility Care Department Encounter ID Source 2024-06-03 10:00:00 2024-06-03 10:00:00 Outpatient CLAIRE PAUL [facility] [id number] [facility] 2024-05-27 09:30:00 2024-05-27 09:30:00 Outpatient CLAIRE PAUL [facility] [id number] [facility] 2024-02-04 08:30:00 2024-02-04 08:30:00 Outpatient JUSTIN BARKLEY [facility] ANS [id number] [facility] 2023-12-07 00:00:00 2023-12-07 00:00:00 Case Management Pricilla Sharma [facility] [id number] 350.1.13.10 4.2.7.2.686 [id number] [facility] 2023-11-27 09:30:00 2023-11-27 09:30:00 Outpatient FOX COOPER CRAIG [facility] [id number] [facility] 2023-11-15 13:00:00 2023-11-15 13:53:51 Outpatient R JESSIE HANSON [facility] [id number] [facility] 2023-11-15 00:00:00 2023-11-15 00:00:00 Orders Only Doctor Unassigned, [place] [facility] [id number] 350.1.13.10 4.2.7.2.686 [id number] [facility] 2023-10-18 00:00:00 2023-10-18 00:00:00 Orders Only Doctor Unassigned, [place] [facility] [id number] 350.1.13.10 4.2.7.2.686 [id number] [facility] 2023-08-23 00:00:00 2023-08-23 00:00:00 Orders Only Doctor Unassigned, [place] [facility] [id number] 350.1.13.10 4.2.7.2.686 [id number] [facility] 2023-08-14 11:17:44 2023-08-14 11:17:44 Outpatient [facility] [id number] Alex[address] F Sigifredo 2023-03-06 08:28:18 2023-03-06 08:28:18 Outpatient [facility] [id number] Alexy Romelia Sigifredo 2022-08-31 12:36:29 2022-08-31 23:59:00 Outpatient R RADIOLOGY [facility] [id number] [facility] 2022-08-31 12:36:29 2022-08-31 23:59:00 Hospital Encounter Radiology [facility] [id number] 350.1.13.10 4.2.7.2.686 [id number] [facility] 2019-11-15 19:07:00 2019-11-16 20:36:00 Observatio n nullFlavo r [facility] [id number] Dago lu Lowman 2019-11-15 14:07:00 2019-11-16 15:36:00 Outpatient DE BARRETT [email or web address] MED 0081 [facility] [[email or web address] Results Test Description Test Time Test Comments Results Result Co mments Source [facility] [id number] 12:20:00* Test Item Value Reference Range Interpretation Comme nts Troponin-I (test code = Troponin-I) 0.02 See_Comment [Automated messa ge] The system which generated this result transmitted reference range: <=0.40. The reference range was not used to interpret this result as normal/abnormal. [facility] [id number] 12:20:00* Test Item Value Reference Range Interpretation Comme nts Glucose Lvl (test code = Glucose Lvl) 107 70-99 [facility] [id number] 12:20:00* Test Item Value Reference Range Interpretation Comme nts WBC (test code = WBC) 4.6 3.7-10.4 [facility] [id number] 12:20:00* Test Item Value Reference Range Interpretation Comme nts Treponemal Ab (test code = Treponemal Ab) Non-Reactive *NA*(11/15/19 7:20 AM) [facility] [id number] 12:20:00* Test Item Value Reference Range Interpretation Comme nts Trig (test code = Trig) 116 [facility]
[2024-09-24 04:26] LABS: Specific Gravity 1.015 (1.005-1.030); Urine Bacteria <20 /HPF (<20); Urine Bilirubin NEGATIVE (Negative); Urine Blood Negative (Negative); Urine Clarity Extremely Turbid (Clear); Urine Color Yellow (Yellow); Urine Culture Reflex Order NOT NEEDED; Urine Glucose NEGATIVE (Negative); Urine Ketones NEGATIVE (Negative); Urine Microscopic Reflex YN ORDER UMIC; Urine Mucus 1+ /HPF (None Seen); Urine Nitrite NEGATIVE (Negative); Urine Protein TRACE (Negative); Urine RBC <5 /HPF (None Seen); Urine Urobilinogen Normal (Normal); Urine WBC <5 /HPF (<5); Urine pH 5.5 (5.0-7.0)
[2024-09-24 06:01] VITALS: BMI 25.0
[2024-09-24 07:00] LABS: Magnesium 2.1 mg/dL (1.6-2.4); Phosphorus 3.3 mg/dL (2.5-4.9)
[2024-09-24] MEDS ORDERED: PANTOPRAZOLE 40 MG INJ ONE (07:25)
[2024-09-24] MEDS ORDERED: NA CHLORIDE 0.9% 1,000 ML ONE (07:26)
[2024-09-24] MEDS: FLU (Fluarix Triv) TS24-25(6MOS UP)/PF 45 MCG/0.5 ML Syringe IM ONE (07:30)
[2024-09-24] MEDS: SUCRALFATE 1 GM TABLET PO SCH (07:30)
[2024-09-24] MEDS: PNEUMOCOCCAL VACCINE 0.5 ML IMVAC ONE (08:00)
[2024-09-24] MEDS: ENOXAPARIN 30 MG/0.3 ML SQ SCH (09:00)
[2024-09-24] MEDS ORDERED: ENOXAPARIN 30 MG/0.3 ML SQ ONE (09:24)
[2024-09-24] MEDS ORDERED: SUCRALFATE 1 GM TABLET ONE ×2 (09:24→12:35)
--- NOTE | 2024-09-24 12:18 | P.PN ---
Date of Service: 09/24/24 This is 84 years old female patient with past medical history notable for A-fib on apixaban, CKD, GERD, hypertension status postcholecystectomy who presented to emergency room for evaluation of 1 day of a headache and epigastric pain admitted on general medical floor 1. Acute gastritis in underlying GERD Unremarkable except benign right hepatic cyst CT of abdomen and pelvis, 2. Permanent A-fib with controlled ventricular response 3. Mild JED on CKD stage III secondary to dehydration related to #1, diuretics and PIERRE inhibitor No obstructive uropathy by CT of abdomen and pelvis Her epigastric pain started to improve, no sign of GI bleeding, will continue oral diet, I will change her diet to soft diet, continue IV fluid, hold her furosemide apixaban and lisinopril, repeat renal function test and no urgent endoscopy indicated, anticipating discharge in 1 or 2 days.
[2024-09-24] MEDS ORDERED: POTASSIUM CL SA 10 MEQ TAB PO ONE (12:29)
--- NOTE | 2024-09-24 12:29 | EKG ---
Test Date: 2024-09-23 Test Time: 20:25:38 Customer Operations Representative: TALIA MEASUREMENT RESULTS: Intervals: Rate: 64 AL: QRSD: 98 QT: 438 QTc: 451 [place]: P: AL: QRS: 25 T: 208 INTERPRETIVE STATEMENTS: Atrial fibrillation Septal infarct, age undetermined ST & T wave abnormality, consider inferior ischemia ST & T wave abnormality, consider anterolateral ischemia Abnormal ECG Compared to ECG 09/15/2024 13:08:29 Myocardial infarct finding now present ST (T wave) deviation still present Possible ischemia still present Electronically Signed On 09-24-24 12:28:35 OPERATIONS ASST by Jovan Britt
[2024-09-24] MEDS: POTASSIUM CL SA 10 MEQ TAB PO ONE (12:30)
[2024-09-25 05:04] LABS: Absolute Eosinophils 0.1 K/uL (0-0.5); Absolute Lymphocytes (CBC) 2.4 K/uL (0.7-4.9); Absolute Monocytes 0.5 K/uL (0.1-1.3); Absolute Neutrophil 1.6 K/uL (1.8-8.0); Basophils % 0.6 % (0-1.3); Eosinophils % 2.2 % (0-4.4); Hematocrit 34.2 % (36.0-45.0); Hemoglobin 11.8 g/dL (12.0-15.0); Lymphocytes % 52.7 % (15.3-44.8); MCH 28.4 pg (27.0-35.0); MCHC 34.4 g/dL (32.0-36.0); MCV 82.5 fL (80-100); MPV 10.4 fL (7.6-11.3); Monocytes % 9.9 % (3.3-12.3); Neutrophils % 34.6 % (41.7-73.7); Nucleated Red Blood Cells % 0.1 % (0-0); Platelets 163 thou/uL (152-406); RBC Red Blood Cell Count 4.14 M/uL (3.86-4.86); Red Cell Distribution Width 12.7 % (12.1-15.2)
[2024-09-25 05:30] LABS: Albumin 3.1 g/dL (3.4-5.0); Albumin/Globulin Ratio 0.8 (1.1-1.8); Bilirubin Total 0.6 mg/dL (0.2-1.0); Protein, Total 7.1 g/dL (6.4-8.2)
[2024-09-25] MEDS: POTASSIUM CL SA 10 MEQ TAB PO ONE (05:58)
[2024-09-25 09:01] VITALS: BP 167/87; TEMP 98.2
[2024-09-25 09:58] VITALS: O2SAT 99
--- NOTE | 2024-09-25 10:30 | P.DS ---
Admission Date: 09/24/24 Discharge Date: 09/25/24 Disposition: ROUTINE DISCHARGE Discharge Condition: GOOD Reason for Admission: Abdominal pain Brief History of Present Illness: This is 84 years old female patient with past medical history notable for A-fib on apixaban, CKD, GERD, hypertension status postcholecystectomy who presented to emergency room for evaluation of 1 day of a headache and epigastric pain admitted on general medical floor Hospital Course: Patient rapidly improved with symptomatic management with IV pantoprazole and sucralfate. She was able to tolerating oral diet well without any nausea and vomiting or diarrhea or abdominal pain. She did not have any cardiovascular event during hospitalization. Patient is being discharged home. Plan is to have EGD/colonoscopy as outpatient as planned previously. 1. Acute viral gastritis in underlying GERD CT of abdomen and pelvis on admission unremarkable except benign right hepatic cyst - 2. Permanent A-fib with controlled ventricular response on apixaban 3. Mild JED on CKD stage III secondary to dehydration related to #1, diuretics and PIERRE inhibitor Resolved, No obstructive uropathy by CT of abdomen and pelvis Vital Signs/Physical Exam: Temp Pulse Resp BP Pulse Ox 98.2 F 62 20 167/87 H 99 09/25/24 08:00 09/25/24 08:00 09/25/24 08:00 09/25/24 08:00 09/25/24 08:00 Laboratory Data at Discharge: WBC 4.60 thou/uL (4.3-10.9) 09/25/24 04:29 Hgb 11.8 g/dL (12.0-15.0) L 09/25/24 04:29 Hct 34.2 % (36.0-45.0) L 09/25/24 04:29 Plt Count 163 thou/uL (152-406) 09/25/24 04:29 Sodium 139 mEq/L (136-145) 09/25/24 04:29 Potassium 3.0 mEq/L (3.5-5.1) L 09/25/24 04:29 BUN 23 mg/dL (7-18) H 09/25/24 04:29 Creatinine 1.28 mg/dL (0.55-1.02) H 09/25/24 04:29 Glucose 93 mg/dL (74-106) 09/25/24 04:29 Phosphorus 3.3 mg/dL (2.5-4.9) 09/24/24 06:27 Magnesium 2.1 mg/dL (1.6-2.4) 09/24/24 06:27 Total Bilirubin 0.6 mg/dL (0.2-1.0) 09/25/24 04:29 AST 21 U/L (15-37) 09/25/24 04:29 ALT 20 U/L (13-56) 09/25/24 04:29 Alkaline Phosphatase 59 U/L (45-117) 09/25/24 04:29 Lipase 50 U/L (13-75) 09/23/24 20:30 Home Medications: lisinopriL [Lisinopril] 40 mg PO DAILY 05/14/17 Famotidine 40 mg PO BEDTIME 04/10/24 Pantoprazole [Protonix Tab*] 40 mg PO DAILY 04/10/24 Apixaban [Eliquis] 5 mg PO BID 30 Days #60 tablet 04/15/24 Furosemide [Lasix] 20 mg PO DAILY 30 Days #30 tab 09/17/24 Potassium Oral Tab [Klor-Con 10 mEq Tab*] 20 meq PO DAILY 30 Days #30 tab 09/17/24 B12/Levomefolate Calcium/B-6 [Folbic Rf Tablet] 1 tab PO DAILY 09/24/24 Carvedilol [Coreg] 12.5 mg PO BID 09/24/24 Cholecalciferol (Vitamin D3) [Vitamin D3] 50,000 unit PO SEECOM 09/24/24 Levothyroxine [Synthroid*] 75 mcg PO LICCD2CX 09/24/24 Sucralfate [Carafate*] 1 gm PO BID 09/24/24 hydroCHLOROthiazide [Hydrochlorothiazide*] 25 mg PO DAILY 09/24/24 Sucralfate [Carafate*] 1 gm PO ACHS 7 Days #0 tab 09/25/24 Followup: NONE,NONE [Primary Care Provider] -
== END 2024-09-25 11:20 | disposition home or self-care (01) | DRG 392 ==
LOC: ER 19:12 → ERHOLD 09-24 00:57 → 2ND 09-24 15:35
PROVIDERS: ADMIT Family Medicine; ATTEND Internal Medicine
DX: A08.4 Viral intestinal infection, unspecified (principal); N17.9 Acute kidney failure, unspecified; K76.89 Other specified diseases of liver; N18.30 Chronic kidney disease, stage 3 unspecified; I48.91 Unspecified atrial fibrillation; I10 Essential (primary) hypertension; K21.9 Gastro-esophageal reflux disease without esophagitis; Z79.01 Long term (current) use of anticoagulants; Z90.49 Acquired absence of other specified parts of digestive tract; I12.9 Hypertensive chronic kidney disease with stage 1 through stage 4 chronic kidney disease, or unspecified chronic kidney disease; Z90.710 Acquired absence of both cervix and uterus
CPT/HCPCS: 36415; 71045; 74176; 80053; 81001; 83036; 83690; 83735; 84100; 84484; 85025; 93005; 99285; J1650; J2470; J7030; J7040

== ENCOUNTER 2024-10-15 17:11 | Inpatient (IN) | payer OTHER ==
--- OUTSIDE RECORDS SUMMARY | 2024-10-15 17:14 | XMS REPORT | Continuity of Care Document ---
Author Name Unknown Address [address] [facility] [address] [place] [address] [facility] Address [address] [facility] [address] [place] [address] Care Team Providers Care Commutator Presser Name Role Phone Dru LIZAMA, Jose Keller Primary Care Physician Doctor Unassigned, [place] Attending Clinician U CLAIRE Dawson Attending Clinician Unavailable JUSTIN CANTU Attending Clinician Unavailab [place] PTA Attending Clinician Unav ailable FOX [place] Attending Clinician UnavailFOX Barlow Attending Clinician UnavailJESSIE Jeffery Attending Clinician Unavailable Doctor Unassigned, [place] Attending Clinician U navailendy RADIOLOGY Attending Clinician Unavailable Radiology Attending Clinician Unavailable DE BARRETT Attending Clinician Un available JUSTIN CANTU Admitting Clinician Unavailab DELIA Hoffman Admitting Clinician Unavailable DE BARRETT Admitting Clinician Un available Payers Payer Name Policy Type Policy Number Effective Date Expirati on Date Source Problems Condition Name Condition Details Condition Category Status Onset Date Resolution Date Last Treatment Date Treating Clinician Comments Source DIZZINESS, DISSECTION VERTEBRAL ARTERY DIZZINESS, DISSECTION VERTEBRAL ARTERY Active 11/15/2019 [facility] Diagnosis Active 11-14 00:00: 00 2019-11-17 06:31:00 Dago Beasley ILLNESS, UNSPECIFIE D ILLNESS, UNSPECIFIE D Active [facility] Diagnosis Active 2019-11-17 06:31:00 Dago Beasley Allergies, Adverse Reactions, Alerts Allergy Name Allergy Type Status Severity Reaction(s) Onset Date Inactive Date Treating Clinician Comments Source NO KNOWN ALLERGIE S Drug Class Active [facility] Social History Social Habit Start Date Stop Date Quantity Comments Source [facility]2 ([facility]) 2022-07-30 00:00:00 2022-08-09 15:27:00 Not sure [facility] Social History 2019-11-15 11:12:48 2019-11-15 11:12:48 Melina Beasley Sex assigned at 1940 00:00:00 1940 00:00:00 [facility] Smoking Status Start Date Stop Date Source Tobacco smoking consumption unknown [facility] Medications Ordered Medication Name Filled Medication Name Start Date Stop Date Current Medication? Ordering Clinician Indication Dosage Frequency Signature (SIG) Comments Components Source gadobenate dimeglumine (MULTIHANCE -15 mL) injection 0.2 mL/kg 08-31 19:30: 00 08-31 19:28 :00 No [id number] .2mL/kg 0.2 mL/kg, Intravenou s, ONCE, 1 dose, On Sun08/31/22 at 1330, Routine [facility] Plavix 11-16 14:00: 00 No Notes: (Same As: Plavix) Dago Beasley Plavix 11-15 20:26: 00 Yes Notes: (Same As: Plavix) Dago Beasley lisinopril 20 mg oral tablet 11-15 13:52: 00 Yes 20 mg = 1 tab, PO, Daily, # 30 tab, 0 Refill(s), Pharmacy: [facility] #[id number] Dago Beasley meclizine 12.5 mg oral tablet 11-15 13:52: 00 Yes 12.5 mg = 1 tab, PO, BID, PRN Dizziness, X 15 day, # 30 tab, 0 Refill(s), Pharmacy: [facility] #[id number] Dago Beasley Aspirin 81 MG Enteric [...] s with feeding tube less than 14 Bhutanese (Dobhoff, J-tube etc) and pediatric and patients. [...] s with feeding tube less than 14 Bhutanese (Dobhoff, J-tube etc) and pediatric and patients. Dago Beaslye Famotidine 11-14 14:00: 00 No Notes: (Same [...] ource Systolic (mm Hg) 2019-11-16 17:11:00 [facility] Diastolic (mm Hg) 2019-11-16 17:11:00 [facility] Temperature Oral (F) 2019-11-16 13:00:00 98.4 F [facility] Heart Rate 2019-11-16 13:00:00 [facility] Respitory Rate 2019-11-16 13:00:00 [facility] Systolic (mm Hg) 2019-11-16 13:00:00 [facility] Diastolic (mm Hg) 2019-11-16 13:00:00 [facility] Temperature Oral (F) 2019-11-16 09:00:00 97.9 F [facility] Heart Rate 2019-11-16 09:00:00 [facility] Respitory Rate 2019-11-16 09:00:00 [facility] Systolic (mm Hg) 2019-11-16 09:00:00 [facility] Diastolic (mm Hg) 2019-11-16 09:00:00 [facility] Temperature Oral (F) 2019-11-16 05:00:00 97.5 F [facility] Heart Rate 2019-11-16 05:00:00 [facility] Respitory Rate 2019-11-16 05:00:00 [facility] Weight 2019-11-15 10:49:00 [facility] BMI Calculated 2019-11-15 10:49:00 [facility] Height 2019-11-15 10:49:00 154.94 cm [facility] Procedures Procedure Date / Time Performed Performing Clinicia n Source NON-[facility] ORDERS 2024-01-29 20:20:41 Doctor Unass igned, [place] [facility] NON-[facility] ORDERS 2024-01-29 19:26:35 Doctor Unass igned, [place] [facility] OP CLINIC NOTES/CONSULTS 2023-12-05 13:15:08 Doctor Unassigned, [place] [facility] ASSIGNMENT OF BENEFITS 2023-11-15 17:46:19 Docto r Unassigned, [place] [facility] PHYSICIAN ORDERS 2023-10-18 06:01:00 Doctor Unas signed, [place] [facility] REFERRAL- REQUEST/RESPONSE 2023-08-23 06:01:00 Doctor Unassigned, [place] [facility] MR THORACIC SPINE W WO CONTRAST 2022-08-31 19:41:00 Requisition, Paper [facility] Encounters Start Date/Time End Date/Time Encounter Type Admission Type Attending [facility] Care Facility Care Department Encounter ID Source 2024-01-29 00:00:00 2024-10-11 07:36:28 Orders Only Doctor Unassigned, [place] Doctor Unassigned, [place] [facility] [id number] 350.1.13.10 4.2.7.2.686 [id number] [facility] 2024-01-29 00:00:00 2024-10-11 07:36:22 Orders Only Doctor Unassigned, [place] Doctor Unassigned, [place] [facility] 1.2.840.114 350.1.13.10 4.2.7.2.686 [id number] [facility] 2023-12-05 00:00:00 2024-10-11 02:24:08 Orders Only Doctor Unassigned, [place] Doctor Unassigned, [place] [facility] ..840.114 350.1.13.10 4.2.7.2.686 [id number] [facility] 2024-06-03 10:00:00 2024-06-03 10:00:00 [facility] [id number] [facility] 2024-05-27 09:30:00 2024-05-27 09:30:00 Outpatient R MICHAEL [facility] [id number] [facility] 2024-02-04 08:30:00 2024-02-04 08:30:00 Outpatient JUSTIN BARKLEY [facility] ANS [id number] [facility] 2023-12-07 00:00:00 2023-12-07 00:00:00 Case Management Pricilla Sharma [facility] PROFESSIO [facility] 1..840.114 350.1.13.10 4.2.7.2.686 [id number] [facility] 2023-11-27 09:30:00 2023-11-27 09:30:00 Outpatient FOX COOPER CRAIG [facility] [id number] [facility] 2023-11-15 13:00:00 2023-11-15 13:53:51 Outpatient JESSIE ELLIS [facility] [id number] [facility] 2023-11-15 00:00:00 2023-11-15 00:00:00 Orders Only Doctor Unassigned, [place] [facility] ..840.114 350.1.13.10 4.2.7.2.686 [id number] [facility] 2023-10-18 00:00:00 2023-10-18 00:00:00 Orders Only Doctor Unassigned, [place] [facility] 1.2.840.114 350.1.13.10 4.2.7.2.686 [id number] [facility] 2023-08-23 00:00:00 2023-08-23 00:00:00 Orders Only Doctor Unassigned, [place] [facility] 1.2.840.114 350.1.13.10 4.2.7.2.686 [id number] [facility] 2023-08-14 11:17:44 2023-08-14 11:17:44 Outpatient [facility] 1219 Alexy Mei 2023-03-06 08:28:18 2023-03-06 08:28:18 Outpatient [facility] [id number] Alexy Mei 2022-08-31 12:36:29 2022-08-31 23:59:00 Outpatient R RADIOLOGY [facility] [id number] [facility] 2022-08-31 12:36:29 2022-08-31 23:59:00 Hospital Encounter Radiology [facility] 1.2.840.114 350.1.13.10 4.2.7.2.686 [id number] [facility] 2019-11-15 19:07:00 2019-11-16 20:36:00 Observatio n nullFlavo r [facility] [id number] Dago [facility] 2019-11-15 14:07:00 2019-11-16 15:36:00 Outpatient DE BARRETT [facility] MED 0081 [facility] Results Test Description Test Time Test Comments Results Resul t Comments Source NON-[facility] ORDERS 2024-01-29 20:20:41 Ordered by an unspecified provider. [facility] NON-[facility] ORDERS 2024-01-29 19:26:35 Ordered by an unspecified provider. [facility] OP CLINIC NOTES/CONSULTS 2023-12-05 13:15:08 Ordered by an unspecified provider. [facility] [id number] 12:20:00* Test Item Value Reference Range Interpretation Comme nts Troponin-I (test code = Troponin-I) 0.02 See_Comment [Automated AdStagea ge] The system which generated this result transmitted reference range: <=0.40. The reference range was not used to interpret this result as normal/abnormal. [id number] 12:20:00* Test Item Value Reference Range Interpretation Comme nts Glucose Lvl (test code = Glucose Lvl) 107 70-99 [facility] [id number] 12:20:00* Test Item Value Reference Range Interpretation Comme nts WBC (test code = WBC) 4.6 3.7-10.4 [facility] [id number] 12:20:00* Test Item Value Reference Range Interpretation Comme nts Treponemal Ab (test code = Treponemal Ab) Non-Reactive *NA*(11/15/19 7:20 AM) [facility] [id number] 12:20:00* Test Item Value Reference Range Interpretation Comme nts Trig (test code = Trig) 116 [facility]
[2024-10-15 18:23] LABS: Absolute Eosinophils 0.1 K/uL (0-0.5); Absolute Lymphocytes (CBC) 1.9 K/uL (0.7-4.9); Absolute Monocytes 0.6 K/uL (0.1-1.3); Absolute Neutrophil 4.7 K/uL (1.8-8.0); Basophils % 0.6 % (0-1.3); Eosinophils % 1.1 % (0-4.4); Hematocrit 41.6 % (36.0-45.0); Hemoglobin 14.2 g/dL (12.0-15.0); Lymphocytes % 25.5 % (15.3-44.8); MCHC 34.2 g/dL (32.0-36.0); MCV 81.8 fL (80-100); MPV 10.2 fL (7.6-11.3); Monocytes % 7.8 % (3.3-12.3); Nucleated Red Blood Cells % 0.1 % (0-0); Platelets 173 thou/uL (152-406); RBC Red Blood Cell Count 5.08 M/uL (3.86-4.86); Red Cell Distribution Width 13.9 % (12.1-15.2)
[2024-10-15 18:26] LABS: PT Prothrombin Time 26.7 SECONDS (9.4-12.5); Protime INR 2.57
[2024-10-15 18:27] LABS: Specific Gravity 1.012 (1.005-1.030); Urine Bacteria <20 /HPF (<20); Urine Bilirubin NEGATIVE (Negative); Urine Blood Negative (Negative); Urine Clarity Extremely Turbid (Clear); Urine Color Light-Yellow (Yellow); Urine Crystals Unidentified Few /HPF (None Seen); Urine Culture Reflex Order REFLEXED; Urine Glucose NEGATIVE (Negative); Urine Ketones NEGATIVE (Negative); Urine Micro Reflex YN NO BILL MICROSCOPIC; Urine Mucus Slight /HPF (None Seen); Urine Nitrite NEGATIVE (Negative); Urine Protein TRACE (Negative); Urine RBC <5 /HPF (None Seen); Urine Urobilinogen Normal (Normal); Urine WBC 20-50 /HPF (<5); Urine WBC Clump Rare /HPF (None Seen); Urine Yeast (Budding) Trace /HPF (None Seen); Urine pH 5.5 (5.0-7.0)
[2024-10-15 18:44] LABS: Albumin 3.7 g/dL (3.4-5.0); Albumin/Globulin Ratio 0.8 (1.1-1.8); Anion Gap 9.1 mEq/L (5.0-15.0); Bilirubin Direct 0.3 mg/dL (0-0.2); Bilirubin Total 1.3 mg/dL (0.2-1.0); Globulin 4.4 g/dL (2.3-3.5); Magnesium 2.3 mg/dL (1.6-2.4); Potassium 2.1 mEq/L (3.5-5.1); Protein, Total 8.1 g/dL (6.4-8.2)
[2024-10-15 18:46] LABS: Troponin High Sensitivity 62.4 pg/mL (<58.9)
--- NOTE | 2024-10-15 19:20 | RAD REPORT ---
EXAMINATION: CT ABDOMEN AND PELVIS WITHOUT CONTRAST CLINICAL INDICATION: ABD PAIN TECHNIQUE: CT abdomen and pelvis was performed, without IV contrast, as per department protocol. Axia l, sagittal and coronal reconstructions were obtained. One or more of the following dose reduction techniques were used: Automated exposure control, adjustment of the mA and kV according to the patien t size, and iterative reconstruction. Unless otherwise specified, incidental findings do not require dedicated imaging follow-up. COMPARISON: 09/23/2024 FINDINGS: The lack of intravenous contrast limits the sensitivity of this exam for evaluation of solid visceral organs, vascular structures, and retroperitoneum. LOWER CHEST: The visualized lung bases are clear. LIVER:Small low-density lesions throughout the liver likely represent cysts. No aggressive liver find ing. Cholecystectomy clips. SPLEEN: Normal size. No focal lesion. PANCREAS: No mass, ductal dilation, or radha-pancreatic fluid. ADRENALS: Normal; no mass. KIDNEYS AND URETERS: Normal size and contour. No hydronephrosis. Bilateral renal lesions which are ei ther benign in appearance or too small to accurately characterize but statistically benign. URINARY BLADDER: Normal contour. GASTROINTESTINAL TRACT: No evidence of bowel obstruction, significant free fluid, free air or abscess . APPENDIX: Appendix not visualized, but no inflammatory changes in region of appendix. LYMPH NODES: No lymphadenopathy. MUSCULOSKELETAL: 4 mm degenerative anterolisthesis L5 on S1. Moderate levoscoliosis of the thoracolum bar spine. ADDITIONAL FINDINGS: None. IMPRESSION: No acute or concerning abnormalities in the abdomen or pelvis, with evaluation limited by lack of IV contrast.
--- NOTE | 2024-10-15 20:02 | EDPHYS ---
Physician Documentation [facility] Name: Lawanda Sharp Age: 84 yrs Sex: Female : 1940 Arrival Date: 10/15/2024 Time: 17:11 Bed 5 Private MD: ED Physician Kirk Mcclellan HPI: 10/15 17:41 This 84 yrs old Female presents to ER via EMS with complaints of Abdominal sp3 Pain. 17:41 84-year-old female with history of hypertension, hyperlipidemia, atrial fibrillation sp3 currently on Eliquis presents to the ED with chief complaint epigastric pain resulting in a near syncopal episode earlier today. Patient denies full syncope or fall. Pain does not radiate anywhere and she does not endorse any other symptoms. She denies any chest pain, shortness of breath, lower abdominal pain, vomiting, diarrhea, fever, cough, bleeding, or any other signs or symptoms on ROS at this time.. Historical: - Allergies: 17:15 NKDA; ss 17:15 NKDA; ld1 - PMHx: 17:15 Hypertension; ss 17:15 Hypertension; ld1 - PSHx: 17:15 Cholecystectomy; hysterectomy; ss 17:15 Cholecystectomy; hysterectomy; ld1 - Immunization history:: Adult Immunizations up to date. - Infectious Disease History:: Denies. - Social history:: Smoking status: Patient denies any tobacco usage or history of. ROS: 17:42 Constitutional: Negative for fever, chills, and weight loss, Eyes: Negative for injury, sp3 pain, redness, and discharge, ENT: Negative for injury, pain, and discharge, Neck: Negative for injury, pain, and swelling, Cardiovascular: Negative for chest pain, palpitations, and edema, Respiratory: Negative for shortness of breath, cough, wheezing, and pleuritic chest pain, Back: Negative for injury and pain, MS/Extremity: Negative for injury and deformity, Skin: Negative for injury, rash, and discoloration, Neuro: Negative for headache, weakness, numbness, tingling, and seizure, Psych: Negative for depression, anxiety, suicide ideation, homicidal ideation, and hallucinations, Allergy/Immunology: Negative for hives, rash, and allergies, Endocrine: Negative for neck swelling, polydipsia, polyuria, polyphagia, and marked weight changes, Hematologic/Lymphatic: Negative for swollen nodes, abnormal bleeding, and unusual bruising, 17:42 All other systems are negative, Exam: 17:42 Constitutional: This is a well developed, well nourished patient who is awake, alert, sp3 and in no acute distress. Head/Face: Normocephalic, atraumatic. Eyes: Pupils equal round and reactive to light, extra-ocular motions intact. Lids and lashes normal. Conjunctiva and sclera are non-icteric and not injected. Cornea within normal limits. Periorbital areas with no swelling, redness, or edema. Neck: Trachea midline, no thyromegaly or masses palpated, and no cervical lymphadenopathy. Supple, full range of motion without nuchal rigidity, or vertebral point tenderness. No Meningismus. Chest/axilla: Normal chest wall appearance and motion. Nontender with no deformity. No lesions are appreciated. Cardiovascular: Regular rate and rhythm with a normal S1 and S2. No gallops, murmurs, or rubs. Normal PMI, no JVD. No pulse deficits. Respiratory: Lungs have equal breath sounds bilaterally, clear to auscultation and percussion. No rales, rhonchi or wheezes noted. No increased work of breathing, no retractions or nasal flaring. Back: No spinal tenderness. No costovertebral tenderness. Full range of motion. Skin: Warm, dry with normal turgor. Normal color with no rashes, no lesions, and no evidence of cellulitis. MS/ Extremity: Pulses equal, no cyanosis. Neurovascular intact. Full, normal range of motion. Neuro: Awake and alert, GCS 15, oriented to person, place, time, and situation. Cranial nerves II-XII grossly intact. Motor strength 5/5 in all extremities. Sensory grossly intact. Cerebellar exam normal. Normal gait. Psych: Awake, alert, with orientation to person, place and time. Behavior, mood, and affect are within normal limits. 17:42 Abdomen/GI: Pain to palpation in epigastric region without peritoneal signs, rebound or guarding. Patient initially tachycardic at 105 now currently in the 90s., Vital Signs: 17:14 BP 146 / 104; Pulse 105; Resp 18; Temp 97.4(O); Pulse Ox 99% on R/A; Weight 63.5 kg; ss Height 5 ft. 5 in. ; Pain 6/10; 18:11 BP 124 / 86; Pulse 84; Resp 18; Pulse Ox 100% on R/A; ld1 19:48 BP 127 / 85; Pulse 72; Resp 17; Temp 98.1; Pulse Ox 96% on R/A; Pain 0/10; bm8 22:36 BP 124 / 83; Pulse 89; Resp 18; Temp 98.1; Pulse Ox 100% ; Pain 0/10; bm8 23:18 BP 107 / 83; Pulse 96; Resp 18; Temp 98.1; Pulse Ox 100% ; Pain 3/10; bm8 17:14 Body Mass Index 23.30 (63.50 kg, 165.1 cm) ss 17:14 Pain Scale: Adult ss 19:48 Pain Scale: Adult bm8 22:36 Pain Scale: Adult bm8 23:18 Pain Scale: Adult bm8 [place] Coma Score: 19:48 Eye Response: spontaneous(4). Motor Response: obeys commands(6). Verbal Response: bm8 oriented(5). Total: 15. 22:36 Eye Response: spontaneous(4). Motor Response: obeys commands(6). Verbal Response: bm8 oriented(5). Total: 15. 23:18 Eye Response: spontaneous(4). Motor Response: obeys commands(6). Verbal Response: bm8 oriented(5). Total: 15. MDM: 17:22 Medical Screening Exam initiated sp3 17:42 Data reviewed: vital signs, nurses notes, lab test result(s), EKG, radiologic studies. sp3 ED course: 84-year-old female with epigastric pain in the setting of PMH above. Differential diagnosis includes biliary pathology though patient states she has had her gallbladder taken out, pancreatitis, gastritis, MSK pain, acute coronary syndrome, aortic pathology, among others. Workup include general labs including lipase, UA, CT scan of the abdomen pelvis, EKG and general supportive care. Disposition pending workup and patient course.. 19:58 ED course: Patient with worsening acute on chronic renal failure at 3.4. Troponin sp3 bumped at 62 with BNP at 4000. Patient sees Dr. Britt. We will admit patient to the hospital with cardiology consultation. I have discussed this with Dr. Nelson via text he states to keep her n.p.o. after midnight. Patient will be admitted to Dr. Dunn. Potassium replaced and Lasix deferred to inpatient team.. 20:25 ED course: Old EKG demonstrates lateral findings are old. We will keep patient n.p.o. sp3 and cardiology will see her tomorrow. I have communicated all of this with Dr. Nelson and Dr. Mathews.. 10/15 17:24 Order name: Basic Metabolic Panel; Complete Time: 18:49 sp3 10/15 17:24 Order name: CBC with Diff; Complete Time: 18:49 sp3 10/15 17:24 Order name: LFT's; Complete Time: 18:49 sp3 10/15 17:24 Order name: Magnesium; Complete Time: 18:49 sp3 10/15 17:24 Order name: NT PRO-BNP; Complete Time: 18:49 sp3 10/15 17:24 Order name: PT-INR; Complete Time: 18:49 3 10/15 17:24 Order name: Troponin HS; Complete Time: 18:49 sp3 10/15 17:24 Order name: Lipase; Complete Time: 18:49 sp3 10/15 17:24 Order name: UAM; Complete Time: 18:49 sp3 10/15 18:29 Order name: Urine Culture [facility] 10/15 22:10 Order name: Troponin High Sensitivity [facility] 10/15 22:24 Order name: Lipase [facility] 10/15 22:48 Order name: Lipid Profile [facility] 10/15 22:48 Order name: Lipid Profile [facility] 10/15 22:48 Order name: Troponin High Sensitivity [facility] 10/15 22:48 Order name: Troponin High Sensitivity [facility] 10/15 22:48 Order name: Troponin High Sensitivity [facility] 10/15 22:48 Order name: Troponin High Sensitivity [facility] 10/15 22:48 Order name: Troponin High Sensitivity [facility] 10/15 22:49 Order name: Thyroid Stimulating Hormone [facility] 10/15 23:48 Order name: Thyroid Stimulating Hormone [facility] 10/15 19:13 Order name: Abdomen ; Complete Time: 19:38 [facility] 10/15 22:22 Order name: Chest Single View [facility] 10/15 22:48 Order name: Echo with Doppler [facility] 10/15 17:24 Order name: EKG; Complete Time: 17:24 sp3 10/15 22:48 Order name: CONS Physician Consult [facility] 10/15 17:24 Order name: Cardiac monitoring; Complete Time: 17:38 sp3 10/15 17:24 Order name: EKG - Nurse/Tech; Complete Time: 18:04 sp3 10/15 17:24 Order name: IV Saline Lock; Complete Time: 17:38 sp3 10/15 17:24 Order name: Labs collected and sent; Complete Time: 18:11 sp3 10/15 17:24 Order name: O2 Per Protocol; Complete Time: 17:38 sp3 10/15 17:24 Order name: O2 Sat Monitoring; Complete Time: 17:38 sp3 10/15 19:01 Order name: EKG - Nurse/Tech: repeat; Complete Time: 20:03 iw Administered Medications: 20:03 Drug: Potassium PO Effervescent Tablet 50 mEq PO once; dissolve in 4 ounces of water or bm8 juice Route: PO; 21:06 Follow up: Response: No adverse reaction al5 Disposition Summary: 10/15/24 20:02 Hospitalization Ordered Notes: Hospitalization Status: Inpatient Admission sp3 Provider: Hieu Dunn sp3 Condition: Stable sp3 Problem: an acute exacerbation sp3 Symptoms: have worsened sp3 Bed/Room Type: Standard 3 Location: Telemetry/MedSurg (Inpatient)(10/16/24 01:37) Room Assignment: [facility](10/16/24 01:37) Diagnosis - CHF, NSTEMI, acute on chronic renal failure sp3 Discharge Instructions: - Discharge Summary Sheet bm8 Forms: - Medication Reconciliation Form sp3 - Leadership Thank You Letter sp3 - SBAR form bm8 Signatures: Dispatcher [employer] EDGabriela Rice RN RN kl Williams, Irene, RN RN iw Blanchard, Shelby, RN RN ss Sims, Lauren, RN RN delma1 Jose Garcia MD MD sp3 Kanika Mcmanus RN RN vc1 Daivd Merino RN RN bm8 Marily Camilo RN al5 Corrections: (The following items were deleted from the chart) 17:24 17:24 Abdomen Pelvis W Con+CT.RAD.BRZ ordered. [facility] EDNY 23:44 20:02 Telemetry/MedSurg (Inpatient) sp3 vc1 23:44 20:02 sp3 vc1 10/16 01:37 10/15 23:44 [facility] ER [facility] vc1 kl 10/16 01:37 10/15 23:44 [facility]- vc1
--- NOTE | 2024-10-15 20:02 | ER ---
Nurse's Notes [facility] Name: Lawanda Sharp Age: 84 yrs Sex: Female : 1940 Arrival Date: 10/15/2024 Time: 17:11 Bed 5 Private MD: Diagnosis: CHF, NSTEMI, acute on chronic renal failure Presentation: 10/15 17:19 Chief complaint: EMS states: toned out to bank for abdominal pain/diarrhea - near ld1 syncopal event due to abd pain. Coronavirus screen: At this time, the client does not indicate any symptoms associated with coronavirus-19. Ebola Screen: No symptoms or risks identified at this time. Initial Sepsis Screen: Does the patient meet any 2 criteria? No. Patient's initial sepsis screen is negative. Does the patient have a suspected source of infection? No. Patient's initial sepsis screen is negative. Risk Assessment: Do you want to hurt yourself or someone else? Patient reports no desire to harm self or others. Onset of symptoms was October 15, 2024 at 17:21. 17:19 Method Of Arrival: EMS: [facility] ld1 17:19 Acuity: SANIYA 3 ld1 Triage Assessment: 17:15 General: Appears in no apparent distress. comfortable, Behavior is calm, cooperative, ld1 appropriate for age. Pain: Complains of pain in abdomen Pain does not radiate. Pain currently is 8 out of 10 on a pain scale. Quality of pain is described as throbbing, Pain began suddenly, Is continuous. EENT: No signs and/or symptoms were reported regarding the EENT system. Neuro: Level of Consciousness is awake, alert, obeys commands, Oriented to person, place, time, situation, Appropriate for age. Cardiovascular: Capillary refill < 3 seconds Patient's skin is warm and dry. Rhythm is atrial fibrillation. Respiratory: Airway is patent Respiratory effort is even, unlabored. GI: Abdomen is round non-distended, Reports lower abdominal pain, upper abdominal pain. : No signs and/or symptoms were reported regarding the genitourinary system. Derm: No signs and/or symptoms reported regarding the dermatologic system. Musculoskeletal: No signs and/or symptoms reported regarding the musculoskeletal system. Historical: - Allergies: 17:15 NKDA; ss 17:15 NKDA; ld1 - PMHx: 17:15 Hypertension; ss 17:15 Hypertension; ld1 - PSHx: 17:15 Cholecystectomy; hysterectomy; ss 17:15 Cholecystectomy; hysterectomy; ld1 - Immunization history:: Adult Immunizations up to date. - Infectious Disease History:: Denies. - Social history:: Smoking status: Patient denies any tobacco usage or history of. Screenin:11 [facility] ED Fall Risk Assessment (Adult) History of falling in the last 3 months, ld1 including since admission No falls in past 3 months (0 pts) Confusion or Disorientation No (0 pts) Intoxicated or Sedated No (0 pts) Impaired Gait No (0 pts) Mobility Assist Device Used No (0 pt) Altered Elimination No (0 pt) Score/Fall Risk Level 0 - 2 = Low Risk Oriented to surroundings, Hourly rounding (assess needs \T\ fall precautionary measures) done. Abuse screen: Denies threats or abuse. Denies injuries from another. Nutritional screening: No deficits noted. Tuberculosis screening: No symptoms or risk factors identified. Assessment: 18:11 Reassessment: See triage assessment. ld1 18:11 Reassessment: Patient appears in no apparent distress at this time. No changes from ld1 previously documented assessment. Patient and/or family updated on plan of care and expected duration. Pain level reassessed. Patient is alert, oriented x 3, equal unlabored respirations, skin warm/dry/pink. Assisted to bedside commode. 19:48 General: Appears in no apparent distress. comfortable, Behavior is calm, cooperative, bm8 appropriate for age. Pain: Denies pain. Neuro: No deficits noted. Level of Consciousness is awake, alert, obeys commands, Oriented to person, place, time, situation, Appropriate for age Denies weakness dizziness. Cardiovascular: Denies chest pain, Heart tones S1 S2 present Capillary refill < 3 seconds in bilateral fingers Patient's skin is warm and dry. Rhythm is atrial fibrillation. Respiratory: Airway is patent Trachea midline Respiratory effort is even, unlabored, Respiratory pattern is regular, symmetrical, Breath sounds are clear bilaterally. GI: Bowel sounds present X 4 quads. Abd is soft and non tender. : No signs and/or symptoms were reported regarding the genitourinary system. EENT: No signs and/or symptoms were reported regarding the EENT system. Derm: No signs and/or symptoms reported regarding the dermatologic system. Musculoskeletal: No signs and/or symptoms reported regarding the musculoskeletal system. 22:34 Reassessment: Patient appears in no apparent distress at this time. Patient and/or bm8 family updated on plan of care and expected duration. Pain level reassessed. Patient is alert, oriented x 3, equal unlabored respirations, skin warm/dry/pink. pt is lying in bed covered, respirations are even unlabored with symmetrical rise and fall of chest. denies pain at this time. grand daughter at bedside Patient states feeling better. Patient states symptoms have improved. 23:18 Reassessment: Patient appears in no apparent distress at this time. No changes from bm8 previously documented assessment. Patient and/or family updated on plan of care and expected duration. Pain level reassessed. Patient is alert, oriented x 3, equal unlabored respirations, skin warm/dry/pink. Patient states feeling better. Vital Signs: 17:14 BP 146 / 104; Pulse 105; Resp 18; Temp 97.4(O); Pulse Ox 99% on R/A; Weight 63.5 kg; ss Height 5 ft. 5 in. ; Pain 6/10; 18:11 BP 124 / 86; Pulse 84; Resp 18; Pulse Ox 100% on R/A; ld1 19:48 BP 127 / 85; Pulse 72; Resp 17; Temp 98.1; Pulse Ox 96% on R/A; Pain 0/10; bm8 22:36 BP 124 / 83; Pulse 89; Resp 18; Temp 98.1; Pulse Ox 100% ; Pain 0/10; bm8 23:18 BP 107 / 83; Pulse 96; Resp 18; Temp 98.1; Pulse Ox 100% ; Pain 3/10; bm8 17:14 Body Mass Index 23.30 (63.50 kg, 165.1 cm) ss 17:14 Pain Scale: Adult ss 19:48 Pain Scale: Adult bm8 22:36 Pain Scale: Adult bm8 23:18 Pain Scale: Adult bm8 [place] Coma Score: 19:48 Eye Response: spontaneous(4). Motor Response: obeys commands(6). Verbal Response: bm8 oriented(5). Total: 15. 22:36 Eye Response: spontaneous(4). Motor Response: obeys commands(6). Verbal Response: bm8 oriented(5). Total: 15. 23:18 Eye Response: spontaneous(4). Motor Response: obeys commands(6). Verbal Response: bm8 oriented(5). Total: 15. ED Course: 17:14 Patient arrived in ED. ss 17:15 Arm band placed on right wrist. ld1 17:17 Jose Garcia MD is Attending Physician. sp3 17:21 Triage completed. ld1 17:51 Radiology exam delayed due to IV insertion attempt and/or patient not having jc4 appropriate IV at this time. 17:52 Radiology exam delayed due to lab results not completed at this time. jc4 17:53 Rosy Felipe, RN is Primary Nurse. ld1 18:11 Patient has correct armband on for positive identification. Placed in gown. Bed in low ld1 position. Call light in reach. Side rails up X2. residential monitor on. Pulse ox on. NIBP on. Door closed. Noise minimized. Warm blanket given. 18:11 No provider procedures requiring assistance completed. Inserted saline lock: 22 gauge ld1 in right forearm, using aseptic technique. Blood collected. Flushed with 10 mL NS. 19:13 Abdomen In Process Unspecified. EDMS 19:48 Patient maintains SpO2 saturation greater than 95% on room air. bm8 19:59 Hieu Dunn MD is Hospitalizing Provider. sp3 20:03 EKG done, by ED staff, reviewed by Jose Garcia MD. bm8 20:19 Attending Physician role handed off by Jose Garcia MD sp4 20:19 Kirk Mcclellan MD is Attending Physician. sp4 20:25 Jose Garcia MD is Attending Physician. sp3 22:30 Chest Single View In Process Unspecified. EDMS 23:03 Attending Physician role handed off by Jose Garcia MD sp4 23:03 Kirk Mcclellan MD is Attending Physician. sp4 23:18 Provided Education on: need for admission. bm8 23:18 Patient admitted, IV remains in place. bm8 Administered Medications: 20:03 Drug: Potassium PO Effervescent Tablet 50 mEq PO once; dissolve in 4 ounces of water or bm8 juice Route: PO; 21:06 Follow up: Response: No adverse reaction al5 Medication: 18:11 VIS not applicable for this client. ld1 Outcome: 20:02 Decision to Hospitalize by Provider. sp3 23:18 Admitted to ER Hold. Please see [facility] for further documentation. bm8 23:18 Condition: stable 23:18 Instructed on follow up and referral plans. the need for admit, Demonstrated understanding of instructions, follow-up care, 10/16 02:38 Patient left the ED. bm8 Signatures: Dispatcher [employer] EDMS Tara Hartman RN HERSON Rosy Felipe RN RN ld1 Jose Garcia MD MD sp3 Kirk Mcclellan MD MD sp4 David Merino RN RN bm8 Marily Camilo RN RN al5 Osbaldo Becerril jc4 Corrections: (The following items were deleted from the chart) 10/15 22:36 19:48 Cardiovascular: Denies chest pain, Heart tones S1 S2 present Capillary refill < 3 bm8 seconds in bilateral fingers Patient's skin is warm and dry. Rhythm is sinus rhythm bm8
[2024-10-15] MEDS: POTASSIUM CL SA 10 MEQ TAB PO ONE (22:20)
--- NOTE | 2024-10-15 22:32 | RAD REPORT ---
EXAMINATION: ONE VIEW CHEST XR CLINICAL INDICATION: elevated bnp, sob TECHNIQUE: Frontal chest projection is submitted. Examination is limited by patient positioning and t echnique. COMPARISON: 09/23/2024 FINDINGS: The lungs are well inflated and clear. The heart is upper limit of normal in size. No displaced fract ures identified. IMPRESSION: No acute intrathoracic abnormalities.
--- NOTE | 2024-10-15 22:36 | P.HP ---
Certification for Inpatient Patient admitted to: Inpatient With expected LOS: >2 Midnights Practitioner: I am a practitioner with admitting privileges, knowledge of patient current condition, hospital course, and medical plan of care. Services: Services provided to patient in accordance with Admission requirements found in Title 42 Section 412.3 of the Code of Federal Regulations Patient History Date of Service: 10/15/24 Reason for admission: chest pain, epigastric pain History of Present Illness: 84-year-old female with history of hypertension, hyperlipidemia, atrial fibri llation on Eliquis presented to the ER with complaints of of epigastric pain and shortness of breath. Patient also reports having some dizziness. She does state that she is on a diuretic. She denies any fevers, chills, nausea. She denies any diarrhea. In the emergency room she was noted to have mildly elevated troponin. An elevated creatinine. Her potassium was significantly low. A noncontrast CT of the abdomen pelvis was done Allergies No Known Allergies Allergy (Unverified 03/07/23 23:45) Home Medications: lisinopriL [Lisinopril] 40 mg PO DAILY 05/14/17 Apixaban [Eliquis] 5 mg PO BID 30 Days #60 tablet 04/15/24 Furosemide [Lasix] 20 mg PO DAILY 30 Days #30 tab 09/17/24 Potassium Oral Tab [Klor-Con 10 mEq Tab*] 20 meq PO DAILY 30 Days #30 tab 09/17/24 Cholecalciferol (Vitamin D3) [Vitamin D3] 50,000 unit PO SEECOM 09/24/24 Levothyroxine [Synthroid*] 75 mcg PO [id number] 09/24/24 hydroCHLOROthiazide [Hydrochlorothiazide*] 25 mg PO DAILY 09/24/24 - Past Medical/Surgical History Diabetic: No -: HTN -: Hypothyroidism -: borderline diabetic -: chronic kidney infection -: GERD -: -: Hysterectomy -: Cholecystectomy Psychosocial/ Personal History: Patient lives at home alone - Family History Mother -: Hypertension - Social History Alcohol use: No CD- Drugs: No Caffeine use: Yes Review of Systems 10-point ROS is otherwise unremarkable Gastrointestinal: Abdominal Pain Physical Examination - Physical Exam General: Oriented x3 HEENT: Atraumatic, Normocephalic Cardiovascular: Normal S1 S2 Gastrointestinal: Soft and benign, No tenderness Musculoskeletal: No swelling Integumentary: No rashes - Studies Laboratory Data (last 24 hrs) 10/15/24 10/15/24 10/15/24 18:09 18:09 18:09 WBC 7.30 Hgb 14.2 Hct 41.6 Plt Count 173 PT 26.7 H INR 2.57 Sodium 134 L Potassium 2.1 L* BUN 74 H Creatinine 3.64 H Glucose 149 H Magnesium 2.3 Total Bilirubin 1.3 H AST 25 ALT 21 Alkaline Phosphatase 63 Lipase 59 Assessment and Plan - Problems (Diagnosis) (1) Epigastric pain Current Visit: Yes Status: Acute (2) Acute kidney injury Current Visit: Yes Status: Acute (3) Hypokalemia Current Visit: Yes Status: Acute (4) Troponin I above reference range Current Visit: Yes Status: Acute (5) Bilirubinemia Current Visit: Yes Status: Acute (6) Atrial fibrillation Current Visit: No Status: Acute - Plan 84-year-old female with history of hypertension, hyperlipidemia, atrial fibrillation on Eliquis presented to the ER with complaints of of epigastric pain and shortness of breath. #epigastric pain --check lipase --ct abd pelvis noncontrast done --try gi cocktail, h2 geovanna --check CXR #elevated troponin --cardiology consulted in ED --repeat troponin --check echo #JED --?UTI --check urine studies --consider renal consult in AM #hypokalemia --replace and recheck --Mg ok --may limit lasix #hypothyroidism --check tsh #history of afib on eliquis --telemetry #elevated bilirubin --repeat labs - Advance Directives Does patient have a Living Will: No Does patient have a Durable POA for Healthcare: No
[2024-10-15] MEDS: KCL 20 MEQ/100 mL IVPB 100 ML IV SCH (23:00)
[2024-10-15] MEDS: ASPIRIN EC 81 MG TAB PO SCH (23:00)
[2024-10-15] MEDS ORDERED: POTASSIUM CL 40 MEQ in NA CHLORIDE 0.9% 500 ML IV SCH (23:00)
[2024-10-15] MEDS: CEFTRIAXONE 1,000 MG in NA CHLORIDE 0.9% 50 ML IVPB SCH (23:00)
[2024-10-15] MEDS ORDERED: CEFTRIAXONE 1000 MG/VIAL ONE (23:01)
[2024-10-15] MEDS ORDERED: POTASSIUM CL SA 10 MEQ TAB PO ONE (23:02)
[2024-10-15] MEDS ORDERED: NA CHLORIDE 0.9% 1,000 ML ONE (23:02)
[2024-10-15] MEDS ORDERED: KCL 20 MEQ/100 mL IVPB 200 ML IV ONE (23:02)
[2024-10-15] MEDS ORDERED: ASPIRIN EC 81 MG TAB PO ONE (23:17)
[2024-10-15 23:48] LABS: Thyroid Stimulating Hormone 0.165 uIU/mL (0.358-3.740)
[2024-10-16] MEDS: HYDROCODONE/APAP 5/325 MG TAB PO ONE (01:17)
[2024-10-16] MEDS ORDERED: HYDROCODONE/APAP 5/325 MG TAB ONE ×2 (01:21→02:35)
[2024-10-16 07:05] LABS: Albumin 3.2 g/dL (3.4-5.0); Albumin/Globulin Ratio 0.8 (1.1-1.8); Anion Gap 11.2 mEq/L (5.0-15.0); Bilirubin Total 0.8 mg/dL (0.2-1.0); Globulin 3.9 g/dL (2.3-3.5); Potassium 3.2 mEq/L (3.5-5.1); Protein, Total 7.1 g/dL (6.4-8.2)
--- NOTE | 2024-10-16 08:56 | P.CNS ---
Date of Consult: 10/16/24 Reason for Consult: JED/ CKD Requesting Physician: aureliano echeverria Chief Complaint: chest pain, epigastric pain History of Present Illness: 84-year-old female with history of hypertension, hyperlipidemia, atrial fibrillation on Eliquis presented to the ER with complaints of of epigastric pain and shortness of breath. Patient also reports having some dizziness. She does state that she is on a diuretic. She denies any fevers, chills, nausea. She denies any diarrhea. In the emergency room she was noted to have mildly elevated troponin. An elevated creatinine. Her potassium was significantly low. A noncontrast CT of the abdomen pelvis was done 17:41 This 84 yrs old Female presents to ER via EMS with complaints of Abdominal sp3 Pain. 17:41 84-year-old female with history of hypertension, hyperlipidemia, atrial fibrillation sp3 currently on Eliquis presents to the ED with chief complaint epigastric pain resulting in a near syncopal episode earlier today. Patient denies full syncope or fall. Pain does not radiate anywhere and she does not endorse any other symptoms. She denies any chest pain, shortness of breath, lower abdominal pain, vomiting, diarrhea, fever, cough, bleeding, or any other signs or symptoms on ROS at this time. She reports dizziness yesterday. The patient and daughter reports progressive abdominal pain for the past year. She has plans for an EGD with Dr. Orin lindsey. She denies NSAIDs and any difficulties with urination. Allergies No Known Allergies Allergy (Unverified 03/07/23 23:45) Home medications list reviewed: Yes Home Medications: lisinopriL [Lisinopril] 40 mg PO DAILY 05/14/17 Apixaban [Eliquis] 5 mg PO BID 30 Days #60 tablet 04/15/24 Furosemide [Lasix] 20 mg PO DAILY 30 Days #30 tab 09/17/24 Potassium Oral Tab [Klor-Con 10 mEq Tab*] 20 meq PO DAILY 30 Days #30 tab 09/17/24 Cholecalciferol (Vitamin D3) [Vitamin D3] 50,000 unit PO SEECOM 09/24/24 Levothyroxine [Synthroid*] 75 mcg PO [id number] 09/24/24 hydroCHLOROthiazide [Hydrochlorothiazide*] 25 mg PO DAILY 09/24/24 - Past Medical/Surgical History Diabetic: No -: HTN -: Hypothyroidism -: PreDM -: CKD -: GERD -: -: Hysterectomy -: Cholecystectomy Psychosocial/ Personal History: Patient lives at home alone - Family History Mother Medical History: Hypertension - Social History Smoking Status: Unknown if ever smoked Alcohol use: No CD- Drugs: No Caffeine use: Yes Place of Residence: Home Review of Systems 10-point ROS is otherwise unremarkable General: Weakness, Malaise Gastrointestinal: Abdominal Pain Physical Examination Temp Pulse Resp BP Pulse Ox 97.6 F 75 16 118/72 100 10/16/24 08:00 10/16/24 08:00 10/16/24 08:00 10/16/24 08:00 10/16/24 08:00 General: In no apparent distress, Cooperative HEENT: Atraumatic, Mucous membr. moist/pink Neck: Supple Respiratory: Clear to auscultation bilaterally Cardiovascular: No edema, Regular rate/rhythm Gastrointestinal: Soft and benign, Non-distended, Tenderness Musculoskeletal: No clubbing, No contractures Integumentary: No rashes, No cyanosis Neurological: Normal speech Laboratory Data (last 24 hrs) 10/15/24 10/15/24 10/15/24 22:22 18:09 18:09 WBC 7.30 Hgb 14.2 Hct 41.6 Plt Count 173 PT 26.7 H INR 2.57 Sodium Potassium BUN Creatinine Glucose Magnesium Total Bilirubin AST ALT Alkaline Phosphatase Triglycerides 111 Cholesterol 114 HDL Cholesterol 30 L Cholesterol/HDL Ratio 3.80 Lipase 49 10/15/24 18:09 WBC Hgb Hct Plt Count PT INR Sodium 134 L Potassium 2.1 L* BUN 74 H Creatinine 3.64 H Glucose 149 H Magnesium 2.3 Total Bilirubin 1.3 H AST 25 ALT 21 Alkaline Phosphatase 63 Triglycerides Cholesterol HDL Cholesterol Cholesterol/HDL Ratio Lipase 59 Imagings Data: [id number] EXAMINATION: ONE VIEW CHEST XR CLINICAL INDICATION: elevated bnp, sob TECHNIQUE: Frontal chest projection is submitted. Examination is limited by patient positioning and technique. COMPARISON: 09/23/2024 FINDINGS: The lungs are well inflated and clear. The heart is upper limit of normal in size. No displaced fractures identified. IMPRESSION: No acute intrathoracic abnormalities. [id number] EXAMINATION: CT ABDOMEN AND PELVIS WITHOUT CONTRAST CLINICAL INDICATION: ABD PAIN TECHNIQUE: CT abdomen and pelvis was performed, without IV contrast, as per department protocol. Axial, sagittal and coronal reconstructions were obtained. One or more of the following dose reduction techniques were used: Automated exposure control, adjustment of the mA and kV according to the patient size, and iterative reconstruction. Unless otherwise specified, incidental findings do not require dedicated imaging follow-up. COMPARISON: 09/23/2024 FINDINGS: The lack of intravenous contrast limits the sensitivity of this exam for evaluation of solid visceral organs, vascular structures, and retroperitoneum. LOWER CHEST: The visualized lung bases are clear. LIVER:Small low-density lesions throughout the liver likely represent cysts. No aggressive liver finding. Cholecystectomy clips. SPLEEN: Normal size. No focal lesion. PANCREAS: No mass, ductal dilation, or radha-pancreatic fluid. ADRENALS: Normal; no mass. KIDNEYS AND URETERS: Normal size and contour. No hydronephrosis. Bilateral renal lesions which are either benign in appearance or too small to accurately characterize but statistically benign. URINARY BLADDER: Normal contour. GASTROINTESTINAL TRACT: No evidence of bowel obstruction, significant free fluid, free air or abscess. APPENDIX: Appendix not visualized, but no inflammatory changes in region of appendix. LYMPH NODES: No lymphadenopathy. MUSCULOSKELETAL: 4 mm degenerative anterolisthesis L5 on S1. Moderate levoscoliosis of the thoracolumbar spine. ADDITIONAL FINDINGS: None. IMPRESSION: No acute or concerning abnormalities in the abdomen or pelvis, with evaluation limited by lack of IV contrast. [id number] LEFT VENTRICULAR WALL MOTION: NORMAL DOPPLER/COLOR FLOW: DIASTOLIC DYSFUNCTION COMMENTS: 1. NORMAL LEFT VENTRICULAR SYSTOLIC FUNCTION, EJECTION FRACTION 55%, NORMAL WALL MOTION 2. DIASTOLIC DYSFUNCTION 3. SEVERE DILATED LEFT ATRIUM 4. MILD TO MODERATE MITRAL REGURGITATION 5. ELEVATED FILLING PRESSURE (RIGHT ATRIAL PRESSURE GREATER THAN 20 mmHg) Conclusions/Impression: Stage III JED may be due to hypovolemia in the setting of abdominal pain and anorexia CKD III -No NSAIDs -Start gentle IVF with 1/2NS Hypokalemia -Replete as ordered HTN with CKD -Hold antihypertensives at this time Diastolic CHF, chronic Moderate MR -Daily weight -Cardiology following Acute Infective Cystitis -Continue Rocephin -Follow up urine cx Hospitalist and ER notes reviewed Case reviewed with Dr. Echeverria Thank you kindly for the consultation
[2024-10-16] MEDS: NACHLORIDE 0.45% 1,000 ML IV SCH (10:04)
--- NOTE | 2024-10-16 11:49 | P.CNS ---
Date of Consult: 10/16/24 Chief Complaint: chest pain, epigastric pain History of Present Illness: Patient with PMH of atrial fibrillation on anticoagulation, diastolic heart failure, presented with worsening epigastric pain and dizziness, denies chest pain, no palpitations, no syncope. Allergies No Known Allergies Allergy (Unverified 03/07/23 23:45) Home medications list reviewed: Yes Home Medications: lisinopriL [Lisinopril] 40 mg PO DAILY 05/14/17 Apixaban [Eliquis] 5 mg PO BID 30 Days #60 tablet 04/15/24 Furosemide [Lasix] 20 mg PO DAILY 30 Days #30 tab 09/17/24 Potassium Oral Tab [Klor-Con 10 mEq Tab*] 20 meq PO DAILY 30 Days #30 tab 09/17/24 Cholecalciferol (Vitamin D3) [Vitamin D3] 50,000 unit PO SEECOM 09/24/24 Levothyroxine [Synthroid*] 75 mcg PO [id number] 09/24/24 hydroCHLOROthiazide [Hydrochlorothiazide*] 25 mg PO DAILY 09/24/24 - Past Medical/Surgical History Diabetic: No -: HTN -: Hypothyroidism -: borderline diabetic -: chronic kidney infection -: GERD -: -: Hysterectomy -: Cholecystectomy Psychosocial/ Personal History: Patient lives at home alone - Family History Mother Medical History: Hypertension - Social History Smoking Status: Unknown if ever smoked Alcohol use: No CD- Drugs: No Caffeine use: Yes Place of Residence: Home Review of Systems 10-point ROS is otherwise unremarkable Physical Examination Temp Pulse Resp BP Pulse Ox 97.6 F 75 16 118/72 100 10/16/24 08:00 10/16/24 08:00 10/16/24 08:00 10/16/24 08:00 10/16/24 08:00 General: Alert, In no apparent distress HEENT: Atraumatic, PERRLA, Mucous membr. moist/pink, EOMI, Sclerae nonicteric Neck: Supple, 2+ carotid pulse no bruit, No LAD, Without JVD or thyroid abnormality Respiratory: Clear to auscultation bilaterally, Normal air movement Cardiovascular: Normal S1 S2, Irregular heart rate/rhythm Gastrointestinal: Normal bowel sounds, No tenderness Musculoskeletal: No tenderness Integumentary: No rashes Neurological: Normal gait, Normal speech, Normal tone, Normal affect Lymphatics: No axilla or inguinal lymphadenopathy Laboratory Data (last 24 hrs) 10/15/24 10/15/24 10/15/24 22:22 18:09 18:09 WBC 7.30 Hgb 14.2 Hct 41.6 Plt Count 173 PT 26.7 H INR 2.57 Sodium Potassium BUN Creatinine Glucose Magnesium Total Bilirubin AST ALT Alkaline Phosphatase Triglycerides 111 Cholesterol 114 HDL Cholesterol 30 L Cholesterol/HDL Ratio 3.80 Lipase 49 10/15/24 18:09 WBC Hgb Hct Plt Count PT INR Sodium 134 L Potassium 2.1 L* BUN 74 H Creatinine 3.64 H Glucose 149 H Magnesium 2.3 Total Bilirubin 1.3 H AST 25 ALT 21 Alkaline Phosphatase 63 Triglycerides Cholesterol HDL Cholesterol Cholesterol/HDL Ratio Lipase 59 - Problems (1) Chronic diastolic heart failure Current Visit: Yes Status: Acute Plan: Patient looks euvolemic on exam with worsening kidney function hold lasix, lisinopril and HCTZ gentle diuresis echo shows normal filling pressure suggest Lopressor 25 mg po BID if BP and HR permits and uptitrate as tolerated Nephrology input appreciated. (2) Troponin I above reference range Current Visit: Yes Status: Acute Plan: patient denies having chest pain, stress test recently in office is negative, most likely type 2 MD from JED. Echo shows normal EF and wall motion. No further cardiac work up needed. (3) Atrial fibrillation Current Visit: No Status: Acute Plan: patient is in AF, rate controlled, LA is severe dilated on echo, we attempted Amiodarone prescription in office but patient did not start it due to cost. recommend Lopressor 25 mg po BID
--- NOTE | 2024-10-16 13:09 | ECHO ---
HEIGHT: 5 ft 5 in WEIGHT: 139 lb 0 oz DATE OF STUDY: 10/16/[address]: Hieu Dunn MD 2-DIMENSIONAL: YES M.MODE: YES DOPPLER: YES COLOR FLOW: YES TDS: PORTABLE: YES DEFINITY: BUBBLE STUDY: DIAGNOSIS: CHEST PAIN CARDIAC HISTORY: CATHERIZATION: NO SURGERY: NO PROSTHETIC VALVE: NO PACEMAKER: NO MEASUREMENTS (cm) DIASTOLIC (NORMALS) SYSTOLIC (NORMALS) IVSd 0.9 (0.6-1.2) LA Diam 4.6 (1.9-4.0) LVEF 60-65% LVIDd 4.7 (3.5-5.7) LVIDs 3.4 (2.0-3.5) %FS 29% LVPWd 1.2 (0.6-1.2) Ao Diam 2.8 (2.0-3.7) 2 DIMENSIONAL ASSESSMENT: RIGHT ATRIUM: NORMAL LEFT ATRIUM: SEVERELY DILATED RIGHT VENTRICLE: NORMAL LEFT VENTRICLE: NORMAL TRICUSPID VALVE: MILD TRICUSPID REGURGITATION MITRAL VALVE: MILD MITRAL REGURGITATION PULMONIC VALVE: NORMAL AORTIC VALVE: NORMAL PERICARDIAL EFFUSION: NONE AORTIC ROOT: NORMAL LEFT VENTRICULAR WALL MOTION: NORMAL DOPPLER/COLOR FLOW: GRADE II DIASTOLIC DYSFUNCTION COMMENTS: 1. SEVERELY DILATED LEFT ATRIUM 2. NORMAL LEFT VENTRICULAR SYSTOLIC FUNCTION, EJECTION FRACTION 60-65%, NORMAL WALL MOTION 3. GRADE II DIASTOLIC DYSFUNCTION 4. MILD MITRAL REGURGITATION, MILD TRICUSPID REGURGITATION 5. NORMAL FILLING PRESSURE (RIGHT ATRIAL PRESSURE 0-5 mmHg) TECHNOLOGIST: ARIANA BILL [facility]
[2024-10-16] MEDS ORDERED: SODIUM CHLORIDE 0.9% 10ML INJ IV PRN (15:24)
[2024-10-16] MEDS: PANTOPRAZOLE 40 MG INJ IVP SCH (16:03)
[2024-10-16] MEDS: SUCRALFATE 1GM/10ML UCUP PO SCH (16:03)
[2024-10-16] MEDS: KCL 20 MEQ/100 mL IVPB 20 MEQ/100 ML BAG IV SCH (18:19)
--- NOTE | 2024-10-16 19:36 | CON ---
Date of Consultation: 10/16/2024 Reason For Consultation: Elevated BUN and creatinine, fluid management. History Of Present Illness: This is a pleasant 84-year-old female with significant past medical hist ory of DICTATION ENDS HERE. COREY Voice ID: [id number] Report ID: [id number]
--- NOTE | 2024-10-16 19:37 | P.PN ---
Subjective Date of Service: 10/16/24 Chief Complaint: chest pain, epigastric pain Patient complaining of epigastric pain. She denies any nausea or vomiting. Family report patient has had poor oral intake over the past 3 days. Physical Examination - Vital Signs Temperature: 97.7 F Blood Pressure: 113/55 Pulse: 74 Respirations: 16 Pulse Ox (%): 100 - Studies Laboratory Data (last 24 hrs) 10/15/24 22:22 Triglycerides 111 Cholesterol 114 HDL Cholesterol 30 L Cholesterol/HDL Ratio 3.80 Lipase 49 Assessment And Plan - Plan Physical examination General: Alert and oriented x3, NAD, HEENT: Conjunctiva not pale, anicteric sclera Neck: Supple, no elevated JVD Heart: Heart sounds 1 and 2 normal, regular rhythm, normal rate, no pedal edema Lungs: Clear to auscultation bilaterally, adequate breath sounds bilaterally, no rhonchi or crackles. Abdomen: Soft, nondistended, mild epigastric tenderness, normal bowel sounds. Extremities: No tenderness, no deformity Skin: Normal skin turgor, no rash, no nodules or ulcers. Neuro: No focal motor deficit. Normal speech. Psychiatry: Normal mood, no agitation. Assessment and plan Epigastric pain Likely noncardiac. Normal lipase level ct abd pelvis: No acute intra-abdominal pathology. Trial of Protonix, sucralfate. No GI available to evaluate. Elevated troponin cardiology Dr. Britt input appreciated. Troponin trended flat. Recent negative stress test per cardiology Elevated troponin deemed secondary to demand ischemia Echocardiogram: Normal EF, severely dilated left atrium. Cardiology to follow JED Likely prerenal secondary to dehydration Nephrology consulted. IV hydration Hold lisinopril. Hypokalemia Replace potassium as needed Monitor and optimize other electrolytes. hypothyroidism Low TSH indicating hyperthyroid state. Home dose Synthroid decreased from 75 mcg to 50 mcg daily. History of afib Continue Eliquis DVT prophylaxis: Eliquis. Advanced directive: Full code
[2024-10-16] MEDS ORDERED: HOME MED 1 EA UNK (Cholecalciferol (Vitamin D3) [Vitamin D3] 2000 UNIT Capsule) PO SCH (19:45)
[2024-10-16] MEDS: APIXABAN 5 MG TABLET PO SCH (20:46)
--- NOTE | 2024-10-16 20:47 | CON ---
Date of Consultation: 10/16/2024 Reason For Consultation: Elevated BUN, creatinine, and fluid management. History Of Present Illness: This is an 84-year-old female with significant past medical history of atrial fibrillation, on anticoagulation; hyperlipidemia; hypertension. The patient came to the hospital with poor intake, shortness of breath and epigastric pain. The patient found to have elevation in BUN and creatinine. For that reason, we have been consulted. The patient upon arrival, creatinine 3.6 with GFR of 12. Reviewing the record for the patient, back in August creatinine 1.2, GFR of 42. The patient denied taking any non-steroidal. The patient was seen by Cardiology. No intervention. Had severe dilated left atrium with atrial fibrillation. The patient on home medication, being on Lasix and hydrochlorothiazide with lisinopril. The patient was started on gentle hydration. Still feeling weak. Past Medical History: Includes: 1. Hypertension. 2. Hypothyroidism. 3. Atrial fibrillation, on anticoagulation. Past Surgical History: Include hysterectomy, , cholecystectomy. Home Medications: Include lisinopril, Eliquis, Lasix, KCl, cholecalciferol, levothyroxine, hydrochlorothiazide. Allergies: NO KNOWN DRUG ALLERGY. Family History: Positive for hypertension and CAD. Social History: Denied smoking. Denied drinking. Denied drugs of abuse. Lives with family. Review of Systems: Head and Neck: No red eye. No ear pain. GI: No nausea, no vomiting. : No polyuria, no dysuria. No hematuria. Director Information Security: No vaginal discharge. Respiratory: No shortness of breath. Cardiovascular: No chest pain. Endocrine: No polydipsia. Skin: No rash. Neuro: Has weakness. Musculoskeletal: Generalized fatigue. Physical Examination: Vital Signs: When I saw the patient, blood pressure 114/65, pulse of 71, afebrile. Chest: Clear to auscultation. Heart: S1, S2, regular. Abdomen: Soft, nontender. Extremities: No edema. Neurologic: Alert. No focality. Laboratory Data: Back in August, creatinine 1.2, GFR of 42. Yesterday, sodium 134, potassium 2.1, bicarb 28, BUN 74, creatinine 3.6, GFR 12, calcium 10.3, magnesium 2.3. Troponin 62. WBC 7.3, hemoglobin 14.2. Today, lab data; sodium 138, potassium 3.2, bicarb 25, BUN 76, creatinine 3.5, GFR 12, calcium 9.2. Urinalysis positive for infection. Assessment And Plan: 1. Acute kidney injury secondary to poor perfusion, acute tubular necrosis, dehydration, superimposed with PIERRE inhibitor and hydrochlorothiazide and Lasix. The patient is still on the dry side. I am going to continue hydration and we will monitor the patient. We will send for workup for the patient including renal ultrasound. 2. PTH. 3. Hypokalemia secondary to poor intake and diuresis. We will continue supplement cautiously. 4. Hypertension with the presence of acute kidney injury. Discontinue PIERRE inhibitor, lisinopril; discontinue Lasix; discontinue hydrochlorothiazide. 5. Atrial fibrillation by Cardiology. 6. Congestive heart failure. Currently, the patient on the dry side. Discontinue diuresis. We will follow up with Cardiology. 7. Urinary tract infection. We will continue antibiotic. We will follow up culture. Thank you, Dr. Calero, for allowing us to participate in the care of your patient. Time spent examining the patient [id number] reviewing data lab and an audiology placing order discussing the case with the patient discussing the case with the crew team member including hospitalist and nursing staff more than 75-minute COREY Voice ID: [id number] Report ID: [id number] ILIANA
[2024-10-16 23:24] LABS: UR PROTEIN 23.7 mg/dL (<11.9); Urine Protein/Creatinine Ratio 0.18 ratio (<0.15)
[2024-10-17] MEDS: LEVOTHYROXINE SOD 0.05 MG TABLET PO SCH (06:19)
[2024-10-17 06:29] LABS: Albumin 2.8 g/dL (3.4-5.0); Phosphorus 2.6 mg/dL (2.5-4.9); Thyroid Stimulating Hormone 0.097 uIU/mL (0.358-3.740)
--- NOTE | 2024-10-17 07:37 | RAD REPORT ---
EXAMINATION: US RENAL ULTRASOUND CLINICAL INDICATION: JED TECHNIQUE: Real-time ultrasonography of the abdomen was performed. COMPARISON: No prior exam. FINDINGS: RIGHT KIDNEY: Right renal length measurement: 9.4 x 4.5 x 4.4 cm. Normal in echogenicity and size. No calculus, solid mass or hydronephrosis. 16 mm cyst is present. LEFT KIDNEY: Left renal length measurement: 10.5 x 4.0 x 2.7 cm. Normal in echogenicity and size. No calculus, solid mass or hydronephrosis. 11 x 10 mm cyst is present. URINARY BLADDER: Incompletely distended without gross abnormality detected. ADDITIONAL FINDINGS: None. IMPRESSION: Unremarkable renal ultrasound. Benign cysts bilaterally.
[2024-10-17] MEDS ORDERED: NA CHLORIDE 0.9% 250 ML IV PRN (07:45)
[2024-10-17] MEDS: POTASSIUM CL SA 10 MEQ TAB PO SCH (08:52)
[2024-10-17] MEDS: POTASSIUM 25 MEQ EFFERV TAB PO ONE ×3 (08:52→22:46)
[2024-10-17] MEDS: POTASSIUM CL SA 10 MEQ TAB PO ONE ×2 (15:43→17:33)
--- NOTE | 2024-10-17 17:49 | P.PN ---
Subjective Date of Service: 10/17/24 Chief Complaint: chest pain, epigastric pain Patient denies any complaint today. She denies any nausea vomiting or epigastric pain and she is tolerating diet with no issues. Patient is ambulatory. Physical Examination - Vital Signs Temperature: 98.1 F Blood Pressure: 107/83 Pulse: 96 Respirations: 18 Pulse Ox (%): 100 Assessment And Plan - Plan Physical examination General: Alert and oriented x3, NAD, Neck: Supple, no elevated JVD Heart: Heart sounds 1 and 2 normal, regular rhythm, normal rate, no pedal edema Lungs: Clear to auscultation bilaterally, adequate breath sounds bilaterally, no rhonchi or crackles. Abdomen: Soft, nondistended, no tenderness, normal bowel sounds. Extremities: No tenderness. Skin: Normal skin turgor, no rash.. Neuro: No focal motor deficit. Normal speech. Psychiatry: Normal mood, no agitation. Assessment and plan Epigastric pain Likely noncardiac. Normal lipase level ct abd pelvis: No acute intra-abdominal pathology. Trial of Protonix, sucralfate. No GI available to evaluate. Elevated troponin cardiology Dr. Britt input appreciated. Troponin trended flat. Recent negative stress test per cardiology Elevated troponin deemed secondary to demand ischemia Echocardiogram: Normal EF, severely dilated left atrium. Cardiology to follow JED Likely prerenal secondary to dehydration Nephrology consulted. IV hydration Hold lisinopril. Hypokalemia Replace potassium as needed Monitor and optimize other electrolytes. hypothyroidism Low TSH indicating hyperthyroid state. Home dose Synthroid decreased from 75 mcg to 50 mcg daily. History of afib Continue Eliquis 10/17 Patient's symptoms significantly improved. Serum creatinine trended down significantly but not close to baseline. Continue IV hydration. Patient given IV NS bolus for borderline low BP. Continue PPI and sucralfate for gastritis. No GI bleed. Outpatient follow-up with GI. Nephrology is following and managing JED. Activity as tolerated. Cardiology is following. Patient is on Eliquis for A-fib. DVT prophylaxis: Eliquis. Advanced directive: Full code
--- NOTE | 2024-10-17 22:07 | PN ---
Date of Progress Note: 10/17/2024 Chief Complaint: Acute kidney injury. Subjective: The patient is an 84-year-old woman with past medical history of atrial fibrillation, on anticoagulation; hyperlipidemia; hypertension. Patient came to the hospital because of decreased ap petite, failure to thrive, shortness of breath, and epigastric pain. The patient was found to have a cute kidney injury. Serum creatinine was 3.6 and GFR of 12. Baseline creatinine level back in ry was 1.2 and GFR of 42. Patient denied taking any nonsteroidal anti-inflammatory medication. Maya weir was previously seen by sheet metal production worker without specific intervention. She has had severe dilated le ft atrium with atrial fibrillation. She was taking hydrochlorothiazide and Lasix as well as lisinopr il. Review of Systems: Denies chest pain, palpitation. Physical Examination: Lungs: Clear to auscultation bilaterally. Heart: S1, S2. Abdomen: Soft, benign. Extremities: No edema. Laboratory Data: Blood work showed sodium 134, potassium 2.1, bicarbonate 28, BUN 74, creatinine 3.6 , calcium 10.3, magnesium 2.3. Impression And Plan: 1. Acute kidney injury secondary to renal acute tubular necrosis, volume depletion, superi mposed with PIERRE inhibitor and hydrochlorothiazide and Lasix. The patient is hypovolemic. She will c ontinue IV fluids. Monitor renal panel. 2. Hypokalemia secondary to diuretic and decreased intake. Continue supplementation. 3. Hypertension. Discontinue PIERRE inhibitor and Lasix and HCTZ. Patient will start beta-geovanna. Osbaldo miller is on medication from sheet metal production worker for atrial fibrillation. 4. Congestive heart failure. Currently hypovolemic. Diuretic discontinued. Continue IV fluids. 5. Urinary tract infection. Continue antibiotic. EB/MODL Voice ID: [id number] Report ID: [id number]
[2024-10-18 06:53] LABS: Absolute Eosinophils 0.2 K/uL (0-0.5); Absolute Lymphocytes (CBC) 1.8 K/uL (0.7-4.9); Absolute Monocytes 0.4 K/uL (0.1-1.3); Absolute Neutrophil 2.3 K/uL (1.8-8.0); Basophils % 0.7 % (0-1.3); Eosinophils % 3.9 % (0-4.4); Hematocrit 33.6 % (36.0-45.0); Hemoglobin 11.4 g/dL (12.0-15.0); Lymphocytes % 37.8 % (15.3-44.8); MCH 28.2 pg (27.0-35.0); MCV 83.2 fL (80-100); MPV 9.7 fL (7.6-11.3); Monocytes % 9.2 % (3.3-12.3); Neutrophils % 48.4 % (41.7-73.7); Nucleated Red Blood Cells % 0.1 % (0-0); Platelets 119 thou/uL (152-406); RBC Red Blood Cell Count 4.04 M/uL (3.86-4.86); Red Cell Distribution Width 13.9 % (12.1-15.2)
[2024-10-18 07:04] LABS: Albumin 2.6 g/dL (3.4-5.0); Anion Gap 10.3 mEq/L (5.0-15.0); Potassium 3.3 mEq/L (3.5-5.1)
[2024-10-18] MEDS: POTASSIUM CL SA 10 MEQ TAB PO ONE ×2 (07:37→13:11)
--- NOTE | 2024-10-18 15:15 | P.DS ---
Admission Date: 10/15/24 Discharge Date: 10/19/24 Disposition: ROUTINE DISCHARGE Discharge Condition: FAIR Reason for Admission: chest pain, epigastric pain Brief History of Present Illness: 84-year-old female with history of hypertension, hyperlipidemia, atrial fibrillation on Eliquis presented to the ER with complaints of of epigastric pain and shortness of breath. Patient also reports having some dizziness. She is on a diuretic. She denieds any fevers, chills, nausea. She denied any diarrhea. Family endorsed decreased oral intake. In the emergency room she was noted to have mildly elevated troponin, elevated creatinine. Her potassium was significantly low. A noncontrast CT of the abdomen pelvis was unremarkable. Patient was hospitalized for further management. Hospital Course: Patient admitted to the medical floor and the following medical problems addressed: Epigastric pain Likely noncardiac. Normal lipase level No melena. ct abd pelvis: No acute intra-abdominal pathology. Patient responded well to Protonix, sucralfate and tolerated diet. Follow-up with GI as outpatient. Elevated troponin cardiology Dr. Britt evaluated patient. Troponin trended flat. Recent negative stress test per cardiology Elevated troponin deemed secondary to demand ischemia Echocardiogram: Normal EF, severely dilated left atrium. JED Likely prerenal secondary to dehydration Nephrology evaluated patient and assisted with management. JED treated with IV hydration Held lisinopril, hydrochlorothiazide and diuretics. Serum creatinine improved to baseline. Lisinopril, hydrochlorothiazide and diuretics held on discharge. Hypokalemia Hypokalemia was corrected. hypothyroidism Low TSH indicating hyperthyroid state. Home dose Synthroid decreased from 75 mcg to 50 mcg daily. History of afib Continued Eliquis Patient started on metoprolol. Overall patient clinically improved, has stable vitals and tolerating diet. She is deemed stable for discharge. Vital Signs/Physical Exam: Temp Pulse Resp BP Pulse Ox 97.7 F 87 17 138/75 100 10/18/24 12:00 10/18/24 12:00 10/18/24 12:00 10/18/24 12:10/18/24 12:00 General: Alert, In no apparent distress, Oriented x3 HEENT: Mucous membr. moist/pink, Sclerae nonicteric Neck: Supple, JVD not distended Respiratory: Clear to auscultation bilaterally, Normal air movement Cardiovascular: Normal S1 S2, Irregular heart rate/rhythm Gastrointestinal: Soft and benign, Non-distended, No tenderness Musculoskeletal: No swelling Integumentary: No rashes, No cyanosis Neurological: Normal strength at 5/5 x4 extr Laboratory Data at Discharge: WBC 4.70 thou/uL (4.3-10.9) 10/18/24 06:31 Hgb 11.4 g/dL (12.0-15.0) L 10/18/24 06:31 Hct 33.6 % (36.0-45.0) L 10/18/24 06:31 Plt Count 119 thou/uL (152-406) L 10/18/24 06:31 PT 26.7 SECONDS (9.4-12.5) H 10/15/24 18:09 INR 2.57 10/15/24 18:09 Sodium 139 mEq/L (136-145) 10/18/24 06:31 Potassium 3.8 mEq/L (3.5-5.1) D 10/18/24 11:53 BUN 34 mg/dL (7-18) H 10/18/24 06:31 Creatinine 1.37 mg/dL (0.55-1.02) H 10/18/24 06:31 Glucose 98 mg/dL (74-106) 10/18/24 06:31 Phosphorus 2.0 mg/dL (2.5-4.9) L 10/18/24 06:31 Magnesium 2.3 mg/dL (1.6-2.4) 10/15/24 18:09 Total Bilirubin 0.8 mg/dL (0.2-1.0) 10/16/24 06:27 AST 21 U/L (15-37) 10/16/24 06:27 ALT 17 U/L (13-56) 10/16/24 06:27 Alkaline Phosphatase 52 U/L (45-117) 10/16/24 06:27 Triglycerides 111 mg/dL (<150) 10/15/24 22:22 Cholesterol 114 mg/dL (<200) 10/15/24 22:22 HDL Cholesterol 30 mg/dL (40-60) L 10/15/24 22:22 Cholesterol/HDL Ratio 3.80 10/15/24 22:22 Lipase 49 U/L (13-75) 10/15/24 22:22 Home Medications: Apixaban [Eliquis] 5 mg PO BID 30 Days #60 tablet 04/15/24 Potassium Oral Tab [Klor-Con 10 mEq Tab*] 20 meq PO DAILY 30 Days #30 tab 09/17/24 Cholecalciferol (Vitamin D3) [Vitamin D3] 50,000 unit PO SEECOM 09/24/24 Levothyroxine [Synthroid*] 75 mcg PO [id number] 09/24/24 Metoprolol Tartrate [Lopressor*] 25 mg PO BID 6AM 6PM #60 tab 10/18/24 Pantoprazole [Protonix Tab] 40 mg PO DAILY #30 tab 10/18/24 New Medications: Metoprolol Tartrate [Lopressor*] 25 mg PO BID 6AM 6PM #60 tab Pantoprazole [Protonix Tab] 40 mg PO DAILY #30 tab Followup: NONE,NONE [Primary Care Provider] - 1-2 Weeks (call to schedule an appointment) Time spent managing pt's care (in minutes): 36
[2024-10-18] MEDS: METOPROLOL TAR 25 MG TAB PO SCH (15:30)
[2024-10-18 16:20] VITALS: O2SAT 99
--- NOTE | 2024-10-18 17:45 | P.PN ---
Subjective Date of Service: 10/18/24 Chief Complaint: chest pain, epigastric pain Patient complaining of abdominal pain this morning. Abdominal pain improved after she had a bowel movement Physical Examination - Vital Signs Temperature: 97.9 F Blood Pressure: 110/85 Pulse: 67 Respirations: 17 Pulse Ox (%): 99 - Studies Microbiology Data (last 24 hrs): 10/15/24 18:16 Clean Catch Urine [place] Count - Final BETWEEN 10,000 & 100,000 CFU/ML 10/15/24 18:16 Clean Catch Urine - Final MIXED SETH. Assessment And Plan - Plan Physical examination General: Alert and oriented x3, NAD, Neck: Supple, no elevated JVD Heart: Heart sounds 1 and 2 normal, regular rhythm, normal rate, no pedal edema Lungs: Clear to auscultation bilaterally, adequate breath sounds bilaterally, no rhonchi or crackles. Abdomen: Soft, nondistended, no tenderness, normal bowel sounds. Extremities: No tenderness. Skin: Normal skin turgor, no rash.. Neuro: No focal motor deficit. Normal speech. Psychiatry: Normal mood, no agitation. Assessment and plan Epigastric pain Likely noncardiac. Normal lipase level ct abd pelvis: No acute intra-abdominal pathology. Trial of Protonix, sucralfate. No GI available to evaluate. Elevated troponin cardiology Dr. Britt input appreciated. Troponin trended flat. Recent negative stress test per cardiology Elevated troponin deemed secondary to demand ischemia Echocardiogram: Normal EF, severely dilated left atrium. Cardiology to follow JED Likely prerenal secondary to dehydration Nephrology consulted. IV hydration Hold lisinopril. Hypokalemia Replace potassium as needed Monitor and optimize other electrolytes. hypothyroidism Low TSH indicating hyperthyroid state. Home dose Synthroid decreased from 75 mcg to 50 mcg daily. History of afib Continue Eliquis 10/17 Patient's symptoms significantly improved. Serum creatinine trended down significantly but not close to baseline. Continue IV hydration. Patient given IV NS bolus for borderline low BP. Continue PPI and sucralfate for gastritis. No GI bleed. Outpatient follow-up with GI. Nephrology is following and managing JED. Activity as tolerated. Cardiology is following. Patient is on Eliquis for A-fib. 10/18 Patient had abdominal pain which improved after bowel movement. Continue Protonix and sucralfate Renal function significantly improved, creatinine has improved to baseline. Patient started on metoprolol for A-fib Continue Eliquis. Aspirin discontinued due to risk of GI bleed with Eliquis. Supportive measures with antiemetics as tolerated. Diet as tolerated. DVT prophylaxis: Eliquis. Advanced directive: Full code
--- NOTE | 2024-10-19 00:23 | PN ---
Subjective Noovernight events cr down to 1.3 K replaced can be discahrged from nephrology point of view. Objective: Vital Signs: Temperature 97.9, pulse rate 67, General: Awake, alert, not in distress. Neck: Supple. No elevated JVD. Heart: Regular rate and rhythm. Normal S1, S2. Chest: Clear to auscultation bilaterally. No rales or wheezes. Abdomen: Soft, nontender. Extremities: No edema. Laboratory Data: White count 4.7, hemoglobin 11.4. Sodium 139, potassium 3.8, creatinine 1.3. Assessment And Plan: 1. Acute kidney injury secondary to dehydration , cont to hold lasix and lisinopril, renal dose meds, can be discahrged from nephrology point of view, can take lasix prn if edema or wt gain >5lbs 3. Atrial fibrillation. Rate controlled. 4. Nausea and vomiting, possibly due to gastroenteritis, resolved. Tolerating diet. 5. Hypothyroidism. Continue Synthroid. 6. Hypokalemia, resolved, potassium replaced. The patient is therefore discharged from Nephrology point of view. ANDREEA Voice ID: [id number] Report ID: [id number] ILIANA
[2024-10-19 00:42] VITALS: BMI 20.4
[2024-10-19 06:33] LABS: Albumin 2.7 g/dL (3.4-5.0); Anion Gap 10.1 mEq/L (5.0-15.0); Phosphorus 2.7 mg/dL (2.5-4.9); Potassium 4.1 mEq/L (3.5-5.1)
[2024-10-19 08:07] VITALS: BP 125/86; TEMP 97.8
--- NOTE | 2024-10-20 12:19 | EKG ---
Test Date: 2024-10-15 Test Time: 20:23:28 Bead Cutter: HALEIGH MEASUREMENT RESULTS: Intervals: Rate: 85 ME: QRSD: 112 QT: 402 QTc: 478 [place]: P: ME: QRS: 45 T: 223 INTERPRETIVE STATEMENTS: Atrial fibrillation with premature ventricular or aberrantly conducted complexes Marked ST abnormality, possible inferolateral subendocardial injury Abnormal ECG Compared to ECG 10/15/2024 20:00:09 Ventricular premature complex(es) now present Myocardial infarct finding no longer present Possible ischemia no longer present ST (T wave) deviation still present Electronically Signed On 10-20-24 12:13:34 GENERAL MANAGER LAND DEPARTMENT by Jovan Britt
--- NOTE | 2024-10-20 12:19 | EKG ---
Test Date: 2024-10-15 Test Time: 20:23:56 Energy And Sustainability Manager: HALEIGH MEASUREMENT RESULTS: Intervals: Rate: 70 ND: QRSD: 116 QT: 396 QTc: 427 [place]: P: ND: QRS: 45 T: 224 INTERPRETIVE STATEMENTS: Atrial fibrillation with premature ventricular or aberrantly conducted complexes Marked ST abnormality, possible inferior subendocardial injury Abnormal ECG Compared to ECG 10/15/2024 20:23:28 No significant changes Electronically Signed On 10-20-24 12:13:28 DIGITAL COMMENTATOR by Jovan Britt
--- NOTE | 2024-10-20 12:19 | EKG ---
Test Date: 2024-10-15 Test Time: 20:00:09 Bill Adjuster: RAMON MEASUREMENT RESULTS: Intervals: Rate: 74 DC: QRSD: 110 QT: 434 QTc: 481 [place]: P: DC: QRS: 37 T: 227 INTERPRETIVE STATEMENTS: Atrial fibrillation Septal infarct, age undetermined ST & T wave abnormality, consider inferior ischemia or digitalis effect ST & T wave abnormality, consider anterolateral ischemia or digitalis effect Abnormal ECG Compared to ECG 10/15/2024 18:01:07 Myocardial infarct finding now present Possible ischemia now present Prolonged QT interval no longer present ST (T wave) deviation still present Electronically Signed On 10-20-24 12:13:42 BLOOD COORDINATOR by Jovan Britt
--- NOTE | 2024-10-20 12:20 | EKG ---
Test Date: 2024-10-15 Test Time: 18:01:07 Thread Drawer: CHICA MEASUREMENT RESULTS: Intervals: Rate: 80 AL: QRSD: 114 QT: 436 QTc: 502 [place]: P: AL: QRS: 25 T: 211 INTERPRETIVE STATEMENTS: Atrial fibrillation Marked ST abnormality, possible lateral subendocardial injury Prolonged QT Abnormal ECG Compared to ECG 09/23/2024 20:25:38 Prolonged QT interval now present Myocardial infarct finding no longer present Possible ischemia no longer present ST (T wave) deviation still present Electronically Signed On 10-20-24 12:14:54 MATCHER OFFBEARER by Jovan Britt
== END 2024-10-19 10:55 | disposition home or self-care (01) | DRG 682 ==
LOC: ER 17:11 → ERHOLD 22:43 → 4TH 10-16 02:31
PROVIDERS: ADMIT Internal Medicine; ATTEND Internal Medicine
DX: N17.0 Acute kidney failure with tubular necrosis (principal); I21.A1 Myocardial infarction type 2; I50.32 Chronic diastolic (congestive) heart failure; I13.0 Hypertensive heart and chronic kidney disease with heart failure and stage 1 through stage 4 chronic kidney disease, or unspecified chronic kidney disease; N30.00 Acute cystitis without hematuria; N18.30 Chronic kidney disease, stage 3 unspecified; E87.6 Hypokalemia; E78.5 Hyperlipidemia, unspecified; E86.0 Dehydration; E03.9 Hypothyroidism, unspecified; K52.9 Noninfective gastroenteritis and colitis, unspecified; I48.91 Unspecified atrial fibrillation; I34.0 Nonrheumatic mitral (valve) insufficiency; E80.7 Disorder of bilirubin metabolism, unspecified; Z60.2 Problems related to living alone; Z79.01 Long term (current) use of anticoagulants; Z90.49 Acquired absence of other specified parts of digestive tract; Z90.710 Acquired absence of both cervix and uterus; Z79.890 Hormone replacement therapy; Z79.899 Other long term (current) drug therapy
CPT/HCPCS: 36415; 71045; 74176; 76770; 80048; 80053; 80061; 80069; 80076; 81001; 82570; 83690; 83735; 83880; 83970; 84132; 84156; 84443; 84484; 85025; 85610; 87086; 87088; 93005; 93306; 99285; J0696; J2470; J3480; J7030